=== PATIENT | male | born 1955 | race Caucasian/White ===

== ENCOUNTER 2024-02-12 11:17 | Outpatient (AMB) | payer OTHER, SELFPAY ==
--- NOTE | 2024-02-12 11:27 | MHC.PC.OV ---
Vital Signs 02/12/24 11:39 Height 5 ft 10 in Weight 275 lb BMI 39.5 BP 126/72 Blood Pressure Location Rt brachial Position Sitting Pulse 93 Pulse Source Pulse Oximeter Pulse Oximetry (%) 91 L Oxygen Delivery Method Room Air Intake Visit Reasons: EST CARE Intake Note: New patient visit Custom Seamstress Required: No Allergies Iodinated Contrast Media Allergy (Severe, Verified 02/12/24 11:31) Hives doxycycline Allergy (Mild, Verified 02/12/24 11:31) Vomiting Tobacco use date assessed: 02/12/24 Fall risk assessment: 1 Fall in past year Last assessed Fall Risk: 02/12/24 Dental Screening Dental Screen Date: 02/12/24 Did you have a dental visit in the last 12 months?: Yes Did you have a dental problem in the last 6 months where you did not have access to dental care?: No Was dental information given to patient?: Patient has dentist HPI HPI Comments History of Present Illness Details Patient is a 68-year-old male with insulin-dependent diabetes, prostate cancer, hypertension, neuropathy, [facility]ERD [facility] Type 2 diabetes: POC A1C 8.9% today.. On dexcom 7. On Lantus 55 units nightly and aspart t.i.d. CC as well as glipizide 20 mg daily. Neuropathy on Lyrica 200 mg twice daily. His most recent A1c was 9.3 12/12/2023. He was previously on ozempic and jardiance. Tried CGM katina Heme/Onc: Prostate cancer in 2017. What the there is Follows with Dr. Jacobs. On bicalutamide, oxybutynin. On prolia He was hospitalized at the end of November for COVID-19 and hyperglycemia. Requests pulmonary referral. Colonoscopy at age 51 LDCT ROS CONSTITUTIONAL: Denies weight loss, fever and chills. HEENT: Denies changes in vision and hearing. RESPIRATORY: Denies SOB and cough. CV: Denies palpitations and CP GI: Denies abdominal pain, nausea, vomiting and diarrhea. : Denies dysuria and urinary frequency. MSK: Denies new myalgia and joint pain. SKIN: Denies rash and pruritus. NEUROLOGICAL: Denies headache PSYCHIATRIC: Denies recent changes in mood. PHYSICAL EXAM: GENERAL: Alert and oriented x 3. NAD EYES: EOMI. Anicteric. HENT: Moist mucous membranes. No scleral icterus. No cervical lymphadenopathy. LUNGS: Clear to auscultation bilaterally. CARDIOVASCULAR: Regular rate and rhythm. No murmur. No JVD. ABDOMEN: Soft, non-tender +bs EXTREMITIES: No edema. Non-tender. SKIN: No rashes or lesions. Warm. NEUROLOGIC: No focal neurological deficits. CN II-XII grossly intact PSYCHIATRIC: Cooperative. Appropriate mood and affect [facility] Medical History Hernia Surgical History H/O vasectomy History of hernia surgery Family History Sister FH: mental illness Substance abuse Mother Diabetes Social History Housing: House Alcohol intake: current Patient Tobacco Use Status: Former Tobacco user Cigarette Packs Per Day: 4 Years Smoked: 35 e-Cigarette/Vaping Use: Never Used Second Hand Smoke Exposure: No Cognitive needs: No Hearing needs: No Vision needs: Yes (glasses) Questionnaire PHQ-9 Over the last 2 weeks, how often have you been bothered by any of the following problems? 1. Little interest or pleasure in doing things: more than half the days 2. Feeling down, depressed, or hopeless: several days 3. Trouble falling or staying asleep, or sleeping too much: nearly every day 4. Feeling tired or having little energy: nearly every day 5. Poor appetite or overeating: not at all 6. Feeling bad about yourself - or that you are a failure or have let yourself or your family down: several days 7. Trouble concentrating on things, such as reading the newspaper or watching television: not at all 8. Moving or speaking so slowly that other people could have noticed. Or the opposite - being so fidgety or restless that you have been moving around a lot more than usual: not at all 9. Thoughts that you would be better off or of hurting yourself in some way: not at all Total score: 10 Depression Screening Interpretation: Positive Depression Screening Follow-up: Declines treatment Depression Screening Done: Yes 02804 - PHQ-9 Billing: Yes Source: Developed by Drs. Sandro Pineda, Vanesa Worrell, Liang Mckee and colleagues, with an educational gema from [employer]. Thrive Questionnaire Date Thrive assessed: 02/12/24 I am a: Patient What is your living situation today?: I have a steady place to live Within the past 12 months, did the food you bought not last and you didn't have the money to get more?: Never true Within the past 12 months, did you worry whether your food would run out before you got money to buy more?: Never true Do you have trouble paying for medicines?: No Do you have trouble getting transportation to medical appointments?: No Do you have trouble paying your heating and electricity bill?: No Do you have trouble taking care of your child, family member or friend?: No Do you have trouble with day-to-day activities such as bathing, preparing meals, shopping, managing finances, etc.?: No Are you currently unemployed and looking for a job?: No Are you interested in more education?: No Please select the resources that you would like help with: None Currently or been in a relationship where the following occur: No concerns reported THRIVE Score: 0 AUDIT C Alcohol Use Questionnaire (AUDIT-C) 1. How often do you have a drink containing alcohol?: Monthly or less 2. How many drinks containing alcohol do you have on a typical day when you are drinking?: 1 or 2 3. How often do you have six or more drinks on one occasion?: Never Total Score: 1 SUJATHA-7 AMB Questionnaire SUJATHA-7 Date SUJATHA - 7 assessed: 02/12/24 Feeling nervous, anxious, or on edge: 0 = Not at all Not being able to stop or control worryin = Several days Worrying too much about different things: 1 = Several days Trouble relaxin = Several days Being so restless that it is hard to sit still: 0 = Not at all Becoming easily annoyed or irritable: 0 = Not at all Feeling afraid as if something awful might happen: 3 = Nearly every day Total SUJATHA-7 score (0-4 normal; 5-9 mild; 10-14 moderate; 15-21 severe): 6 Source: Developed by Vanesa Salazar.W. Gm, Liang Mckee and colleagues, with an educational gema from [employer]. SUJATHA-7 Assessment Billing SUJATHA-7 Assessment Tool: SUJATHA-7 Assessment 46988 Physical exam (Primary Care) Vital Signs: Last Vital Signs Pulse 93 02/12/24 11:39 BP 126/72 02/12/24 11:39 Pulse Ox 91 L 02/12/24 11:39 Oxygen Delivery Method Room Air 02/12/24 11:39 BMI result Body Mass Index 39.5 Tobacco/Smoking Status: Tobacco use Status Tobacco use date assessed 02/12/24 02/12/24 11:44 Patient Tobacco Use Status Former Tobacco user 02/12/24 11:44 e-Cigarette/Vaping Use Never Used 02/12/24 11:44 PHQ-9: PHQ-9 Score PHQ-9: Total score 10 02/14/24 11:34 Depression Screening Interpretation: Positive Depression Screening Follow-up: Declines treatment Thrive Assessment: Date of Thrive Assessment Date Thrive assessed 02/12/24 02/12/24 11:49 Currently or been in a relationship where the following occur: No concerns reported Results AMB Hemoglobin A1c AMB Hemoglobin A1c 8.9 % Last Edit by Trupti Murray CMA on 02/12/24 12:00 Results Reviewed Results Reviewed: Laboratory Last Values Hgb A1c (Clinic) 8.9 % (4.0-6.0) H 02/12/24 11:59 Coding Level of Care Code Est Pt Level 5 (38700) Diagnoses Type 2 diabetes mellitus with hyperglycemia, with long-term current use of insulin E11.65; Z79.4 Diabetes mellitus complication status: with hyperglycemia Diabetes mellitus terminal superintendent insulin use: with skilled nursing use Type 2 diabetes mellitus with hyperglycemia, with long-term current use of insulin E11.65; Z79.4 Diabetes mellitus complication status: with hyperglycemia Chronic obstructive pulmonary disease, unspecified COPD type J44.9 COPD type: unspecified COPD Additional Codes SUJATHA-7 Assessment Billing - SUJATHA-7 Assessment Tool: SUJATHA-7 Assessment 05272 ([id number]) PHQ-9 - 20115 - PHQ-9 Billing: Yes ([id number]) Assessment & Plan Assessment & Plan (1) Type 2 diabetes mellitus: Code(s): E11.9 - Type 2 diabetes mellitus without complications Category: Medical Qualifiers: Diabetes mellitus complication status: with hyperglycemia Diabetes mellitus skilled nursing insulin use: with skilled nursing use Qualified Code(s): E11.65 - Type 2 diabetes mellitus with hyperglycemia; Z79.4 - USP (current) use of insulin Plan: Increase sliding scale Continue current Lantus dose Restart Jardiance Start Mounjaro Return in one month for CGM check (2) Insulin use (long-term) in type 2 diabetes: Code(s): E11.9 - Type 2 diabetes mellitus without complications; Z79.4 - USP (current) use of insulin Category: Medical Qualifiers: Diabetes mellitus complication status: with hyperglycemia Qualified Code(s): E11.65 - Type 2 diabetes mellitus with hyperglycemia; Z79.4 - USP (current) use of insulin Plan: see above (3) COPD (chronic obstructive pulmonary disease): Code(s): J44.9 - Chronic obstructive pulmonary disease, unspecified Category: Medical Qualifiers: COPD type: unspecified COPD Qualified Code(s): J44.9 - Chronic obstructive pulmonary disease, unspecified Plan: referral to pulmonary. No current exacerbation Orders: Orders AMB Hemoglobin A1c 02/12/24 E11.9 - Type 2 diabetes mellitus without complications Comprehensive Met. Panel 3 Months E11.9 - Type 2 diabetes mellitus without complications, J44.9 - Chronic obstructive pulmonary disease, unspecified, R09.02 - Hypoxemia, Z79.4 - terminal superintendent (current) use of insulin Lipid Panel 3 Months E11.9 - Type 2 diabetes mellitus without complications, J44.9 - Chronic obstructive pulmonary disease, unspecified, R09.02 - Hypoxemia, Z79.4 - USP (current) use of insulin TSH reflex Free T4 3 Months E11.9 - Type 2 diabetes mellitus without complications, J44.9 - Chronic obstructive pulmonary disease, unspecified, R09.02 - Hypoxemia, Z79.4 - USP (current) use of insulin Complete Blood Count Auto Diff 3 Months E11.9 - Type 2 diabetes mellitus without complications, J44.9 - Chronic obstructive pulmonary disease, unspecified, R09.02 - Hypoxemia, Z79.4 - terminal superintendent (current) use of insulin Hemoglobin A1c 3 Months E11.9 - Type 2 diabetes mellitus without complications, J44.9 - Chronic obstructive pulmonary disease, unspecified, R09.02 - Hypoxemia, Z79.4 - USP (current) use of insulin Referrals Pulmonology Referral J44.9 - Chronic obstructive pulmonary disease, unspecified, R09.02 - Hypoxemia Dermatology Referral L98.9 - Disorder of the skin and subcutaneous tissue, unspecified Orthopedics Referral M25.521 - Pain in right elbow Open Access Screening Colonoscopy Referral Z12.11 - Encounter for screening for malignant neoplasm of colon, Z12.12 - Encounter for screening for malignant neoplasm of rectum Medications: New Jardiance (empagliflozin) 25 mg PO DAILY 90 tabs 3RF NS Dexcom G7 Sensor (blood-glucose sensor) once every 10 days 9 ea 3RF NS E11.9 - Type 2 diabetes mellitus without complications, Z79.4 - terminal superintendent (current) use of insulin omeprazole 20 mg PO DAILY 90 caps 3RF Novolog FlexPen U-100 Insulin (insulin aspart U-100) 1 sliding scale dose subcut USEASDIRECTD 45 mL 3RF 90 days NS Mounjaro (tirzepatide) for 4 weeks 2.5 mg (0.5 mL) subcut QWEEK 2 mL 0RF NS Dexcom G7 Gunstock Spray Unit Adjuster (blood-glucose meter,continuous) As directed 1 ea 0RF NS
[2024-02-12 11:39] VITALS: BP 126/72; PULSE 93; O2SAT 91; BMI 39.5
== END 2024-02-12 12:27 | disposition home or self-care (01) ==
PROVIDERS: PCP Internal Medicine; Visit Provider Internal Medicine
DX: E11.9 Type 2 diabetes mellitus without complications (principal)

== ENCOUNTER → 2024-02-12 11:17 | Outpatient (BNVA) | payer OTHER, SELFPAY | PROVIDERS: PCP Internal Medicine; Visit Provider Internal Medicine | DX: E11.65 Type 2 diabetes mellitus with hyperglycemia (principal); J44.9 Chronic obstructive pulmonary disease, unspecified; Z79.4 Long term (current) use of insulin | CPT/HCPCS: 83036; 96127 ==

== ENCOUNTER 2024-03-13 14:25 | Outpatient (AMB) | payer OTHER, SELFPAY ==
--- NOTE | 2024-03-13 14:33 | MHC.OFFVIS ---
Vital Signs 03/13/24 14:34 Height 5 ft 10 in Weight 274 lb BMI 39.3 BP 160/88 H Blood Pressure Location Lt brachial Position Sitting Respiration 16 Pulse 91 Pulse Source Pulse Oximeter Pulse Oximetry (%) 91 L Oxygen Delivery Method Room Air Intake Visit Reasons: copd/hypoxemia Pipe Finishing Supervisor Required: No Allergies Iodinated Contrast Media Allergy (Severe, Verified 03/13/24 14:36) Hives doxycycline Allergy (Mild, Verified 03/13/24 14:36) Vomiting Medication List - Last Reconciled 03/13/24 by Kim Jiménez LPN atorvastatin 10 mg PO DAILY bicalutamide 50 mg PO DAILY denosumab (Prolia) 60 mg subcut [id number] Dexcom G7 Contract Law Specialist (blood-glucose meter,continuous) As directed NS Dexcom G7 Sensor (blood-glucose sensor) once every 10 days NS glipizide ER 10 mg PO BID insulin glargine (Lantus Solostar U-100 Insulin) 55 units subcut DAILY lisinopril 30 mg PO DAILY Novolog FlexPen U-100 Insulin (insulin aspart U-100) 1 sliding scale dose subcut USEASDIRECTD 90 days NS omeprazole 20 mg PO DAILY oxybutynin chloride ER 10 mg PO DAILY pregabalin 200 mg PO BID trazodone 50 mg PO BEDTIME PRN triptorelin pamoate (Trelstar) IM HPI HPI copd/hypoxemia: Details: 68-year-old gentleman with underlying greater than 30 pack-year smoker, quit 2019 referred for pulmonary evaluation. Patient complains of intermittent dyspnea on exertion and also unrestful sleep with significant snoring and daytime sleepiness. He does have personal history of asthma as a child. He denies other family history of lung disease. 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 REPLACED BY [facility] Medical History Hernia Surgical History H/O vasectomy History of hernia surgery Family History Sister FH: mental illness Substance abuse Mother Diabetes Social History Housing: House Alcohol intake: current Patient Tobacco Use Status: Former Tobacco user Cigarette Packs Per Day: 4 Years Smoked: 35 e-Cigarette/Vaping Use: Never Used Second Hand Smoke Exposure: No Cognitive needs: No Hearing needs: No Vision needs: Yes (glasses) Review of Systems Const Reports daytime sleepiness, Denies excessive sweating, Reports fatigue, Denies fever(s), Reports lethargy, Denies malaise, Denies night sweats, Reports snoring and Denies weight loss Eyes Denies blurry vision and Denies itchy eyes ENT Denies nasal congestion, Denies post nasal drip, Denies sinus pain, Denies sinus pressure and Denies other ( Thrush) Card Denies chest pain, Denies pedal edema, Denies dyspnea, Denies orthopnea and Denies paroxysmal nocturnal dyspnea Resp Denies cough, Denies hemoptysis, Denies excessive phlegm production, Denies dyspnea, Reports snoring and Denies wheezing GI Denies abdominal pain and Denies heartburn Musc Denies myalgias, Denies arthralgias and Denies joint swelling Skin/Breast Denies rash Neuro Denies memory loss and Denies seizure-like activity Psych Denies abnormal sleep pattern, Denies anxiety and Denies memory loss Endo Denies excessive sweating, Reports fatigue and Denies heat intolerance Jackson/Lymph Denies easy bruising Aller/Immun Denies itchy eyes, Denies seasonal rhinorrhea and Denies wheezing Physical Exam Vital Signs: Last Vital Signs Pulse 91 03/13/24 14:34 Resp 16 03/13/24 14:34 BP 160/88 H 03/13/24 14:34 Pulse Ox 91 L 03/13/24 14:34 Oxygen Delivery Method Room Air 03/13/24 14:34 BMI result Body Mass Index 39.3 Const General: no acute distress and alert Nutritional Appearance: obese Orientation/consciousness: Other orientation findings ( oriented) HEENT Head: Yes atraumatic Eyes General: appearance normal, both eyes and all related structures Sclerae: sclerae normal EOM: EOMs intact bilaterally Neck Neck: Yes supple Lymphatic: no lymphadenopathy noted Resp Effort & Inspection: normal respiratory effort and no use of accessory muscles Auscultation: clear to auscultation bilaterally Cardio Rate: regular rate Rhythm: regular rhythm Heart sounds: no gallops, no murmurs and no rubs Skin General skin exam: other ( warm) Extrem General: No clubbing, No cyanosis and No edema Assessment & Plan Assessment & Plan (1) COPD (chronic obstructive pulmonary disease): Code(s): J44.9 - Chronic obstructive pulmonary disease, unspecified Category: Medical Qualifiers: COPD type: unspecified COPD Qualified Code(s): J44.9 - Chronic obstructive pulmonary disease, unspecified Plan: Likely underlying COPD of unclear severity. Patient states that he had recent testing at [facility], will obtain PFT and lung cancer screening CT chest results. Will start on empiric Anoro and reassess symptoms in 1 months. (2) BUTCH (obstructive sleep apnea): Code(s): G47.33 - Obstructive sleep apnea (adult) (pediatric) Category: Medical Plan: Unrestful sleep, daytime sleepiness, snoring. [place] Sleepiness Scale score of 15. Will obtain home sleep study. Orders: Orders RT home sleep study Today G47.33 - Obstructive sleep apnea (adult) (pediatric) Medications: New umeclidinium-vilanterol 62.5-25 mcg/actuation (Anoro Ellipta) 1 inh inhalation DAILY 1 ea 6RF Coding Level of Care Code New Pt Level 4 (30577) Diagnoses Chronic obstructive pulmonary disease, unspecified COPD type J44.9 COPD type: unspecified COPD BUTCH (obstructive sleep apnea) G47.33
[2024-03-13 14:34] VITALS: BP 160/88; PULSE 91; RESP 16; O2SAT 91; BMI 39.3
--- OUTSIDE RECORDS SUMMARY | 2024-03-13 16:36 | XMS_ITS ---
Author Organization [employer] [facility] Address [address] [place] [phone] Care Team Providers Care Primary Care Sales Representative Name Role Phone JAD SORENSEN Primary Care Provider [phone] JEB MARTÍNEZ Unavailable [phone] ALLERGIES Allergen (clinical drug ingredient) Drug/Non Drug Allergy documented on EMR Reaction Allergy Type Onset Date Status doxycycline Doxycycline stomach upset Drug Allergy Active Gadolinium hives Drug Allergy Active REASON FOR VISIT f/u meds MEDICATIONS Medication SIG (Take, Route, Frequency, Duration) Notes Start Date End Date Status FreeStyle Aide 3 Sensor - as directed for 90 days 11/25/2022 Not-Taking Bicalutamide 50 MG 1 tablet Orally Once a day Not-Taking Vitamin D2 15626 IU Not-Takin g Azithromycin 250 MG as directed Orally daily for 5 days 06/14/2023 Active Ozempic (0.25 or 0.5 MG/DOSE) 2 MG/3ML 0.5mg Subcutaneous weekly for 28 days 06/14/2023 Active oxyBUTYnin Chloride ER 10 MG 1 tablet Orally Once a day for 90 days 06/06/2023 07/06/2023 Active Atorvastatin Calcium 10 MG TAKE 1 TABLET BY MOUTH EVERY DAY for 90 Active Ozempic (0.25 or 0.5 MG/DOSE) 2 MG/3ML 0.5mg Subcutaneous once a week for 90 days 04/26/2023 Not-Taking Jardiance 25 MG 1 tablet Orally Once a day for 90 days 09/12/2023 Active Ozempic (0.25 or 0.5 MG/DOSE) 2 MG/3ML 0.5mg Subcutaneous once a week for 90 days 04/26/2023 Not-Taking glipiZIDE 10 MG 1 tablet Orally Twice a day for 90 days Active Pregabalin 200 MG 1 Capsule Orally Twice a day Active Prolia 60 MG/ML as directed Subcutaneous Every 6 month Active Lisinopril 20 MG 1 tablet Orally Once a day for 90 days Active traZODone HCl 50 MG TAKE 1 TABLET BY MOUTH EVERY DAY AT BEDTIME NEEDED for 90 Active Trelstar Every 3 months Active Vitamin D3 50 MCG (1999) 1 capsule Orally Once a day Active SOCIAL HISTORY Tobacco Use: Social History Observation Description Date Details (start date - stop date) Current Smoker NA - NA Sex Assigned At : Social History Observation Description Sex Assigned At Unknown Tobacco Use/Smoking Question Answer Notes Tobacco use: current smoker When did you start smoking? 02-13-1973 How often do you smoke cigarettes? every day How many cigarettes a day do you smoke? 5 or les s Additional Findings: Tobacco User Very h eavy cigarette smoker (40+ cigs/day) Section Notes: Lives in [facility] with his , youngest daughter and grandsone. 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 VITAL SIGNS Blood pressure systolic 114 mm Hg 06/14/19 24 Blood pressure diastolic 72 mm Hg 024 Heart Rate 87 /min 06/14/2023 Height 69.5 in 06/14/2023 Weight 259.0 lbs 06/14/2023 BMI 37.7 kg/m2 06/14/2023 Oximetry 97 % 06/14/2023 Height-cm 176.53 cm 06/14/2023 Weight-kg 117.48 kg 06/14/2023 Encounters Encounter Location Date Provider Diagnosis [address] [id number] 06/14/2023 JEB MARTÍNEZ Type 2 diabetes mellitus with diabetic chronic kidney disease E11.22 and Upper respiratory tract infection, unspecified type J06.9 ASSESSMENTS Encounter Date Diagnosis Assessment Notes Treatment Notes Treatment Clinical Notes Section Notes 06/14/2023 Type 2 diabetes mellitus with diabetic chronic kidney disease (ICD-10 - E11.22) Pt has improved control with the ozempic Will order the 0.5mg weekly with PA still pending Jardiance PA still pending with samples provided along with coupon card Continues to decline CGM Continue to encourage checking blood sugars 06/14/2023 Upper respiratory tract infection, unspecified type (ICD-10 - J06.9) Given comorbidities and just over a week with cough will start azithromycin Mucines DM scheduled Fluids 06/14/2023 Other Total time spent with patient 20 minutes which includes face to face visit, education and coordination of care. 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 practice PLAN OF TREATMENT Medication Medication Name Sig Start Date Stop Date Notes Azithromycin 250 MG as directed Orally d aily for 5 days 06/14/2023 Ozempic (0.25 or 0.5 MG/DOSE ) 2 MG/3ML 0.5mg Subcutaneous weekly for 28 days 06/14/2023 Jardiance 25 MG 1 tablet Orally Once a day for 90 days 09/12/2023 Treatment Notes Assessment Notes Type 2 diabetes mellitus wit h diabetic chronic kidney disease Pt has improved control with the ozempic Will order the 0.5mg weekly with PA still pending Jardiance PA still pending with samples provided along with coupon card Continues to decline CGM Continue to encourage checking blood sugars Upper respiratory tract infe ction, unspecified type Given comorbidities and just over a week with cough will start azithromycin Mucines DM scheduled Fluids Other Total time spent with patient 20 minutes which includes face to face visit, education and coordination of care. 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 Reynaldo Lares.? Providers/Specialists: Receiving Worker Holger Fox Providers/Specialists: Receiving Worker Holger Fox. ?Visit info:? Andrez presents today for f/u med review. ?He states that he's out of the Ozempic, took the 6wks of samples, pending PA - last dose last Monday. ?-Pt slipped on stairs last week landed on buttocks and back; fell down 4 stairs. States only had sore mid back. No numbness or tingling of legs ?-Continues to only take BS occasionally but noted fasting blood sugars improved to 120's ?-Also for the last week has been coughing; feels in the chest, rattling. Household had URI ?-No SOB, CP or fever. * ROS:?all systems reviewed and are non-contributory unless specified in the HPI. * Medical History:?? * Surgical History:??Kidney tenorio rgery to remove nodules 2018Hernia Surgery 2016Wisdom Teeth Removal Deviated Septum Surgery * Hospitalization/Major Diagno stic Procedure:?? * Family History:??Father: dec eased, emphysema.??Mother: , Diabetes II.??Paternal Grandfather: , Unknown.??Paternal Grandmother: , Unknown.??Maternal Grandfather: , Unknown.??Maternal Grandmother: , Unknown.??Brother: , Heart Attack.??Sister: , Peritinitis.??Son: 33 yrs, Suicide.??Sister #2: , Unknown.?? * Social History:?Tobacco Use:??Tobacco Use/Smoking??Tobacco use:??current smoker,??When did you start smoking???02-13-1973,??How often do you smoke cigarettes???every day,??How many cigarettes a day do you smoke???5 or less,??Additional Findings: Tobacco User??Very heavy cigarette smoker (40+ cigs/day).?Drugs/Alcohol:??Do you smoke marijuana?: Denies. Do you drink alcohol?: Yes, occasional - once a year Joaquin.. ?Lives in [place], [place] with his , youngest daughter and grandsone. 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 * Medications:??TakingJardianc e 25 MG Tablet 1 tablet Orally Once a day Vitamin D3 50 MCG (1999) Capsule 1 capsule Orally Once a day Trelstar , Notes to Pharmacist: Every 3 monthsProlia 60 MG/ML Solution Prefilled Syringe as directed Subcutaneous , Notes to Pharmacist: Every 6 monthPregabalin 200 MG Capsule 1 Capsule Orally Twice a day traZODone HCl 50 MG Tablet TAKE 1 TABLET BY MOUTH EVERY DAY AT BEDTIME NEEDED Lisinopril 20 MG Tablet 1 tablet Orally Once a day glipiZIDE 10 MG Tablet 1 tablet Orally Twice a day take before mealsoxyBUTYnin Chloride ER 10 MG Tablet Extended Release 24 Hour 1 tablet Orally Once a day , stop date 07/06/2023torvastatin Calcium 10 MG Tablet TAKE 1 TABLET BY MOUTH EVERY DAY Taking Jardiance 25 MG Tablet 1 tablet Orally Once a day Taking Vitamin D3 50 MCG (1999 [place]) Capsule 1 capsule Orally Once a day Taking Trelstar , Notes to Pharmacist: Every 3 monthsTaking Prolia 60 MG/ML Solution Prefilled Syringe as directed Subcutaneous , Notes to Pharmacist: Every 6 monthTaking Pregabalin 200 MG Capsule 1 Capsule Orally Twice a day Taking traZODone HCl 50 MG Tablet TAKE 1 TABLET BY MOUTH EVERY DAY AT BEDTIME NEEDED Taking Lisinopril 20 MG Tablet 1 tablet Orally Once a day Taking glipiZIDE 10 MG Tablet 1 tablet Orally Twice a day take before mealsTaking oxyBUTYnin Chloride ER 10 MG Tablet Extended Release 24 Hour 1 tablet Orally Once a day , stop date 07/06/2023Taking Atorvastatin Calcium 10 MG Tablet TAKE 1 TABLET BY MOUTH EVERY DAY Not- TakingOzempic (0.25 or 0.5 MG/DOSE) 2 MG/3ML Solution Pen-injector 0.5mg Subcutaneous once a week Ozempic (0.25 or 0.5 MG/DOSE) 2 MG/3ML Solution Pen-injector 0.5mg Subcutaneous once a week Vitamin D2 , Notes to Pharmacist: 03405 IUBicalutamide 50 MG Tablet 1 tablet Orally Once a day FreeStyle Aide 3 Sensor - Miscellaneous as directed change sensor every 14 daysMedication List reviewed and reconciled with the patientNot-Taking Ozempic (0.25 or 0.5 MG/DOSE) 2 MG/3ML Solution Pen-injector 0.5mg Subcutaneous once a week Not-Taking Ozempic (0.25 or 0.5 MG/DOSE) 2 MG/3ML Solution Pen-injector 0.5mg Subcutaneous once a week Not-Taking Vitamin D2 , Notes to Pharmacist: 30877 IUNot-Taking Bicalutamide 50 MG Tablet 1 tablet Orally Once a day Not-Taking FreeStyle Aide 3 Sensor - Miscellaneous as directed change sensor every 14 daysMedication List reviewed and reconciled with the patient * Allergies:??Doxycycline: sto mach upset - AllergyGadolinium: hives - Allergy Objective: * Vitals:??BP:114/72mm Hg, HR: 87/min, Oxygen sat %:97%, Wt:259.0lbs, Wt-k.48 kg, Ht: 69.5 in, Ht-cm: 176.53 cm, BMI:37.7Index, Body Surface Area: 2.4. * Examination: ?General Examination: ?GEN: NAD, speaking in full complete sentences, thoughts clear and appropriate ?RESP: nonlabored breathing, lungs clear/equal all zaidi ?CV: S1S2 regular ?NEURO: AO x 3 ?PSYCH: judgment/insight intact, NL mood/affect. Assessment: * Assessment: 1.??Type 2 diabetes mellitus with diabetic chronic kidney disease - E11.22 (Primary)??2.??Upper respiratory tract infection, unspecified type - J06.9?? Plan: * Treatment: 2.??Upper respiratory tract infection, unspecified type?? Start Azithromycin Tablet, 250 MG, as directed, Orally, daily take 2 tabs day one then one tab daily for 4 daily, 5 days, 6.? Notes: Given comorbidities and just over a week with cough will start azithromycin Mucines DM scheduled Fluids ? 3.??Others?? Notes: Total time spent with patient 20 minutes which includes face to face visit, education and coordination of care. 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 * Procedure Codes:?? * Preventive Medicine:?Last CPE: 2020 Colonoscopy: Yes, over 10 years ago - polyps found Endoscopy: No COVID Vac: Yes, 3 boosters - Newest COVID Shot, yes FLU Vac: Yes for Shingles Vac: No PV: Yes (2). * Billing Information: * Visit Code:?? 32773 Office Visit, Est Pt., Level 3. * Procedure Codes:?? * Sign off status: Completed true * Provider:??JEB MARTÍNEZ NP Date:?? History and Physical Notes * HPI (History of Present Illness) Category Sub-Category Detail Notes Category Not es Patient Care Team Oncologist: Dr. Jacobs , Dr. Weir on Providers/Specialists : Receiving Workersandy Fox Providers/Specialists : Receiving Worker Holger Fox Examination Category Sub-Category Detail Notes Category Not es General Examination GEN: NAD, speaking in full complete sentences, thoughts clear and appropriate RESP: nonlabored breathing, lungs clear/equal all zaidi CV: S1S2 regular NEURO: AO x 3 PSYCH: judgment/insight intact, NL mood/affect
--- OUTSIDE RECORDS SUMMARY | 2024-03-13 16:36 | XMS_ITS | Patient Health Record ---
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 Name Role Phone Damaris Ponce Primary Care Provider CHRISTY Huertas Unavailable [phone] Allergies Allergen (clinical drug ingredient) Drug/Non Drug Allergy documented on EMR Reaction Allergy Type Onset Date Status IV contrast dye (uncoded) hives Allergy Active doxycycline Doxycycline vomiting Drug Allergy Act adonay Reason For Referral No Information Medications Medication SIG (Take, Route, Frequency, Duration) Notes Start Date End Date Status NovoLOG 100 UNIT/ML as directed Injection sliding scale Active Gabapentin 600 MG 1 tablet Orally 3 times daily Not-Taking Lyrica 200 MG 1 capsule Orally Twice a day for 90 days 01/19/2023 Not-Taking Bicalutamide 50 MG 1 tablet Orally Once a day Not-Taking Ozempic 2.5mg once a day Not-Taking Lyrica 200 MG 1 capsule Orally Twice a day for 90 days 03/08/2024 Active Pregabalin 200 MG 1 capsule Orally twice daily for 90 days 02/09/2024 Active Terbinafine HCl 250 MG 1 tablet Orally Once a day for 90 days 10/02/2020 Not-Taking Atorvastatin Calcium 10 MG 1 tablet Orally Once a day Active Gabapentin 100 MG 1 capsule Orally see instructions for 60 days weaning him off the medication- first 2 weeks 800mg PO TID, next 2 weeks take 600mg PO TID, week 4 take 400mg PO TID, week 6 take 200mg PO TID, week 8 take 100 mg TID 12/27/2019 Not-Taking traZODone HCl 50 MG 1 tablet at bedtime as needed Orally Once a day Active Gabapentin 800 MG 1 tablet Orally three times a day for 30 day(s) 10/04/2019 Not-Taking Lisinopril 20 MG 1 tablet Orally Once a day Active Aspirin daily Not-Taking oxyBUTYnin Chloride ER 10 MG 2 tablets Orally Once a day Active Empagliflozin 10 MG 1 tablet Orally Once a day Not-Taking Lantus 100 UNIT/ML as directed Subcutaneous Active Bisacodyl 5 MG 1 tablet as needed Orally as directed Not-Taking Problems Problem Type SNOMED Code ICD Code Onset Dates Problem Status W/U Status Risk Notes Problem Polyneuropathy due to type 2 diabetes mellitus (472814867) Controlled type 2 diabetes mellitus with diabetic polyneuropathy , without long-term current use of insulin (E11.42) Active confirmed Problem 983750640 Arthritis, midfoot (M19.079) Active confirmed Problem 835366314 Arthritis of foot (M19.079) Active confirmed Vital Signs Heart Rate 107 /min 03/08/2024 Temperature 97.1 degrees Fahrenheit 03/08/2024 Respiratory Rate 16 /min 03/08/2024 Height 5ft 9in in 03/08/2024 Weight 273.4 lbs 03/08/2024 BMI 40.37 kg/m2 03/08/2024 Procedures Procedure Date Ordered Date Performed Result Body Sit e DRAIN/INJECT, INTERMEDIATE JOINT/BURSA 03/08/2024 N/A Encounters Encounter Location Date Provider Diagnosis [facility] [address] [address] 04/17/2023 CHRISTY WILHELM Controlled type 2 diabetes mellitus with diabetic polyneuropathy, without long-term current use of insulin E11.42 ; Dystrophic nail L60.3 ; Onychomycosis B35.1 ; Pain in right toe(s) M79.674 ; Pain in left toe(s) M79.675 and Arthritis of foot M19.079 [facility] [address] [id number] 07/21/2023 CHRISTY WILHELM Controlled type 2 diabetes mellitus with diabetic polyneuropathy, without long-term current use of insulin E11.42 ; Dystrophic nail L60.3 ; Onychomycosis B35.1 ; Pain in right toe(s) M79.674 ; Pain in left toe(s) M79.675 and Arthritis of foot M19.079 [facility] [address] 12/06/2023 CHRISTY WILHELM Controlled type 2 diabetes mellitus with diabetic polyneuropathy, without long-term current use of insulin E11.42 ; Dystrophic nail L60.3 ; Onychomycosis B35.1 ; Pain in right toe(s) M79.674 ; Pain in left toe(s) M79.675 and Arthritis of foot M19.079 [facility] [address] 03/08/2024 CHRISTY WILHELM Controlled type 2 diabetes mellitus with diabetic polyneuropathy, without long-term current use of insulin E11.42 ; Dystrophic nail L60.3 ; Onychomycosis B35.1 ; Pain in right toe(s) M79.674 ; Pain in left toe(s) M79.675 and Arthritis of foot M19.079 [facility] [address] 05/05/2023 CHRISTY WILHELM [facility] [address] 05/08/2023 CHRISTY WILHELM [facility] [address] 09/20/2023 CHRISTY WILHELM [facility] [address] 11/07/2023 CHRISTY WILHELM Controlled type 2 diabetes mellitus with diabetic polyneuropathy, without long-term current use of insulin E11.42 [facility] [address] 02/09/2024 CHRISTY WILHELM [facility] [address] 03/11/2024 CHRISTY WILHELM Assessments Encounter Date Diagnosis (ICD Code) Assessment Notes Treatment Notes Treatment Clinical Notes Section Notes 04/17/2023 Controlled type 2 diabetes mellitus with diabetic polyneuropathy, without long-term current use of insulin (ICD-10 - E11.42) Discussed with patient regarding proper glucose control, exercise, and diet. Explained to patient proper shoe gear, and importance of daily foot checks. I educated the patient on proper blood sugar control and the importance of an HgBA1c of less than 7.0%. I reviewed the signs and symptoms of neuropathy with the patient. I explained his pain is due to his neuropathy. We discussed alternative options. We discussed increasing the Lyrica. He is to continue using the Lyrica but increase to 200 mg PO BID. We discussed that neuropathy pain is difficult to treat and oral medications may not resolve all his symptoms as diabetic control is most important. Patient is in agreement with the plan. 07/21/2023 Controlled type 2 diabetes mellitus with diabetic polyneuropathy, without long-term current use of insulin (ICD-10 - E11.42) Discussed with patient regarding proper glucose control, exercise, and diet. Explained to patient proper shoe gear, and importance of daily foot checks. I educated the patient on proper blood sugar control and the importance of an HgBA1c of less than 7.0%. I reviewed the signs and symptoms of neuropathy with the patient. I explained his pain is due to his neuropathy. We discussed alternative options. We discussed increasing the Lyrica. He is to continue using the Lyrica but increase to 200 mg PO BID. We discussed that neuropathy pain is difficult to treat and oral medications may not resolve all his symptoms as diabetic control is most important. Patient is in agreement with the plan. 11/07/2023 Controlled type 2 diabetes mellitus with diabetic polyneuropathy, without long-term current use of insulin (ICD-10 - E11.42) 12/06/2023 Controlled type 2 diabetes mellitus with diabetic polyneuropathy, without long-term current use of insulin (ICD-10 - E11.42) Discussed with patient regarding proper glucose control, exercise, and diet. Explained to patient proper shoe gear, and importance of daily foot checks. I educated the patient on proper blood sugar control and the importance of an HgBA1c of less than 7.0%. I reviewed the signs and symptoms of neuropathy with the patient. I explained his pain is due to his neuropathy. He is to continue using the Lyrica 200 mg PO BID. We discussed that neuropathy pain is difficult to treat and oral medications may not resolve all his symptoms as diabetic control is most important. Patient is in agreement with the plan. 03/08/2024 Controlled type 2 diabetes mellitus with diabetic polyneuropathy, without long-term current use of insulin (ICD-10 - E11.42) Discussed with patient regarding proper glucose control, exercise, and diet. Explained to patient proper shoe gear, and importance of daily foot checks. I educated the patient on proper blood sugar control and the importance of an HgBA1c of less than 7.0%. I reviewed the signs and symptoms of neuropathy with the patient. I explained his pain is due to his neuropathy. He is to continue using the Lyrica 200 mg PO BID. We discussed that neuropathy pain is difficult to treat and oral medications may not resolve all his symptoms as diabetic control is most important. Patient is in agreement with the plan. 03/08/2024 Dystrophic nail (ICD-10 - L60.3) He has 5% involvement of bruising under the left hallux. We discussed these will grow out as the toenails grow. He does not need further intervention at this time. Aseptic debridement of toenails x 10 with eyeglass lens cutter and curette, pt tolerated well. Discussed with the patient that routine nail care services are only covered by insurance every 60 days. Pt understands that if they would like to return prior to this time frame, they may have to pay out of pocket. 12/06/2023 Dystrophic nail (ICD-10 - L60.3) He has 5% involvement of bruising under the left hallux. We discussed these will grow out as the toenails grow. He does not need further intervention at this time. Aseptic debridement of toenails x 10 with eyeglass lens cutter and curette, pt tolerated well. Discussed with the patient that routine nail care services are only covered by insurance every 60 days. Pt understands that if they would like to return prior to this time frame, they may have to pay out of pocket. 07/21/2023 Dystrophic nail (ICD-10 - L60.3) He has 5% involvement of bruising under the left hallux. We discussed these will grow out as the toenails grow. He does not need further intervention at this time. Aseptic debridement of toenails x 10 with eyeglass lens cutter and curette, pt tolerated well. Discussed with the patient that routine nail care services are only covered by insurance every 60 days. Pt understands that if they would like to return prior to this time frame, they may have to pay out of pocket. 04/17/2023 Dystrophic nail (ICD-10 - L60.3) He has 5% involvement of bruising under the left hallux. We discussed these will grow out as the toenails grow. He does not need further intervention at this time. Aseptic debridement of toenails x 10 with eyeglass lens cutter and curette, pt tolerated well. Discussed with the patient that routine nail care services are only covered by insurance every 60 days. Pt understands that if they would like to return prior to this time frame, they may have to pay out of pocket. 04/17/2023 Onychomycosis (ICD-10 - B35.1) I reviewed with the patient various treatment methods for toenail fungus including: topical, oral, laser, and removal of the infected toenails. 07/21/2023 Onychomycosis (ICD-10 - B35.1) I reviewed with the patient various treatment methods for toenail fungus including: topical, oral, laser, and removal of the infected toenails. 12/06/2023 Onychomycosis (ICD-10 - B35.1) I reviewed with the patient various treatment methods for toenail fungus including: topical, oral, laser, and removal of the infected toenails. 03/08/2024 Onychomycosis (ICD-10 - B35.1) I reviewed with the patient various treatment methods for toenail fungus including: topical, oral, laser, and removal of the infected toenails. 03/08/2024 Pain in right toe(s) (ICD-10 - M79.674) 07/21/2023 Pain in right toe(s) (ICD-10 - M79.674) 12/06/2023 Pain in right toe(s) (ICD-10 - M79.674) 04/17/2023 Pain in right toe(s) (ICD-10 - M79.674) 04/17/2023 Pain in left toe(s) (ICD-10 - M79.675) 12/06/2023 Pain in left toe(s) (ICD-10 - M79.675) 07/21/2023 Pain in left toe(s) (ICD-10 - M79.675) 03/08/2024 Pain in left toe(s) (ICD-10 - M79.675) 03/08/2024 Arthritis of foot (ICD-10 - M19.079) We discussed the pain in the feet is due to his arthritis and the neuropathy. I recommended he continues to wear supportive shoes. We discussed there is no cure for arthritis. Consent was reviewed and signed by the patient for a steroid injection into the left subtalar joint. Pt agreed. 3cc total steroid injection was given into the left foot. Pt tolerated well. Post-Injection instructions were given to the patient. Pt instructed to ice/elevate the foot tonight. Patient to avoid exercise related activity for the next 3-5 days. 12/06/2023 Arthritis of foot (ICD-10 - M19.079) We discussed the pain in the feet is due to his arthritis and the neuropathy. I recommended he continues to wear supportive shoes. We discussed there is no cure for arthritis. Heat typically will work better for pain. 04/17/2023 Arthritis of foot (ICD-10 - M19.079) We discussed the pain in the feet is due to his arthritis and the neuropathy. I recommended he continues to wear supportive shoes. We discussed there is no cure for arthritis. Heat typically will work better for pain. 07/21/2023 Arthritis of foot (ICD-10 - M19.079) We discussed the pain in the feet is due to his arthritis and the neuropathy. I recommended he continues to wear supportive shoes. We discussed there is no cure for arthritis. Heat typically will work better for pain. Plan Of Treatment Pending Test Test Name Order Date DRAIN/INJECT, INTERMEDIATE JOINT/BURSA 0 03/08/2024 Next Appt Details Provider Name:CHRISTY WILHELM, 06/07/2024 04:00:00 PM, [address] [facility] [address], [place], [address], Insurance Providers Payer Name Payer Address Payer Phone Subscriber Number Group Number Insured Name Patient Relationship to Insured Coverage Start Date Coverage End Date [employer] [address] [place] [phone] [id number] Andrez Gauthier Self - patient is the insured Medications Administered Medication Instructions Date of Administration Dosage Notes dexAMETHasone Sod Phosphate PF 03/08/2024 0.5 m L Kenalog 03/08/2024 0.5 mL Medical (General) History Medical History History ICD Code hypercholesterolemia hyperplastic colon polyp essential hypertension hepatic steatosis bilateral renal masses lumbar degenerative disc disease prostate cancer uncontrolled 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
--- OUTSIDE RECORDS SUMMARY | 2024-03-13 16:37 | XMS_ITS ---
Author Organization [facility] Address [address] [place] [phone] Care Team Providers Care Goring Cutter Name Role Phone JAD SORENSEN Primary Care Provider JEB MARTÍNEZ Unavailable [phone] ALLERGIES Allergen (clinical drug ingredient) Drug/Non Drug Allergy documented on EMR Reaction Allergy Type Onset Date Status doxycycline Doxycycline stomach upset Drug Allergy Active Gadolinium hives Drug Allergy Active REASON FOR VISIT F/U DIABETIC CHECK MEDICATIONS Medication SIG (Take, Route, Frequency, Duration) Notes Start Date End Date Status Lisinopril 20 MG 1 tablet Orally Once a day for 90 days Active traZODone HCl 50 MG 1 tablet at bedtime as needed Orally Once a day for 90 days Active FreeStyle Aide 3 Sensor - as directed for 90 days 11/25/2022 Not-Taking glipiZIDE 10 MG 1 tablet Orally Twice a day for 90 days Active Jardiance 25 MG TAKE 1 TABLET BY MOUTH DAILY orally Once a day for 90 days 06/05/2023 Active Atorvastatin Calcium 10 MG 1 tablet Orally Once a day for 90 days Active Pregabalin 200 MG 1 Capsule Orally Twice a day Active oxyBUTYnin Chloride ER 10 MG 1 tablet Orally Once a day for 90 days 06/05/2023 Active Prolia 60 MG/ML as directed Subcutaneous Every 6 month Active Bicalutamide 50 MG 1 tablet Orally Once a day Not-Taking Vitamin D2 45187 IU Not-Takin g Trelstar Every 3 months Active Vitamin D3 Active Ozempic (0.25 or 0.5 MG/DOSE) 2 MG/3ML 0.5mg Subcutaneous once a week for 90 days 04/26/2023 Active Ozempic (0.25 or 0.5 MG/DOSE) 2 MG/3ML 0.5mg Subcutaneous once a week for 90 days 04/26/2023 Active SOCIAL HISTORY Tobacco Use: Social History [...] smoker (40+ cigs/day) Section Notes: Lives in [facility] with his , youngest daughter and grandsone. 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 VITAL SIGNS Blood pressure systolic 118 mm Hg 04/26/19 24 Blood pressure diastolic 70 mm Hg 024 Heart Rate 89 /min 04/26/2023 Height 69.5 in 04/26/2023 Weight 259.6 lbs 04/26/2023 BMI 37.78 kg/m2 04/26/2023 Oximetry 91 % 04/26/2023 Height-cm 176.53 cm 04/26/2023 Weight-kg 117.75 kg 04/26/2023 Encounters Encounter Location Date [facility] [address] [phone] 04/26/2023 JEB MARTÍNEZ Diabetic polyneuropathy associated with type 2 diabetes mellitus E11.42 ASSESSMENTS Encounter Date Diagnosis Assessment Notes Treatment Notes Treatment Clinical Notes Section Notes 04/26/2023 Diabetic polyneuropathy associated with type 2 diabetes mellitus (ICD-10 - E11.42) Pt continues with suboptimal control Awaiting approval for jardiance with samples provided Re-ordered Ozempic and will monitor for PA Again discussed need for dietary adherance, exercise as tolerated for BS control Will hold off on blood work until on more stable meds 04/26/2023 Other Total time spen t with patient 20 minutes which includes face to face visit, education and coordination of care. PLAN OF TREATMENT Medication Medication Name Sig Start Date Stop Date Notes Ozempic (0.25 or 0.5 MG/DOSE) 2 MG/3ML 0.5mg Subcutaneous once a week 12/23/2022 Ozempic (0.25 or 0.5 MG/DOSE) 2 MG/3ML 0.5mg Subcutaneous once a week for 90 days 04/26/2023 Ozempic (0.25 or 0.5 MG/DOSE) 2 MG/3ML 0.5mg Subcutaneous once a week for 90 days 04/26/2023 Treatment Notes Assessment Notes Diabetic polyneuropathy asso ciated with type 2 diabetes mellitus Pt continues with suboptimal control Awaiting approval for jardiance with samples provided Re-ordered Ozempic and will monitor for PA Again discussed need for dietary adherance, exercise as tolerated for BS control Will hold off on blood work until on more stable meds Other Total time spent wit h patient 20 minutes which includes face to face visit, education and coordination of care. Next Appt Details Follow Up: 7-8 weeks, Reason : CPE will decide when repeat blood work Progress Notes * LUDWIG LUUDOB:1955 ( 67 yo M)Acc No.[id number]:04/26/2023 Progress Notes Patient:??LUDWIG LUU Provider:??JEB MARTÍNEZ NP :1955?Age:67 Y?Sex:Ma le Date:04/26/2023 Phone: Address:[address] [place] [id number] Pcp:JAD SORENSEN Subjective: * Chief Complaints: * ?F/U DIABETIC CHECK * HPI: ?Patient Care Team:?Oncologist:??Dr. Jacobs , Dr. Jacobs.? Providers/Specialists: Cash Management Associate Holger Fox Providers/Specialists: Cash Management Associate Holger Fox. ?Visit info:? Patient presents in the office today for a diabetes check in. 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 * ROS:?all systems reviewed and are non-contributory [...] alcohol?: Yes, occasional - once a year Veto and coke.. ?Lives in [place], [place] with his , youngest daughter and grandsone. 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 * Medications:??TakingVitamin D3 Slime , Notes to Pharmacist: Every 3 monthsProlia 60 MG/ML Solution Prefilled Syringe as directed Subcutaneous , Notes to Pharmacist: Every 6 monthPregabalin 200 MG Capsule 1 Capsule Orally Twice a day oxyBUTYnin Chloride ER 10 MG Tablet Extended Release 24 Hour 1 tablet Orally Once a day , stop date 06/05/2023torvastatin Calcium 10 MG Tablet 1 tablet Orally Once a day Lisinopril 20 MG Tablet 1 tablet Orally Once a day traZODone HCl 50 MG Tablet 1 tablet at bedtime as needed Orally Once a day glipiZIDE 10 MG Tablet 1 tablet Orally Twice a day take before mealsJardiance 25 MG Tablet TAKE 1 TABLET BY MOUTH DAILY orally Once a day , stop date 06/05/2023Taking Vitamin D3 Taking Trelstar , Notes to Pharmacist: Every 3 monthsTaking Prolia 60 MG/ML Solution Prefilled Syringe as directed Subcutaneous , Notes to Pharmacist: Every 6 monthTaking Pregabalin 200 MG Capsule 1 Capsule Orally Twice a day Taking oxyBUTYnin Chloride ER 10 MG Tablet Extended Release 24 Hour 1 tablet Orally Once a day , stop date 06/05/2023Taking Atorvastatin Calcium 10 MG Tablet 1 tablet Orally Once a day Taking Lisinopril 20 MG Tablet 1 tablet Orally Once a day Taking traZODone HCl 50 MG Tablet 1 tablet at bedtime as needed Orally Once a day Taking glipiZIDE 10 MG Tablet 1 tablet Orally Twice a day take before mealsTaking Jardiance 25 MG Tablet TAKE 1 TABLET BY MOUTH DAILY orally Once a day , stop date 06/05/2023Not-TakingVitamin D2 , Notes to Pharmacist: 78693 IUBicalutamide 50 MG Tablet 1 tablet Orally Once a day Ozempic (0.25 or 0.5 MG/DOSE) 2 MG/3ML Solution Pen-injector 0.5mg Subcutaneous once a week FreeStyle Aide 3 Sensor - Miscellaneous as directed change sensor every 14 daysMedication List reviewed and reconciled with the patientNot-Taking Vitamin D2 , Notes to Pharmacist: 23191 IUNot-Taking Bicalutamide 50 MG Tablet 1 tablet Orally Once a day Not-Taking Ozempic (0.25 or 0.5 MG/DOSE) 2 MG/3ML Solution Pen- injector 0.5mg Subcutaneous once a week Not-Taking FreeStyle Aide 3 Sensor - Miscellaneous as directed change sensor every 14 daysMedication List reviewed and reconciled with the patient * Allergies:??Doxycycline: sto mach upset - AllergyGadolinium: hives - Allergy Objective: * Vitals:??BP:118/70mm Hg, HR: 89/min, Oxygen sat %:91%, Wt:259.6lbs, Wt-k.75 kg, Ht: 69.5 in, Ht-cm: 176.53 cm, BMI:37.78Index, Body Surface Area: 2.4. * Examination: ?General Examination: ?GEN: NAD, speaking in full complete sentences, thoughts clear and appropriate ?RESP: nonlabored breathing, lungs clear/equal all zaidi ?CV: S1S2 regular ?NEURO: AO x 3 ?PSYCH: judgment/insight intact, NL mood/affect. Assessment: * Assessment: 1.??Diabetic polyneuropathy associated with type 2 diabetes mellitus - E11.42 (Primary)?? Plan: * Treatment: 2.??Others?? Notes: Total time spent with patient 20 minutes which includes face to face visit, education and coordination of care.? * Procedure Codes:?? * Preventive Medicine:?Last CPE: 2020 Colonoscopy: Yes, over 10 years ago - polyps found Endoscopy: No COVID Vac: Yes, 3 boosters - Newest COVID Shot, yes FLU Vac: Yes for Shingles Vac: No PV: Yes (2). * Follow Up:??7-8 weeks (Reaso n: CPE will decide when repeat blood work) * Billing Information: * Visit Code:?? 52198 Office Visit, Est Pt., Level 3. * Procedure Codes:?? * Sign off status: Completed true * Provider:??JEB MARTÍNEZ NP Date:?? History and Physical Notes * HPI (History of Present Illness) Category Sub-Category Detail Notes Category Not es Patient Care Team Oncologist: Dr. Jacobs , Dr. Weir on Providers/Specialists : Cash Management Associate Holger Fox Providers/Specialists : Cash Management Associate Holger Fox Visit info Patient presents in the office today for a diabetes check in. 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
--- OUTSIDE RECORDS SUMMARY | 2024-03-13 16:37 | XMS_ITS | Patient Health Record ---
Author Organization [employer] [facility] Address [address] [place] [phone] Care Team Providers Care Doughnut Machine Operator Helper Name Role Phone JAD SORENSEN Primary Care Provider PIPELAVONYOSVANYET Unavailable [phone] ALLERGIES Allergen (clinical drug ingredient) Drug/Non Drug Allergy documented on EMR Reaction Allergy Type Onset Date Status doxycycline Doxycycline stomach upset Drug Allergy Active Gadolinium hives Drug Allergy Active REASON FOR REFERRAL No Information MEDICATIONS Medication SIG (Take, Route, Frequency, Duration) Notes Start Date End Date Status glipiZIDE 10 MG 1 tablet Orally Twice a day for 90 days Active Atorvastatin Calcium 10 MG TAKE 1 TABLET BY MOUTH EVERY DAY for 90 Active traZODone HCl 50 MG TAKE 1 TABLET BY MOUTH EVERY DAY AT BEDTIME NEEDED for 90 Active Pregabalin 200 MG 1 Capsule Orally Twice a day Active Prolia 60 MG/ML as directed Subcutaneous Every 6 month Active FreeStyle Aide 3 Sensor - as directed for 90 days 11/25/2022 Not-Taking Ozempic (0.25 or 0.5 MG/DOSE) 2 MG/3ML 0.5mg Subcutaneous once a week for 90 days 04/26/2023 Not-Taking Lisinopril 20 MG TAKE 1 TABLET BY MOUTH EVERY DAY for 90 Active Ozempic (0.25 or 0.5 MG/DOSE) 2 MG/3ML 0.5mg Subcutaneous once a week for 90 days 04/26/2023 Not-Taking Trelstar Every 3 months Activ e Bicalutamide 50 MG 1 tablet Orally Once a day Not-Taking Vitamin D3 50 MCG (2000 UT) 1 capsule Orally Once a day Active Vitamin D2 29059 IU Not-Takin g Azithromycin 250 MG as directed Orally daily for 5 days 06/14/2023 Active Ozempic (0.25 or 0.5 MG/DOSE) 2 MG/3ML 0.5mg Subcutaneous weekly for 28 days 06/14/2023 Active SOCIAL HISTORY Tobacco Use: Social History [...] smoker (40+ cigs/day) Section Notes: Lives in [facility] [place] with his , youngest daughter and grandsone. 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 Lives in [facility] [place] with his , youngest daughter and grandsone. 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 Lives in [facility] with his , youngest daughter and grandsone. 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 Lives in [facility] with his , youngest daughter and grandsone. 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 Lives in [facility] with his , youngest daughter and grandsone. 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 Lives in [facility] with his , youngest daughter and grandsone. 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 Lives in [facility] with his , youngest daughter and grandsone. 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 PROBLEMS Problem Type ICD Code Onset Dates Problem Status W/U Status Risk SNOMED Code Notes Problem Type 2 diabetes mellitus with diabetic chronic kidney disease (E11.22) Active confirmed 94870196 Problem Essential (primary) hypertension (I10) Active confirmed 80178065 Problem Hypertensive chronic kidney disease with stage 1 through stage 4 chronic kidney disease, or unspecified chronic kidney disease (I12.9) Active confirmed 66866647 Problem Age-related osteoporosis without current pathological fracture (M81.0) Active confirmed 56658501 Problem Chronic kidney disease, stage 2 (mild) (N18.2) Active confirmed 987218400 Problem Vitamin D deficiency (E55.9) Active confirmed 08946108 Problem Hyperlipidemia, unspecified hyperlipidemia type (E78.5) Active confirmed 60667239 Problem Insomnia, unspecified type (G47.00) Active confirmed 549040159 Problem Elevated high sensitivity C-reactive protein (R79.82) Active confirmed [id number] Problem Morbid obesity (E66.01) Active confirmed 457363167 Problem 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) Active confirmed 138144189 Problem BMI 37.0-37.9, adult (Z68.37) Active confirmed 924417628 Problem Elevated sedimentation rate (R70.0) Active confirmed 930338509 Problem 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) Active confirmed 697447084 Problem Prostate CA (C61) Active confirmed 3990 36408 Problem Diabetic polyneuropathy associated with type 2 diabetes mellitus (E11.42) Active confirmed 327386899 Problem Insulin resistance (E88.819) Active confirmed 419386592 VITAL SIGNS Heart Rate 87 /min 06/14/2023 Height-cm 176.53 cm 06/14/2023 Oximetry 97 % 06/14/2023 Blood pressure diastolic 72 mm Hg 06/14/2023 Weight-kg 117.48 kg 06/14/2023 Height 69.5 in 06/14/2023 Blood pressure systolic 114 mm Hg 06/14/2023 Weight 259.0 lbs 06/14/2023 BMI 37.7 kg/m2 06/14/2023 Encounters Encounter Location Date Provider Diagnosis [address] [id number] 04/26/2023 JEB MARTÍNEZ Diabetic polyneuropathy associated with type 2 diabetes mellitus E11.[address] [id number] 06/14/2023 JEB MARTÍNEZ Type 2 diabetes mellitus with diabetic chronic kidney disease E11.22 and Upper respiratory tract infection, unspecified type J06.[address] [id number] 06/06/2023 JEB MARTÍNEZ Hyperlipidemia, unspecified hyperlipidemia type E78.5 ; Essential (primary) hypertension I10 and Type 2 diabetes mellitus with diabetic chronic kidney disease E11.22 ASSESSMENTS Encounter Date Diagnosis Assessment Notes Treatment [...] blood work until on more stable meds 06/06/2023 Hyperlipidemia, unspecified hyperlipidemia type (ICD-10 - E78.5) 06/14/2023 Type 2 diabetes mellitus with diabetic [...] will start azithromycin Mucines DM scheduled Fluids 06/06/2023 Essential (primary) hypertension (ICD-10 - I10) 06/06/2023 Type 2 diabetes mellitus with diabetic chronic kidney disease (ICD-10 - E11.22) 04/26/2023 Other Total time spen t with patient 20 minutes which includes face to face visit, education and coordination of care. 06/14/2023 Other Total time spent with patient 20 minutes which includes face to face visit, education and coordination of care. 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 PLAN OF TREATMENT Pending Test Test Name Order Date Chest X-ray PA and lateral 10/28/2022 CT Chest with Contrast 11/25/2022 Future Test Test Name Order Date COMPREHENSIVE METABOLIC PANEL (52189) CBC (INCLUDES DIFF/PLT) (6399) CARDIO IQ(R) HEMOGLOBIN A1c (76364) 02/14 CARDIO IQ(R) INSULIN (05334) 03/07/2023 Insurance Providers Payer Name Payer Address Payer Phone Subscriber Number Group Number Insured Name Patient Relationship to Insured Coverage Start Date Coverage End Date [employer] [address] [place] [phone] [id number] LUDWIG LUU Self - patient is the insured MEDICAL (GENERAL) HISTORY Medical History History ICD Code Prosate Cancer Diabetes II Hypertension Kidney nodules Hernia Chicken Pox as a kid Deviated Septum Surgical History Surgery Date(Month/Year) Kidney surgery to remove nodules 2017 Hernia Surgery 2016 Gable Teeth Removal Deviated Septum Surgery
--- OUTSIDE RECORDS SUMMARY | 2024-03-13 16:37 | XMS_ITS | Clinical Summary ---
Author Organization [facility] Address [address] [place] [address] Phone Care Team Providers Care Construction Management Assistant Name Role Phone Melissa Childs Primary Care Provider [phone] Allergies Active Allergy Reactions Criticality Noted Date Comments Doxycycline 11/17/2017 Iodinated Contrast Media 11/17/2017 Medications Medication Sig Dispensed Refills Start Date End Date Status albuterol HFA (PROAIR HFA ; PROVENTIL HFA ; VENTOLIN HFA) 90 mcg/actuation inhaler Inhale 2 puffs into the lungs every 6 (six) hours as needed for wheezing. Active atorvastatin (LIPITOR) 10 mg tablet Take 1 tablet (10 mg total) by mouth every evening. 09/21/2022 Active bicalutamide (CASODEX) 50 mg tablet TAKE 1 TABLET(50 MG) BY MOUTH DAILY 07/25/2023 Active ferrous sulfate 325 mg (65 mg elemental iron) tablet Take 1 tablet (325 mg total) by mouth every morning with breakfast. Active glipiZIDE (GLUCOTROL XL) 5 mg 24 hr tablet Take 4 tablets (20 mg total) by mouth 1 (one) time each day. 10 MG TABLETS - TAKES TWO IN AM FOR 20 MG TOTAL Active insulin glargine (LANTUS) 100 unit/mL injection Inject under the skin every night at bedtime. Active lisinopriL (PRINIVIL,ZESTRIL) 10 mg tablet Take 2 tablets (20 mg total) by mouth daily. Active oxyBUTYnin XL (DITROPAN-XL) 10 mg 24 hr tablet Take 1 tablet (10 mg total) by mouth daily. 03/10/2022 Active pregabalin (LYRICA) 75 mg capsule Take 1 capsule (75 mg total) by mouth 2 (two) times a day. Active traZODone (DESYREL) 50 mg tablet Take 1 tablet (50 mg total) by mouth every night at bedtime. 12/19/2022 Active triptorelin pamoate (TRELSTAR) 11.25 mg suspension for reconstitution chemo injection Inject 11.25 mg into the muscle every 3 (three) months. Active insulin aspart (NovoLOG U-100 Insulin aspart) 100 unit/mL injection Inject under the skin. 12/11/2023 Active polyethylene glycol (Golytely) 236-22.74-6.74 -5.86 gram solution Take 4L by mouth once for one dose. May substitue any PEG. Starting at 6PM the night before your procedure drink 1 8oz glasses at your own pace until you complete half of the gallon. Finish 2nd half of the gallon 5 hours before your procedure. 4000 mL 02/06/2024 Active bisacodyL (DULCOLAX) 5 mg EC tablet Take 2 tablets by mouth right before beginning bowel prep. 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 (CMS/HCC) (Primary Dx); Prostate CA (CMS/HCC) Discharge Disposition: Home or Self Care 01/26/2024 10:30 AM EST Office Visit [facility] [address] [place] [address] Migel Jacobs MD Prostate CA (CMS/HCC) (Primary Dx); 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 (CMS/HCC) from Last 3 Months Surgical History Surgery Date Site/Laterality Comments HERNIA REPAIR PROCEDURE:HERNIA REPAIR;COMMENT:herniorrhaphy Medical History Medical History Date Comments Prostate cancer (CMS/HCC) DX:Pro state cancer (HCC) Hypertension DX:Hypertension Social History Tobacco Use Types Packs/Day Years Used Date Smoking Tobacco: Every Day Smokeless Tobacco: Never Tobacco Cessation:Ready to Q uit: Not Asked; Counseling Given: Not Answered Alcohol Use Standard Drinks/Week Comments Yes 0 (1 standard drink = 0.6 oz pur e alcohol) Sex and Gender Information Value Date Recorded Sex Assigned at Not on file Gender Identity Not on file Sexual Orientation Not on file Job Start Date Occupation Industry Not on file Not on file Not on file Obstetrics History Last Filed Vital Signs Vital Sign Reading Time Taken Comments Blood Pressure 133/75 01/26/2024 11:17 AM EST Pulse 97 01/26/2024 11:17 AM EST Temperature 37.4 ??C (99.3 ??F) 01/26/2024 11:[address] Respiratory Rate 16 01/26/2024 11:17 AM EST Oxygen Saturation 93% 01/26/2024 11:17 AM EST Inhaled Oxygen Concentration - - Weight 123 kg (271 lb) 01/26/2024 11:17 AM EST Height 177.8 cm (5' 10 ) 11/04/2022 10:20 AM EDT Body Mass Index 38.88 11/04/2022 10:20 AM EDT Plan of Treatment Upcoming Encounters Date Type Department Care Team (Late st Contact Info) Description 04/26/2024 9:45 AM EDT Office Visit [facility] [address] [place] [phone] Migel Jacobs MD [address] [place] [phone] 04/26/2024 10:00 AM EDT Appointment [facility] [address] [place] [phone] Health Maintenance Due Date Last Done Comments Diabetes: Annual Foot Exam 1966 Diabetes: Annual Retina Eye Exam 1965 Hepatitis A Vaccines (1 of 2 - Risk 2-dose series) 08/28/1975 Zoster Vaccines (1 of 2) 08/28/1975 Hepatitis B Vaccines (1 of 3 - Risk 3-dose series) 2016 RSV Immunization Patients 60+ Years Old (1 - Risk 60-74 years 1-dose series) 2016 Pneumococcal Vaccine: 65+ Years (2 of 2 - PPSV23 or PCV20) 12/14/2021 10/19/2021 Abdominal Aortic Aneurysm (AAA) Screen 01/20/2022 Cholesterol Screening (Lipid Panel) 01/20/2022 Colorectal Cancer Screening: Colonoscopy 01/20/2022 Depression Screening 01/20/2022 Hepatitis C Screening 01/20/2022 Social Influencers of Health Screening 01/20/2022 Diabetes: Annual Urine Albumin-Creatinine Ratio (uACR) 01/28/2022 Diabetes: Blood Sugar Control Test (HGBA1C) 01/28/2022 COVID-19 Vaccine ( season) 2023 11/19/2022, 11/29/2021, 07/17/2021, Additional history exists Influenza Vaccine (#1) 2023 , 10/19/2021, 10/28/2020, Additional history exists Diabetes: Annual GFR (Glomerular Filtration Rate) 01/22/2025 01/23/2024 Hypertension/CHF/CAD Annual BMP Blood Test 01/22/2025 01/23/2024 Falls Risk Assessment 01/25/2025 01/26/2024 DTaP,Tdap,and Td Vaccines (4 - Td or Tdap) 03/10/2032 03/10/2022, 08/14/2021, 01/31/2012 HIB Vaccines Aged Out No longer eligi ble based on patient's age to complete this topic HPV Vaccines Aged Out No longer eligi ble based on patient's age to complete this topic IPV Vaccines Aged Out No longer eligi ble based on patient's age to complete this topic MMR Vaccines Aged Out No longer eligi ble based on patient's age to complete this topic Meningococcal ACWY Vaccine Aged Out N o longer eligible based on patient's age to complete this topic RSV Immunization Patients Under 20 months Aged Out No longer eligible based on patient's age to complete this topic Varicella Vaccines Aged Out No longer eligible based on patient's age to complete this topic Procedures Procedure Name Priority Date/Time Associated Diagnosis Comments CBC WITH AUTO DIFFERENTIAL Routine 01/23/2024 9:17 AM EST Prostate cancer (CMS/HCC) Secondary malignant neoplasm of lymph nodes (CMS/HCC) PROSTATE SPECIFIC ANTIGEN DIAGNOSTIC Routine 01/23/2024 9:17 AM EST Prostate cancer (CMS/HCC) Secondary malignant neoplasm of lymph nodes (CMS/HCC) CBC AND DIFFERENTIAL Routine 01/23/2024 9:17 AM EST Prostate cancer (CMS/HCC) Secondary malignant neoplasm of lymph nodes (CMS/HCC) COMPREHENSIVE METABOLIC PANEL Routine 01/23/2024 9:17 AM EST Prostate cancer (CMS/HCC) Secondary malignant neoplasm of lymph nodes (CMS/HCC) from Last 3 Months Results * Prostate specific antigen diagnostic (01/23/2024 9:17 AM EST) PSA 1.19 0.00 - 4.00 ng/mL LAB CHEMISTRY METHOD 01/23/2024 3:36 PM EST [facility] Blood Venous blood specimen / Unknown Venipuncture / Unknown 01/23/2024 9:17 AM EST 01/23/2024 12:42 PM EST Narrative [facility] - 01/23/2024 3:36 PM EST The Siemens Advia Centaur Chemiluminescent Immunoassay is used. Results obtained with different assay methods or kits cannot be used interchangeably. Results cannot be interpreted as absolute evidence of the presence or absence of malignant disease. Migel Jacobs MD LAB BLOOD ORDERABLE S [facility] [address] [place] [address], * (ABNORMAL) CBC auto differential (01/23/2024 9:17 AM EST) WBC 8.3 4.8 - 10.8 K/mcL LAB HEMETOLOGY METHOD 01/23/2024 1:01 PM EST [facility] RBC 4.70 4.50 - 5.50 M/mcL LAB HEMETOLOGY METHOD 01/23/2024 1:01 PM [facility] Hemoglobin 12.4(L) 13.5 - 17.5 g/dL LAB HEMETOLOGY METHOD 01/23/2024 1:01 PM [facility] Hematocrit 41.3(L) 42.0 - 54.0 % LAB HEMETOLOGY METHOD 01/23/2024 1:01 PM [facility] MCV 87.3 79.0 - 98.0 FL LAB HEMETOLOGY METHOD 01/23/2024 1:01 PM [facility] MCH 26.2(L) 27.0 - 32.0 pcg LAB HEMETOLOGY METHOD 01/23/2024 1:01 PM [facility] MCHC 30.0(L) 32.0 - 37.0 g/dL LAB HEMETOLOGY METHOD 01/23/2024 1:01 PM [facility] RDW 15.0 11.0 - 15.0 % LAB HEMETOLOGY METHOD 01/23/2024 1:01 PM [facility] Platelets 244 130 - 400 K/mcL LAB HEMETOLOGY METHOD 01/23/2024 1:01 PM [facility] MPV 9.8 7.0 - 11.0 FL LAB HEMETOLOGY METHOD 01/23/2024 1:01 PM [facility] NRBC 0.0 <1.0 % LAB HEMETOLOGY METHOD 01/23/2024 1:01 PM [facility] NRBC Absolute 0.00 <0.10 K/mcL LAB HEMETOLOGY METHOD 01/23/2024 1:01 PM [facility] Neutrophils Relative 63.4 % LAB HEMETOLOGY METHOD 01/23/2024 1:01 PM [facility] Lymphocytes Relative 28.3 % LAB HEMETOLOGY METHOD 01/23/2024 1:01 PM EST [facility] Monocytes Relative 5.1 % LAB HEMETOLOGY METHOD 01/23/2024 1:01 PM [facility] Eosinophils Relative 1.2 % LAB HEMETOLOGY METHOD 01/23/2024 1:01 PM [facility] Basophils Relative 0.6 % LAB HEMETOLOGY METHOD 01/23/2024 1:01 PM [facility] Immature Granulocytes Relative 1.4 % LAB HEMETOLOGY METHOD 01/23/2024 1:01 PM [facility] Neutrophils Absolute 5.26 1.50 - 7.00 K/mcL LAB HEMETOLOGY METHOD 01/23/2024 1:01 PM [facility] Lymphocytes Absolute 2.35 1.00 - 5.00 K/mcL LAB HEMETOLOGY METHOD 01/23/2024 1:01 PM [facility] Monocytes Absolute 0.42 0.20 - 1.00 K/mcL LAB HEMETOLOGY METHOD 01/23/2024 1:01 PM [facility] Eosinophils Absolute 0.10 0.00 - 0.50 K/mcL LAB HEMETOLOGY METHOD 01/23/2024 1:01 PM [facility] Basophils Absolute 0.05 0.00 - 0.20 K/mcL LAB HEMETOLOGY METHOD 01/23/2024 1:01 PM [facility] Immature Granulocytes Absolute 0.12(H) 0.00 - 0.03 K/mcL LAB HEMETOLOGY METHOD 01/23/2024 1:01 PM [facility] Blood Venous blood specimen / Unknown Venipuncture / Unknown 01/23/2024 9:17 AM EST 01/23/2024 12:42 PM EST Migel Jacobs MD LAB BLOOD ORDERABLE S [facility] [address] [place] [address], [place] [phone] * (ABNORMAL) Comprehensive metabolic panel (01/23/2024 9:17 AM EST) Sodium 142 133 - 145 mmol/L LAB CHEMISTRY METHOD 01/23/2024 4:08 PM [facility] Potassium 3.7 3.5 - 5.5 mmol/L LAB CHEMISTRY METHOD 01/23/2024 4:08 PM [facility] Chloride 105 96 - 110 mmol/L LAB CHEMISTRY METHOD 01/23/2024 4:08 PM [facility] CO2 28 21 - 32 mmol/L LAB CHEMISTRY METHOD 01/23/2024 4:08 PM [facility] Anion Gap 9 3 - 11 LAB CHEMISTRY METHOD 01/23/2024 4:08 PM [facility] Glucose 357(H) 70 - 100 mg/dL LAB CHEMISTRY METHOD 01/23/2024 4:08 PM [facility] BUN 15 5 - 25 mg/dL LAB CHEMISTRY METHOD 01/23/2024 4:08 PM [facility] Creatinine 1.13 0.70 - 1.30 mg/dL LAB CHEMISTRY METHOD 01/23/2024 4:08 PM [facility] eGFR 71 >=60 mL/min/1. 73m2 LAB CHEMISTRY METHOD 01/23/2024 4:08 PM [facility] Comment:Calculation based on the??Chronic Kidney Disease Epidemiology Collaboration (CKD-EPI) equation refit??without adjustment for race. BUN/Creatinine Ratio 13.3 LAB CHEMISTRY METHOD 01/23/2024 4:08 PM [facility] Calcium 8.6 8.5 - 10.5 mg/dL LAB CHEMISTRY METHOD 01/23/2024 4:08 PM [facility] AST (SGOT) 15 10 - 42 unit/L LAB CHEMISTRY METHOD 01/23/2024 4:08 PM EST [facility] ALT (SGPT) 21 10 - 60 unit/L LAB CHEMISTRY METHOD 01/23/2024 4:08 PM [facility] Alkaline Phosphatase 123(H) 42 - 121 unit/L LAB CHEMISTRY METHOD 01/23/2024 4:08 PM [facility] Total Protein 6.3 6.0 - 8.0 g/dL LAB CHEMISTRY METHOD 01/23/2024 4:08 PM [facility] Albumin 3.4 3.2 - 5.0 g/dL LAB CHEMISTRY METHOD 01/23/2024 4:08 PM [facility] Total Bilirubin 0.8 0.0 - 1.4 mg/dL LAB CHEMISTRY METHOD 01/23/2024 4:08 PM [facility] Blood Venous blood specimen / Unknown Venipuncture / Unknown 01/23/2024 9:17 AM EST 01/23/2024 12:42 PM EST Migel Jacobs MD LAB BLOOD ORDERABLE S [facility] [address] [place] [address], from Last 3 Months Care Teams Construction Management Assistant Relationship Specialty Start Date End Date Melissa Childs [address] [facility] [address] [place] [phone] PCP - General 07/27/23
--- OUTSIDE RECORDS SUMMARY | 2024-03-13 16:37 | XMS_ITS ---
Author Organization [facility] Address [address] [place] [id number] Care Team Providers Care Training And Documentation Specialist Name Role Phone JAD SORENSEN Primary Care Provider [phone] [facility] JEB MARTÍNEZ Unavailable [phone] REASON FOR VISIT Refills MEDICATIONS Medication SIG (Take, Route, Frequency, Duration) Notes Start Date End Date Status oxyBUTYnin Chloride ER 10 MG 1 tablet Orally Once a day for 90 days 06/06/2023 07/06/2023 Active Atorvastatin Calcium 10 MG 1 tablet Oral ly Once a day for 90 days Active Lisinopril 20 MG 1 tablet Orally Once a day for 90 days Active glipiZIDE 10 MG 1 tablet Orally Twic e a day for 90 days Active Encounters Encounter Location Date Provider Diagnosis [facility], [address] [id number] 06/06/2023 JEB MARTÍNEZ Hyperlipidemia, unspecified hyperlipidemia type E78.5 ; Essential (primary) hypertension I10 and Type 2 diabetes mellitus with diabetic chronic kidney disease E11.22 ASSESSMENTS Encounter Date Diagnosis Assessment Notes Treatment Notes Treatment Clinical Notes Section Notes 06/06/2023 Hyperlipidemia, unspecified hyperlipidemia type (ICD-10 - E78.5) 06/06/2023 Essential (primary) hypertension (ICD-10 - I10) 06/06/2023 Type 2 diabetes mellitus with diabetic chronic kidney disease (ICD-10 - E11.22) PLAN OF TREATMENT Medication Medication Name Sig Start Date Stop Date Notes oxyBUTYnin Chloride ER 10 MG 1 tablet Or ally Once a day for 90 days 06/06/2023 07/06/2023 Atorvastatin Calcium 10 MG 1 tablet Oral ly Once a day for 90 days Lisinopril 20 MG 1 tablet Orally Once a day for 90 days glipiZIDE 10 MG 1 tablet Orally Twic e a day for 90 days Progress Notes * LUDWIG LUUDOB:1955 ( 67 yo M)Acc No.[id number]:06/06/2023 Patient:??LUDWIG LUU :1955?Age:67 Y?Sex:Clementina garzon Phone: Address:[address] [place] [phone] * Refills?? Refill Atorvastatin Calcium Tablet, 10 MG, Orally, 90, 1 tablet, Once a day, 90 days, Refills=1 Refill Lisinopril Tablet, 20 MG, Orally, 90, 1 tablet, Once a day, 90 days, Refills=1 Refill glipiZIDE Tablet, 10 MG, Orally, 180, 1 tablet, Twice a day, 90 days, Refills=1 Start oxyBUTYnin Chloride ER Tablet Extended Release 24 Hour, 10 MG, Orally, 90 Tablet, 1 tablet, Once a day, 90 days, Refills=1 * true * Date:??
--- OUTSIDE RECORDS SUMMARY | 2024-03-13 16:37 | XMS_ITS ---
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 Radiation Treatments * No radiation treatments are documented for this patient in [facility]. Treatments may have been administered in another system.
--- OUTSIDE RECORDS SUMMARY | 2024-03-13 16:37 | XMS_ITS ---
Author Organization [facility] Address [address] [facility] [address] [place] [address] Care Team Providers Care Extractor Operator Helper Name Role Phone Damaris Ponce Primary Care Provider TERESA Huertas Unavailable [phone] Allergies Allergen (clinical drug ingredient) Drug/Non Drug Allergy documented on EMR Reaction Allergy Type Onset Date Status IV contrast dye (uncoded) hives Allergy Active doxycycline Doxycycline vomiting Drug Allergy Act adonay REASON FOR VISIT 3 mo follow up Medications Medication SIG (Take, Route, Frequency, Duration) Notes Start Date End Date Status Lyrica 200 MG 1 capsule Orally Twice a day for 90 days 03/08/2024 Active Terbinafine HCl 250 MG 1 tablet Orally Once a day for 90 days 10/02/2020 Not-Taking Gabapentin 100 MG 1 capsule Orally see instructions for 60 days weaning him off the medication- first 2 weeks 800mg PO TID, next 2 weeks take 600mg PO TID, week 4 take 400mg PO TID, week 6 take 200mg PO TID, week 8 take 100 mg TID 12/27/2019 Not-Taking Gabapentin 800 MG 1 tablet Orally three times a day for 30 day(s) 10/04/2019 Not-Taking Aspirin daily Not-Taking Gabapentin 600 MG 1 tablet Orally 3 times daily Not-Taking Lyrica 200 MG 1 capsule Orally Twice a day for 90 days 01/19/2023 Not-Taking Bicalutamide 50 MG 1 tablet Orally Once a day Not-Taking Empagliflozin 10 MG 1 tablet Orally Once a day Not-Taking Bisacodyl 5 MG 1 tablet as needed Orally as directed Not-Taking Ozempic 2.5mg once a day Not-Taking Pregabalin 200 MG 1 capsule Orally twice daily for 90 days 02/09/2024 Active Atorvastatin Calcium 10 MG 1 tablet Orally Once a day Active traZODone HCl 50 MG 1 tablet at bedtime as needed Orally Once a day Active Lisinopril 20 MG 1 tablet Orally Once a day Active NovoLOG 100 UNIT/ML as directed Injection sliding scale Active oxyBUTYnin Chloride ER 10 MG 2 tablets Orally Once a day Active Lantus 100 UNIT/ML as directed Subcutaneous Active Vital Signs Weight 273.4 lbs 03/08/2024 Height 5ft 9in in 03/08/2024 BMI 40.37 kg/m2 03/08/2024 Heart Rate 107 /min 03/08/2024 Temperature 97.1 degrees Fahrenheit 03/08/19 Respiratory Rate 16 /min 03/08/2024 Procedures Procedure Date Ordered Date Performed Result Body Sit e DRAIN/INJECT, INTERMEDIATE JOINT/BURSA 03/08/2024 N/A Encounters Encounter Location Date Provider Diagnosis [facility] [address] [facility] [address] [place] [address] 03/08/2024 TERESA ZAYAS Controlled type 2 diabetes mellitus with diabetic polyneuropathy, without long-term current use of insulin E11.42 ; Dystrophic nail L60.3 ; Onychomycosis B35.1 ; Pain in right toe(s) M79.674 ; Pain in left toe(s) M79.675 and Arthritis of foot M19.079 Assessments Encounter Date Diagnosis (ICD Code) Assessment Notes Treatment Notes Treatment Clinical Notes Section Notes 03/08/2024 Controlled type 2 diabetes mellitus with [...] Aseptic debridement of toenails x 10 with hat parts cutter machine and curette, pt tolerated well. Discussed with the patient that routine nail care services are only covered by insurance every 60 days. Pt understands that if they would like to return prior to this time frame, they may have to pay out of pocket. 03/08/2024 Onychomycosis (ICD-10 - B35.1) I reviewed with the patient various treatment methods for toenail fungus including: topical, oral, laser, and removal of the infected toenails. 03/08/2024 Pain in right toe(s) (ICD-10 - M79.674) 03/08/2024 Pain in left toe(s) (ICD-10 - [...] related activity for the next 3-5 days. Plan Of Treatment Medication Medication Name Sig Start Date Stop Date Notes Lyrica 200 MG 1 capsule Orally Twice a day for 90 days Pending Test Test Name Order Date DRAIN/INJECT, INTERMEDIATE JOINT/BURSA 0 03/08/2024 Next Appt Details Follow Up: 3 Months, Reason: Provider Name:TERESA ZAYAS, 06/07/2024 04:00:00 PM, [address] [facility] [address], [place], [address], Medications Administered Medication Instructions Date of Administration Dosage Notes dexAMETHasone Sod Phosphate PF 03/08/2024 0.5 m L Kenalog 03/08/2024 0.5 mL Progress Notes * Andrez LUU:1955 (68 yo M)Acc No.[id number]:03/08/2024 Progress Note Patient:Andrez BELLA Provider:?Teresa Zayas DPM :1955???Age:68 Y???Sex:Male Miguel e:03/08/2024 Address:[address] [place], [place] [id number] Pcp:Damaris Ponce Subjective: * Chief Complaints: * ???3 mo follow up * HPI: ???Constitutional:?This 68 y/o male returns to my office with a complaint of a toenail fungus, foot pain, and a diabetic foot evaluation. He has been taking the Lyrica 100 mg PO BID for the nerve pain. He is asking for a refill today. he has a new complaint of left lateral foot pain. he states there has been a sharp shooting pain in the outside of the left foot for about 2 weeks. He states it hurts when walking. He still has a burning sensation in the toes at night, he also states occasional quick pains to the toes during the day. He also recently changed his PCP. He is still waiting for Ozempic to be approved for his diabetes. He complains of thick, elongated tender toenails. He has no other foot complaints this visit. His last visit with his PCP for diabetes management was 02/12/2024. His last hgbA1c was 9.1. Allergies and medical history reviewed. * ROS:?GENERAL: Pt denies nausea, fever, vomiting, chills, or shortness of breath. Pt in NAD. ALLERGY: patient denies any new allergy HEME/ONC: patient denies any bleeding or clotting disorders CARDIOLOGY: pt denies chest pain, palpitations LUNGS: pt denies shortness of breath ABDOMEN: patient denies any bloating, abdominal pain, or swelling MUSCULOSKELETAL: See HPI, patient also has back pain and leg pain at times. SKIN: see HPI, otherwise no lesions, rash or itching NEURO: No persistent headache, weakness, patient has numbness in the toes. PSYCH: patient denies any current anxiety or depression The remainder of the review of systems is noncontributory. * Medical History:? * Surgical History:?right ingu inal hernia * Hospitalization/Major Diagno stic Procedure:?diabetes hyperglycemia 11/2024 * Family History:?Mother: diab etes mellitus.?Siblings: sister-peritoneal cancer.? * Social History:?former smoker 0.5 pack/day quit in 2017. Rare alcohol consumption 4 drinks/year. * Medications:?TakingNovoLOG 1 00 UNIT/ML Solution as directed Injection , Notes to Pharmacist: sliding scaleLantus 100 UNIT/ML Solution as directed Subcutaneous oxyBUTYnin Chloride ER 10 MG Tablet Extended Release 24 Hour 2 tablets Orally Once a day Lisinopril 20 MG Tablet 1 tablet Orally Once a day traZODone HCl 50 MG Tablet 1 tablet at bedtime as needed Orally Once a day Atorvastatin Calcium 10 MG Tablet 1 tablet Orally Once a day Pregabalin 200 MG Capsule 1 capsule Orally twice daily Taking NovoLOG 100 UNIT/ML Solution as directed Injection , Notes to Pharmacist: sliding scaleTaking Lantus 100 UNIT/ML Solution as directed Subcutaneous Taking oxyBUTYnin Chloride ER 10 MG Tablet Extended Release 24 Hour 2 tablets Orally Once a day Taking Lisinopril 20 MG Tablet 1 tablet Orally Once a day Taking traZODone HCl 50 MG Tablet 1 tablet at bedtime as needed Orally Once a day Taking Atorvastatin Calcium 10 MG Tablet 1 tablet Orally Once a day Taking Pregabalin 200 MG Capsule 1 capsule Orally twice daily Not-TakingLyrica 200 MG Capsule 1 capsule Orally Twice a day Ozempic , Notes to Pharmacist: 2.5mg once a dayBicalutamide 50 MG Tablet 1 tablet Orally Once a day Lyrica 200 MG Capsule 1 capsule Orally Twice a day Gabapentin 600 MG Tablet 1 tablet Orally 3 times daily Bisacodyl 5 MG Tablet Delayed Release 1 tablet as needed Orally as directed Empagliflozin 10 MG Tablet 1 tablet Orally Once a day Aspirin , Notes to Pharmacist: dailyGabapentin 800 MG Tablet 1 tablet Orally three times a day Gabapentin 100 MG Capsule 1 capsule Orally see instructions , Notes to Pharmacist: weaning him off the medication- first 2 weeks 800mg PO TID, next 2 weeks take 600mg PO TID, week 4 take 400mg PO TID, week 6 take 200mg PO TID, week 8 take 100 mg TIDTerbinafine HCl 250 MG Tablet 1 tablet Orally Once a day Medication List reviewed and reconciled with the patientNot-Taking Lyrica 200 MG Capsule 1 capsule Orally Twice a day Not-Taking Ozempic , Notes to Pharmacist: 2.5mg once a dayNot-Taking Bicalutamide 50 MG Tablet 1 tablet Orally Once a day Not-Taking Lyrica 200 MG Capsule 1 capsule Orally Twice a day Not-Taking Gabapentin 600 MG Tablet 1 tablet Orally 3 times daily Not-Taking Bisacodyl 5 MG Tablet Delayed Release 1 tablet as needed Orally as directed Not-Taking Empagliflozin 10 MG Tablet 1 tablet Orally Once a day Not-Taking Aspirin , Notes to Pharmacist: dailyNot-Taking Gabapentin 800 MG Tablet 1 tablet Orally three times a day Not-Taking Gabapentin 100 MG Capsule 1 capsule Orally see instructions , Notes to Pharmacist: weaning him off the medication- first 2 weeks 800mg PO TID, next 2 weeks take 600mg PO TID, week 4 take 400mg PO TID, week 6 take 200mg PO TID, week 8 take 100 mg TIDNot-Taking Terbinafine HCl 250 MG Tablet 1 tablet Orally Once a day Medication List reviewed and reconciled with the patient * Allergies:?IV contrast dye: hivesDoxycycline: vomitingno[Allergies Verified] Objective: * Vitals:?Wt:273.4lbs, Ht: 5ft 9in, BMI:40.37Index, HR:107/min, Temp:97.1F, RR:16/min, Ht-cm: 175.26, Wt-k.01 kg. * Examination: ???General Examination: ???GENERAL: Patient appears well nourished, with NAD. VASCULAR: Dorsalis pedis pulses are 2/4 bilaterally and Posterior tibial pulses are 1/4 bilaterally. Capillary filling time within normal limits the digits. No pallor on elevation or rubor on dependency. No hair growth. No varicosities. Denies rest pain or claudication pain. Each foot temperature is within normal limits. NEUROLOGICAL: Sharp/dull sensation intact bilaterally, protective sensation diminished 6/10 with 5.07 [place] bilaterally, vibratory sensation with tuning fork diminished to the medial malleolus bilaterally, position sense diminished bilaterally to the midfoot. ORTHOPEDIC: Muscle strength 3+/5 of all flexors and extensors. Dorsi flexion of ankle ,0 degrees, plantar flexion WNL. No muscle atrophy. Tenderness on palpation of the left plantar heel. Mild pain on ROM of the midtarsal joint of the left foot. Pain on palpation of th left sinus tarsi, and pain on ROM of the left suntalar joint. Tenderness on palpation of the metatarsophalangeal joints of the right and left foot, no pain on ROM of the toes. DERMATOLOGICAL: No masses, openings, or skin lesions noted. Normal skin temperature, normal skin turgor. 4mm thickened yellowed dystrophic left 2nd toenail. 3mm thickened elongated dystrophic toenails of remaining 9 toes with subungual debris and tenderness on palpation. BIOMECHANICS: STJ ROM limited, MTJ ROM limited, 1st MPJ ROM limited. SHOES: sneakers. Assessment: * Assessment: 1.?Controlled type 2 diabete s mellitus with diabetic polyneuropathy, without long-term current use of insulin - E11.42???2.?Dystrophic nail - L60.3???3.?Onychomycosis - B35.1???4.?Pain in right toe(s) - M79.674???5. Pain in left toe(s) - M79.675???6.?Arthritis of foot - M19.079??? Plan: * Treatment: 2.?Dystrophic nail? Clinical Notes: He has 5% involvement of bruising under the left hallux. We discussed these will grow out as the toenails grow. He does not need further intervention at this time. Aseptic debridement of toenails x 10 with hat parts cutter machine and curette, pt tolerated well. Discussed with the patient that routine nail care services are only covered by insurance every 60 days. Pt understands that if they would like to return prior to this time frame, they may have to pay out of pocket.?? 3.?Onychomycosis? Clinical Notes: I reviewed with the patient various treatment methods for toenail fungus including: topical, oral, laser, and removal of the infected toenails. ?? 4.?Arthritis of foot?Procedure: DRAIN/INJECT, INTERMEDIATE JOINT/BURSA Clinical Notes: We discussed the pain in the feet [...] related activity for the next 3-5 days. ?? * Procedures:?Procedure: The left foot was prepped and draped appropriately. The area was cleansed with an iodine solution. Ethyl chloride spray was then utilized to topically anesthetize the skin. 3cc steroid injection consisting of 1cc of lidocaine 1% plain, 1cc of 0.5% Marcaine Plain, 1/2cc of Decadron 4mg, and 1/2cc of Kenalog 40% was injected into the left subtalar joint. Pt tolerated the procedure well. All bleeding was stopped with pressure and a band-aid was applied. ? * Therapeutic Injections:? Dexamethasone : 0.5 mL (Dose No:1) given by TERESA ZAYAS D.P.M (Arthritis of foot)??? Kenalog : 0.5 mL (Dose No:1) given by TERESA ZAYAS D.P.M (Arthritis of foot) * Procedure Codes:?54125 DRAIN /INJECT, INTERMEDIATE JOINT/BURSA, [place]: [place] [address] DEBRIDE NAIL, 6 OR MORE, Modifiers: q9 , 67L5100 INJ DEXAMETHASONE SODIM PHOSHATE 1 [id number] INJ TRIAMCINOLONE ACETONIDE 10 MG * Follow Up:?3 Months * Billing Information: * Visit Code:? 85583 Office Visit, Est Pt., Level 3. Modifiers: 25 * Procedure Codes:? 14014 DRAIN/INJECT, INTERMEDIATE JOINT/BURSA. [place]: [place] [address]1007 DEBRIDE NAIL, 6 OR MORE. Modifiers: q9, 59 J1100 INJ DEXAMETHASONE SODIM PHOSHATE 1 MG. J3301 INJ TRIAMCINOLONE ACETONIDE 10 MG. * Sign off status: Completed true * Provider:?Teresa Zayas DPM Date:? 03/08/2024 Generated for Josh barnhart/Bebo/eTianitting on:?03/13/2024 04:37 PM EST History and Physical Notes * HPI (History of Present Illness) Category Sub-Category Detail Notes Category Not es Constitutional This 68 y/o m sagar returns to my office with a complaint of a toenail fungus, foot pain, and a diabetic foot evaluation. He has been taking the Lyrica 100 mg PO BID for the nerve pain. He is asking for a refill today. he has a new complaint of left lateral foot pain. he states there has been a sharp shooting pain in the outside of the left foot for about 2 weeks. He states it hurts when walking. He still has a burning sensation in the toes at night, he also states occasional quick pains to the toes during the day. He also recently changed his PCP. He is still waiting for Ozempic to be approved for his diabetes. He complains of thick, elongated tender toenails. He has no other foot complaints this visit. His last visit with his PCP for diabetes management was 02/12/2024. His last hgbA1c was 9.1. Allergies and medical history reviewed. Examination Category Sub-Category Detail Notes Category Not es General Examination GENERAL: Patient appears well nourished, with NAD. VASCULAR: Dorsalis pedis pulses are 2/4 bilaterally and Posterior tibial pulses are 1/4 bilaterally. Capillary filling time within normal limits the digits. No pallor on elevation or rubor on dependency. No hair growth. No varicosities. Denies rest pain or claudication pain. Each foot temperature is within normal limits. NEUROLOGICAL: Sharp/dull sensation intact bilaterally, protective sensation diminished 6/10 with 5.07 [place] bilaterally, vibratory sensation with tuning fork diminished to the medial malleolus bilaterally, position sense diminished bilaterally to the midfoot. ORTHOPEDIC: Muscle strength 3+/5 of all flexors and extensors. Dorsi flexion of ankle ,0 degrees, plantar flexion WNL. No muscle atrophy. Tenderness on palpation of the left plantar heel. Mild pain on ROM of the midtarsal joint of the left foot. Pain on palpation of th left sinus tarsi, and pain on ROM of the left suntalar joint. Tenderness on palpation of the metatarsophalangeal joints of the right and left foot, no pain on ROM of the toes. DERMATOLOGICAL: No masses, openings, or skin lesions noted. Normal skin temperature, normal skin turgor. 4mm thickened yellowed dystrophic left 2nd toenail. 3mm thickened elongated dystrophic toenails of remaining 9 toes with subungual debris and tenderness on palpation. BIOMECHANICS: STJ ROM limited, MTJ ROM limited, 1st MPJ ROM limited. SHOES: sneakers
--- OUTSIDE RECORDS SUMMARY | 2024-03-13 16:38 | XMS_ITS ---
Author Organization [facility] Address [address] [address] Care Team Providers Care Manager Sales Support Name Role Phone Damaris Ponce Primary Care Provider CHRISTY Huertas [phone] REASON FOR VISIT Rx Refill Medications Medication SIG (Take, Route, Fr equency, Duration) Notes Start Date End Date Status Pregabalin 200 MG 1 capsule Orally twi ce daily for 90 days 02/09/2024 Active Encounters Encounter Location Date Provider Diagnosis [facility] [address] [address] 02/09/2024 CHRISTY WILHELM Plan Of Treatment Medication Medication Name Sig Start Date Stop Date Notes Pregabalin 200 MG 1 capsule Orally twice daily for 90 days 02/09/2024 Next Appt Details Provider Name:CHRISTY WILHELM, 06/07/2024 04:00:00 PM, [facility] [address], [address], Progress Notes * Andrez LUUDOB:1955 (68 yo M)Acc No.[id number]:02/09/2024 Patient:?Andrez LUU :1955???Age:68 Y???Sex:Male Address:[address] [place] [address] * Refills? Refill Pregabalin Capsule, 200 MG, Orally, 180, 1 capsule, twice daily, 90 days, Refills=0 * true * Date:? Generated for Printi ng/Faxing/eTransmitting on:?03/13/2024 04:37 PM EST
--- OUTSIDE RECORDS SUMMARY | 2024-03-13 16:38 | XMS_ITS ---
Author Organization [facility] Address [address] [address] Care Team Providers Care Hatchery Employee Name Role Phone Damaris Ponce Primary Care Provider CHRISTY Huertas [phone] Encounters Encounter Location Date Provider Diagnosis [facility] [address] [address] 03/11/2024 CHRISTY WILHELM Plan Of Treatment Next Appt Details Provider Name:CHRISTY WILHELM, 06/07/2024 04:00:00 PM, [address] [address], [place], [address], Progress Notes * Andrez LUUDOB:1955 (68 yo M)Acc No.[id number]:03/11/2024 Patient:?Andrez LUU :1955???Age:68 Y???Sex:Male Address:[address] [place] [phone] * true * Date:? Generated for Printi bronwyn/Bebo/eTransmitting on:?03/13/2024 04:37 PM EST
== END 2024-03-13 14:53 | disposition home or self-care (01) ==
PROVIDERS: PCP Internal Medicine; Visit Provider Internal Medicine Pulmonary Disease
DX: J44.9 Chronic obstructive pulmonary disease, unspecified (principal); G47.33 Obstructive sleep apnea (adult) (pediatric)
CPT/HCPCS: 99204

== ENCOUNTER → 2024-03-13 14:25 | Outpatient (BNVA) | payer OTHER, SELFPAY | PROVIDERS: PCP Internal Medicine; Visit Provider Internal Medicine Pulmonary Disease ==

== ENCOUNTER 2024-03-15 08:55 | Outpatient (AMB) | payer OTHER, SELFPAY ==
--- NOTE | 2024-03-15 08:58 | A.OFFPC_ITS ---
Vital Signs 03/15/24 09:05 Height 5 ft 10 in Weight 272 lb BMI 39.0 BP 124/76 Blood Pressure Location Lt brachial Position Sitting Respiration 16 Pulse 82 Pulse Source Pulse Oximeter Pulse Oximetry (%) 91 L Oxygen Delivery Method Room Air Intake Visit Reasons: check dexcom Intake Note: Follow up diabetes. Has been been out of sensors for a week. Needs a refill. Corporate Statistical Financial Analyst Required: No Allergies Iodinated Contrast Media Allergy (Severe, Verified 03/15/24 09:03) Hives doxycycline Allergy (Mild, Verified 03/15/24 09:03) Vomiting Tobacco use date assessed: 02/12/24 Dental Screening Dental Screen Date: 02/12/24 HPI HPI Comments History of Present Illness Details Patient is a 68-year-old male with insulin-dependent diabetes, prostate cancer, hypertension, neuropathy, GERD presenting to reestablish care Type 2 diabetes: POC A1C 8.9% end of January.. On dexcom 7-he has been waiting on sensor refill which were already prescribed. On Lantus 55 units nightly and aspart t.i.d. CC as well as glipizide 20 mg daily. Jardiance was restarted at last visit. Added mounjaro. He did not receive either-we called pharmacy today and confirmed receipt and fill. Neuropathy on Lyrica 200 mg twice daily. He was hospitalized at the end of November for COVID-19 and hyperglycemia. Heme/Onc: Prostate cancer in 2017. What the there is Follows with Dr. Jacobs. On bicalutamide, oxybutynin. On prolia Saw pulmonary. Anoro has been sent Colonoscopy at age 51 LDCT ROS CONSTITUTIONAL: Denies weight loss, fever and chills. HEENT: Denies changes in vision and hearing. RESPIRATORY: Denies SOB and cough. CV: Denies palpitations and CP GI: Denies abdominal pain, nausea, vomiting and diarrhea. : Denies dysuria and urinary frequency. MSK: Denies new myalgia and joint pain. SKIN: Denies rash and pruritus. NEUROLOGICAL: Denies headache PSYCHIATRIC: Denies recent changes in mood. PHYSICAL EXAM: GENERAL: Alert and oriented x 3. NAD EYES: EOMI. Anicteric. HENT: Moist mucous membranes. No scleral icterus. No cervical lymphadenopathy. LUNGS: Clear to auscultation bilaterally. CARDIOVASCULAR: Regular rate and rhythm. No murmur. No JVD. ABDOMEN: Soft, non-tender +bs EXTREMITIES: No edema. Non-tender. SKIN: No rashes or lesions. Warm. NEUROLOGIC: No focal neurological deficits. CN II-XII grossly intact PSYCHIATRIC: Cooperative. Appropriate mood and affect [facility] Medical History Hernia Surgical History H/O vasectomy History of hernia surgery Family History Sister FH: mental illness Substance abuse Mother Diabetes Social History Housing: House Alcohol intake: current Patient Tobacco Use Status: Former Tobacco user Cigarette Packs Per Day: 4 Years Smoked: 35 e-Cigarette/Vaping Use: Never Used Second Hand Smoke Exposure: No Cognitive needs: No Hearing needs: No Vision needs: Yes (glasses) Questionnaire PHQ-9 Over the last 2 weeks, how often have you been bothered by any of the following problems? 3. Trouble falling or staying asleep, or sleeping too much: nearly every day 4. Feeling tired or having little energy: nearly every day 6. Feeling bad about yourself - or that you are a failure or have let yourself or your family down: nearly every day 7. Trouble concentrating on things, such as reading the newspaper or watching television: not at all 9. Thoughts that you would be better off or of hurting yourself in some way: not at all Source: Developed by Drs. Sandro Pineda, Vanesa Worrell, Liang Mckee and colleagues, with an educational gema from [employer]. Thrive Questionnaire Date Thrive assessed: 02/12/24 I am a: Patient What is your living situation today?: I have a steady place to live Within the past 12 months, did the food you bought not last and you didn't have the money to get more?: Never true Within the past 12 months, did you worry whether your food would run out before you got money to buy more?: Never true Do you have trouble paying for medicines?: No Do you have trouble getting transportation to medical appointments?: No Do you have trouble paying your heating and electricity bill?: No Do you have trouble taking care of your child, family member or friend?: No Do you have trouble with day-to-day activities such as bathing, preparing meals, shopping, managing finances, etc.?: No Are you currently unemployed and looking for a job?: No Are you interested in more education?: Yes Please select the resources that you would like help with: Education Currently or been in a relationship where the following occur: I choose not to answer THRIVE Score: 0 AUDIT C Alcohol Use Questionnaire (AUDIT-C) 1. How often do you have a drink containing alcohol?: Monthly or less 2. How many drinks containing alcohol do you have on a typical day when you are drinking?: 1 or 2 3. How often do you have six or more drinks on one occasion?: Never Total Score: 1 SUJATHA-7 AMB Questionnaire SUJATHA-7 Date SUJATHA - 7 assessed: 02/12/24 Feeling nervous, anxious, or on edge: 0 = Not at all Not being able to stop or control worryin = Not at all Worrying too much about different things: 0 = Not at all Trouble relaxin = Not at all Being so restless that it is hard to sit still: 0 = Not at all Becoming easily annoyed or irritable: 0 = Not at all Feeling afraid as if something awful might happen: 0 = Not at all Total SUJATHA-7 score (0-4 normal; 5-9 mild; 10-14 moderate; 15-21 severe): 0 Source: Developed by Drs. Sandro Pineda, Vanesa Worrell, Liang Mckee and colleagues, with an educational gema from [employer]. Physical exam (Primary Care) Vital Signs: Last Vital Signs Pulse 82 03/15/24 09:05 Resp 16 03/15/24 09:05 BP 124/76 03/15/24 09:05 Pulse Ox 91 L 03/15/24 09:05 Oxygen Delivery Method Room Air 03/15/24 09:05 BMI result Body Mass Index 39.0 Tobacco/Smoking Status: Tobacco use Status Tobacco use date assessed 02/12/24 03/15/24 08:59 Patient Tobacco Use Status Former Tobacco user 03/15/24 09:07 e-Cigarette/Vaping Use Never Used 03/15/24 09:07 Thrive Assessment: Date of Thrive Assessment Date Thrive assessed 02/12/24 03/15/24 08:59 Currently or been in a relationship where the following occur: I choose not to answer Coding Level of Care Code Est Pt Level 4 (24883) Diagnoses Type 2 diabetes mellitus with hyperglycemia, with long-term current use of insulin E11.65; Z79.4 Diabetes mellitus senior care insulin use: with senior care use Diabetes mellitus complication status: with hyperglycemia Assessment & Plan Assessment & Plan (1) Type 2 diabetes mellitus: Code(s): E11.9 - Type 2 diabetes mellitus without complications Category: Medical Qualifiers: Diabetes mellitus senior care insulin use: with intermediate card tender use Diabetes mellitus complication status: with hyperglycemia Qualified Code(s): E11.65 - Type 2 diabetes mellitus with hyperglycemia; Z79.4 - intermediate card tender (current) use of insulin Plan: Stable, uncontrolled Spent a large amount of time today confirming with pharmacy, coverage and receipt of medications. He will restart the jardiance and start mounjaro as previously plannedand return in 2 months for DM follow up Medications: New Jardiance (empagliflozin) 10 mg PO DAILY 90 tabs 3RF NS E11.65 - Type 2 diabetes mellitus with hyperglycemia, Z79.4 - FPC (current) use of insulin Mounjaro (tirzepatide) for 4 weeks 2.5 mg (0.5 mL) subcut QWEEK 2 mL 3RF NS E11.65 - Type 2 diabetes mellitus with hyperglycemia, Z79.4 - intermediate card tender (current) use of insulin trazodone 100 mg (2 x 50 mg) PO BEDTIME PRN 180 tabs 3RF insomnia Refilled Dexcom G7 Sensor (blood-glucose sensor) once every 10 days 9 ea 3RF NS E11.9 - Type 2 diabetes mellitus without complications, Z79.4 - intermediate card tender (current) use of insulin umeclidinium-vilanterol 62.5-25 mcg/actuation (Anoro Ellipta) 1 inh inhalation DAILY 1 ea 6RF Dexcom G7 Sensor (blood-glucose sensor) once every 10 days 9 ea 3RF NS E11.9 - Type 2 diabetes mellitus without complications, Z79.4 - FPC (current) use of insulin
[2024-03-15 09:05] VITALS: BP 124/76; PULSE 82; RESP 16; O2SAT 91; BMI 39.0
--- OUTSIDE RECORDS SUMMARY | 2024-03-15 09:21 | XMS_ITS ---
Author Organization 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 DENOSUMAB 60MG (PROLIA)* Plan Start Date:07/25/2023 Plan Provider:Migel Jacobs MD Linked Problems Prostate CA (HCC) Treatment Medications denosumab (PROLIA)Triptoreli n Pamoate Susr Past Plans ONCOLOGY INFUSION THERAPY Plan Name Start Date Discontinue Date Treatment Medications Discontinue Reason Plan Provider [facility]PROLIA[facility] 11/04/2022 07/24/2023 denosumab (PROLIA) Therapy Complete Migel Jacobs MD [facility] DENOSUMAB 60MG (PROLIA) 11/26/2021 11/03/2022 denosumab (PROLIA) Therapy Complete Migel Jacobs MD Radiation Treatments * No radiation treatments are documented for this [facility]. Treatments may have been administered in another system.
--- OUTSIDE RECORDS SUMMARY | 2024-03-15 09:21 | XMS_ITS | Clinical Summary ---
Author Organization [facility] Address [address] [place] [address] Care Team Providers Care It Technical Specialist Name Role Phone Melissa Childs NP Primary Care Provider [phone] Allergies Active Allergy Reactions Criticality Noted Date Comments Doxycycline 11/17/2017 Iodinated Contrast Media 11/17/2017 Medications Medication Sig Dispensed Refills Start Date End Date Status lisinopril (PRINIVIL,ZESTRIL) tablet 10 mg Take 2 tablets (20 mg total) by mouth daily. 0 Active traZODone (DESYREL) 50 MG tablet Take 1 tablet (50 mg total) by mouth every night at bedtime. 0 Active Triptorelin Pamoate 11.25 MG SUSR Inject 11.25 mg into the muscle every 3 (three) months. 0 Active atorvastatin (LIPITOR) tablet 10 mg Take 1 tablet (10 mg total) by mouth every evening. 0 Active Empagliflozin 25 MG TABS Take 25 mg by mouth daily. 0 Active pregabalin (LYRICA) 75 MG capsule Take 1 capsule (75 mg total) by mouth 2 (two) times a day. 0 Active glipiZIDE (GLUCOTROL XL) ER 24 hr tablet 5 mg Take 1 tablet (5 mg total) by mouth daily. 0 Active oxybutynin (DITROPAN-XL) 10 MG 24 hr tablet Take 1 tablet (10 mg total) by mouth daily. 0 03/10/2022 Active insulin glargine (LANTUS) injection 100 units/mL Inject 50 Units under the skin every night at bedtime. 0 Active albuterol 108 (90 Base) MCG/ACT inhaler Inhale 2 puffs into the lungs every 6 (six) hours as needed for wheezing. 0 Active ferrous sulfate 325 (65 FE) MG tablet Take 1 tablet (325 mg total) by mouth every morning with breakfast. 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 17 Social History Tobacco Use Types Packs/Day Years Used Date Smoking Tobacco: Every Day Smokeless Tobacco: Never Alcohol Use Standard Drinks/Week Comments Yes 0 (1 standard drink = 0.6 oz pur e alcohol) socially Sex and Gender Information Value Date Recorded Sex Assigned at Male 11/01/2022 4:58 PM EDT Gender Identity Not on file Sexual Orientation Not on file Job Start Date Occupation Industry Not on file Not on file Not on file Last Filed Vital Signs Vital Sign Reading Time Taken Comments Blood Pressure 137/80 10/27/2023 9:39 AM EDT Pulse 78 10/27/2023 9:39 AM EDT Temperature 36.2 ??C (97.2 ??F) 10/27/2023 9:39 AM ED T Respiratory Rate 18 10/27/2023 9:39 AM EDT Oxygen Saturation 93% 10/27/2023 9:39 AM EDT Inhaled Oxygen Concentration - - Weight 121.4 kg (267 lb 9.6 oz) 10/27/2023 9:39 AM EDT Height 177.8 cm (5' 10 ) 11/04/2022 11: 00 AM EDT Body Mass Index 38.4 11/04/2022 11:00 AM EDT Plan of Treatment Health Maintenance Due Date Last Done Comments Hepatitis C Screening 1956 COVID-19 Vaccine (#1) 1961 Depression Screening 1968 BMI Counseling 1974 Preventative Health Evaluation 1974 Tobacco Cessation Counseling 1974 Shingrix-Zoster Vaccine (1 of 2) 08/28/1975 Colon Cancer Screening (Colonoscopy) 2001 RSV Adult > 60+ Yrs or (1 - Risk 60-74 years 1-dose series) 2016 Abdominal Aortic Aneurysm (AAA) Screening 2021 Fall Risk Assessment 2021 Pneumococcal Vaccine (2 of 2 - PPSV23 or PCV20) 12/14/2021 10/19/2021 DTap / Tdap / Td (2 - Td or Tdap) 01/30/2022 01/31/2012 Influenza Vaccine (#1) 2023 2, 12/04/2019, 10/20/2017, Additional history exists Hepatitis B Vaccines Aged Out No long er eligible based on patient's age to complete this topic RSV Ped < 20 months Aged Out No longe r eligible based on patient's age to complete this topic Care Teams It Technical Specialist Relationship Specialty Start Date End Date Melissa Childs NP [address] [place] [address] PCP - General Nurse Practitioner 07/27/23
--- OUTSIDE RECORDS SUMMARY | 2024-03-15 09:21 | XMS_ITS ---
Author Organization [facility] Address [address] [place] [address] Phone Care Team Providers Care Field Automobile Adjuster Name Role Phone Melissa Childs Primary Care Provider [phone] Active Problems Problem Noted Date Diagnosed Date [...] treatments are documented for this patient in [facility]. Treatments may have been administered in another system.
--- OUTSIDE RECORDS SUMMARY | 2024-03-15 09:21 | XMS_ITS | Clinical Summary ---
Author Organization [facility] Address [address] [place] [address] Phone Care Team Providers Care Substation Electrician Supervisor Name Role Phone Melissa Childs Primary Care Provider [phone] Allergies Active Allergy Reactions Criticality Noted Date [...] - 01/26/2024 11:59 PM EST Hospital Encounter 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 [address] [place] [address] Migel Jacobs MD Prostate CA (CMS/HCC) (Primary [...] Description 04/26/2024 9:45 AM EDT Office Visit [facility] [address] [place] [phone] Migel Jacobs MD [address] [place] [phone] 04/26/2024 10:[address] [facility] [address] [place] [phone] Health Maintenance Due Date Last Done [...] LAB CHEMISTRY METHOD 01/23/2024 3:36 PM EST [facility] Blood Venous blood specimen / Unknown Venipuncture / Unknown 01/23/2024 9:17 AM EST 01/23/2024 12:42 PM EST Narrative [facility] - 01/23/2024 3:36 PM EST The Siemens Advia Centaur Chemiluminescent Immunoassay is used. Results obtained with different assay methods or kits cannot be used interchangeably. Results cannot be interpreted as absolute evidence of the presence or absence of malignant disease. Migel Jacobs MD LAB BLOOD ORDERABLE S [facility] [address] [place] [address], * (ABNORMAL) CBC auto differential (01/23/2024 9:17 AM EST) WBC 8.3 4.8 - 10.8 K/mcL LAB HEMETOLOGY METHOD 01/23/2024 1:01 PM EST [facility] RBC 4.70 4.50 - 5.50 M/mcL LAB HEMETOLOGY METHOD 01/23/2024 1:01 PM [facility] Hemoglobin 12.4(L) 13.5 - 17.5 g/dL LAB HEMETOLOGY METHOD 01/23/2024 1:01 PM [facility] Hematocrit 41.3(L) 42.0 - 54.0 % LAB HEMETOLOGY METHOD 01/23/2024 1:01 PM [facility] MCV 87.3 79.0 - 98.0 FL LAB HEMETOLOGY METHOD 01/23/2024 1:01 PM [facility] MCH 26.2(L) 27.0 - 32.0 pcg LAB HEMETOLOGY METHOD 01/23/2024 1:01 PM [facility] MCHC 30.0(L) 32.0 - 37.0 g/dL LAB HEMETOLOGY METHOD 01/23/2024 1:01 PM [facility] RDW 15.0 11.0 - 15.0 % LAB HEMETOLOGY METHOD 01/23/2024 1:01 PM [facility] Platelets 244 130 - 400 K/mcL LAB HEMETOLOGY METHOD 01/23/2024 1:01 PM [facility] MPV 9.8 7.0 - 11.0 FL LAB HEMETOLOGY METHOD 01/23/2024 1:01 PM [facility] NRBC 0.0 <1.0 % LAB HEMETOLOGY METHOD 01/23/2024 1:01 PM [facility] NRBC Absolute 0.00 <0.10 K/mcL LAB HEMETOLOGY METHOD 01/23/2024 1:01 PM [facility] Neutrophils Relative 63.4 % LAB HEMETOLOGY METHOD 01/23/2024 1:01 PM [facility] Lymphocytes Relative 28.3 % LAB HEMETOLOGY METHOD 01/23/2024 1:01 PM EST [facility] Monocytes Relative 5.1 % LAB HEMETOLOGY METHOD 01/23/2024 1:01 PM [facility] Eosinophils Relative 1.2 % LAB HEMETOLOGY METHOD 01/23/2024 1:01 PM [facility] Basophils Relative 0.6 % LAB HEMETOLOGY METHOD 01/23/2024 1:01 PM [facility] Immature Granulocytes Relative 1.4 % LAB HEMETOLOGY METHOD 01/23/2024 1:01 PM [facility] Neutrophils Absolute 5.26 1.50 - 7.00 K/mcL LAB HEMETOLOGY METHOD 01/23/2024 1:01 PM [facility] Lymphocytes Absolute 2.35 1.00 - 5.00 K/mcL LAB HEMETOLOGY METHOD 01/23/2024 1:01 PM [facility] Monocytes Absolute 0.42 0.20 - 1.00 K/mcL LAB HEMETOLOGY METHOD 01/23/2024 1:01 PM [facility] Eosinophils Absolute 0.10 0.00 - 0.50 K/mcL LAB HEMETOLOGY METHOD 01/23/2024 1:01 PM [facility] Basophils Absolute 0.05 0.00 - 0.20 K/mcL LAB HEMETOLOGY METHOD 01/23/2024 1:01 PM [facility] Immature Granulocytes Absolute 0.12(H) 0.00 - 0.03 K/mcL LAB HEMETOLOGY METHOD 01/23/2024 1:01 PM [facility] Blood Venous blood specimen / Unknown Venipuncture / Unknown 01/23/2024 9:17 AM EST 01/23/2024 12:42 PM EST Migel Jacobs MD LAB BLOOD ORDERABLE S [facility] [address] [place] [address], [place] [phone] * (ABNORMAL) Comprehensive metabolic panel (01/23/2024 9:17 AM EST) Sodium 142 133 - 145 mmol/L LAB CHEMISTRY METHOD 01/23/2024 4:08 PM [facility] Potassium 3.7 3.5 - 5.5 mmol/L LAB CHEMISTRY METHOD 01/23/2024 4:08 PM [facility] Chloride 105 96 - 110 mmol/L LAB CHEMISTRY METHOD 01/23/2024 4:08 PM [facility] CO2 28 21 - 32 mmol/L LAB CHEMISTRY METHOD 01/23/2024 4:08 PM [facility] Anion Gap 9 3 - 11 LAB CHEMISTRY METHOD 01/23/2024 4:08 PM [facility] Glucose 357(H) 70 - 100 mg/dL LAB CHEMISTRY METHOD 01/23/2024 4:08 PM [facility] BUN 15 5 - 25 mg/dL LAB CHEMISTRY METHOD 01/23/2024 4:08 PM [facility] Creatinine 1.13 0.70 - 1.30 mg/dL LAB CHEMISTRY METHOD 01/23/2024 4:08 PM [facility] eGFR 71 >=60 mL/min/1. 73m2 LAB CHEMISTRY METHOD 01/23/2024 4:08 PM [facility] Comment:Calculation based on the??Chronic Kidney Disease Epidemiology Collaboration (CKD-EPI) equation refit??without adjustment for race. BUN/Creatinine Ratio 13.3 LAB CHEMISTRY METHOD 01/23/2024 4:08 PM [facility] Calcium 8.6 8.5 - 10.5 mg/dL LAB CHEMISTRY METHOD 01/23/2024 4:08 PM [facility] AST (SGOT) 15 10 - 42 unit/L LAB CHEMISTRY METHOD 01/23/2024 4:08 PM EST [facility] ALT (SGPT) 21 10 - 60 unit/L LAB CHEMISTRY METHOD 01/23/2024 4:08 PM [facility] Alkaline Phosphatase 123(H) 42 - 121 unit/L LAB CHEMISTRY METHOD 01/23/2024 4:08 PM [facility] Total Protein 6.3 6.0 - 8.0 g/dL LAB CHEMISTRY METHOD 01/23/2024 4:08 PM [facility] Albumin 3.4 3.2 - 5.0 g/dL LAB CHEMISTRY METHOD 01/23/2024 4:08 PM [facility] Total Bilirubin 0.8 0.0 - 1.4 mg/dL LAB CHEMISTRY METHOD 01/23/2024 4:08 PM [facility] Blood Venous blood specimen / Unknown Venipuncture / Unknown 01/23/2024 9:17 AM EST 01/23/2024 12:42 PM EST Migel Jacobs MD LAB BLOOD ORDERABLE S [facility] [address] [place] [address], from Last 3 Months Care Teams Substation Electrician Supervisor Relationship Specialty Start Date End Date Melissa Childs [address] [facility] [address] [place] [phone] PCP - General 07/27/23
== END 2024-03-15 09:30 | disposition home or self-care (01) ==
PROVIDERS: PCP Internal Medicine; Visit Provider Internal Medicine
DX: E11.65 Type 2 diabetes mellitus with hyperglycemia (principal); Z79.4 Long term (current) use of insulin

== ENCOUNTER → 2024-03-15 08:55 | Outpatient (BNVA) | payer OTHER, SELFPAY | PROVIDERS: PCP Internal Medicine; Visit Provider Internal Medicine ==

== ENCOUNTER 2024-04-11 13:30 | Outpatient (AMB) | payer OTHER, SELFPAY ==
[2024-04-11 13:31] VITALS: BP 118/62; PULSE 92; O2SAT 92; BMI 38.9
--- NOTE | 2024-04-11 13:31 | MHC.OFFVIS ---
Vital Signs 04/11/24 13:31 Height 5 ft 10 in Weight 271 lb BMI 38.9 BP 118/62 Blood Pressure Location Lt brachial Position Sitting Pulse 92 Pulse Source Doppler Pulse Oximetry (%) 92 Oxygen Delivery Method Room Air Intake Visit Reasons: COPD/Hypoxemia Allergies Iodinated Contrast Media Allergy (Severe, Verified 04/11/24 13:36) Hives doxycycline Allergy (Mild, Verified 04/11/24 13:36) Vomiting HPI HPI COPD/Hypoxemia: Details: 68-year-old gentleman with underlying greater than 30 pack-year smoker, quit 2019 referred for pulmonary evaluation. After the last office visit he was started on Anoro, however he only used it 1 time so far. His sleep study is pending. Patient at this time states that he does not have recent CT imaging of his lungs. He denies acute exacerbations. [facility] Medical History Hernia Surgical History H/O vasectomy History of hernia surgery Family History Sister FH: mental illness Substance abuse Mother Diabetes Social History Housing: House Alcohol intake: current Patient Tobacco Use Status: Former Tobacco user Cigarette Packs Per Day: 4 Years Smoked: 35 e-Cigarette/Vaping Use: Never Used Second Hand Smoke Exposure: No Cognitive needs: No Hearing needs: No Vision needs: Yes (glasses) Review of Systems Const Denies daytime sleepiness, Denies excessive sweating, Denies fatigue, Denies fever(s), Denies lethargy, Denies malaise, Denies night sweats, Reports snoring and Denies weight loss Eyes Denies blurry vision and Denies itchy eyes ENT Denies nasal congestion, Denies post nasal drip, Denies sinus pain, Denies sinus pressure and Denies other ( Thrush) Card Denies chest pain, Denies pedal edema, Denies dyspnea, Denies orthopnea and Denies paroxysmal nocturnal dyspnea Resp Denies cough, Denies hemoptysis, Denies excessive phlegm production, Denies dyspnea, Reports snoring and Denies wheezing GI Denies abdominal pain and Denies heartburn Musc Denies myalgias, Denies arthralgias and Denies joint swelling Skin/Breast Denies rash Neuro Denies memory loss and Denies seizure-like activity Psych Denies abnormal sleep pattern, Denies anxiety and Denies memory loss Endo Denies excessive sweating, Denies fatigue and Denies heat intolerance Jackson/Lymph Denies easy bruising Aller/Immun Denies itchy eyes, Denies seasonal rhinorrhea and Denies wheezing Physical Exam Vital Signs: Last Vital Signs Pulse 92 04/11/24 13:31 BP 118/62 04/11/24 13:31 Pulse Ox 92 04/11/24 13:31 Oxygen Delivery Method Room Air 04/11/24 13:31 BMI result Body Mass Index 38.9 Const General: no acute distress and alert Nutritional Appearance: obese Orientation/consciousness: Other orientation findings ( oriented) HEENT Head: Yes atraumatic Eyes General: appearance normal, both eyes and all related structures Sclerae: sclerae normal EOM: EOMs intact bilaterally Neck Neck: Yes supple Lymphatic: no lymphadenopathy noted Resp Effort & Inspection: normal respiratory effort and no use of accessory muscles Auscultation: clear to auscultation bilaterally Cardio Rate: regular rate Rhythm: regular rhythm Heart sounds: no gallops, no murmurs and no rubs Skin General skin exam: other ( warm) Extrem General: No clubbing, No cyanosis and No edema Assessment & Plan Assessment & Plan (1) COPD (chronic obstructive pulmonary disease): Code(s): J44.9 - Chronic obstructive pulmonary disease, unspecified Category: Medical Qualifiers: COPD type: unspecified COPD Qualified Code(s): J44.9 - Chronic obstructive pulmonary disease, unspecified Plan: Continue on Anoro. Pulmonary function test results are pending. (2) BUTCH (obstructive sleep apnea): Code(s): G47.33 - Obstructive sleep apnea (adult) (pediatric) Category: Medical Plan: Sleep study is pending. (3) Personal history of nicotine dependence: Code(s): Z87.891 - Personal history of nicotine dependence Category: Medical Plan: Will obtain lung cancer screening CT chest. Orders: Orders CT lung screening Today Z87.891 - Personal history of nicotine dependence Coding Level of Care Code Est Pt Level 4 (07474) Diagnoses Chronic obstructive pulmonary disease, unspecified COPD type J44.9 COPD type: unspecified COPD BUTCH (obstructive sleep apnea) G47.33 Personal history of nicotine dependence Z87.740
--- OUTSIDE RECORDS SUMMARY | 2024-04-11 16:12 | XMS_ITS | Patient Health Record ---
Author Organization [email or web address] Address [address] [place] [phone] Care Team Providers Care Conveyor Monitor Name Role Phone JAD SORENSEN Primary Care Provider PIPELAVONYOSVANYET Unavailable [phone] ALLERGIES Allergen (clinical drug ingredient) Drug/Non Drug [...] Orally Once a day Active Vitamin D2 57139 IU Not-Takin g Azithromycin 250 MG as [...] smoker (40+ cigs/day) Section Notes: Lives in [facility] [place] with his , youngest daughter and grandsone. 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 Lives in [facility] [place] with his , youngest daughter and grandsone. 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 Lives in [facility] with his , youngest daughter and grandsone. 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 Lives in [facility] with his , youngest daughter and grandsone. 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 Lives in [facility] with his , youngest daughter and grandsone. 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 Lives in [facility] with his , youngest daughter and grandsone. 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 Lives in [facility] with his , youngest daughter and grandsone. 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 PROBLEMS Problem Type ICD Code Onset Dates Problem Status W/U Status Risk SNOMED Code Notes Problem Type 2 diabetes mellitus with diabetic chronic kidney disease (E11.22) Active confirmed 35954191 Problem Essential (primary) hypertension (I10) Active confirmed 83594143 Problem Hypertensive chronic kidney disease with stage 1 through stage 4 chronic kidney disease, or unspecified chronic kidney disease (I12.9) Active confirmed 64705369 Problem Age-related osteoporosis without current pathological fracture (M81.0) Active confirmed 67055831 Problem Chronic kidney disease, stage 2 (mild) (N18.2) Active confirmed 948931971 Problem Vitamin D deficiency (E55.9) Active confirmed 27805005 Problem Hyperlipidemia, unspecified hyperlipidemia type (E78.5) Active confirmed 39853540 Problem Insomnia, unspecified type (G47.00) Active confirmed 430805639 Problem Elevated high sensitivity C-reactive protein (R79.82) Active confirmed 093976792604446 Problem Morbid obesity (E66.01) Active confirmed 821347981 Problem 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) Active confirmed 164265195 Problem BMI 37.0-37.9, adult (Z68.37) Active confirmed 272830293 Problem Elevated sedimentation rate (R70.0) Active confirmed 957952659 Problem 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) Active confirmed 976728238 Problem Prostate CA (C61) Active confirmed 3990 26489 Problem Diabetic polyneuropathy associated with type 2 diabetes mellitus (E11.42) Active confirmed 977847108 Problem Insulin resistance (E88.819) Active confirmed 097878858 VITAL SIGNS Heart Rate 87 /min 06/14/2023 Height-cm 176.53 cm 06/14/2023 Oximetry 97 % 06/14/2023 Blood pressure diastolic 72 mm Hg 06/14/2023 Weight-kg 117.48 kg 06/14/2023 Height 69.5 in 06/14/2023 Blood pressure systolic 114 mm Hg 06/14/2023 Weight 259.0 lbs 06/14/2023 BMI 37.7 kg/m2 06/14/2023 Encounters Encounter Location Date Provider Diagnosis [address] [id number] 04/26/2023 JEB MARTÍNEZ Diabetic polyneuropathy associated with type 2 diabetes mellitus E11.[address] [id number] 06/14/2023 JEB MARTÍNEZ Type 2 diabetes mellitus with diabetic chronic kidney disease E11.22 and Upper respiratory tract infection, unspecified type J06.[address] [id number] 06/06/2023 JEB MARTÍNEZ Hyperlipidemia, unspecified hyperlipidemia type [...] Pt unfortunately 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 PLAN OF TREATMENT Pending Test Test Name Order Date Chest X-ray PA and lateral 10/28/2022 CT Chest with Contrast 11/25/2022 Future Test Test Name Order Date COMPREHENSIVE METABOLIC PANEL (14687) CBC (INCLUDES DIFF/PLT) (6399) CARDIO IQ(R) HEMOGLOBIN A1c (88395) 02/14 CARDIO IQ(R) INSULIN (65019) 03/07/2023 Insurance Providers Payer Name Payer Address Payer Phone Subscriber Number Group Number Insured Name Patient Relationship to Insured Coverage Start Date Coverage End Date [employer] [address] [place] [phone] [id number] LUDWIG LUU Self - patient is the insured MEDICAL (GENERAL) HISTORY Medical History History ICD Code Prosate Cancer Diabetes II Hypertension Kidney nodules Hernia Chicken Pox as a kid Deviated Septum Surgical History Surgery Date(Month/Year) Kidney surgery to remove nodules 2017 Hernia Surgery 2016 [place] Teeth Removal Deviated Septum Surgery
--- OUTSIDE RECORDS SUMMARY | 2024-04-11 16:12 | XMS_ITS ---
Author Organization [facility] Address [address] [place] [phone] Care Team Providers Care Lecturer Of Portuguese Name Role Phone JDA SORENSEN Primary Care Provider [phone] [facility] JEB MARTÍNEZ Unavailable [phone] REASON FOR VISIT Refills MEDICATIONS Medication SIG [...] Active Encounters Encounter Location Date Provider Diagnosis [facility], [address] [id number] 06/06/2023 JEB MARTÍNEZ Hyperlipidemia, unspecified hyperlipidemia type [...] * LUDWIG LUUDOB:1955 ( 67 yo M)Acc No.[id number]:06/06/2023 Patient:??LUDWIG LUU :1955?Age:67 Y?Sex:Clementina garzon Phone: Address:[address] [place] [phone] * Refills?? Refill Atorvastatin Calcium Tablet, 10 [...]
--- OUTSIDE RECORDS SUMMARY | 2024-04-11 16:12 | XMS_ITS ---
Author Organization [employer] [facility] Address [address] [place] [phone] Care Team Providers Care Long Winder Tender Name Role Phone JAD SORENSEN Primary Care Provider [phone] JEB MARTÍNEZ Unavailable [phone] ALLERGIES Allergen (clinical drug ingredient) Drug/Non Drug [...] Orally Once a day Not-Taking Vitamin D2 32435 IU Not-Takin g Azithromycin 250 MG as [...] smoker (40+ cigs/day) Section Notes: Lives in [facility] with his , youngest daughter and grandsone. 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 Reynaldo Lares.? Providers/Specialists: Tank Setter Holger Fox Providers/Specialists: Tank Setter Holger Fox. ?Visit info:? Andrez presents today [...] - once a year Joaquin.. 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 * Procedure Codes:?? * Preventive Medicine:?Last CPE: 2020 Colonoscopy: Yes, over 10 years ago - polyps found Endoscopy: No COVID Vac: Yes, 3 boosters - Newest COVID Shot, yes FLU Vac: Yes for Shingles Vac: No PV: Yes (2). * Billing Information: * Visit Code:?? 77608 Office Visit, Est Pt., Level 3. * Procedure Codes:?? * Sign off status: Completed true * Provider:??JEB MARTÍNEZ NP Date:?? History and Physical Notes * HPI (History of Present Illness) Category Sub-Category Detail Notes Category Not es Patient Care Team Oncologist: Dr. Jacobs , Dr. Weir on Providers/Specialists : Tank Settersandy Fox Providers/Specialists : Tank Setter Holger Fox Examination Category Sub-Category Detail Notes Category Not es General Examination GEN: NAD, speaking in full complete sentences, thoughts clear and appropriate RESP: nonlabored breathing, lungs clear/equal all zaidi CV: S1S2 regular NEURO: AO x 3 PSYCH: judgment/insight intact, NL mood/affect
--- OUTSIDE RECORDS SUMMARY | 2024-04-11 16:12 | XMS_ITS ---
Author Organization [employer] [facility] Address [address] [place] [phone] Care Team Providers Care Garnett Machine Operator Helper Name Role Phone JAD SORENSEN Primary Care Provider [phone] JEB MARTÍNEZ Unavailable [phone] ALLERGIES Allergen (clinical drug ingredient) Drug/Non Drug [...] Orally Once a day Not-Taking Vitamin D2 92280 IU Not-Taklondon g Trelstar Every 3 months Active Vitamin [...] smoker (40+ cigs/day) Section Notes: Lives in [facility] with his , youngest daughter [...] 04/26/2023 Encounters Encounter [facility] Date [facility] [address] [id number] 04/26/2023 JEB MARTÍNEZ Diabetic polyneuropathy associated with [...] * LUDWIG LUUDOB:1955 ( 67 yo M)Acc No.[id number]:04/26/2023 Progress Notes Patient:??LUDWIG LUU Provider:??JEB MARTÍNEZ NP :1955?Age:67 Y?Sex:Ma le Date:04/26/2023 Phone: Address:[address] [place] [phone] Pcp:JAD SORENSEN Subjective: * Chief Complaints: * ?F/U DIABETIC CHECK * HPI: ?Patient Care Team:?Oncologist:??Dr. Jacobs , Dr. Jacobs.? Providers/Specialists: Court Magistrate Holger Fox Providers/Specialists: Court Magistrate Holger Fox. ?Visit info:? Patient presents in the office today for a diabetes check in. ?-Only checks blood sugars every days, fasting 120-180 ?-Still admits def needs to improve diet ?-Visual Stylist can't afford ?-Still waiting for PA for [...] a year Veto and coke.. ?Lives in [place], [place] with his , youngest daughter and [...] date 06/05/2023Not-TakingVitamin D2 , Notes to Pharmacist: 55064 IUBicalutamide 50 MG Tablet 1 tablet Orally Once a day Ozempic (0.25 or 0.5 MG/DOSE) 2 MG/3ML Solution Pen-injector 0.5mg Subcutaneous once a week FreeStyle Aide 3 Sensor - Miscellaneous as directed change sensor every 14 daysMedication List reviewed and reconciled with the patientNot-Taking Vitamin D2 , Notes to Pharmacist: 01932 IUNot-Taking Bicalutamide 50 MG Tablet 1 tablet [...] work) * Billing Information: * Visit Code:?? 49181 Office Visit, Est Pt., Level 3. * Procedure Codes:?? * Sign off status: Completed true * Provider:??JEB MARTÍNEZ NP Date:?? History and Physical Notes * HPI (History of Present Illness) Category Sub-Category Detail Notes Category Not es Patient Care Team Oncologist: Dr. Jacobs , Dr. Weir on Providers/Specialists : Court Magistrate Holger Fox Providers/Specialists : Court Magistrate Holger Fox Visit info Patient presents in the office today for a diabetes check in. -Only checks blood sugars every days, fasting 120-180 -Still admits def needs to improve diet -Visual Stylist can't afford -Still waiting for PA for [...]
--- OUTSIDE RECORDS SUMMARY | 2024-04-11 16:12 | XMS_ITS ---
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N DENOSUMAB 60MG (PROLIA)* Plan Start Date:07/25/2023 Plan Provider:Migel Jacobs MD Linked Problems Prostate CA (HCC) Treatment Medications denosumab (PROLIA)Triptoreli n Pamoate Susr Past Plans ONCOLOGY INFUSION THERAPY Plan Name Start Date Discontinue Date Treatment Medications Discontinue Reason [facility]MG (PROLIA) 11/04/2022 07/24/2023 denosumab (PROLIA) Therapy Complete Migel Jacobs MD [facility]N DENOSUMAB 60MG (PROLIA) 11/26/2021 11/03/2022 denosumab (PROLIA) Therapy Complete Migel Jacobs MD Radiation Treatments * No radiation treatments are documented for this patient in [facility]. Treatments may have been administered in another system.
--- OUTSIDE RECORDS SUMMARY | 2024-04-11 16:12 | XMS_ITS ---
Author Organization [facility] Address [address] [address] Care Team Providers Care Projector Operator Name Role Phone Damaris Ponce Primary Care Provider CHRISTY Huertas [phone] Encounters Encounter Location Date Provider Diagnosis [facility] [address] [address] 03/11/2024 CHRISTY WILHELM Plan Of Treatment Next Appt Details Provider Name:CHRISTY WILHELM, 06/07/2024 04:00:00 PM, [address] [address], [place], [address], Progress Notes * Andrez LUUDOB:1955 (68 yo M)Acc No.[id number]:03/11/2024 Patient:?Andrez LUU :1955???Age:68 Y???Sex:Male Address:[address] [place] [phone] * true * Date:? Generated for Printi bronwyn/Bebo/eTransmitting on:?04/11/2024 04:12 PM EST
--- OUTSIDE RECORDS SUMMARY | 2024-04-11 16:12 | XMS_ITS | Clinical Summary ---
Author Organization [facility] Address [address] [place] [address] Care Team Providers Care Measuring Clerk Name Role Phone Melissa Childs NP Primary Care Provider [phone] Allergies Active Allergy Reactions Criticality Noted Date [...] age to complete this topic Care Teams Measuring Clerk Relationship Specialty Start Date End Date Melissa Childs NP [address] [place] [address] PCP - General Nurse Practitioner 07/27/23
--- OUTSIDE RECORDS SUMMARY | 2024-04-11 16:12 | XMS_ITS ---
Author Organization [facility] Address [address] [address] Care Team Providers Care Tractor Operator Name Role Phone Damaris Ponce Primary Care Provider CHRISTY Huertas [phone] REASON FOR VISIT Rx Refill Medications Medication SIG (Take, Route, Fr equency, Duration) Notes Start Date End Date Status Pregabalin 200 MG 1 capsule Orally twi ce daily for 90 days 02/09/2024 Active Encounters Encounter Location Date Provider Diagnosis [facility] [address] [address] 02/09/2024 CHRISTY WILHELM Plan Of Treatment Medication Medication Name Sig Start Date Stop Date Notes Pregabalin 200 MG 1 capsule Orally twice daily for 90 days 02/09/2024 Next Appt Details Provider Name:CHRISTY WILHELM, 06/07/2024 04:00:00 PM, [facility] [address], [address], Progress Notes * Andrez LUUDOB:1955 (68 yo M)Acc No.[id number]:02/09/2024 Patient:?Andrez LUU :1955???Age:68 Y???Sex:Male Address:[address] [place] [phone] * Refills? Refill Pregabalin Capsule, 200 MG, Orally, 180, 1 capsule, twice daily, 90 days, Refills=0 * true * Date:? Generated for Printi ng/Faxing/eTransmitting on:?04/11/2024 04:12 PM EST
--- OUTSIDE RECORDS SUMMARY | 2024-04-11 16:13 | XMS_ITS | Patient Health Record ---
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) Active confirmed Problem 011006259 Arthritis of foot (M19.079) Active confirmed Vital Signs Heart Rate 107 /min 03/08/2024 Temperature 97.1 degrees Fahrenheit 03/08/2024 Respiratory Rate 16 /min 03/08/2024 Height 5ft 9in in 03/08/2024 Weight 273.4 lbs 03/08/2024 BMI 40.37 kg/m2 03/08/2024 Procedures Procedure Date Ordered Date Performed Result Body Sit e DRAIN/INJECT, INTERMEDIATE JOINT/BURSA 03/08/2024 N/A Encounters Encounter Location Date Provider Diagnosis [facility] [address] [address] 04/17/2023 CHRISTY WILHELM Controlled type 2 diabetes mellitus with diabetic polyneuropathy, without long-term current use of insulin E11.42 ; Dystrophic nail L60.3 ; Onychomycosis B35.1 ; Pain in right toe(s) M79.674 ; Pain in left toe(s) M79.675 and Arthritis of foot M19.079 [facility] [address] [address] 07/21/2023 CHRISTY WILHELM Controlled type 2 diabetes mellitus with diabetic polyneuropathy, without long-term current use of insulin E11.42 ; Dystrophic nail L60.3 ; Onychomycosis B35.1 ; Pain in right toe(s) M79.674 ; Pain in left toe(s) M79.675 and Arthritis of foot M19.079 [facility] [address] 12/06/2023 CHRISTY WILHELM Controlled type 2 diabetes mellitus with diabetic polyneuropathy, without long-term current use of insulin E11.42 ; Dystrophic nail L60.3 ; Onychomycosis B35.1 ; Pain in right toe(s) M79.674 ; Pain in left toe(s) M79.675 and Arthritis of foot M19.079 [facility] [address] 03/08/2024 CHRISTY WILHELM Controlled type 2 diabetes mellitus with diabetic polyneuropathy, without long-term current use of insulin E11.42 ; Dystrophic nail L60.3 ; Onychomycosis B35.1 ; Pain in right toe(s) M79.674 ; Pain in left toe(s) M79.675 and Arthritis of foot M19.079 [facility] [address] 05/05/2023 CHRISTY WILHELM [facility] [address] 05/08/2023 CHRISTY WILHELM [facility] [address] 09/20/2023 CHRISTY WILHELM [facility] [address] 11/07/2023 CHRISTY WILHELM Controlled type 2 diabetes mellitus with diabetic polyneuropathy, without long-term current use of insulin E11.42 [facility] [address] 02/09/2024 CHRISTY WILHELM [facility] [address] 03/11/2024 CHRISTY WILHELM Assessments Encounter Date [...] Aseptic debridement of toenails x 10 with edge cutter and curette, pt tolerated well. Discussed [...] Aseptic debridement of toenails x 10 with edge cutter and curette, pt tolerated well. Discussed [...] Aseptic debridement of toenails x 10 with edge cutter and curette, pt tolerated well. Discussed [...] Aseptic debridement of toenails x 10 with edge cutter and curette, pt tolerated well. Discussed [...] Name:CHRISTY WILHELM, 06/07/2024 04:00:00 PM, [address] [facility] [address], [place], [address], Insurance Providers Payer Name Payer Address Payer Phone Subscriber Number Group Number Insured Name Patient Relationship to Insured Coverage Start Date Coverage End Date [employer] [address] [place] [phone] [id number] Andrez Gauthier Self - patient is the [...]
--- OUTSIDE RECORDS SUMMARY | 2024-04-11 16:13 | XMS_ITS ---
Author Organization [facility] Address [address] [facility] [address] [place] [address] Care Team Providers Care Form Setter Name Role Phone Damaris Ponce Primary Care Provider TERESA Huertas Unavailable [phone] Allergies Allergen (clinical drug ingredient) Drug/Non Drug [...] UNIT/ML as directed Subcutaneous Active Vital Signs Temperature 97.1 degrees Fahrenheit 03/08/19 Heart Rate 107 /min 03/08/2024 Respiratory Rate 16 /min 03/08/2024 Height 5ft 9in in 03/08/2024 Weight 273.4 lbs 03/08/2024 BMI 40.37 kg/m2 03/08/2024 Procedures Procedure Date Ordered Date Performed Result Body Sit e DRAIN/INJECT, INTERMEDIATE JOINT/BURSA 03/08/2024 N/A Encounters Encounter Location Date Provider Diagnosis [facility] [address] [facility] [address] [place] [address] 03/08/2024 TERESA ZAYAS Controlled type 2 diabetes [...] Aseptic debridement of toenails x 10 with shank cutter and curette, pt tolerated well. Discussed [...] Name:TERESA ZAYAS, 06/07/2024 04:00:00 PM, [address] [facility] [address], [place], [address], Medications Administered Medication Instructions Date of Administration Dosage Notes dexAMETHasone Sod Phosphate PF 03/08/2024 0.5 m L Kenalog 03/08/2024 0.5 mL Progress Notes * Andrez LUU:1955 (68 yo M)Acc No.[id number]:03/08/2024 Progress Note Patient:Andrez BELLA Provider:?Teresa Zayas DPM :1955???Age:68 Y???Sex:Male Miguel e:03/08/2024 Address:[address] [place], [place] [phone] Pcp:Damaris Ponce Subjective: * Chief Complaints: * [...] bilaterally, protective sensation diminished 6/10 with 5.07 Laurel Roxann bilaterally, vibratory sensation with tuning fork [...] Aseptic debridement of toenails x 10 with shank cutter and curette, pt tolerated well. Discussed [...] ZAYAS D.P.M (Arthritis of foot) * Procedure Codes:?20155 DRAIN /INJECT, INTERMEDIATE JOINT/BURSA, [place]: [place] [address] DEBRIDE NAIL, 6 OR MORE, Modifiers: q9 , [id number] INJ DEXAMETHASONE SODIM PHOSHATE 1 [id number] INJ TRIAMCINOLONE ACETONIDE 10 MG * Follow Up:?3 Months * Billing Information: * Visit Code:? 58460 Office Visit, Est Pt., Level 3. Modifiers: 25 * Procedure Codes:? 34949 DRAIN/INJECT, INTERMEDIATE JOINT/[place]SA. [place]: [place] [address] DEBRIDE NAIL, 6 OR MORE. Modifiers: q9, 59 J1100 INJ DEXAMETHASONE SODIM PHOSHATE 1 MG. J3301 INJ TRIAMCINOLONE ACETONIDE 10 MG. * Sign off status: Completed true * Provider:?Teresa Zayas DPM Date:? 03/08/2024 Generated for Josh barnhart/Bebo/eTianitting on:?04/11/2024 04:12 PM EST History and Physical Notes * [...] bilaterally, protective sensation diminished 6/10 with 5.07 Laurel Roxann bilaterally, vibratory sensation with tuning fork [...]
--- OUTSIDE RECORDS SUMMARY | 2024-04-11 16:13 | XMS_ITS ---
Author Organization [facility] Address [address] [place] [address] Phone Care Team Providers Care Manager Trade Marketing Name Role Phone Melissa Childs Primary Care Provider [phone] Active Problems Problem Noted Date Diagnosed Date [...] treatments are documented for this patient in [facility]. Treatments may have been administered in another system.
--- OUTSIDE RECORDS SUMMARY | 2024-04-11 16:13 | XMS_ITS | Clinical Summary ---
Author Organization [facility] Address [address] [place] [address] Phone Care Team Providers Care Residential Supervisor Name Role Phone Melissa Childs Primary Care Provider [phone] Allergies Active Allergy Reactions Criticality Noted Date Comments Doxycycline 11/17/2017 Iodinated Contrast Media 11/17/2017 Medications albuterol HFA (PROAIR HFA ; PROVENTIL HFA ; VENTOLIN HFA) 90 mcg/actuation inhaler Inhale 2 puffs into the lungs every 6 (six) hours as needed for wheezing. Active atorvastatin (LIPITOR) 10 mg tablet Take 1 tablet (10 mg total) by mouth every evening. 09/22/19 23 Active bicalutamide (CASODEX) 50 mg tablet TAKE 1 TABLET(50 MG) BY MOUTH DAILY 07/25/19 24 Active ferrous sulfate 325 mg (65 mg [...] tablet (10 mg total) by mouth daily. 03/10/19 Active pregabalin (LYRICA) 75 mg capsule Take 1 capsule (75 mg total) by mouth 2 (two) times a day. Active traZODone (DESYREL) 50 mg tablet Take 1 tablet (50 mg total) by mouth every night at bedtime. 12/20/19 23 Active triptorelin pamoate (TRELSTAR) 11.25 mg suspension for reconstitution chemo injection Inject 11.25 mg into the muscle every 3 (three) months. Active insulin aspart (NovoLOG U-100 Insulin aspart) 100 unit/mL injection Inject under the skin. 12/11/19 24 Active polyethylene glycol (Golytely) 236-22.74-6.74 -5.86 gram solution Take 4L by mouth once for one dose. May substitue any PEG. Starting at 6PM the night before your procedure drink 1 8oz glasses at your own pace until you complete half of the gallon. Finish 2nd half of the gallon 5 hours before your procedure. 4000 mL 02/06/20 24 Active bisacodyL (DULCOLAX) 5 mg EC tablet Take 2 tablets by mouth right before beginning bowel prep. 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 (CMS/HCC) (Primary Dx); Prostate CA (CMS/HCC) Discharge Disposition: Home or Self Care 01/26/2024 10:30 AM EST Office Visit [facility] [address] [place] [phone] Migel Jacobs MD Prostate CA (CMS/HCC) (Primary [...] at Not on file Legal Sex Male 10:14 PM EST Gender Identity Not on file Sexual Orientation Not on file Obstetrics History Last Filed [...] Description 04/26/2024 9:45 AM EDT Office Visit [facility] [address] [place] [phone] Migel Jacobs MD [address] [place] [phone] 04/26/2024 10:00 AM EDT Appointment [facility] [address] [place] [phone] Health Maintenance Due Date Last Done Comments Diabetes: Annual Foot Exam 1966 Diabetes: Annual Retina Eye Exam 1965 Hepatitis A Vaccines (1 of 2 - Risk 2-dose series) 08/28/1975 Zoster Vaccines (1 of 2) 08/28/1975 Hepatitis B Vaccines (1 of 3 - Risk 3-dose series) 2016 RSV Immunization Patients 60+ Years Old (1 - Risk 60-74 years 1-dose series) 2016 Pneumococcal Vaccine: 50+ Years (2 of 2 - PPSV23) 12/14/2021 10/19/2021 Abdominal Aortic Aneurysm (AAA) Screen [...] patient's age to complete this topic Meningococcal B Vacine Aged Out No lo nger eligible based on patient's age to complete [...] specific antigen diagnostic (01/23/2024 9:17 AM EST) Pathologist [facility] PSA 1.19 0.00 - 4.00 ng/mL LAB CHEMISTRY METHOD 01/23/2024 3:[address] [facility] Blood Venous blood specimen / Unknown Venipuncture / Unknown 01/23/2024 9:17 AM EST 01/23/2024 12:[address] [facility] - 01/23/2024 3:36 PM EST The Siemens Advia Centaur Chemiluminescent Immunoassay is used. Results obtained with different assay methods or kits cannot be used interchangeably. Results cannot be interpreted as absolute evidence of the presence or absence of malignant disease. us Migel Jacobs MD LAB BLOOD ORDERABLES Final Result [facility] [address] [place] [address], * (ABNORMAL) CBC auto differential (01/23/2024 9:17 AM EST) Pathologist [facility] WBC 8.3 4.8 - 10.8 K/mcL LAB HEMETOLOGY METHOD 01/23/2024 1:01 PM [facility] RBC 4.70 4.50 - 5.50 M/mcL LAB HEMETOLOGY METHOD 01/23/2024 1:01 PM [facility] Hemoglobin 12.4(L) 13.5 - 17.5 g/dL LAB HEMETOLOGY METHOD 01/23/2024 1:01 PM [facility] Hematocrit 41.3(L) 42.0 - 54.0 % LAB HEMETOLOGY METHOD 01/23/2024 1:01 PM [facility] MCV 87.3 79.0 - 98.0 FL LAB HEMETOLOGY METHOD 01/23/2024 1:01 PM [facility] MCH 26.2(L) 27.0 - 32.0 pcg LAB HEMETOLOGY METHOD 01/23/2024 1:01 [facility] MCHC 30.0(L) 32.0 - 37.0 g/dL LAB HEMETOLOGY METHOD 01/23/2024 1:01 [facility] RDW 15.0 11.0 - 15.0 % LAB HEMETOLOGY METHOD 01/23/2024 1:01 [facility] Platelets 244 130 - 400 K/mcL LAB HEMETOLOGY METHOD 01/23/2024 1:01 [facility] MPV 9.8 7.0 - 11.0 FL LAB HEMETOLOGY METHOD 01/23/2024 1:01 [facility] NRBC 0.0 <1.0 % LAB HEMETOLOGY METHOD 01/23/2024 1:01 PM [facility] NRBC Absolute 0.00 <0.10 K/mcL LAB HEMETOLOGY METHOD 01/23/2024 1:01 [facility] Neutrophils Relative 63.4 % LAB HEMETOLOGY METHOD 01/23/2024 1:01 PM [facility] Lymphocytes Relative 28.3 % LAB HEMETOLOGY METHOD 01/23/2024 1:01 PM [facility] Monocytes Relative 5.1 % LAB HEMETOLOGY METHOD 01/23/2024 1:01 PM [facility] Eosinophils Relative 1.2 % LAB HEMETOLOGY METHOD 01/23/2024 1:01 PM [facility] Basophils Relative 0.6 % LAB HEMETOLOGY METHOD 01/23/2024 1:01 PM [facility] Immature Granulocytes Relative 1.4 % LAB HEMETOLOGY METHOD 01/23/2024 1:01 PM [facility] Neutrophils Absolute 5.26 1.50 - 7.00 K/mcL LAB HEMETOLOGY METHOD 01/23/2024 1:01 PM [facility] Lymphocytes Absolute 2.35 1.00 - 5.00 K/mcL LAB HEMETOLOGY METHOD 01/23/2024 1:01 PM [facility] Monocytes Absolute 0.42 0.20 - 1.00 K/mcL LAB HEMETOLOGY METHOD 01/23/2024 1:01 PM [facility] Eosinophils Absolute 0.10 0.00 - 0.50 K/mcL LAB HEMETOLOGY METHOD 01/23/2024 1:01 PM [facility] Basophils Absolute 0.05 0.00 - 0.20 K/mcL LAB HEMETOLOGY METHOD 01/23/2024 1:01 PM [facility] Immature Granulocytes Absolute 0.12(H) 0.00 - 0.03 K/mcL LAB HEMETOLOGY METHOD 01/23/2024 1:01 PM [facility] Blood Venous blood specimen / Unknown Venipuncture / Unknown 01/23/2024 9:17 AM EST 01/23/2024 12:42 PM EST Migel Jacobs MD LAB BLOOD ORDERABLES Final Result [facility] [address] [place] [address], * (ABNORMAL) Comprehensive metabolic panel (01/23/2024 9:17 AM EST) Sodium 142 133 - 145 mmol/L LAB CHEMISTRY METHOD 01/23/2024 4:08 PM [facility] Potassium 3.7 3.5 - 5.5 mmol/L LAB CHEMISTRY METHOD 01/23/2024 4:08 PM [facility] Chloride 105 96 - 110 mmol/L LAB CHEMISTRY METHOD 01/23/2024 4:08 PM [facility] CO2 28 21 - 32 mmol/L LAB CHEMISTRY METHOD 01/23/2024 4:08 PM [facility] Anion Gap 9 3 - 11 LAB CHEMISTRY METHOD 01/23/2024 4:08 PM [facility] Glucose 357(H) 70 - 100 mg/dL LAB CHEMISTRY METHOD 01/23/2024 4:08 PM [facility] BUN 15 5 - 25 mg/dL LAB CHEMISTRY METHOD 01/23/2024 4:08 PM [facility] Creatinine 1.13 0.70 - 1.30 mg/dL LAB CHEMISTRY METHOD 01/23/2024 4:08 PM [facility] eGFR 71 >=60 mL/min/1. 73m2 LAB CHEMISTRY METHOD 01/23/2024 4:08 PM [facility] Comment:Calculation based on the??Chronic Kidney Disease Epidemiology Collaboration (CKD-EPI) equation refit??without adjustment for race. BUN/Creatinine Ratio 13.3 LAB CHEMISTRY METHOD 01/23/2024 4:08 PM [facility] Calcium 8.6 8.5 - 10.5 mg/dL LAB CHEMISTRY METHOD 01/23/2024 4:08 PM [facility] AST (SGOT) 15 10 - 42 unit/L LAB CHEMISTRY METHOD 01/23/2024 4:08 PM [facility] ALT (SGPT) 21 10 - 60 unit/L LAB CHEMISTRY METHOD 01/23/2024 4:08 PM [facility] Alkaline Phosphatase 123(H) 42 - 121 unit/L LAB CHEMISTRY METHOD 01/23/2024 4:08 PM [facility] Total Protein 6.3 6.0 - 8.0 g/dL LAB CHEMISTRY METHOD 01/23/2024 4:08 PM [facility] Albumin 3.4 3.2 - 5.0 g/dL LAB CHEMISTRY METHOD 01/23/2024 4:08 PM [facility] Total Bilirubin 0.8 0.0 - 1.4 mg/dL LAB CHEMISTRY METHOD 01/23/2024 4:08 PM [facility] Blood Venous blood specimen / Unknown Venipuncture / Unknown 01/23/2024 9:17 AM EST 01/23/2024 12:42 PM EST Migel Jacobs MD LAB BLOOD ORDERABLES Final Result [facility] [address] [place] [address], from Last 3 Months Insurance [employer] Care Teams Residential Supervisor Relationship Specialty Start Date End Date Melissa Childs [address] [place] [phone] PCP - General 07/27/23
== END 2024-04-11 13:57 | disposition home or self-care (01) ==
PROVIDERS: PCP Internal Medicine; Visit Provider Internal Medicine Pulmonary Disease
DX: J44.9 Chronic obstructive pulmonary disease, unspecified (principal); G47.33 Obstructive sleep apnea (adult) (pediatric); Z87.891 Personal history of nicotine dependence
CPT/HCPCS: 99214

== ENCOUNTER → 2024-05-07 12:51 | Outpatient (REF) | payer OTHER, SELFPAY | LOC: HO.SL 12:51 | PROVIDERS: PCP Internal Medicine; Visit Provider Internal Medicine Pulmonary Disease | DX: G47.33 Obstructive sleep apnea (adult) (pediatric) (principal) | CPT/HCPCS: 95806 ==

== ENCOUNTER → 2024-05-07 13:01 | Outpatient (BNV) | payer OTHER, SELFPAY | PROVIDERS: PCP Internal Medicine; Visit Provider Internal Medicine | DX: G47.33 Obstructive sleep apnea (adult) (pediatric) (principal) | CPT/HCPCS: 95806 ==

== ENCOUNTER 2024-05-14 08:45 | Outpatient (AMB) | payer OTHER, SELFPAY ==
--- NOTE | 2024-05-14 08:56 | A.OFFPC_ITS ---
Vital Signs 05/14/24 09:02 BP 114/68 Blood Pressure Location Lt brachial Position Sitting Respiration 16 Pulse 90 Pulse Source Pulse Oximeter Pulse Oximetry (%) 90 L Oxygen Delivery Method Room Air Intake Visit Reasons: DM follow up Intake Note: Diabetes follow up Senior Business Consultant Required: No Allergies Iodinated Contrast Media Allergy (Severe, Verified 05/14/24 08:57) Hives doxycycline Allergy (Mild, Verified 05/14/24 08:57) Vomiting Tobacco use date assessed: 05/14/24 Fall risk assessment: No Falls in past year Last assessed Fall Risk: 05/14/24 Dental Screening Dental Screen Date: 02/12/24 HPI HPI Comments History of Present Illness Details Patient is a 68-year-old male with insulin-dependent diabetes, prostate cancer, hypertension, neuropathy, GERD presenting for follow up Type 2 diabetes: POC A1C 08/21 from 8.9% end of January.. On dexcom 7-he has been waiting on sensor refill which were already prescribed. On Lantus 55 units nightly and aspart t.i.d. CC as well as glipizide 20 mg daily and jardiance. Insurance was difficult covering kathie. He got a dose in early Feb and then again this week. He does have the additional 3 injections of 2.5 left. Neuropathy on Lyrica 200 mg twice daily. He was hospitalized at the end of November for COVID-19 and hyperglycemia. Heme/Onc: Prostate cancer in 2017. What the there is Follows with Dr. Jacobs. On bicalutamide, oxybutynin. On prolia. Just started new chemotherapy Saw pulmonary. Anoro has been sent Colonoscopy at age 51 LDCT ROS CONSTITUTIONAL: Denies weight loss, fever and chills. HEENT: Denies changes in vision and hearing. RESPIRATORY: Denies SOB and cough. CV: Denies palpitations and CP GI: Denies abdominal pain, nausea, vomiting and diarrhea. : Denies dysuria and urinary frequency. MSK: Denies new myalgia and joint pain. SKIN: Denies rash and pruritus. NEUROLOGICAL: Denies headache PSYCHIATRIC: Denies recent changes in mood. PHYSICAL EXAM: GENERAL: Alert and oriented x 3. NAD EYES: EOMI. Anicteric. HENT: Moist mucous membranes. No scleral icterus. No cervical lymphadenopathy. LUNGS: Clear to auscultation bilaterally. CARDIOVASCULAR: Regular rate and rhythm. No murmur. No JVD. ABDOMEN: Soft, non-tender +bs EXTREMITIES: No edema. Non-tender. SKIN: No rashes or lesions. Warm. NEUROLOGIC: No focal neurological deficits. CN II-XII grossly intact PSYCHIATRIC: Cooperative. Appropriate mood and affect [facility] Medical History Hernia Surgical History H/O vasectomy History of hernia surgery Family History Sister FH: mental illness Substance abuse Mother Diabetes Social History Housing: House Alcohol intake: current Patient Tobacco Use Status: Former Tobacco user Cigarette Packs Per Day: 4 Years Smoked: 35 e-Cigarette/Vaping Use: Never Used Second Hand Smoke Exposure: No Cognitive needs: No Hearing needs: No Vision needs: Yes (glasses) Questionnaire PHQ-9 Over the last 2 weeks, how often have you been bothered by any of the following problems? 1. Little interest or pleasure in doing things: several days 2. Feeling down, depressed, or hopeless: several days 5. Poor appetite or overeating: several days 8. Moving or speaking so slowly that other people could have noticed. Or the opposite - being so fidgety or restless that you have been moving around a lot more than usual: not at all Source: Developed by Drs. Sandro Pineda, Vanesa Worrell, Liang Mckee and colleagues, with an educational gema from [employer]. Thrive Questionnaire Date Thrive assessed: 03/15/24 I am a: Patient What is your living situation today?: I have a steady place to live Within the past 12 months, did the food you bought not last and you didn't have the money to get more?: Never true Within the past 12 months, did you worry whether your food would run out before you got money to buy more?: Never true Do you have trouble paying for medicines?: No Do you have trouble getting transportation to medical appointments?: No Do you have trouble paying your heating and electricity bill?: No Do you have trouble taking care of your child, family member or friend?: No Do you have trouble with day-to-day activities such as bathing, preparing meals, shopping, managing finances, etc.?: No Are you currently unemployed and looking for a job?: No Are you interested in more education?: Yes Please select the resources that you would like help with: Education Currently or been in a relationship where the following occur: I choose not to answer THRIVE Score: 0 SUJATHA-7 AMB Questionnaire SUJATHA-7 Date SUJATHA - 7 assessed: 02/12/24 Source: Developed by Drs. Sandro Pineda, Vanesa Worrell, Liang Mckee and colleagues, with an educational gema from [employer]. Physical exam (Primary Care) Vital Signs: Last Vital Signs Pulse 90 05/14/24 09:02 Resp 16 05/14/24 09:02 BP 114/68 05/14/24 09:02 Pulse Ox 90 L 05/14/24 09:02 Oxygen Delivery Method Room Air 05/14/24 09:02 Tobacco/Smoking Status: Tobacco use Status Tobacco use date assessed 05/14/24 05/14/24 09:01 Patient Tobacco Use Status Former Tobacco user 05/14/24 09:01 e-Cigarette/Vaping Use Never Used 05/14/24 09:01 Thrive Assessment: Date of Thrive Assessment Date Thrive assessed 03/15/24 05/14/24 09:01 Currently or been in a relationship where the following occur: I choose not to answer Coding Level of Care Code Est Pt Level 4 (53615) Diagnoses Type 2 diabetes mellitus with hyperglycemia, with long-term current use of insulin E11.65; Z79.4 Diabetes mellitus joint terminal attack controller insulin use: with chcf use Diabetes mellitus complication status: with hyperglycemia Type 2 diabetes mellitus with hyperglycemia, with long-term current use of insulin E11.65; Z79.4 Diabetes mellitus complication status: with hyperglycemia Chronic obstructive pulmonary disease, unspecified COPD type J44.9 COPD type: unspecified COPD Assessment & Plan Assessment & Plan (1) Type 2 diabetes mellitus: Code(s): E11.9 - Type 2 diabetes mellitus without complications Category: Medical Qualifiers: Diabetes mellitus joint terminal attack controller insulin use: with joint terminal attack controller use Diabetes mellitus complication status: with hyperglycemia Qualified Code(s): E11.65 - Type 2 diabetes mellitus with hyperglycemia; Z79.4 - manager intermediate (current) use of insulin (2) Insulin use (long-term) in type 2 diabetes: Code(s): E11.9 - Type 2 diabetes mellitus without complications; Z79.4 - CHCF (current) use of insulin Category: Medical Qualifiers: Diabetes mellitus complication status: with hyperglycemia Qualified Code(s): E11.65 - Type 2 diabetes mellitus with hyperglycemia; Z79.4 - manager intermediate (current) use of insulin (3) COPD (chronic obstructive pulmonary disease): Code(s): J44.9 - Chronic obstructive pulmonary disease, unspecified Category: Medical Qualifiers: COPD type: unspecified COPD Qualified Code(s): J44.9 - Chronic obstructive pulmonary disease, unspecified Plan DM 2 with hyperglycemia Just really starting on mounjaro Will plan to increase his dose with next round There has been some interval A1C improvement but still not at goal He will return in one month for meter check Medications: New Mounjaro (tirzepatide) 5 mg (0.5 mL) subcut QWEEK 2 mL 2RF NS E11.65 - Type 2 diabetes mellitus with hyperglycemia, G47.33 - Obstructive sleep apnea (adult) (pediatric), Z79.4 - manager intermediate (current) use of insulin
[2024-05-14 09:02] VITALS: BP 114/68; PULSE 90; RESP 16; O2SAT 90
--- OUTSIDE RECORDS SUMMARY | 2024-05-14 09:09 | XMS_ITS ---
Author Organization [facility] Address [address] [facility] [address] [place] [address] Care Team Providers Care Crime Scene Technician Name Role Phone Damaris Ponce Primary Care Provider TERESA Huertas Unavailable [phone] Allergies Allergen (clinical drug ingredient) Drug/Non Drug [...] N/A Encounters Encounter Location Date Provider Diagnosis [facility] [address] [facility] [address] [place] [address] 03/08/2024 TERESA ZAYAS Controlled type 2 diabetes [...] Aseptic debridement of toenails x 10 with gold cutter and curette, pt tolerated well. Discussed [...] Name:TERESA ZAYAS, 06/07/2024 04:00:00 PM, [address] [facility] [address], [place], [address], Medications Administered Medication Instructions Date of Administration Dosage Notes dexAMETHasone Sod Phosphate PF 03/08/2024 0.5 m L Kenalog 03/08/2024 0.5 mL Progress Notes * Andrez LUU:1955 (68 yo M)Acc No.[id number]:03/08/2024 Progress Note Patient:Andrez BELLA Provider:?Teresa Zayas DPM :1955???Age:68 Y???Sex:Male Miguel e:03/08/2024 Address:[address] [place], [place] [phone] Pcp:Damaris Ponce Subjective: * Chief Complaints: * [...] bilaterally, protective sensation diminished 6/10 with 5.07 [place] Roxann bilaterally, vibratory sensation with tuning fork [...] Aseptic debridement of toenails x 10 with gold cutter and curette, pt tolerated well. Discussed [...] ZAYAS D.P.M (Arthritis of foot) * Procedure Codes:?22111 DRAIN /INJECT, INTERMEDIATE JOINT/BURSA, [place]: [place] [address] DEBRIDE NAIL, 6 OR MORE, Modifiers: q9 , [id number] INJ DEXAMETHASONE SODIM PHOSHATE 1 [id number] INJ TRIAMCINOLONE ACETONIDE 10 MG * Follow Up:?3 Months * Billing Information: * Visit Code:? 58562 Office Visit, Est Pt., Level 3. Modifiers: 25 * Procedure Codes:? 59175 DRAIN/INJECT, INTERMEDIATE JOINT/BURSA. [place]: [place] [address] DEBRIDE NAIL, 6 OR MORE. Modifiers: q9, 59 J1100 INJ DEXAMETHASONE SODIM PHOSHATE 1 MG. J3301 INJ TRIAMCINOLONE ACETONIDE 10 MG. * Sign off status: Completed true * Provider:?Teresa Zayas DPM Date:? 03/08/2024 Generated for Josh barnhart/Bebo/eTianitting on:?05/14/2024 09:09 AM EDT History and Physical Notes * HPI (History [...] bilaterally, protective sensation diminished 6/10 with 5.07 [place] Roxann bilaterally, vibratory sensation with tuning fork [...]
--- OUTSIDE RECORDS SUMMARY | 2024-05-14 09:09 | XMS_ITS ---
Author Organization [facility] Address [address] [address] Care Team Providers Care Cooper Apprentice Name Role Phone Damaris Ponce Primary Care Provider CHRISTY Huertas [phone] Encounters Encounter Location Date Provider Diagnosis [facility] [address] [address] 03/11/2024 CHRISTY WILHELM Plan Of Treatment Next Appt Details Provider Name:CHRISTY WILHELM, 06/07/2024 04:00:00 PM, [address] [address], [place], [address], Progress Notes * Andrez LUUDOB:1955 (68 yo M)Acc No.[id number]:03/11/2024 Patient:?Andrez LUU :1955???Age:68 Y???Sex:Male Address:[address] [place] [phone] * true * Date:? Generated for Printi ng/Bebo/eTransmitting on:?05/14/2024 09:08 AM EDT
--- OUTSIDE RECORDS SUMMARY | 2024-05-14 09:09 | XMS_ITS | Encounter Summary ---
Author Organization [facility] Address [address] [place] [address] Care Team Providers Care Social Sciences Professor Name Role Phone Melissa Childs Primary Care Provider [phone] Encounter Details Date Type Department Care Team (Late st Contact Info) Description 05/10/2024 Telephone [facility] Hematology Oncology [address] [place] [address] Chichi Olea MA Social History Tobacco Use Types Packs/Day Years Used Date Smoking Tobacco: Every Day Smokeless Tobacco: Never Alcohol Use Standard Drinks/Week Comments Yes 0 (1 standard drink = 0.6 oz pur e alcohol) Sex and Gender Information Value Date Recorded Sex Assigned at Male 04/26/2024 10:10 AM EDT Legal Sex Male 10:14 PM EST Gender Identity Male 04/26/2024 10:10 AM EDT Sexual Orientation Choose not to disclose 2024 10:10 AM EDT documented as of this encounter Progress Notes * Chichi Olea MA - 05/10/2024 10:12 AM EDT Patient would like a call back - wonders if there is any special instructions for xtandi. Andrez [phone] documented in this encounter Plan of Treatment Upcoming Encounters Date Type Department Care Team (Late st Contact Info) Description 05/31/2024 9:00 AM EDT Appointment [facility] CT Scan [address] [place] [address] 05/31/2024 9:30 AM EDT Appointment [facility] Nuclear Medicine [address] [place] [phone] 05/31/2024 12:30 PM EDT Appointment [facility] Nuclear Medicine [address] [place] [phone] 06/07/2024 9:15 AM EDT Office Visit [facility] Hematology Oncology [address] [place] [phone] Migel Jacobs MD [address] [place] [address] 07/19/2024 10:30 AM EDT Appointment [facility] Infusion Center [address] [place] [phone] 10/28/2024 10:30 AM EDT Appointment [address] [address] documented as of this encounter Visit Diagnoses Not on filedocumented in this encounter Care Teams Social Sciences Professor Relationship Specialty Start Date End Date Melissa Childs [address] [address] [place] [phone] PCP - General 07/27/23 documented as of this encounter
--- OUTSIDE RECORDS SUMMARY | 2024-05-14 09:09 | XMS_ITS | Patient Health Record ---
Author Organization [facility] Address [address] [place] [phone] Care Team Providers Care Director Of Special Events Name Role Phone JAD SORENSEN Primary Care Provider PIPELAVONYOSVANYET Unavailable [phone] ALLERGIES Allergen (clinical drug ingredient) Drug/Non Drug [...] Orally Once a day Active Vitamin D2 64433 IU Not-Takin g Azithromycin 250 MG as [...] smoker (40+ cigs/day) Section Notes: Lives in [place] with his , youngest daughter and grandsone. 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 Lives in [place] with his , youngest daughter and grandsone. 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 Lives in [facility] with his , youngest daughter and grandsone. 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 Lives in [facility] with his , youngest daughter and grandsone. 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 Lives in [facility] with his , youngest daughter and grandsone. 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 Lives in [facility] with his , youngest daughter and grandsone. 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 Lives in [facility] with his , youngest daughter and grandsone. 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 PROBLEMS Problem Type ICD Code Onset Dates Problem Status W/U Status Risk SNOMED Code Notes Problem Type 2 diabetes mellitus with diabetic chronic kidney disease (E11.22) Active confirmed 03671771 Problem Essential (primary) hypertension (I10) Active confirmed 89714704 Problem Hypertensive chronic kidney disease with stage 1 through stage 4 chronic kidney disease, or unspecified chronic kidney disease (I12.9) Active confirmed 74046328 Problem Age-related osteoporosis without current pathological fracture (M81.0) Active confirmed 40000863 Problem Chronic kidney disease, stage 2 (mild) (N18.2) Active confirmed 265914334 Problem Vitamin D deficiency (E55.9) Active confirmed 06030233 Problem Hyperlipidemia, unspecified hyperlipidemia type (E78.5) Active confirmed 71556164 Problem Insomnia, unspecified type (G47.00) Active confirmed 739272243 Problem Elevated high sensitivity C-reactive protein (R79.82) Active confirmed 452557545890259 Problem Morbid obesity (E66.01) Active confirmed 185426407 Problem 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) Active confirmed 173955246 Problem BMI 37.0-37.9, adult (Z68.37) Active confirmed 917341250 Problem Elevated sedimentation rate (R70.0) Active confirmed 867815305 Problem 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) Active confirmed 264385176 Problem Prostate CA (C61) Active confirmed 3990 41550 Problem Diabetic polyneuropathy associated with type 2 diabetes mellitus (E11.42) Active confirmed 847688892 Problem Insulin resistance (E88.819) Active confirmed 479027855 VITAL SIGNS Heart Rate 87 /min 06/14/2023 Height-cm 176.53 cm 06/14/2023 Oximetry 97 % 06/14/2023 Blood pressure diastolic 72 mm Hg 06/14/2023 Weight-kg 117.48 kg 06/14/2023 Height 69.5 in 06/14/2023 Blood pressure systolic 114 mm Hg 06/14/2023 Weight 259.0 lbs 06/14/2023 BMI 37.7 kg/m2 06/14/2023 Encounters Encounter Location Date Provider Diagnosis [address] [id number] 06/14/2023 JEB MARTÍNEZ Type 2 diabetes mellitus with diabetic chronic kidney disease E11.22 and Upper respiratory tract infection, unspecified type J06.[address] [id number] 06/06/2023 JEB MARTÍNEZ Hyperlipidemia, unspecified hyperlipidemia type [...] diabetic chronic kidney disease (ICD-10 - E11.22) 06/14/2023 Other Total time spent with patient 20 minutes which includes face to face visit, education and coordination of care. 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 PLAN OF TREATMENT Pending Test Test Name Order Date Chest X-ray PA and lateral 10/28/2022 CT Chest with Contrast 11/25/2022 Future Test Test Name Order Date COMPREHENSIVE METABOLIC PANEL (21096) CBC (INCLUDES DIFF/PLT) (6399) CARDIO IQ(R) HEMOGLOBIN A1c (82815) 02/14 CARDIO IQ(R) INSULIN (80071) 03/07/2023 Insurance Providers Payer Name Payer Address Payer Phone Subscriber Number Group Number Insured Name Patient Relationship to Insured Coverage Start Date Coverage End Date [employer] [address] [place] [address] [id number] LUDWIG LUU Self - patient is the insured MEDICAL (GENERAL) HISTORY Medical History History ICD Code Prosate Cancer Diabetes II Hypertension Kidney nodules Hernia Chicken Pox as a kid Deviated Septum Surgical History Surgery Date(Month/Year) Kidney surgery to remove nodules 2018 Hernia Surgery 2016 [place] Teeth Removal Deviated Septum Surgery
--- OUTSIDE RECORDS SUMMARY | 2024-05-14 09:09 | XMS_ITS ---
Author Organization [facility] Address [address] [place] [phone] Care Team Providers Care Feeder Tender Name Role Phone JAD SORENSEN Primary Care Provider [phone] JEB MARTÍNEZ Unavailable [phone] ALLERGIES Allergen (clinical drug ingredient) Drug/Non Drug [...] Orally Once a day Not-Taking Vitamin D2 77909 IU Not-Takin g Azithromycin 250 MG as [...] smoker (40+ cigs/day) Section Notes: Lives in [facility] with his , youngest daughter and grandsone. 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 Reynaldo Lares.? Providers/Specialists: Housekeeping And Laundry Team Leader Holger Fox Providers/Specialists: Housekeeping And Laundry Team Leader Holger Fox. ?Visit info:? Andrez presents today [...] - once a year Joaquin.. 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 * Procedure Codes:?? * Preventive Medicine:?Last CPE: 2020 Colonoscopy: Yes, over 10 years ago - polyps found Endoscopy: No COVID Vac: Yes, 3 boosters - Newest COVID Shot, yes FLU Vac: Yes for Shingles Vac: No PV: Yes (2). * Billing Information: * Visit Code:?? 93495 Office Visit, Est Pt., Level 3. * Procedure Codes:?? * Sign off status: Completed true * Provider:??JEB MARTÍNEZ NP Date:?? History and Physical Notes * HPI (History of Present Illness) Category Sub-Category Detail Notes Category Not es Patient Care Team Oncologist: Dr. Jacobs , Dr. Weir on Providers/Specialists : Housekeeping And Laundry Team Leadersandy Fox Providers/Specialists : Housekeeping And Laundry Team Leader Holger Fox Examination Category Sub-Category Detail Notes Category Not es General Examination GEN: NAD, speaking in full complete sentences, thoughts clear and appropriate RESP: nonlabored breathing, lungs clear/equal all zaidi CV: S1S2 regular NEURO: AO x 3 PSYCH: judgment/insight intact, NL mood/affect
--- OUTSIDE RECORDS SUMMARY | 2024-05-14 09:09 | XMS_ITS ---
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 Radiation Treatments * No radiation treatments are documented for this patient in [facility]. Treatments may have been administered in another system.
--- OUTSIDE RECORDS SUMMARY | 2024-05-14 09:09 | XMS_ITS | Clinical Summary ---
Author Organization [facility] Address [address] [place] [address] Phone Care Team Providers Care Boxing Inspector Name Role Phone Melissa Childs Primary Care Provider [phone] Allergies Active Allergy Reactions Criticality Noted Date [...] tablet (10 mg total) by mouth daily. 01/26/20 23 Active pregabalin (LYRICA) 75 mg capsule Take 1 capsule (75 mg total) by mouth 2 (two) times a day. Active traZODone (DESYREL) 50 mg tablet Take 1 tablet (50 mg total) by mouth every night at bedtime. 12/20/19 Active triptorelin pamoate (TRELSTAR) 11.25 mg suspension for reconstitution chemo injection Inject 11.25 mg into the muscle every 3 (three) months. Active insulin aspart (NovoLOG U-100 Insulin aspart) 100 unit/mL injection Inject under the skin. 12/11/19 Active polyethylene glycol (Golytely) 236-22.74-6.74 -5.86 gram solution Take 4L by mouth once for one dose. May substitue any PEG. Starting at 6PM the night before your procedure drink 1 8oz glasses at your own pace until you complete half of the gallon. Finish 2nd half of the gallon 5 hours before your procedure. 4000 mL 02/06/20 Active bisacodyL (DULCOLAX) 5 mg EC tablet Take 2 tablets by mouth right before beginning bowel prep. 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 Do not crush, break, or dissolve. Swallow it whole. 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 Do not crush, break, or dissolve. Swallow it whole. 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 09/24/19 17 Overview (10/30/2023): Prostate cancer Prostate CA 09/23/2016 Encounters Date Type Department Care Team Description 05/10/2024 Telephone [facility] Hematology Oncology [address] [place] [phone] Chichi Olea MA 04/29/2024 Telephone [facility] Hematology Oncology [address] [place] [phone] [place] [address]/Bone scan appt 04/26/2024 10:00 AM EDT - 04/26/2024 11:59 PM EDT Hospital Encounter [facility] Infusion Center [address] [place] [phone] Migel Jacosb MD Prostate CA (CMS/HCC) (Primary Dx); 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 (CMS/HCC) Discharge Disposition: Home or Self Care 04/26/2024 9:45 AM EDT Office Visit [facility] Hematology Oncology [address] [place] [phone] Migel Jacobs MD Prostate CA (CMS/HCC) (Primary [...] not to disclose 2024 10:10 AM EDT Obstetrics History Last Filed Vital Signs Vital Sign Reading Time Taken Comments Blood Pressure 125/68 04/26/2024 10:15 AM EDT Pulse 96 04/26/2024 10:15 AM EDT Temperature 36.7 ??C (98.1 ??F) 04/26/2024 10:15 AM E DT Respiratory Rate 16 01/26/2024 11:17 AM EST Oxygen Saturation 92% 04/26/2024 10:15 AM EDT Inhaled Oxygen Concentration - - Weight 123 kg (272 lb) 04/26/2024 10:15 AM EDT Height 177.8 cm (5' 10 ) 11/04/2022 10:20 AM EDT Body Mass Index 39.03 11/04/2022 10:20 AM EDT Plan of Treatment Upcoming Encounters Date Type Department Care Team (Late st Contact Info) Description 05/31/2024 9:00 AM EDT Appointment [facility] CT Scan [address] [place] [address] 05/31/2024 9:30 AM EDT Appointment [facility] Nuclear Medicine [address] [place] [address] 05/31/2024 12:30 PM EDT Appointment [facility] Nuclear Medicine [address] [place] [address] 06/07/2024 9:15 AM EDT Office Visit [facility] Hematology Oncology [address] [place] [phone] Migel Jacobs MD [address] [place] [address] 07/19/2024 10:30 AM EDT Appointment [facility] Infusion Center [address] [phone] 10/28/2024 10:30 AM EDT Appointment [facility] Infusion Center [address] [place] [address] Health Maintenance Due Date Last Done [...] Diabetes: Blood Sugar Control Test (HGBA1C) 01/28/2022 Diabetes: Annual GFR (Glomerular Filtration Rate) 04/23/2025 04/23/2024, 01/23/2024 Hypertension/CHF/CAD Annual BMP Blood Test 04/23/2025 04/23/2024, 01/23/2024 Falls Risk Assessment 04/26/2025 04/26/2024 DTaP,Tdap,and Td Vaccines (4 - Td or Tdap) 03/10/2032 03/10/2022, 08/14/2021, 01/31/2012 COVID-19 Vaccine Completed 02/24/2024, 08/2022, 11/29/2021, Additional history exists Influenza Vaccine Completed 02/24/2024, , 10/19/2021, Additional history exists HIB Vaccines Aged Out No longer eligi [...] Diagnosis Comments CBC WITH AUTO DIFFERENTIAL Routine 04/23/2024 9:56 AM EDT Prostate CA (CMS/HCC) 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 (CMS/HCC) PROSTATE SPECIFIC ANTIGEN DIAGNOSTIC Routine 04/23/2024 9:56 AM EDT Prostate CA (CMS/HCC) 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 (CMS/HCC) COMPREHENSIVE METABOLIC PANEL Routine 04/23/2024 9:56 AM EDT Prostate CA (CMS/HCC) 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 Results obtained with different assay methods or kits cannot be used interchangeably. Results cannot be interpreted as absolute evidence of the presence or absence of malignant disease. Migel Jacobs MD LAB BLOOD ORDERABLES Final Result [facility] [address] [place] [address], * (ABNORMAL) CBC auto differential (04/23/2024 9:56 AM EDT) [facility] Signature WBC 9.9 4.8 - 10.8 K/mcL LAB HEMETOLOGY METHOD 04/23/2024 11:36 AM EDT [facility] RBC 4.80 4.50 - 5.50 M/mcL LAB HEMETOLOGY METHOD 04/23/2024 11:36 AM EDT [facility] Hemoglobin 12.8(L) 13.5 - 17.5 g/dL LAB HEMETOLOGY [facility]24 [facility] Hematocrit 42.3 42.0 - 54.0 % LAB HEMETOLOGY METHOD 04/23/2024 11:36 AM EDT [facility] MCV 88.3 79.0 - 98.0 FL LAB HEMETOLOGY METHOD 04/23/2024 11:36 AM EDT [facility] MCH 26.7(L) 27.0 - 32.0 pcg LAB HEMETOLOGY METHOD 04/23/2024 11:36 AM [facility] MCHC 30.3(L) 32.0 - 37.0 g/dL LAB HEMETOLOGY METHOD 04/23/2024 11:36 AM EDT [facility] RDW 15.5(H) 11.0 - 15.0 % LAB HEMETOLOGY METHOD 04/23/2024 11:36 AM EDT [facility] Platelets 334 130 - 400 K/mcL LAB HEMETOLOGY METHOD 04/23[facility]2024 11[facility] MPV 10.1 7.0 - 11.0 FL LAB HEMETOLOGY METHOD 04/23/2024 11:36 AM EDT [facility] NRBC 0.0 <1.0 % LAB HEMETOLOGY METHOD 04/23/2024 11:36 AM EDT [facility] NRBC Absolute 0.00 <0.10 K/mcL LAB HEMETOLOGY METHOD 04/23[facility]2024 11[facility] Neutrophils Relative 62.6 % LAB HEMETOLOGY METHOD 04/23/2024 11:[facility] Lymphocytes Relative 29.3 % LAB HEMETOLOGY METHOD 04/23/2024 11:[facility] Monocytes Relative 5.2 % LAB HEMETOLOGY METHOD 04/23/2024 11:36 AM [facility] Eosinophils Relative 1.4 % LAB HEMETOLOGY METHOD 04/23/2024 11:[facility] Basophils Relative 0.6 % LAB HEMETOLOGY METHOD 04/23/2024 11:36 AM [facility] Immature Granulocytes Relative 0.9 % LAB HEMETOLOGY METHOD 04/23/2024 11:36 AM [facility] Neutrophils Absolute 6.16 1.50 - 7.00 K/mcL LAB HEMETOLOGY METHOD 04/23/2024 11:36 AM [facility] Lymphocytes Absolute 2.89 1.00 - 5.00 K/mcL LAB HEMETOLOGY METHOD 04/23/2024 11:36 AM EDT [facility] Monocytes Absolute 0.51 0.20 - 1.00 K/mcL LAB HEMETOLOGY METHOD 04/23/2024 11:[facility] Eosinophils Absolute 0.14 0.00 - 0.50 K/mcL LAB HEMETOLOGY METHOD 04/23/2024 11:36 AM [facility] Basophils Absolute 0.06 0.00 - 0.20 K/mcL LAB HEMETOLOGY METHOD 04/23/2024 11:36 AM [facility] Immature Granulocytes Absolute 0.09(H) 0.00 - 0.03 K/mcL LAB HEMETOLOGY METHOD 04/23/2024 11:36 AM [facility] Blood Venous blood specimen / Unknown Venipuncture / Unknown 04/23/2024 9:56 AM EDT 04/23/2024 11:27 AM EDT us Migel Jacobs MD LAB BLOOD ORDERABLES Final Result [facility] [address] [place] [address], * (ABNORMAL) Comprehensive metabolic panel (04/23/2024 9:56 AM EDT) Sodium 143 133 - 145 mmol/L LAB CHEMISTRY METHOD 04/23/2024 12:03 PM [facility] Potassium 4.2 3.5 - 5.5 mmol/L LAB CHEMISTRY METHOD 04/23/2024 12:03 PM [facility] Chloride 106 96 - 110 mmol/L LAB CHEMISTRY METHOD 04/23/2024 12:03 PM [facility] CO2 29 21 - 32 mmol/L LAB CHEMISTRY METHOD 04/23/2024 12:03 PM [facility] Anion Gap 8 3 - 11 LAB CHEMISTRY METHOD 04/23/2024 12:03 PM [facility] Glucose 268(H) 70 - 100 mg/dL LAB CHEMISTRY METHOD 04/23/2024 12:03 PM [facility] BUN 14 5 - 25 mg/dL LAB CHEMISTRY METHOD 04/23/2024 12:03 PM [facility] Creatinine 1.22 0.70 - 1.30 mg/dL LAB CHEMISTRY METHOD 04/23/2024 12:03 PM [facility] eGFR 65 >=60 mL/min/1. 73m2 LAB CHEMISTRY METHOD 04/23/2024 12:03 PM [facility] Comment:Calculation based on the??Chronic Kidney Disease Epidemiology Collaboration (CKD-EPI) equation refit??without adjustment for race. BUN/Creatinine Ratio 11.5 LAB CHEMISTRY METHOD 04/23/2024 12:03 PM [facility] Calcium 8.6 8.5 - 10.5 mg/dL LAB CHEMISTRY METHOD 04/23/2024 12:03 PM [facility] AST (SGOT) 20 10 - 42 unit/L LAB CHEMISTRY METHOD 04/23/2024 12:03 PM [facility] ALT (SGPT) 24 10 - 60 unit/L LAB CHEMISTRY METHOD 04/23/2024 12:03 PM [facility] Alkaline Phosphatase 197(H) 42 - 121 unit/L LAB CHEMISTRY METHOD 04/23/2024 12:03 PM [facility] Total Protein 6.6 6.0 - 8.0 g/dL LAB CHEMISTRY METHOD 04/23/2024 12:03 PM [facility] Albumin 3.3 3.2 - 5.0 g/dL LAB CHEMISTRY METHOD 04/23/2024 12:03 PM [facility] Total Bilirubin 0.6 0.0 - 1.4 mg/dL LAB CHEMISTRY METHOD 04/23/2024 12:03 PM [facility] Blood Venous blood specimen / Unknown Venipuncture / Unknown 04/23/2024 9:56 AM EDT 04/23/2024 11:27 AM EDT us Migel Jacobs MD LAB BLOOD ORDERABLES Final Result [facility] [address] [place] [address], from Last 3 Months Insurance [employer] Care Teams Boxing Inspector Relationship Specialty Start Date End Date Melissa Childs [address] [place] [address] [place] [phone] PCP - General 07/27/23
--- OUTSIDE RECORDS SUMMARY | 2024-05-14 09:09 | XMS_ITS ---
Author Organization [facility] Address [address] [address] Care Team Providers Care Mangle Roll Operator Name Role Phone Damaris Ponce Primary Care Provider CHRISTY Huertas [phone] REASON FOR VISIT Rx Refill Medications Medication SIG (Take, Route, Fr equency, Duration) Notes Start Date End Date Status Pregabalin 200 MG 1 capsule Orally twi ce daily for 90 days 02/09/2024 Active Encounters Encounter Location Date Provider Diagnosis [facility] [address] [address] 02/09/2024 CHRISTY WILHELM Plan Of Treatment Medication Medication Name Sig Start Date Stop Date Notes Pregabalin 200 MG 1 capsule Orally twice daily for 90 days 02/09/2024 Next Appt Details Provider Name:CHRISTY WILHELM, 06/07/2024 04:00:00 PM, [facility] [address], [address], Progress Notes * Andrez LUUDOB:1955 (68 yo M)Acc No.[id number]:02/09/2024 Patient:?Andrez LUU :1955???Age:68 Y???Sex:Male Address:[address] [place] [address] * Refills? Refill Pregabalin Capsule, 200 MG, Orally, 180, 1 capsule, twice daily, 90 days, Refills=0 * true * Date:? Generated for Printi ng/Faxing/eTransmitting on:?05/14/2024 09:08 AM EDT
--- OUTSIDE RECORDS SUMMARY | 2024-05-14 09:10 | XMS_ITS ---
Author Organization [facility] Address [address] [place] [phone] Care Team Providers Care Locks Inspector Name Role Phone JAD SORENSEN Primary Care Provider JEB MARTÍNEZ Unavailable [phone] ALLERGIES Allergen (clinical drug ingredient) Drug/Non Drug [...] Orally Once a day Not-Taking Vitamin D2 08278 IU Not-Takin g Trelstar Every 3 months [...] 04/26/2023 Encounters Encounter [facility] [address] [phone] [facility]/26/[facility] JEB MARTÍNEZ Diabetic polyneuropathy associated with [...] * LUDWIG LUUDOB:1955 ( 67 yo M)Acc No.[id number]:04/26/2023 Progress Notes Patient:??LUDWIG LUU Provider:??JEB MARTÍNEZ NP :1955?Age:67 Y?Sex:Ma le Date:04/26/2023 Phone: Address:[address] [place] [phone] Pcp:JAD SORENSEN Subjective: * Chief Complaints: * ?F/U DIABETIC CHECK * HPI: ?Patient Care Team:?Oncologist:??Dr. Jacobs , Dr. Jacobs.? Providers/Specialists: School Admissions Representative Holger Fox Providers/Specialists: School Admissions Representative Holger Fox. ?Visit info:? Patient presents in the office today for a diabetes check in. 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 ?Lives in [place], [place] with his , youngest daughter and [...] date 06/05/2023Not-TakingVitamin D2 , Notes to Pharmacist: 43776 IUBicalutamide 50 MG Tablet 1 tablet Orally Once a day Ozempic (0.25 or 0.5 MG/DOSE) 2 MG/3ML Solution Pen-injector 0.5mg Subcutaneous once a week FreeStyle Aide 3 Sensor - Miscellaneous as directed change sensor every 14 daysMedication List reviewed and reconciled with the patientNot-Taking Vitamin D2 , Notes to Pharmacist: 27931 IUNot-Taking Bicalutamide 50 MG Tablet 1 tablet [...] work) * Billing Information: * Visit Code:?? 62441 Office Visit, Est Pt., Level 3. * Procedure Codes:?? * Sign off status: Completed true * Provider:??JEB MARTÍNEZ NP Date:?? History and Physical Notes * HPI (History of Present Illness) Category Sub-Category Detail Notes Category Not es Patient Care Team Oncologist: Dr. Jacobs , Dr. Weir on Providers/Specialists : School Admissions Representative Holger Fox Providers/Specialists : School Admissions Representative Holger Fox Visit info Patient presents in the office today for a diabetes check in. 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
--- OUTSIDE RECORDS SUMMARY | 2024-05-14 09:10 | XMS_ITS ---
Author Organization [facility] Address [address] [place] [address] Care Team Providers Care Stapler Machine Name Role Phone Melissa Childs NP Primary Care Provider [phone] Active Problems Problem Noted Date Diagnosed Date [...] Date Treatment Medications Discontinue Reason Plan Provider [facility]OS[facility]AB 60MG (PROLIA) 11/04/2022 07/24/2023 denosumab (PROLIA) Therapy Complete Migel Jacobs MD [facility] DENOSUMAB 60MG (PROLIA) 11/26/2021 11/03/2022 denosumab (PROLIA) Therapy Complete Migel Jacobs MD Radiation Treatments * No radiation treatments are documented for this patient in [facility]. Treatments may have been administered in another system.
--- OUTSIDE RECORDS SUMMARY | 2024-05-14 09:10 | XMS_ITS ---
Author Organization [facility] Address [address] [place] [phone] Care Team Providers Care Catering Operations Manager Name Role Phone JAD SORENSEN Primary Care Provider [phone] [facility] JEB MARTÍNEZ Unavailable [phone] REASON FOR VISIT Refills MEDICATIONS Medication SIG [...] Active Encounters Encounter Location Date Provider Diagnosis [facility], [address] [phone] 06/06/2023 JEB MARTÍNEZ Hyperlipidemia, unspecified hyperlipidemia type [...] * LUDWIG LUUDOB:1955 ( 67 yo M)Acc No.[id number]:06/06/2023 Patient:??LUDWIG LUU :1955?Age:67 Y?Sex:Clementina garzon Phone: Address:[address] [place] [phone] * Refills?? Refill Atorvastatin Calcium Tablet, 10 [...]
--- OUTSIDE RECORDS SUMMARY | 2024-05-14 09:10 | XMS_ITS | Clinical Summary ---
Author Organization [facility] Address [address] [place] [address] Care Team Providers Care Orchid Worker Name Role Phone Melissa Childs NP Primary Care Provider [phone] Allergies Active Allergy Reactions Criticality Noted Date [...] age to complete this topic Care Teams Orchid Worker Relationship Specialty Start Date End Date Melissa Childs NP [address] [place] [address] PCP - General Nurse Practitioner 07/27/23
== END 2024-05-14 09:24 | disposition home or self-care (01) ==
LOC: HO.HMCFM 08:45
PROVIDERS: PCP Internal Medicine; Visit Provider Internal Medicine
DX: E11.65 Type 2 diabetes mellitus with hyperglycemia (principal); Z79.4 Long term (current) use of insulin; J44.9 Chronic obstructive pulmonary disease, unspecified

== ENCOUNTER → 2024-05-14 08:45 | Outpatient (BNVA) | payer OTHER, SELFPAY | PROVIDERS: PCP Internal Medicine; Visit Provider Internal Medicine | DX: E11.40 Type 2 diabetes mellitus with diabetic neuropathy, unspecified (principal); E11.65 Type 2 diabetes mellitus with hyperglycemia; C61 Malignant neoplasm of prostate; I10 Essential (primary) hypertension; K21.9 Gastro-esophageal reflux disease without esophagitis; G47.33 Obstructive sleep apnea (adult) (pediatric); Z79.4 Long term (current) use of insulin | CPT/HCPCS: 83036 ==

== ENCOUNTER 2024-06-04 14:03 | Outpatient (AMB) | payer OTHER, SELFPAY ==
[2024-06-04 14:05] VITALS: BP 127/70; PULSE 83; O2SAT 93; BMI 38.4
--- NOTE | 2024-06-04 14:05 | A.OFFVIS_ITS ---
Vital Signs 06/04/24 14:05 Height 5 ft 10 in Weight 268 lb BMI 38.4 BP 127/70 Blood Pressure Location Lt brachial Position Sitting Pulse 83 Pulse Source Doppler Pulse Oximetry (%) 93 Oxygen Delivery Method Room Air Intake Visit Reasons: COPD/Hypoxemia Allergies Iodinated Contrast Media Allergy (Severe, Verified 05/14/24 08:57) Hives doxycycline Allergy (Mild, Verified 05/14/24 08:57) Vomiting HPI HPI COPD/Hypoxemia: Details: 68-year-old gentleman with underlying greater than 30 pack-year smoker, quit 2019 followed for emphysema. Patient's pulmonary function test does not show fixed obstruction. He does have underlying prostate cancer with bone Mets. He did have recent mechanical fall with 9 3 fracture. He was tried on Anoro and albuterol MDI with suboptimal response. He denies recent exacerbations. [facility] Medical History Hernia Surgical History H/O vasectomy History of hernia surgery Family History Sister FH: mental illness Substance abuse Mother Diabetes Social History Housing: House Alcohol intake: current Patient Tobacco Use Status: Former Tobacco user Cigarette Packs Per Day: 4 Years Smoked: 35 e-Cigarette/Vaping Use: Never Used Second Hand Smoke Exposure: No Cognitive needs: No Hearing needs: No Vision needs: Yes (glasses) Review of Systems Const Denies daytime sleepiness, Denies excessive sweating, Denies fatigue, Denies fever(s), Denies lethargy, Denies malaise, Denies night sweats, Denies snoring and Denies weight loss Eyes Denies blurry vision and Denies itchy eyes ENT Denies nasal congestion, Denies post nasal drip, Denies sinus pain, Denies sinus pressure and Denies other ( Thrush) Card Denies chest pain, Denies pedal edema, Denies dyspnea, Denies orthopnea and Denies paroxysmal nocturnal dyspnea Resp Denies cough, Denies hemoptysis, Denies excessive phlegm production, Denies dyspnea, Denies snoring and Denies wheezing GI Denies abdominal pain and Denies heartburn Musc Denies myalgias, Denies arthralgias and Denies joint swelling Skin/Breast Denies rash Neuro Denies memory loss and Denies seizure-like activity Psych Denies abnormal sleep pattern, Denies anxiety and Denies memory loss Endo Denies excessive sweating, Denies fatigue and Denies heat intolerance Jackson/Lymph Denies easy bruising Aller/Immun Denies itchy eyes, Denies seasonal rhinorrhea and Denies wheezing Physical Exam Vital Signs: Last Vital Signs Pulse 83 06/04/24 14:05 BP 127/70 06/04/24 14:05 Pulse Ox 93 06/04/24 14:05 Oxygen Delivery Method Room Air 06/04/24 14:05 BMI result Body Mass Index 38.4 Const General: no acute distress and alert Nutritional Appearance: obese Orientation/consciousness: Other orientation findings ( oriented) HEENT Head: Yes atraumatic Eyes General: appearance normal, both eyes and all related structures Sclerae: sclerae normal EOM: EOMs intact bilaterally Neck Neck: Yes supple Lymphatic: no lymphadenopathy noted Resp Effort & Inspection: normal respiratory effort and no use of accessory muscles Auscultation: clear to auscultation bilaterally Cardio Rate: regular rate Rhythm: regular rhythm Heart sounds: no gallops, no murmurs and no rubs Skin General skin exam: other ( warm) Extrem General: No clubbing, No cyanosis and No edema Assessment & Plan Assessment & Plan (1) COPD (chronic obstructive pulmonary disease): Code(s): J44.9 - Chronic obstructive pulmonary disease, unspecified Category: Medical Qualifiers: COPD type: unspecified COPD Qualified Code(s): J44.9 - Chronic obstructive pulmonary disease, unspecified Plan: Underlying emphysema without fixed obstruction with suboptimal response on Anoro and albuterol MDI. Continue current regimen. (2) BUTCH (obstructive sleep apnea): Code(s): G47.33 - Obstructive sleep apnea (adult) (pediatric) Category: Medical Plan: Results of pulmonary function test reviewed, underlying mild obstructive sleep apnea. Coding Level of Care Code Est Pt Level 4 (54047) Diagnoses Chronic obstructive pulmonary disease, unspecified COPD type J44.9 COPD type: unspecified COPD BUTCH (obstructive sleep apnea) G47.33
--- OUTSIDE RECORDS SUMMARY | 2024-06-04 16:55 | XMS_ITS ---
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 Radiation Treatments * No radiation treatments are documented for this patient in [facility]. Treatments may have been administered in another system.
--- OUTSIDE RECORDS SUMMARY | 2024-06-04 16:55 | XMS_ITS ---
Author Organization [facility] Address [address] [address] Care Team Providers Care Insecticide Maker Name Role Phone Damaris Ponce Primary Care Provider CHRISTY Huertas [phone] Encounters Encounter Location Date Provider Diagnosis [facility] [address] [address] 03/11/2024 CHRISTY WILHELM Plan Of Treatment Next Appt Details Provider Name:CHRISTY WILHELM, 06/07/2024 04:00:00 PM, [address] [address], [place], [address], Progress Notes * Andrez LUUDOB:1955 (68 yo M)Acc No.[id number]:03/11/2024 Patient:?Andrez LUU :1955???Age:68 Y???Sex:Male Address:[address] [place] [phone] * true * Date:? Generated for Printi ng/Ilyag/eTransmitting on:?06/04/2024 04:55 PM EDT
--- OUTSIDE RECORDS SUMMARY | 2024-06-04 16:55 | XMS_ITS ---
Author Organization [facility] Address [address] [facility] [address] [place] [address] Care Team Providers Care Patient Service Specialist Name Role Phone Damaris Ponce Primary Care Provider TERESA Huertas Unavailable [phone] Allergies Allergen (clinical drug ingredient) Drug/Non Drug [...] N/A Encounters Encounter Location Date Provider Diagnosis [facility] [address] [facility] [address] [place] [address] 03/08/2024 TERESA ZAYAS Controlled type 2 diabetes [...] Aseptic debridement of toenails x 10 with candle cutter and curette, pt tolerated well. Discussed [...] Name:TERESA ZAYAS, 06/07/2024 04:00:00 PM, [address] [facility] [address], [place], [address], Medications Administered Medication Instructions Date of Administration Dosage Notes dexAMETHasone Sod Phosphate PF 03/08/2024 0.5 m L Kenalog 03/08/2024 0.5 mL Progress Notes * Andrez LUU:1955 (68 yo M)Acc No.[id number]:03/08/2024 Progress Note Patient:Andrez BELLA Provider:?Teresa Zayas DPM :1955???Age:68 Y???Sex:Male Miguel e:03/08/2024 Address:[address] [place], [place] [phone] Pcp:Damaris Ponce Subjective: * Chief Complaints: * [...] bilaterally, protective sensation diminished 6/10 with 5.07 Kabetogama Roxann bilaterally, vibratory sensation with tuning fork [...] Aseptic debridement of toenails x 10 with candle cutter and curette, pt tolerated well. Discussed [...] ZAYAS D.P.M (Arthritis of foot) * Procedure Codes:?59087 DRAIN /INJECT, INTERMEDIATE JOINT/BURSA, [place]: [place] [address] DEBRIDE NAIL, 6 OR MORE, Modifiers: q9 , 99I1516 INJ DEXAMETHASONE SODIM PHOSHATE 1 [id number] INJ TRIAMCINOLONE ACETONIDE 10 MG * Follow Up:?3 Months * Billing Information: * Visit Code:? 50181 Office Visit, Est Pt., Level 3. Modifiers: 25 * Procedure Codes:? 06950 DRAIN/INJECT, INTERMEDIATE JOINT/BURSA. [place]: [place] [address] DEBRIDE NAIL, 6 OR MORE. Modifiers: q9, 59 J1100 INJ DEXAMETHASONE SODIM PHOSHATE 1 MG. J3301 INJ TRIAMCINOLONE ACETONIDE 10 MG. * Sign off status: Completed true * Provider:?Teresa Zayas DPM Date:? 03/08/2024 Generated for Josh barnhart/Bebo/eTianitting on:?06/04/2024 04:55 PM EDT History and Physical Notes * HPI [...] bilaterally, protective sensation diminished 6/10 with 5.07 Kabetogama Roxann bilaterally, vibratory sensation with tuning fork [...]
--- OUTSIDE RECORDS SUMMARY | 2024-06-04 16:55 | XMS_ITS | Patient Health Record ---
Author Organization [facility] Address [address] [place] [phone] Care Team Providers Care Regional Administrative Assistant Name Role Phone JAD SORENSEN Primary Care Provider PIPELAVONYOSVANYET Unavailable [phone] ALLERGIES Allergen (clinical drug ingredient) Drug/Non Drug [...] Orally Once a day Active Vitamin D2 69287 IU Not-Takin g Azithromycin 250 MG as [...] smoker (40+ cigs/day) Section Notes: Lives in [facility] with his , youngest daughter and grandsone. 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 Lives in [place] with his , youngest daughter and grandsone. 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 Lives in [facility] with his , youngest daughter and grandsone. 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 Lives in [facility] with his , youngest daughter and grandsone. 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 Lives in [facility] with his , youngest daughter and grandsone. 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 Lives in [facility] with his , youngest daughter and grandsone. 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 Lives in [facility] with his , youngest daughter and grandsone. 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 PROBLEMS Problem Type ICD Code Onset Dates Problem Status W/U Status Risk SNOMED Code Notes Problem Type 2 diabetes mellitus with diabetic chronic kidney disease (E11.22) Active confirmed 69314274 Problem Essential (primary) hypertension (I10) Active confirmed 95556630 Problem Hypertensive chronic kidney disease with stage 1 through stage 4 chronic kidney disease, or unspecified chronic kidney disease (I12.9) Active confirmed 95533326 Problem Age-related osteoporosis without current pathological fracture (M81.0) Active confirmed 81386635 Problem Chronic kidney disease, stage 2 (mild) (N18.2) Active confirmed 762046966 Problem Vitamin D deficiency (E55.9) Active confirmed 05698117 Problem Hyperlipidemia, unspecified hyperlipidemia type (E78.5) Active confirmed 85136039 Problem Insomnia, unspecified type (G47.00) Active confirmed 704243497 Problem Elevated high sensitivity C-reactive protein (R79.82) Active confirmed 048524034639076 Problem Morbid obesity (E66.01) Active confirmed 727385672 Problem 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) Active confirmed 150795976 Problem BMI 37.0-37.9, adult (Z68.37) Active confirmed 182068287 Problem Elevated sedimentation rate (R70.0) Active confirmed 604729021 Problem 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) Active confirmed 405702540 Problem Prostate CA (C61) Active confirmed 3990 80493 Problem Diabetic polyneuropathy associated with type 2 diabetes mellitus (E11.42) Active confirmed 603253840 Problem Insulin resistance (E88.819) Active confirmed 527541879 VITAL SIGNS Heart Rate 87 /min 06/14/2023 Height-cm 176.53 cm 06/14/2023 Oximetry 97 % 06/14/2023 Blood pressure diastolic 72 mm Hg 06/14/2023 Weight-kg 117.48 kg 06/14/2023 Height 69.5 in 06/14/2023 Blood pressure systolic 114 mm Hg 06/14/2023 Weight 259.0 lbs 06/14/2023 BMI 37.7 kg/m2 06/14/2023 Encounters Encounter Location Date Provider Diagnosis [address] [phone] 06/14/2023 JEB MARTÍNEZ Type 2 diabetes mellitus with diabetic chronic kidney disease E11.22 and Upper respiratory tract infection, unspecified type J06.[address] [id number] 06/06/2023 JEB MARTÍNEZ Hyperlipidemia, unspecified hyperlipidemia type [...] 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 PLAN OF TREATMENT Pending Test Test Name Order Date Chest X-ray PA and lateral 10/28/2022 CT Chest with Contrast 11/25/2022 Future Test Test Name Order Date COMPREHENSIVE METABOLIC PANEL (30288) CBC (INCLUDES DIFF/PLT) (6399) CARDIO IQ(R) HEMOGLOBIN A1c (28462) 02/14 CARDIO IQ(R) INSULIN (92013) 03/07/2023 Insurance Providers Payer Name Payer Address Payer Phone Subscriber Number Group Number Insured Name Patient Relationship to Insured Coverage Start Date Coverage End Date [employer] [address] [place] [address] [id number] LUDWIG LUU Self - patient is the insured MEDICAL (GENERAL) HISTORY Medical History History ICD Code Prosate Cancer Diabetes II Hypertension Kidney nodules Hernia Chicken Pox as a kid Deviated Septum Surgical History Surgery Date(Month/Year) Kidney surgery to remove nodules 2018 Hernia Surgery 2016 [place] Teeth Removal Deviated Septum Surgery
--- OUTSIDE RECORDS SUMMARY | 2024-06-04 16:55 | XMS_ITS | Encounter Summary ---
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 (CMS/HCC V24, CMS/HCC V28) Procedures NM Bone/Joint Scan Whole Body Migel Jacobs MD [address] [place] [address] Phone: tel: fax: [address] [address] Phone: tel: Referral ID Status Reason Start Date Expiration Date V isits Requested Visits Authorized [id number] Authorized 04/26/2024 04/26/2025 2 2 Reason for Visit * Imaging (Routine) - Authorized Specialty Diagnoses / Procedures Referred By Contac t Referred To Contact Radiology Diagnoses Prostate CA (CMS/HCC V24, CMS/HCC V28) 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 (CMS/HCC V24, CMS/HCC V28) Procedures NM Bone/Joint Scan Whole Body Migel Jacobs MD [address] [place] [address] Phone: tel: fax: [address] [address] Phone: tel: Referral ID Status Reason Start Date Expiration Date V isits Requested Visits Authorized [id number] Authorized 04/26/2024 04/26/2025 2 2 Encounter Details Date Type Department Care Team (Latest Contact Info) Description 05/31/2024 8:56 AM EDT Hospital Encounter [facility] Nuclear Medicine [address] [place] [phone] Prostate CA (CMS/HCC V24, CMS/HCC V28); 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 ([facility]/HCC V24, [facility]/HCC V28) Social History Tobacco Use Types Packs/Day Years [...] AM EDT documented as of this encounter Plan of Treatment Upcoming Encounters Date Type Department Care Team (Late st Contact Info) Description 06/07/2024 9:15 AM EDT Office Visit [facility] Hematology Oncology [address] [place] [phone] Migel Jacobs MD [address] [place] [phone] 07/19/2024 10:30 AM EDT Appointment [facility] Infusion Center [address] [place] [phone] 10/28/2024 10:30 AM EDT Appointment [facility] [address] [place] [phone] documented as of this encounter Procedures Procedure Name Priority Date/Time Associated Diagnosis Comments NM BONE/JOINT SCAN WHOLE BODY Routine 05/31/2024 12:10 PM EDT Prostate CA ([facility]/HCC V24, CMS/HCC V28) 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 [employer] [place] ([id number]) -------- FINAL REPORT -------- Dictated By: Ofelia Garcia Dictated Date: 06/04/2024 13:44 ET Assigned Physician: Ofelia Garcia Reviewed and Electronically Signed By: Ofelia Garica Signed Date: 06/04/2024 13:48 ET Workstation ID: [id number] Transcribed By: Self Edit Transcribed Date: 06/04/2024 13:44 ET Narrative 06/04/2024 1:48 PM EDT HISTORY: Restaging prostate carcinoma. COMPARISON: Whole body bone scan 07/08/15, CT abdomen/pelvis 05/31/24, 05/19/16 TECHNIQUE: 3 hour delayed whole body bone imaging was performed in the anterior and posterior projections from the top of the head through the tips the toes following the intravenous administration of 25.2 mCi technetium 99m MDP. Delayed oblique spot imaging of the pelvis was performed in the anterior and posterior projections. FINDINGS: Small foci of increased radiotracer activity are seen throughout the spine, bilateral ribs, bilateral pelvic bones, the scapula, and sternum, consistent with widespread osteoblastic metastatic disease, appearing new from the 2016 bone scan and consistent with the diffuse osteoblastic metastatic disease noted on the recent CT abdomen/pelvis. A focus of increased activity is seen in the left maxilla, possibly periodontal disease. Normal bladder and bilateral renal activity is seen. Procedure Note Ofelia Garcia MD - 06/04/2024 HISTORY: Restaging prostate carcinoma. COMPARISON: Whole body bone scan 07/08/15, CT abdomen/pelvis 05/31/24,4/6/17 TECHNIQUE: 3 hour delayed whole body bone imaging was performed in theanterior and posterior projections from the top of the head through thetips the toes following the intravenous administration of 25.2 mCitechnetium 99m MDP. Delayed oblique spot imaging of the pelvis wasperformed in the anterior and posterior projections. FINDINGS: Small foci of increased radiotracer activity are seen throughout thespine, bilateral ribs, bilateral pelvic bones, the scapula, and sternum,consistent with widespread osteoblastic metastatic disease, appearing newfrom the 2016 bone scan and consistent with the diffuse osteoblasticmetastatic disease noted on the recent CT abdomen/pelvis. A focus of increased activity is seen in the left maxilla, possiblyperiodontal disease. Normal bladder and bilateral renal activity is seen. 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 (CMS/HCC V24, CMS/HCC V28) documented in this encounter Administered Medications Inactive Administered Medications - up to 3 most recent administrations Medication Order MAR Action Action Date Dose Rate Site TC-99M medronate radio-isotope injection 25.2 millicurie 25.2 millicurie, intravenous, Once in imaging, Starting on Mon05/31/24 at 0901, For 1 dose Given 05/31/2024 9:01 AM EDT 25.2 millicuries documented in this encounter Orders Medications Ordered That Yonatan ht Not Have Been Administered Count Last Ordered Date First Ordered Date TC-99M medronate radio-isoto pe injection 25.2 millicurie 1 05/31/2024 documented in this encounter Care Teams Willow Machine Operator Relationship Specialty Start Date End Date Uko-Abasi, Melissa [address] [facility] [address] [place] [phone] PCP - General 07/27/23 documented as of this encounter
--- OUTSIDE RECORDS SUMMARY | 2024-06-04 16:55 | XMS_ITS | Patient Health Record ---
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) Active confirmed Problem [id number] Arthritis of foot (M19.079) Active confirmed Vital Signs Heart Rate 107 /min 03/08/2024 Temperature 97.1 degrees Fahrenheit 03/08/2024 Respiratory Rate 16 /min 03/08/2024 Height 5ft 9in in 03/08/2024 Weight 273.4 lbs 03/08/2024 BMI 40.37 kg/m2 03/08/2024 Procedures Procedure Date Ordered Date Performed Result Body Sit e DRAIN/INJECT, INTERMEDIATE JOINT/BURSA 03/08/2024 N/A Encounters Encounter Location Date Provider Diagnosis [facility] [address] [address] 07/21/2023 CHRISTY WILHELM Controlled type 2 diabetes mellitus with diabetic polyneuropathy, without long-term current use of insulin E11.42 ; Dystrophic nail L60.3 ; Onychomycosis B35.1 ; Pain in right toe(s) M79.674 ; Pain in left toe(s) M79.675 and Arthritis of foot M19.079 [facility] [address] [address] 12/06/2023 CHRISTY WILHELM Controlled type 2 diabetes mellitus with diabetic polyneuropathy, without long-term current use of insulin E11.42 ; Dystrophic nail L60.3 ; Onychomycosis B35.1 ; Pain in right toe(s) M79.674 ; Pain in left toe(s) M79.675 and Arthritis of foot M19.079 [facility] [address] [address] 03/08/2024 CHRISTY WILHELM Controlled type 2 diabetes mellitus with diabetic polyneuropathy, without long-term current use of insulin E11.42 ; Dystrophic nail L60.3 ; Onychomycosis B35.1 ; Pain in right toe(s) M79.674 ; Pain in left toe(s) M79.675 and Arthritis of foot M19.079 [facility] [address] 05/22/2024 CHRISTY WILHELM [facility] [address] 09/20/2023 CHRISTY WILHELM [facility] [address] [address] 11/07/2023 CHRISTY WILHELM Controlled type 2 diabetes mellitus with diabetic polyneuropathy, without long-term current use of insulin E11.42 [facility] [address] 02/09/2024 CHRISTY WILHELM [facility] [address] [phone] 03/11/2024 CHRISTY WILHELM Assessments Encounter Date Diagnosis (ICD Code) Assessment Notes Treatment Notes Treatment Clinical Notes Section Notes 07/21/2023 Controlled type 2 diabetes mellitus with [...] Aseptic debridement of toenails x 10 with cutter down and curette, pt tolerated well. Discussed with [...] Aseptic debridement of toenails x 10 with cutter down and curette, pt tolerated well. Discussed with [...] Aseptic debridement of toenails x 10 with cutter down and curette, pt tolerated well. Discussed with the patient that routine nail care services are only covered by insurance every 60 days. Pt understands that if they would like to return prior to this time frame, they may have to pay out of pocket. 07/21/2023 Onychomycosis (ICD-10 - B35.1) I reviewed [...] toe(s) (ICD-10 - M79.674) 12/06/2023 Pain in left toe(s) (ICD-10 - [...] Name:CHRISTY WILHELM, 06/07/2024 04:00:00 PM, [address], [address], Insurance Providers Payer Name Payer Address Payer Phone Subscriber Number Group Number Insured Name Patient Relationship to Insured Coverage Start Date Coverage End Date [facility] [employer] [address] [place] [address] [id number] Andrez Gauthier Self - patient is the [...]
--- OUTSIDE RECORDS SUMMARY | 2024-06-04 16:55 | XMS_ITS ---
Author Organization [facility] Address [address] [address] Care Team Providers Care Hat Forming Machine Feeder Name Role Phone Damaris Ponce Primary Care Provider CHRISTY Huertas [phone] REASON FOR VISIT Pcp office note Encounters Encounter Location Date Provider Diagnosis [facility] [address] [address] 05/22/2024 CHRISTY WILHELM Plan Of Treatment Next Appt Details Provider Name:CHRISTY WILHELM, 06/07/2024 04:00:00 PM, [address] [address], [place], [address], Progress Notes * Andrez LUUDOB:1955 (68 yo M)Acc No.[id number]:05/22/2024 Patient:?Andrez LUU :1955???Age:68 Y???Sex:Male Address:[address] [place] [phone] * * Date:?
--- OUTSIDE RECORDS SUMMARY | 2024-06-04 16:55 | XMS_ITS | Clinical Summary ---
Author Organization [facility] Address [address] [place] [address] Phone Care Team Providers Care Truck Switcher Name Role Phone Melissa Chidls Primary Care Provider [phone] Allergies Active Allergy Reactions Criticality Noted Date [...] (10 mg total) by mouth daily. 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 (CMS/HCC V24, CMS/HCC V28),Prostate CA (CMS/HCC V24, CMS/HCC V28) Take 3 capsules (120 mg total) by [...] Diagnosed Date 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 (CMS/HCC V24, CMS/HCC V28) 09/23/2016 Overview (10/30/2023): Prostate cancer Prostate CA (CMS/HCC V24, CMS/HCC V28) 7 Encounters Date Type Department Care Team Description 05/31/2024 11:45 AM EDT Hospital Encounter [facility] Nuclear Medicine [address] [place] [phone] Arrived 05/31/2024 8:56 AM EDT Hospital Encounter [facility] Nuclear Medicine [address] [place] [phone] Prostate CA ([facility]/HCC V24, [facility]/HCC V28); 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 (CMS/HCC V24, CMS/HCC V28) 05/31/2024 8:39 AM EDT - 05/31/2024 11:59 PM EDT Hospital Encounter [facility] CT Scan [address] [place] [phone] Prostate CA (CMS/HCC V24, CMS/HCC V28); 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 (CMS/HCC V24, CMS/HCC V28) Discharge Disposition: Home or Self Care 05/10/2024 Telephone [facility] Hematology Oncology [address] [place] [phone] Chichi Olea MA 04/29/2024 Telephone [facility] Hematology Oncology [address] [place] [phone] [place] [address]/Bone scan appt 04/26/2024 10:00 AM EDT - 04/26/2024 11:59 PM EDT Hospital Encounter [facility] Infusion Center [address] [phone] Migel Jacobs MD Prostate CA (CMS/HCC V24, CMS/HCC V28) (Primary Dx); 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 ([facility]/HCC V24, CMS/HCC V28) Discharge Disposition: Home or Self Care 04/26/2024 9:45 AM EDT Office Visit [facility] Hematology Oncology [address] [place] [phone] Migel Jacobs MD Prostate CA (CMS/HCC V24, CMS/HCC V28) (Primary Dx); 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 ([facility] V24, [facility] V28) from Last 3 Months Surgical History Surgery Date Site/Laterality Comments HERNIA REPAIR PROCEDURE:HERNIA REPAIR;COMMENT:herniorrhaphy Medical History Medical History Date Comments Prostate cancer ([facility]/HCC V24, [facility]/HCC V28) DX:Prostate cancer (HCC) Hypertension DX:Hypertension Social History Tobacco [...] Description 06/07/2024 9:15 AM EDT Office Visit [facility] Hematology Oncology [address] [place] [phone] Migel Jacobs MD [address] [place] [phone] 07/19/2024 10:30 AM EDT Appointment [facility] [address] [place] [phone] 10/28/2024 10:30 AM EDT Appointment [facility] [address] [place] [phone] Health Maintenance Due Date Last Done Comments Diabetes: Annual Foot Exam 1966 Diabetes: Annual Retina Eye Exam 1966 Hepatitis A Vaccines (1 of 2 - Risk 2-dose series) 08/28/1975 Zoster Vaccines (1 of 2) 08/28/1975 Hepatitis B Vaccines (1 of 3 - Risk 3-dose series) 2016 RSV Immunization Adult Patients (1 - Risk 60-74 years 1-dose series) [...] Sugar Control Test (HGBA1C) 01/28/2022 COVID-19 Vaccine (8 - Moderna risk ) 08/23/2024 02/24/2024, 11/19/2022, 11/29/2021, Additional history exists Falls Risk Assessment 04/26/2025 04/26/2024 Diabetes: Annual GFR (Glomerular Filtration Rate) 06/04/2025 06/04/2024, 04/23/2024, 01/23/2024 Hypertension/CHF/CAD Annual BMP Blood Test 06/04/2025 06/04/2024, 04/23/2024, 01/23/2024 DTaP,Tdap,and Td Vaccines (4 - Td or Tdap) 03/10/2032 03/10/2022, 08/14/2021, 01/31/2012 Influenza Vaccine Completed 02/24/2024, , 10/19/2021, Additional [...] age to complete this topic Meningococcal B Vaccine Aged Out No l onger eligible based on patient's age to complete this topic RSV Immunization Patients Under 20 months Aged Out No longer eligible based on patient's age to complete this topic Varicella Vaccines Aged Out No longer eligible based on patient's age to complete this topic Procedures Procedure Name Priority Date/Time Associated Diagnosis Comments CBC WITH AUTO DIFFERENTIAL Routine 06/04/2024 9:23 AM EDT Prostate CA (CMS/HCC V24, CMS/HCC V28) 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 (CMS/HCC V24, CMS/HCC V28) PROSTATE SPECIFIC ANTIGEN DIAGNOSTIC Routine 06/04/2024 9:23 AM EDT Prostate CA (CMS/HCC V24, CMS/HCC V28) 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 (CMS/HCC V24, CMS/HCC V28) COMPREHENSIVE METABOLIC PANEL Routine 06/04/2024 9:23 AM EDT Prostate CA (CMS/HCC V24, CMS/HCC V28) 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 (CMS/HCC V24, CMS/HCC V28) CBC AND DIFFERENTIAL Routine 06/04/2024 9:23 AM EDT Prostate CA (CMS/HCC V24, CMS/HCC V28) 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 (CMS/HCC V24, CMS/HCC V28) NM BONE/JOINT SCAN WHOLE BODY Routine 05/31/2024 12:10 PM EDT Prostate CA (CMS/HCC V24, CMS/HCC V28) 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 (CMS/HCC V24, CMS/HCC V28) CT ABDOMEN PELVIS WO CONTRAST Routine 05/31/2024 8:53 AM EDT Prostate CA (CMS/HCC V24, CMS/HCC V28) 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 (CMS/HCC V24, CMS/HCC V28) CBC WITH AUTO DIFFERENTIAL Routine 04/23/2024 9:56 AM EDT Prostate CA (CMS/HCC V24, CMS/HCC V28) 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 (CMS/HCC V24, CMS/HCC V28) PROSTATE SPECIFIC ANTIGEN DIAGNOSTIC Routine 04/23/2024 9:56 AM EDT Prostate CA (CMS/HCC V24, CMS/HCC V28) 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 [facility] PSA 2.92 0.00 - 4.00 ng/mL LAB CHEMISTRY METHOD 06/04/2024 1:02 PM EDT [facility] Blood Venous blood specimen / Unknown Venipuncture / Unknown 06/04/2024 9:23 AM EDT 06/04/2024 11:39 AM EDT Narrative [facility] - 06/04/2024 1:02 PM EDT The Siemens Advia Centaur Chemiluminescent Immunoassay is used. Results obtained with different assay methods or kits cannot be used interchangeably. Results cannot be interpreted as absolute evidence of the presence or absence of malignant disease. us Migel Jacobs MD LAB BLOOD ORDERABLES Final Result [facility] [address] [place] [address], * (ABNORMAL) CBC auto differential (06/04/2024 9:23 AM EDT) Only the most recent of2 resultswithin the time period is included. [facility] WBC 10.8 4.8 - 10.8 K/mcL LAB HEMETOLOGY METHOD 06/04/2024 12:16 PM EDT [facility] RBC 5.20 4.50 - 5.50 M/mcL LAB HEMETOLOGY METHOD 06/04/2024 12:16 PM EDT [facility] Hemoglobin 13.8 13.5 - 17.5 g/dL LAB HEMETOLOGY METHOD 06/04/2024 12:16 PM EDT [facility] Hematocrit 45.5 42.0 - 54.0 % LAB HEMETOLOGY METHOD 06/04/2024 12:16 PM T [facility] MCV 87.7 79.0 - 98.0 FL LAB HEMETOLOGY METHOD 06/04/2024 12:16 PM EDT [facility] MCH 26.6(L) 27.0 - 32.0 pcg LAB HEMETOLOGY METHOD 06/04/2024 12:16 PM [facility] MCHC 30.3(L) 32.0 - 37.0 g/dL LAB HEMETOLOGY METHOD 06/04/2024 12:16 PM [facility] RDW 16.6(H) 11.0 - 15.0 % LAB HEMETOLOGY METHOD 06/04/2024 12:16 PM [facility] Platelets 342 130 - 400 K/mcL LAB HEMETOLOGY METHOD 06/04/2024 12:16 PM [facility] MPV 9.6 7.0 - 11.0 FL LAB HEMETOLOGY METHOD 06/04/2024 12:16 PM [facility] NRBC 0.0 <1.0 % LAB HEMETOLOGY METHOD 06/04/2024 12:16 PM [facility] NRBC Absolute 0.00 <0.10 K/mcL LAB HEMETOLOGY METHOD 06/04/2024 12:16 PM [facility] Neutrophils Relative 67.0 % LAB HEMETOLOGY METHOD 06/04/2024 12:16 PM [facility] Lymphocytes Relative 26.0 % LAB HEMETOLOGY METHOD 06/04/2024 12:16 PM [facility] Monocytes Relative 5.0 % LAB HEMETOLOGY METHOD 06/04/2024 12:16 PM [facility] Eosinophils Relative 0.8 % LAB HEMETOLOGY METHOD 06/04/2024 12:16 PM [facility] Basophils Relative 0.6 % LAB HEMETOLOGY METHOD 06/04/2024 12:16 PM [facility] Immature Granulocytes Relative 0.6 % LAB HEMETOLOGY METHOD 06/04/2024 12:16 PM [facility] Neutrophils Absolute 7.26(H) 1.50 - 7.00 K/mcL LAB HEMETOLOGY METHOD 06/04/2024 12:16 PM EDT [facility] Lymphocytes Absolute 2.82 1.00 - 5.00 K/mcL LAB HEMETOLOGY METHOD 06/04/2024 12:16 PM EDT [facility] Monocytes Absolute 0.54 0.20 - 1.00 K/mcL LAB HEMETOLOGY METHOD 06/04/2024 12:16 PM EDT [facility] Eosinophils Absolute 0.09 0.00 - 0.50 K/[facility] LAB HEMETOLOGY METHOD 06/04/2024 12:16 PM EDT [facility] Basophils Absolute 0.07 0.00 - 0.20 K/mcL LAB HEMETOLOGY METHOD 06/04/2024 12:16 PM EDT [facility] Immature Granulocytes Absolute 0.06(H) 0.00 - 0.03 K/mcL LAB HEMETOLOGY METHOD 06/04/2024 12:16 PM EDT [facility] Blood Venous blood specimen / Unknown Venipuncture / Unknown 06/04/2024 9:23 AM EDT 06/04/2024 11:40 AM EDT us Migel Jacobs MD LAB BLOOD ORDERABLES Final Result [facility] [address] [place] [address], * (ABNORMAL) Comprehensive metabolic panel (06/04/2024 9:23 AM EDT) Only the most recent of2 resultswithin the time period is included. Sodium 140 133 - 145 mmol/L LAB CHEMISTRY METHOD 06/04/2024 12:19 PM EDT [facility] Potassium 4.6 3.5 - 5.5 mmol/L LAB CHEMISTRY METHOD 06/04/2024 12:19 PM EDT [facility] Chloride 106 96 - 110 mmol/L LAB CHEMISTRY METHOD 06/04/2024 12:19 PM [facility] CO2 29 21 - 32 mmol/L LAB CHEMISTRY METHOD 06/04/2024 12:19 PM [facility] Anion Gap 5 3 - 11 LAB CHEMISTRY METHOD 06/04/2024 12:19 PM [facility] Glucose 152(H) 70 - 100 mg/dL LAB CHEMISTRY METHOD 06/04/2024 12:19 PM [facility] BUN 16 5 - 25 mg/dL LAB CHEMISTRY METHOD 06/04/2024 12:19 PM [facility] Creatinine 1.18 0.70 - 1.30 mg/dL LAB CHEMISTRY METHOD 06/04/2024 12:19 PM [facility] eGFR 68 >=60 mL/min/1. 73m2 LAB CHEMISTRY METHOD 06/04/2024 12:19 PM [facility] Comment:Calculation based on the??Chronic Kidney Disease Epidemiology Collaboration (CKD-EPI) equation refit??without adjustment for race. BUN/Creatinine Ratio 13.6 LAB CHEMISTRY METHOD 06/04/2024 12:19 PM [facility] Calcium 9.1 8.5 - 10.5 mg/dL LAB CHEMISTRY METHOD 06/04/2024 12:19 PM [facility] AST (SGOT) 15 10 - 42 unit/L LAB CHEMISTRY METHOD 06/04/2024 12:19 PM [facility] ALT (SGPT) 27 10 - 60 unit/L LAB CHEMISTRY METHOD 06/04/2024 12:19 PM [facility] Alkaline Phosphatase 188(H) 42 - 121 unit/L LAB CHEMISTRY METHOD 06/04/2024 12:19 PM [facility] Total Protein 7.2 6.0 - 8.0 g/dL LAB CHEMISTRY METHOD 06/04/2024 12:19 PM EDT [facility] Albumin 3.7 3.2 - 5.0 g/dL LAB CHEMISTRY METHOD 06/04/2024 12:19 PM EDT [facility] Total Bilirubin 0.5 0.0 - 1.4 mg/dL LAB CHEMISTRY METHOD 06/04/2024 12:19 PM EDT [facility] Blood Venous blood specimen / Unknown Venipuncture / Unknown 06/04/2024 9:23 AM EDT 06/04/2024 11:39 AM EDT us Migel Jacobs MD LAB BLOOD ORDERABLES Final Result [facility] [address] [place] [address], [place] [phone] * NM Bone/Joint Scan Whole Body (05/31/2024 12:10 PM EDT) Anatomical Region Laterality Modality Nuclear Medicine 06/04/2024 1:44 PM EDT Impressions 06/04/2024 1:48 PM EDT 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 Telerad PA ([id number]) -------- FINAL REPORT -------- Dictated By: Ofelia Garcia Dictated Date: 06/04/2024 13:44 ET Assigned Physician: Ofelia Garcia Reviewed and Electronically Signed By: Ofelia Garcia Signed Date: 06/04/2024 13:48 ET Workstation ID: [id number] Transcribed By: Self Edit Transcribed Date: 06/04/2024 [...] Whole body bone scan 07/08/15, CT abdomen/pelvis 05/31/24,05/19/16 TECHNIQUE: 3 hour delayed whole body bone [...] the findings on the recent CT abdomen/pelvis. Telerad PA ([id number]) -------- FINAL REPORT -------- Dictated By: Ofelia Garcia Dictated Date: 06/04/2024 13:44 ET Assigned Physician: Ofelia Garcia Reviewed and Electronically Signed By: Oeflia Garcia Signed Date: 06/04/2024 13:48 ET Workstation ID: [id number] Transcribed By: Self Edit Transcribed Date: 06/04/2024 13:44 ET us Migel Jacobs MD IMG NM PROCEDURES Final Res ult * CT Abdomen Pelvis wo Contrast (05/31/2024 8:53 AM EDT) Anatomical Region Laterality Modality Body Computed Tomogra phy 05/31/2024 1:05 PM EDT Impressions 05/31/2024 1:22 PM EDT No measurable adenopathy or solid visceral lesion. Innumerable scattered osseous metastasis which have definitely increased in number. ?? Abnormal kidneys. ??Interval increase in size in a mildly complicated cyst of the left kidney. ??Previous reports suggest angiomyolipomas. Evaluate based upon urologic assessment. -------- FINAL REPORT -------- Dictated By: Kvng Rios Dictated Date: 05/31/2024 13:05 ET Assigned Physician: Kvng Rios Reviewed and Electronically Signed By: Kvng Rios Signed Date: 05/31/2024 13:22 ET Workstation ID: [id number] Transcribed By: Self Edit Transcribed Date: 05/31/2024 13:05 ET Narrative 05/31/2024 1:22 PM EDT EXAMINATION: CT ABDOMEN/PELVIS WITHOUT IV CONTRAST CLINICAL INFORMATION: Metastatic prostate cancer. ??Restaging COMPARISON: Portions of the previous CT 05/19/16 ?? TECHNIQUE: Multidetector CT. Helical examination of the abdomen and pelvis. Imaging performed without IV contrast. Reformatting in the coronal and sagittal planes. DLP: 1422 mGy-cm Dose optimization was performed including the use of low-dose iterative reconstruction technique with automatic exposure control based on patient size. Type of contrast: None Volume of IV contrast: None Volume of contrast discarded: 0 mL FINDINGS: LIVER: The right lobe of the liver measures 16.9 cm the liver contour appears smooth. ??No suspicious focal liver lesion. ?? BILIARY TRACT: ??No opaque gallstone. No biliary dilation. SPLEEN: The spleen measures 12.4 cm. ??No focal abnormality. ?? PANCREAS: No suspicious abnormality. ?? ADRENAL GLANDS: No suspicious abnormality. ?? KIDNEYS: RIGHT: ??There is a metallic density in the lower right kidney likely related to previous embolization. ??There is peripheral fat surrounding the lateral mid right kidney and there is an additional metallic density in the upper right kidney. ??No suspicious interval change although no IV contrast was administered. ??No dilation of the collecting system. LEFT: ??There is a punctate calcification in the region of a calyx in the interpolar left kidney posteriorly. ?? There is an exophytic circumscribed mass arising from the posterior medial mid left kidney. ??This has Hounsfield units of fluid. ??Faint hyperdensity dependently and posteriorly. Stranding in the perinephric fat. 05/31/24-4.5 cm 05/19/16-2.5 cm URINARY BLADDER: ??No suspicious abnormality. PELVIC VISCERA: ??No suspicious abnormality. GASTROINTESTINAL TRACT: ?No bowel wall thickening. ??No localized fat stranding. ??No suspicious mass. ABDOMINAL WALL: No significant hernia is appreciated. ?? LYMPHOVASCULAR STRUCTURES AND FLUID: There is no abdominal aortic aneurysm. ??There are no enlarged lymph nodes. ??There is no free intraperitoneal fluid. ?? VISUALIZED LOWER CHEST: There is extensive coronary calcifications. ??There is gynecomastia. ?? MUSCULOSKELETAL: There are innumerable widely scattered sclerotic lesions throughout the visualized skeleton including the spine, right scapula, ribs, sternum, iliac bones, sacrum, ischia, pubic rami and proximal femora. ??There is no associated soft tissue mass. ?? These have markedly increased in number. Procedure Note Kvng Rios MD - 05/31/2024 EXAMINATION: CT ABDOMEN/PELVIS WITHOUT IV CONTRAST CLINICAL INFORMATION: Metastatic prostate cancer. Restaging COMPARISON: Portions of the previous CT 05/19/16 TECHNIQUE: Multidetector CT. Helical examination of the abdomen and pelvis. Imaging performed without IV contrast. Reformatting in the coronal and sagittal planes. DLP: 1422 mGy-cm Dose optimization was performed including the use of low-dose iterativereconstruction technique with automatic exposure control based on patientsize. Type of contrast: None Volume of IV contrast: None Volume of contrast discarded: 0 mL FINDINGS: LIVER: The right lobe of the liver measures 16.9 cm the liver contourappears smooth. No suspicious focal liver lesion. BILIARY TRACT: No opaque gallstone. No biliary dilation. SPLEEN: The spleen measures 12.4 cm. No focal abnormality. PANCREAS: No suspicious abnormality. ADRENAL GLANDS: No suspicious abnormality. KIDNEYS: RIGHT: There is a metallic density in the lower right kidney likelyrelated to previous embolization. There is peripheral fat surrounding thelateral mid right kidney and there is an additional metallic density inthe upper right kidney. No suspicious interval change although no IVcontrast was administered. No dilation of the collecting system. LEFT: There is a punctate calcification in the region of a calyx in theinterpolar left kidney posteriorly. There is an exophytic circumscribed mass arising from the posterior medialmid left kidney. This has Hounsfield units of fluid. Faint hyperdensitydependently and posteriorly. Stranding in the perinephric fat. 05/31/24-4.5 cm 05/19/16-2.5 cm URINARY BLADDER: No suspicious abnormality. PELVIC VISCERA: No suspicious abnormality. GASTROINTESTINAL TRACT: No bowel wall thickening. No localized fatstranding. No suspicious mass. ABDOMINAL WALL: No significant hernia is appreciated. LYMPHOVASCULAR STRUCTURES AND FLUID: There is no abdominal aorticaneurysm. There are no enlarged lymph nodes. There is no freeintraperitoneal fluid. VISUALIZED LOWER CHEST: There is extensive coronary calcifications. Thereis gynecomastia. MUSCULOSKELETAL: There are innumerable widely scattered sclerotic lesionsthroughout the visualized skeleton including the spine, right scapula,ribs, sternum, iliac bones, sacrum, ischia, pubic rami and proximalfemora. There is no associated soft tissue mass. These have markedly increased in number. IMPRESSION: No measurable adenopathy or solid visceral lesion. Innumerable scattered osseous metastasis which have definitely increasedin number. Abnormal kidneys. Interval increase in size in a mildly complicated cystof the left kidney. Previous reports suggest angiomyolipomas. Evaluate based upon urologic assessment. -------- FINAL REPORT -------- Dictated By: Kvng Rios Dictated Date: 05/31/2024 13:05 ET Assigned Physician: Kvng Rios Reviewed and Electronically Signed By: Kvng Rios Signed Date: 05/31/2024 13:22 ET Workstation ID: [id number] Transcribed By: Self Edit Transcribed Date: 05/31/2024 13:05 ET us Migel Jacobs MD IMG CT PROCEDURES Final Res ult from Last 3 Months Insurance [employer] Care Teams Truck Switcher Relationship Specialty Start Date End Date Melissa Childs [address] [facility] [address] [place] [phone] PCP - General 07/27/23
--- OUTSIDE RECORDS SUMMARY | 2024-06-04 16:55 | XMS_ITS | Encounter Summary ---
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 (CMS/HCC V24, [facility]/HCC V28) Procedures NM Bone/Joint Scan Whole Body Migel Jacobs MD [address] [place] [address] Phone: tel: fax: [address] [address] Phone: tel: Referral ID Status Reason Start Date Expiration Date V isits Requested Visits Authorized [id number] Authorized 04/26/2024 04/26/2025 2 2 Encounter Details Date Type Department Care Team (Late st Contact Info) Description 05/31/2024 11:45 AM EDT Hospital Encounter [facility] Nuclear Medicine [address] [place] [phone] Arrived Social History Tobacco Use Types Packs/Day Years [...] Description 06/07/2024 9:15 AM EDT Office Visit [facility] Hematology Oncology [address] [place] [phone] Migel Jacobs MD [address] [place] [address] 07/19/2024 10:30 AM EDT Appointment [address] [phone] 10/28/2024 10:30 AM EDT Appointment [facility] [address] [place] [phone] documented as of this encounter Procedures Procedure [...] findings on the recent CT abdomen/pelvis. Telerad FRANCINE ([id number]) -------- FINAL REPORT -------- Dictated By: Ofelia Garcia Dictated Date: 06/04/2024 13:44 ET Assigned Physician: Ofelia Garcia Reviewed and Electronically Signed By: Ofelia Garcia Signed Date: 06/04/2024 13:48 ET Workstation ID: [id number] Transcribed By: Self Edit Transcribed Date: 06/04/2024 [...] the findings on the recent CT abdomen/pelvis. Michael ESCAMILLA ([id number]) -------- FINAL REPORT -------- Dictated By: Ofelia Garcia Dictated Date: 06/04/2024 13:44 ET Assigned Physician: Spagnoli, Ofelia Reviewed and Electronically Signed By: Ofelia Garcia Signed Date: 06/04/2024 13:48 ET Workstation ID: [id number] Transcribed By: Self Edit Transcribed Date: 06/04/2024 13:44 ET Migel Jacobs MD IMG NM PROCEDURES Final Res ult documented in this encounter Visit Diagnoses Not on filedocumented in this encounter Care Teams Supervisor Long Goods Relationship Specialty Start Date End Date Melissa Childs [address] [facility] [address] [place] [address] PCP - General 07/27/23 documented as of this encounter
--- OUTSIDE RECORDS SUMMARY | 2024-06-04 16:55 | XMS_ITS | Encounter Summary ---
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 (CMS/HCC V24, CMS/HCC V28) Procedures CT Abdomen Pelvis wo Contrast Migel Jacobs MD [address] [place] [address] Phone: tel: fax: [address] [address] Phone: tel: Referral ID Status Reason Start Date Expiration Date Visits Re quested Visits Authorized [id number] Closed 04/26/2024 10/23/2024 1 1 Reason for Visit * Imaging (Routine) - Closed Specialty Diagnoses / Procedures Referred By Contac t Referred To Contact Radiology Diagnoses Prostate CA (CMS/HCC V24, CMS/HCC V28) 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 (CMS/HCC V24, CMS/HCC V28) Procedures CT Abdomen Pelvis wo Contrast Migel Jacobs MD [address] [place] [address] Phone: tel: fax: [address] [place] [address] Phone: tel: Referral ID Status Reason Start Date Expiration Date Visits Re quested Visits Authorized [id number] Closed 04/26/2024 10/23/2024 1 1 Encounter Details Date Type Department Care Team (Latest Contact Info) Description 05/31/2024 8:39 AM EDT - 05/31/2024 11:59 PM EDT Hospital Encounter [facility] CT Scan [address] [place] [address] Prostate CA (CMS/HCC V24, CMS/HCC V28); 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 atorvastatin (LIPITOR) 10 mg tablet Take 1 tablet (10 mg total) by mouth every evening. 3 bicalutamide (CASODEX) 50 mg tablet TAKE 1 TABLET(50 MG) BY MOUTH DAILY 4 bisacodyL (DULCOLAX) 5 mg EC tablet Take 2 tablets by mouth right before beginning bowel prep. 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 Do not crush, break, or dissolve. Swallow it whole. 90 capsule 5 5 ferrous sulfate 325 mg (65 mg elemental iron) tablet Take 1 tablet (325 mg total) by mouth every morning with breakfast. glipiZIDE (GLUCOTROL XL) 5 mg 24 hr tablet Take 4 tablets (20 mg total) by mouth 1 (one) time each day. 10 MG TABLETS - TAKES TWO IN AM FOR 20 MG TOTAL insulin aspart (NovoLOG U-100 Insulin aspart) 100 unit/mL injection Inject under the skin. 4 insulin glargine (LANTUS) 100 unit/mL injection Inject under the skin every night at bedtime. lisinopriL (PRINIVIL,ZESTRIL) 10 mg tablet Take 2 tablets (20 mg total) by mouth daily. oxyBUTYnin XL (DITROPAN-XL) 10 mg 24 hr tablet Take 1 tablet (10 mg total) by mouth daily. 3 polyethylene glycol (Golytely) 236-22.74-6.74 -5.86 gram solution Take 4L by mouth once for one dose. May substitue any PEG. Starting at 6PM the night before your procedure drink 1 8oz glasses at your own pace until you complete half of the gallon. Finish 2nd half of the gallon 5 hours before your procedure. 4000 mL 4 pregabalin (LYRICA) 75 mg capsule Take 1 capsule (75 mg total) by mouth 2 (two) times a day. traZODone (DESYREL) 50 mg tablet Take 1 tablet (50 mg total) by mouth every night at bedtime. 3 triptorelin pamoate (TRELSTAR) 11.25 mg suspension for reconstitution chemo injection Inject 11.25 mg into the muscle every 3 (three) months. documented as of this encounter Discharge Disposition Disposition Code Departure Means Destination Home or Self Care documented in this encounter Plan of Treatment Upcoming Encounters Date Type Department Care Team (Late st Contact Info) Description 06/07/2024 9:15 AM EDT Office Visit [facility] Hematology Oncology [address] [place] [phone] Migel Jacobs MD [address] [place] [address] 07/19/2024 10:30 AM EDT Appointment [facility] Infusion Center [address] [place] [phone] 10/28/2024 10:30 AM EDT Appointment [facility] [address] [place] [phone] documented as of this encounter Procedures Procedure Name Priority Date/Time Associated Diagnosis Comments CT ABDOMEN PELVIS WO CONTRAST Routine 05/31/2024 8:53 AM EDT Prostate CA (CMS/HCC V24, CMS/HCC V28) 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 (CMS/HCC V24, CMS/HCC V28) documented in this encounter Results * CT Abdomen Pelvis wo Contrast (05/31/2024 [...] Signed Date: 05/31/2024 13:22 ET Workstation ID: [id number] Transcribed By: Self Edit Transcribed Date: 05/31/2024 [...] Signed Date: 05/31/2024 13:22 ET Workstation ID: [id number] Transcribed By: Self Edit Transcribed Date: 05/31/2024 13:05 ET us Migel Jacobs MD IMG CT PROCEDURES Final Res ult documented in this encounter Visit Diagnoses Diagnosis Prostate CA (CMS/HCC V24, CMS/HCC V28) Malignant neoplasm of prostate 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
--- OUTSIDE RECORDS SUMMARY | 2024-06-04 16:56 | XMS_ITS ---
Author Organization [facility] Address [address] [place] [phone] Care Team Providers Care Gas Attendant Name Role Phone JAD SORENSEN Primary Care Provider JEB MARTÍNEZ Unavailable [phone] ALLERGIES Allergen (clinical drug ingredient) Drug/Non Drug [...] Orally Once a day Not-Taking Vitamin D2 40887 IU Not-Takin g Trelstar Every 3 months [...] Section Notes: Lives in [place] with his , youngest daughter and grandsone. [...] [facility] [address] [phone] 04/26/2023 JEB MARTÍNEZ Diabetic polyneuropathy associated with [...] * LUDWIG LUUDOB:1955 ( 67 yo M)Acc No.[id number]:04/26/2023 Progress Notes Patient:??LUDWIG LUU Provider:??JEB MARTÍNEZ NP :1955?Age:67 Y?Sex:Ma le Date:04/26/2023 Phone: Address:[address] [place] [phone] Pcp:JAD SORENSEN Subjective: * Chief Complaints: * ?F/U DIABETIC CHECK * HPI: ?Patient Care Team:?Oncologist:??Dr. Jacobs , Dr. Jacobs.? Providers/Specialists: Sales Mgr Holger Fox Providers/Specialists: Sales Mgr Holger Fox. ?Visit info:? Patient presents in the office today for a diabetes check in. 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 ?Lives in [place], [place] with his , youngest daughter and [...] date 06/05/2023Not-TakingVitamin D2 , Notes to Pharmacist: 28949 IUBicalutamide 50 MG Tablet 1 tablet Orally Once a day Ozempic (0.25 or 0.5 MG/DOSE) 2 MG/3ML Solution Pen-injector 0.5mg Subcutaneous once a week FreeStyle Aide 3 Sensor - Miscellaneous as directed change sensor every 14 daysMedication List reviewed and reconciled with the patientNot-Taking Vitamin D2 , Notes to Pharmacist: 81385 IUNot-Taking Bicalutamide 50 MG Tablet 1 tablet [...] work) * Billing Information: * Visit Code:?? 24327 Office Visit, Est Pt., Level 3. * Procedure Codes:?? * Sign off status: Completed true * Provider:??JEB MARTÍNEZ NP Date:?? History and Physical Notes * HPI (History of Present Illness) Category Sub-Category Detail Notes Category Not es Patient Care Team Oncologist: Dr. Jacobs , Dr. Weir on Providers/Specialists : Sales Mgr Holger Fox Providers/Specialists : Sales Mgr Holger oFx Visit info Patient presents in the office today for a diabetes check in. 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
--- OUTSIDE RECORDS SUMMARY | 2024-06-04 16:56 | XMS_ITS ---
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 09/24/19 17 Current Oncology Plans [facility] DENOSUMAB 60MG (PROLIA)* Plan Start Date:07/25/2023 Plan Provider:Migel Jacobs MD Linked Problems Prostate CA (HCC) Treatment Medications denosumab (PROLIA)Triptoreli n Pamoate Susr Past Plans ONCOLOGY INFUSION THERAPY Plan Name Start Date Discontinue Date Treatment Medications Discontinue Reason Plan Provider [facility] (PROLIA[facility] 11/04/2022 07/24/2023 denosumab (PROLIA) Therapy Complete Migel Jacobs MD [facility] DENOSUMAB 60MG (PROLIA) 11/26/2021 11/03/2022 denosumab (PROLIA) Therapy Complete Migel Jacobs MD Radiation Treatments * No radiation treatments are documented for this patient in [facility]. Treatments may have been administered in another system.
--- OUTSIDE RECORDS SUMMARY | 2024-06-04 16:56 | XMS_ITS ---
Author Organization [facility] Address [address] [place] [phone] Care Team Providers Care Organ Tuner Name Role Phone JAD SORENSEN Primary Care Provider [phone] [facility] JEB MARTÍNEZ Unavailable [phone] REASON FOR VISIT Refills MEDICATIONS Medication SIG [...] Active Encounters Encounter Location Date Provider Diagnosis [facility], [address] [phone] 06/06/2023 JEB MARTÍNEZ Hyperlipidemia, unspecified hyperlipidemia type [...] * LUDWIG LUUDOB:1955 ( 67 yo M)Acc No.[id number]:06/06/2023 Patient:??LUDWIG LUU :1955?Age:67 Y?Sex:Clementina garzon Phone: Address:[address] [place] [phone] * Refills?? Refill Atorvastatin Calcium Tablet, 10 [...]
--- OUTSIDE RECORDS SUMMARY | 2024-06-04 16:56 | XMS_ITS | Clinical Summary ---
Author Organization [facility] Address [address] [place] [address] Care Team Providers Care Drip Molder Name Role Phone Melissa Childs NP Primary Care Provider [phone] Allergies Active Allergy Reactions Criticality Noted Date [...] age to complete this topic Care Teams Drip Molder Relationship Specialty Start Date End Date Melissa Childs NP [address] [place] [address] PCP - General Nurse Practitioner 07/27/23
--- OUTSIDE RECORDS SUMMARY | 2024-06-04 16:56 | XMS_ITS ---
Author Organization [employer] [facility] Address [address] [place] [phone] Care Team Providers Care Gripper Machine Operator Name Role Phone JAD SORENSEN Primary Care Provider JEB MARTÍNEZ Unavailable [phone] ALLERGIES Allergen (clinical drug ingredient) Drug/Non Drug [...] Orally Once a day Not-Taking Vitamin D2 36939 IU Not-Takin g Azithromycin 250 MG as [...] smoker (40+ cigs/day) Section Notes: Lives in [facility] with his , youngest daughter and [...] Encounters Encounter Location Date Provider Diagnosis [address] [phone] 06/14/2023 JEB MARTÍNEZ Type 2 diabetes mellitus [...] Pt unfortunately finding new porivder 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 Reynaldo Lares.? Providers/Specialists: Caustic Preparer Holger Fox Providers/Specialists: Caustic Preparer Holger Fox. ?Visit info:? Andrez presents today [...] - once a year Joaquin.. 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 * Procedure Codes:?? * Preventive Medicine:?Last CPE: 2020 Colonoscopy: Yes, over 10 years ago - polyps found Endoscopy: No COVID Vac: Yes, 3 boosters - Newest COVID Shot, yes FLU Vac: Yes for Shingles Vac: No PV: Yes (2). * Billing Information: * Visit Code:?? 55252 Office Visit, Est Pt., Level 3. * Procedure Codes:?? * Sign off status: Completed true * Provider:??JEB MARTÍNEZ NP Date:?? History and Physical Notes * HPI (History of Present Illness) Category Sub-Category Detail Notes Category Not es Patient Care Team Oncologist: Dr. Jacobs , Dr. Weir on Providers/Specialists : Caustic Preparersandy Fox Providers/Specialists : Caustic Preparer Holger Fox Examination Category Sub-Category Detail Notes Category Not es General Examination GEN: NAD, speaking in full complete sentences, thoughts clear and appropriate RESP: nonlabored breathing, lungs clear/equal all zaidi CV: S1S2 regular NEURO: AO x 3 PSYCH: judgment/insight intact, NL mood/affect
== END 2024-06-04 14:28 | disposition home or self-care (01) ==
LOC: HO.HPS 14:04
PROVIDERS: PCP Internal Medicine; Visit Provider Internal Medicine Pulmonary Disease
DX: J44.9 Chronic obstructive pulmonary disease, unspecified (principal); G47.33 Obstructive sleep apnea (adult) (pediatric)
CPT/HCPCS: 99214

== ENCOUNTER → 2024-06-04 14:03 | Outpatient (BNVA) | payer OTHER, SELFPAY | PROVIDERS: PCP Internal Medicine; Visit Provider Internal Medicine Pulmonary Disease ==

== ENCOUNTER 2024-06-17 09:14 | Outpatient (AMB) | payer OTHER, SELFPAY ==
--- NOTE | 2024-06-17 09:36 | A.OFFPC_ITS ---
Vital Signs 06/17/24 09:43 Height 5 ft 10 in Weight 269 lb BMI 38.6 BP 116/80 Blood Pressure Location Rt brachial Position Sitting Respiration 16 Pulse 85 Pulse Source Pulse Oximeter Pulse Oximetry (%) 94 Oxygen Delivery Method Room Air Intake Visit Reasons: DM Intake Note: Diabetes follow up. Fell on 05/20/2024, went to [facility]. Had broken rib. Printed Circuit Board Preassembler Required: No Allergies Iodinated Contrast Media Allergy (Severe, Verified 06/17/24 09:37) Hives doxycycline Allergy (Mild, Verified 06/17/24 09:37) Vomiting Medication List - Last Reconciled 06/17/24 by Damaris Ponce MD atorvastatin 10 mg PO DAILY denosumab (Prolia) 60 mg subcut [id number] Dexcom G7 Tire Fabricator (blood-glucose,smoking pipe mounter,cont) As directed NS Dexcom G7 Sensor (blood-glucose sensor) once every 10 days NS enzalutamide (Xtandi) PO TID enzalutamide (Xtandi) 120 mg PO DAILY glipizide ER 10 mg PO BID Jardiance (empagliflozin) 10 mg PO DAILY NS Lantus Solostar U-100 Insulin (insulin glargine) 55 units (0.55 mL) subcut DAILY NS lisinopril 30 mg PO DAILY Mounjaro (tirzepatide) 5 mg (0.5 mL) subcut QWEEK NS Novolog FlexPen U-100 Insulin (insulin aspart U-100) 1 sliding scale dose subcut USEASDIRECTD 90 days NS omeprazole 20 mg PO DAILY oxybutynin chloride ER 10 mg PO DAILY pregabalin 200 mg PO BID tramadol 50 mg PO Q8H PRN 28 days trazodone 100 mg (2 x 50 mg) PO BEDTIME PRN triptorelin pamoate (Trelstar) IM umeclidinium-vilanterol 62.5-25 mcg/actuation (Anoro Ellipta) 1 inh inhalation DAILY Tobacco use date assessed: 05/14/24 Dental Screening Dental Screen Date: 02/12/24 HPI HPI Comments History of Present Illness Details Patient is a 68-year-old male with insulin-dependent diabetes, prostate cancer, hypertension, neuropathy, GERD presenting for follow up Type 2 diabetes: POC A1C 08/21 from 8.9% end of January improved to 7.9% 05/14/2024. On dexcom 7-30 day at 7.3% On Lantus 55 units nightly and aspart t.i.d. CC as well as glipizide 20 mg daily, jardiance and mounjaro. Neuropathy on Lyrica 200 mg twice daily. He was hospitalized at the end of November for COVID-19 Heme/Onc: Prostate cancer in 2017. Now with bony metastases. Recent fall with rib fracture. Left wrist has been bothering him since the fall. Using tylenol. Sometimes not strong enough. Follows with Dr. Jacobs. On xtrandi, oxybutynin. On prolia. Saw pulmonary. Acosta has been sent Colonoscopy at age 51 LDCT ROS see HPI PHYSICAL EXAM: GENERAL: Alert and oriented x 3. NAD EYES: EOMI. Anicteric. HENT: Moist mucous membranes. No scleral icterus. No cervical lymphadenopathy. LUNGS: Clear to auscultation bilaterally. CARDIOVASCULAR: Regular rate and rhythm. No murmur. No JVD. ABDOMEN: Soft, non-tender +bs EXTREMITIES: No edema. Non-tender. SKIN: No rashes or lesions. Warm. NEUROLOGIC: No focal neurological deficits. CN II-XII grossly intact PSYCHIATRIC: Cooperative. Appropriate mood and affect [facility] Medical History Hernia Surgical History H/O vasectomy History of hernia surgery Family History Sister FH: mental illness Substance abuse Mother Diabetes Social History Housing: House Alcohol intake: current Patient Tobacco Use Status: Former Tobacco user Cigarette Packs Per Day: 4 Years Smoked: 35 Packs Per Year: 140 e-Cigarette/Vaping Use: Never Used Second Hand Smoke Exposure: No Cognitive needs: No Hearing needs: No Vision needs: Yes (glasses) Questionnaire Thrive Questionnaire Date Thrive assessed: 03/15/24 I am a: Patient What is your living situation today?: I have a steady place to live Within the past 12 months, did the food you bought not last and you didn't have the money to get more?: Never true Within the past 12 months, did you worry whether your food would run out before you got money to buy more?: Never true Do you have trouble paying for medicines?: No Do you have trouble getting transportation to medical appointments?: No Do you have trouble paying your heating and electricity bill?: No Do you have trouble taking care of your child, family member or friend?: No Do you have trouble with day-to-day activities such as bathing, preparing meals, shopping, managing finances, etc.?: No Are you currently unemployed and looking for a job?: No Are you interested in more education?: Yes Please select the resources that you would like help with: Education Currently or been in a relationship where the following occur: I choose not to answer THRIVE Score: 0 SUJATHA-7 AMB Questionnaire SUJATHA-7 Date SUJATHA - 7 assessed: 02/12/24 Source: Developed by Drs. Sandro Pineda, Vanesa Worrell, Liang Mckee and colleagues, with an educational gema from [employer]. Physical exam (Primary Care) Vital Signs: Last Vital Signs Pulse 85 06/17/24 09:43 Resp 16 06/17/24 09:43 BP 116/80 06/17/24 09:43 Pulse Ox 94 06/17/24 09:43 Oxygen Delivery Method Room Air 06/17/24 09:43 BMI result Body Mass Index 38.6 Tobacco/Smoking Status: Tobacco use Status Tobacco use date assessed 05/14/24 06/17/24 09:39 Patient Tobacco Use Status Former Tobacco user 06/17/24 09:39 e-Cigarette/Vaping Use Never Used 06/17/24 09:39 Thrive Assessment: Date of Thrive Assessment Date Thrive assessed 03/15/24 06/17/24 09:39 Currently or been in a relationship where the following occur: I choose not to answer Coding Level of Care Code Est Pt Level 4 (03658) Complex EM visit Add On G2211 Diagnoses Type 2 diabetes mellitus with hyperglycemia, with long-term current use of insulin E11.65; Z79.4 Diabetes mellitus complication status: with hyperglycemia Chronic obstructive pulmonary disease, unspecified COPD type J44.9 COPD type: unspecified COPD Left wrist pain M25.532 Assessment & Plan Assessment & Plan (1) Insulin use (long-term) in type 2 diabetes: Code(s): E11.9 - Type 2 diabetes mellitus without complications; Z79.4 - brokerage purchase and sale clerk (current) use of insulin Category: Medical Qualifiers: Diabetes mellitus complication status: with hyperglycemia Qualified Code(s): E11.65 - Type 2 diabetes mellitus with hyperglycemia; Z79.4 - brokerage purchase and sale clerk (current) use of insulin (2) COPD (chronic obstructive pulmonary disease): Code(s): J44.9 - Chronic obstructive pulmonary disease, unspecified Category: Medical Qualifiers: COPD type: unspecified COPD Qualified Code(s): J44.9 - Chronic obstructive pulmonary disease, unspecified (3) Left wrist pain: Code(s): M25.532 - Pain in left wrist Category: Medical Plan DM-Improving glycemic control. Continue current medications Prostate cancer-following with hematology HTN-stable on current medications Follow up in 8 weeks for A1C/DM follow up Orders: Orders Complete Blood Count Auto Diff 8 Weeks E11.65 - Type 2 diabetes mellitus with hyperglycemia, G47.33 - Obstructive sleep apnea (adult) (pediatric), J44.9 - Chronic obstructive pulmonary disease, unspecified, Z79.4 - senior care (current) use of insulin Comprehensive Met. Panel Today E11.65 - Type 2 diabetes mellitus with hyperglycemia, G47.33 - Obstructive sleep apnea (adult) (pediatric), J44.9 - Chronic obstructive pulmonary disease, unspecified, Z79.4 - senior care (current) use of insulin Lipid Panel Today E11.65 - Type 2 diabetes mellitus with hyperglycemia, G47.33 - Obstructive sleep apnea (adult) (pediatric), J44.9 - Chronic obstructive pulmonary disease, unspecified, Z79.4 - senior care (current) use of insulin Hemoglobin A1c Today E11.65 - Type 2 diabetes mellitus with hyperglycemia, G47.33 - Obstructive sleep apnea (adult) (pediatric), J44.9 - Chronic obstructive pulmonary disease, unspecified, Z79.4 - brokerage purchase and sale clerk (current) use of insulin XR wrist LT min 3V Today M25.532 - Pain in left wrist Medications: New oxybutynin chloride ER 10 mg PO DAILY 90 tabs 3RF tramadol 50 mg PO Q8H 28 days PRN 56 tabs 0RF pain Refilled Jardiance (empagliflozin) 10 mg PO DAILY 90 tabs 3RF NS E11.65 - Type 2 diabetes mellitus with hyperglycemia, Z79.4 - senior care (current) use of insulin Lantus Solostar U-100 Insulin (insulin glargine) Three times daily sliding scale 100-149 4 units 150-199 6 units 200-249 8 units 250-299 10 units 300-349 12 units 350 or more 14 units 55 units (0.55 mL) subcut DAILY 30 mL 3RF NS
[2024-06-17 09:43] VITALS: BP 116/80; PULSE 85; RESP 16; O2SAT 94; BMI 38.6
--- OUTSIDE RECORDS SUMMARY | 2024-06-17 09:58 | XMS_ITS ---
Author Organization [facility] Address [address] [address] Care Team Providers Care Toeing Stockings Name Role Phone Damaris Ponce Primary Care Provider CHRISTY Huertas [phone] REASON FOR VISIT Pcp office note FYI Encounters Encounter Location Date Provider Diagnosis [facility] [address] [phone] 05/22/2024 CHRISTY WILHELM Plan Of Treatment Next Appt Details Provider Name:CHRISTY WILHELM, 09/11/2024 04:00:00 PM, [address] [address], [place], [phone], Progress Notes * Andrez LUUDOB:1955 (68 yo M)Acc No.[id number]:05/22/2024 Patient:?Andrez LUU :1955???Age:68 Y???Sex:Male Address:[address] [place] [phone] * true * Date:? Generated for Printi ng/Faxing/eTransmitting on:?06/17/2024 09:58 AM EDT
--- OUTSIDE RECORDS SUMMARY | 2024-06-17 09:59 | XMS_ITS | Clinical Summary ---
Author Organization [facility] Address [address] [place] [address] Phone Care Team Providers Care Salvager Name Role Phone Melissa Childs Primary Care Provider [phone] Allergies Active Allergy Reactions Criticality Noted Date [...] whole. 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 (CMS/HCC V24, CMS/HCC V28) 09/23/2016 Overview (10/30/2023): Prostate cancer Prostate CA (CMS/HCC V24, [facility]/HCC V28) 7 Encounters Date Type Department Care Team Description 06/07/2024 9:15 AM EDT Office Visit [facility] Hematology Oncology [address] [place] [phone] Migel Jacobs MD Prostate CA ([facility]/HCC V24, [facility]/HCC V28) (Primary Dx) 05/31/2024 11:45 AM EDT - 05/31/2024 11:59 PM EDT Hospital Encounter [facility] Nuclear Medicine [address] [place] [phone] Discharge Disposition: Home or Self Care 05/31/2024 8:56 AM EDT - 05/31/2024 11:59 PM EDT Hospital Encounter [facility] Nuclear Medicine [address] [place] [phone] Prostate CA ([facility]); 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 ([facility]) Discharge Disposition: Home or Self Care 05/31/2024 8:39 AM EDT - 05/31/2024 11:59 PM EDT Hospital Encounter [facility] CT Scan [address] [place] [phone] Prostate CA ([facility], [facility]); 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 ([facility], [facility]/HCC V28) Discharge Disposition: Home or Self Care 05/10/2024 Telephone [facility] Hematology Oncology [address] [place] [phone] Chichi Olea MA 04/29/2024 Telephone [facility] Hematology Oncology [address] [place] [phone] [place] [address]/Bone scan appt 04/26/2024 10:00 AM EDT - 04/26/2024 11:59 PM EDT Hospital Encounter [facility] Infusion Center [address] [place] [phone] Migel Jacobs MD Prostate CA (CMS/HCC V24, [facility] V28) (Primary Dx); 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 (CMS/HCC V24, CMS/HCC V28) Discharge Disposition: Home or Self Care 04/26/2024 9:45 AM EDT Office Visit [facility] Hematology Oncology [address] [place] [phone] Migel Jacobs MD Prostate CA ([facility] V24, [facility] V28) (Primary Dx); 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 ([facility] V24, [facility] V28) from Last 3 Months Surgical History Surgery Date Site/Laterality Comments HERNIA REPAIR PROCEDURE:HERNIA REPAIR;COMMENT:herniorrhaphy Medical History Medical History Date Comments Prostate cancer ([facility] V24, [facility] V28) DX:Prostate cancer (HCC) Hypertension DX:Hypertension Social [...] Sign Reading Time Taken Comments Blood Pressure 112/66 06/07/2024 9:13 AM EDT Pulse 74 06/07/2024 9:13 AM EDT Temperature 36.1 ??C (97 ??F) 06/07/2024 9:13 AM EDT Respiratory Rate 16 01/26/2024 11:17 AM EST Oxygen Saturation 95% 06/07/2024 9:13 AM EDT Inhaled Oxygen Concentration - - Weight 122 kg (269 lb) 06/07/2024 9:13 AM EDT Height 177.8 cm (5' 10 ) 11/04/2022 10:20 AM EDT Body Mass Index 38.6 11/04/2022 10:20 AM EDT Plan of Treatment Upcoming Encounters Date Type Department Care Team (Late st Contact Info) Description 07/19/2024 10:30 AM EDT Appointment [facility] Infusion Center [address] [phone] 07/19/2024 11:15 AM EDT Office Visit [facility] Hematology Oncology [address] [place] [phone] Migel Jacobs MD [address] [place] [phone] 10/28/2024 10:30 AM EDT Appointment [facility] Infusion Center [address] [place] [phone] Health Maintenance Due Date Last Done Comments [...] 01/28/2022 COVID-19 Vaccine (8 - Moderna risk 2023- season) 2024 02/24/2024, 11/19/2022, 11/29/2021, Additional history exists Falls [...] of2 resultswithin the time period is included. PSA 2.92 0.00 - 4.00 ng/mL LAB CHEMISTRY METHOD 06/04/2024 1:02 PM EDT [facility] Blood Venous blood specimen / Unknown Venipuncture / Unknown 06/04/2024 9:23 AM EDT 06/04/2024 11:39 AM EDT Narrative [facility] - 06/04/2024 1:02 PM EDT The Siemens Advia Centaur Chemiluminescent Immunoassay is used. Results obtained with different assay methods or kits cannot be used interchangeably. Results cannot be interpreted as absolute evidence of the presence or absence of malignant disease. us Migel Jacobs MD LAB BLOOD ORDERABLES Final Result [facility] [address] [place] [address], [place] [phone] * (ABNORMAL) CBC auto differential (06/04/2024 9:23 AM EDT) Only the most recent of2 resultswithin the time period is included. WBC 10.8 4.8 - 10.8 K/mcL LAB HEMETOLOGY METHOD 06/04/2024 12:16 PM EDT [facility] RBC 5.20 4.50 - 5.50 M/mcL LAB HEMETOLOGY METHOD 06/04/2024 12:16 PM EDT [facility] Hemoglobin 13.8 13.5 - 17.5 g/dL LAB HEMETOLOGY METHOD 06/04/2024 12:16 PM EDT [facility] Hematocrit 45.5 42.0 - 54.0 % LAB HEMETOLOGY METHOD 06/04/2024 12:16 PM EDT [facility] MCV 87.7 79.0 - 98.0 FL LAB HEMETOLOGY METHOD 06/04/2024 12:16 PM EDT [facility] MCH 26.6(L) 27.0 - 32.0 pcg LAB HEMETOLOGY METHOD 06/04/2024 12:16 PM EDT [facility] MCHC 30.3(L) 32.0 - 37.0 g/dL LAB HEMETOLOGY METHOD 06/04/2024 12:16 PM EDT [facility] RDW 16.6(H) 11.0 - 15.0 % LAB HEMETOLOGY METHOD 06/04/2024 12:16 PM [facility] Platelets 342 130 - 400 K/mcL LAB HEMETOLOGY METHOD 06/04/2024 12:16 PM [facility] MPV 9.6 7.0 - 11.0 FL LAB HEMETOLOGY METHOD 06/04/2024 12:16 PM [facility] NRBC 0.0 <1.0 % LAB HEMETOLOGY METHOD 06/04/2024 12:16 PM [facility] NRBC Absolute 0.00 <0.10 K/mcL LAB HEMETOLOGY METHOD 06/04/2024 12:16 PM [facility] Neutrophils Relative 67.0 % LAB HEMETOLOGY METHOD 06/04/2024 12:16 PM [facility] Lymphocytes Relative 26.0 % LAB HEMETOLOGY METHOD 06/04/2024 12:16 PM [facility] Monocytes Relative 5.0 % LAB HEMETOLOGY METHOD 06/04/2024 12:16 PM [facility] Eosinophils Relative 0.8 % LAB HEMETOLOGY METHOD 06/04/2024 12:16 PM [facility] Basophils Relative 0.6 % LAB HEMETOLOGY METHOD 06/04/2024 12:16 PM [facility] Immature Granulocytes Relative 0.6 % LAB HEMETOLOGY METHOD 06/04/2024 12:16 PM [facility] Neutrophils Absolute 7.26(H) 1.50 - 7.00 K/mcL LAB HEMETOLOGY METHOD 06/04/2024 12:16 PM [facility] Lymphocytes Absolute 2.82 1.00 - 5.00 K/mcL LAB HEMETOLOGY METHOD 06/04/2024 12:16 PM [facility] Monocytes Absolute 0.54 0.20 - 1.00 K/mcL LAB HEMETOLOGY METHOD 06/04/2024 12:16 PM EDT [facility] Eosinophils Absolute 0.09 0.00 - 0.50 K/[facility] HEMETOLOGY METHOD 06/04/2024 12:16 PM EDT [facility] Basophils Absolute 0.07 0.00 - 0.20 K/[facility] HEMETOLOGY METHOD 06/04/2024 12:16 PM EDT [facility] Immature Granulocytes Absolute 0.06(H) 0.00 - 0.03 K/[facility] LAB HEMETOLOGY METHOD 06/04/2024 12:16 PM EDT [facility] Blood Venous blood specimen / Unknown Venipuncture / Unknown 06/04/2024 9:23 AM EDT 06/04/2024 11:40 AM EDT Migel Jacobs MD LAB BLOOD ORDERABLES Final Result [facility] [address] [place] [address], * (ABNORMAL) Comprehensive metabolic panel (06/04/2024 9:23 AM EDT) Only the most recent of2 resultswithin the time period is included. Sodium 140 133 - 145 mmol/L LAB CHEMISTRY METHOD 06/04/2024 12:19 PM [facility] Potassium 4.6 3.5 - 5.5 mmol/L LAB CHEMISTRY METHOD 06/04/2024 12:19 PM [facility] Chloride 106 96 - 110 mmol/L LAB CHEMISTRY METHOD 06/04/2024 12:19 PM [facility] CO2 29 21 - 32 mmol/L LAB CHEMISTRY METHOD 06/04/2024 12:19 PM [facility] Anion Gap 5 3 - 11 LAB CHEMISTRY METHOD 06/04/2024 12:19 PM [facility] Glucose 152(H) 70 - 100 mg/dL LAB CHEMISTRY METHOD 06/04/2024 12:19 PM [facility] BUN 16 5 - 25 mg/dL LAB CHEMISTRY METHOD 06/04/2024 12:19 PM [facility] Creatinine 1.18 0.70 - 1.30 mg/dL LAB CHEMISTRY METHOD 06/04/2024 12:19 PM [facility] eGFR 68 >=60 mL/min/1. 73m2 LAB CHEMISTRY METHOD 06/04/2024 12:19 PM [facility] Comment:Calculation based on the??Chronic Kidney Disease Epidemiology Collaboration (CKD-EPI) equation refit??without adjustment for race. BUN/Creatinine Ratio 13.6 LAB CHEMISTRY METHOD 06/04/2024 12:19 PM [facility] Calcium 9.1 8.5 - 10.5 mg/dL LAB CHEMISTRY METHOD 06/04/2024 12:19 PM [facility] AST (SGOT) 15 10 - 42 unit/L LAB CHEMISTRY METHOD 06/04/2024 12:19 PM [facility] ALT (SGPT) 27 10 - 60 unit/L LAB CHEMISTRY METHOD 06/04/2024 12:19 PM [facility] Alkaline Phosphatase 188(H) 42 - 121 unit/L LAB CHEMISTRY METHOD 06/04/2024 12:19 PM [facility] Total Protein 7.2 6.0 - 8.0 g/dL LAB CHEMISTRY METHOD 06/04/2024 12:19 PM [facility] Albumin 3.7 3.2 - 5.0 g/dL LAB CHEMISTRY METHOD 06/04/2024 12:19 PM [facility] Total Bilirubin 0.5 0.0 - 1.4 mg/dL LAB CHEMISTRY METHOD 06/04/2024 12:19 PM [facility] Blood Venous blood specimen / Unknown Venipuncture / Unknown 06/04/2024 9:23 AM EDT 06/04/2024 11:39 AM EDT us Migel Jacobs MD LAB BLOOD ORDERABLES Final Result 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 ([id number]) -------- FINAL REPORT -------- Dictated By: Ofelia Garcia Dictated Date: 06/04/2024 13:44 ET Assigned Physician: Ofelia Garcia Reviewed and Electronically Signed By: Ofelia Garcia Signed Date: 06/04/2024 13:48 ET Workstation ID: [id number] Transcribed By: Self Edit Transcribed Date: 06/04/2024 [...] on the recent CT abdomen/pelvis. [place] ([id number]) -------- FINAL REPORT -------- Dictated By: Ofelia Garcia Dictated Date: 06/04/2024 13:44 ET Assigned Physician: Ofelia Garcia Reviewed and Electronically Signed By: Ofelia Garcia Signed Date: 06/04/2024 13:48 ET Workstation ID: [id number] Transcribed By: Self Edit Transcribed Date: 06/04/2024 [...] Signed Date: 05/31/2024 13:22 ET Workstation ID: [id number] Transcribed By: Self Edit Transcribed Date: 05/31/2024 [...] Signed Date: 05/31/2024 13:22 ET Workstation ID: [id number] Transcribed By: Self Edit Transcribed Date: 05/31/2024 13:05 ET Migel Jacobs MD IMG CT PROCEDURES Final Res ult from Last 3 Months Insurance [employer] Care Teams Salvager Relationship Specialty Start Date End Date Melissa Childs [address] [facility] [address] [place] [address] PCP - General 07/27/23
--- OUTSIDE RECORDS SUMMARY | 2024-06-17 09:59 | XMS_ITS ---
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 Treatments may have been administered in another system.
--- OUTSIDE RECORDS SUMMARY | 2024-06-17 09:59 | XMS_ITS ---
Author Organization [employer] [facility] Address [address] [place] [phone] Care Team Providers Care Publication Manager Name Role Phone JAD SORENSEN Primary Care Provider JEB MARTÍNEZ Unavailable [phone] ALLERGIES Allergen (clinical drug ingredient) Drug/Non Drug [...] Orally Once a day Not-Taking Vitamin D2 71355 IU Not-Takin g Azithromycin 250 MG as [...] smoker (40+ cigs/day) Section Notes: Lives in [facility] with his , youngest daughter [...] 06/14/2023 Encounters Encounter Location Date Provider Diagnosis [address] [phone] 06/14/2023 JEB MARTÍNEZ Type 2 diabetes mellitus [...] Pt unfortunately finding new porivder due to subassemblies wirer program at current practice PLAN OF TREATMENT [...] Pt unfortunately finding new porivder due to subassemblies wirer program at current practice Progress Notes * ANDREZ LUUDOB:1955 ( 67 yo M)Acc No.[id number]:06/14/2023 Progress Notes Patient:??ANDREZ LUU Provider:??JEB MARTÍNEZ NP :1955?Age:67 Y?Sex:Clementina garzon Date:06/14/2023 Phone: Address:[address] [place] [phone] Pcp:JAD SORENSEN Subjective: * Chief Complaints: * ?F/u meds * HPI: ?Patient Care Team:?Oncologist:??Dr. Reynaldo Lares.? Providers/Specialists: Gel Coater Holger Fox Providers/Specialists: Gel Coater Holger Fox. ?Visit info:? Andrez presents today [...] - once a year Joaquin.. ?Lives in [place], [place] with his , youngest daughter and [...] week Vitamin D2 , Notes to Pharmacist: 73227 IUBicalutamide 50 MG Tablet 1 tablet Orally [...] Not-Taking Vitamin D2 , Notes to Pharmacist: 86782 IUNot-Taking Bicalutamide 50 MG Tablet 1 tablet [...] Pt unfortunately finding new porivder due to subassemblies wirer program at current practice? * Procedure Codes:?? * Preventive Medicine:?Last CPE: 2020 Colonoscopy: Yes, over 10 years ago - polyps found Endoscopy: No COVID Vac: Yes, 3 boosters - Newest COVID Shot, yes FLU Vac: Yes for Shingles Vac: No PV: Yes (2). * Billing Information: * Visit Code:?? 47957 Office Visit, Est Pt., Level 3. * Procedure Codes:?? * Sign off status: Completed true * Provider:??JEB MARTÍNEZ NP Date:?? History and Physical Notes * HPI (History of Present Illness) Category Sub-Category Detail Notes Category Not es Patient Care Team Oncologist: Dr. Jacobs , Dr. Weir on Providers/Specialists : Gel Coatersandy Fox Providers/Specialists : Gel Coater Holger Fox Examination Category Sub-Category Detail Notes Category Not es General Examination GEN: NAD, speaking in full complete sentences, thoughts clear and appropriate RESP: nonlabored breathing, lungs clear/equal all zaidi CV: S1S2 regular NEURO: AO x 3 PSYCH: judgment/insight intact, NL mood/affect
--- OUTSIDE RECORDS SUMMARY | 2024-06-17 09:59 | XMS_ITS | Patient Health Record ---
Author Organization [facility] Address [address] [facility] [address] [place] [address] Care Team Providers Care Primary Clinician Name Role Phone Damaris Ponce Primary Care Provider CHRISTY Huertas Unavailable [phone] Allergies Allergen (clinical drug ingredient) Drug/Non Drug Allergy documented on EMR Reaction Allergy Type Onset Date Status IV contrast dye (uncoded) hives Allergy Active doxycycline Doxycycline vomiting Drug Allergy Act adonay Reason For Referral No Information Medications Medication SIG (Take, Route, Frequency, Duration) Notes Start Date End Date Status Terbinafine HCl 250 MG 1 tablet Orally Once a day for 90 days 10/02/2020 Not-Taking Bicalutamide 50 MG 1 tablet Orally Once a day Not-Taking Xtandi Active Lyrica 200 MG 1 capsule Orally Twice a day for 90 days 01/19/2023 Not-Taking Lyrica 200 MG 1 capsule Orally Twice a day for 90 days 06/10/2024 Active Ozempic 2.5mg once a day Not-Taking oxyBUTYnin Chloride ER 10 MG 2 tablets Orally Once a day Active Empagliflozin 10 MG 1 tablet Orally Once a day Not-Taking Lisinopril 20 MG 1 tablet Orally Once a day Active Aspirin daily Not-Taking NovoLOG 100 UNIT/ML as directed Injection sliding scale Active Gabapentin 600 MG 1 tablet Orally 3 times daily Not-Taking Lantus 100 UNIT/ML as directed Subcutaneous Active Bisacodyl 5 MG 1 tablet as needed Orally as directed Not-Taking Pregabalin 200 MG 1 capsule Orally twice daily for 90 days 02/09/2024 Active traZODone HCl 50 MG 1 tablet at bedtime as needed Orally Once a day Active Gabapentin 800 MG 1 tablet Orally three times a day for 30 day(s) 10/04/2019 Not-Taking Atorvastatin Calcium 10 MG 1 tablet Orally Once a day Active Gabapentin 100 MG 1 capsule Orally see instructions for 60 days weaning him off the medication- first 2 weeks 800mg PO TID, next 2 weeks take 600mg PO TID, week 4 take 400mg PO TID, week 6 take 200mg PO TID, week 8 take 100 mg TID 12/27/2019 Not-Taking Problems Problem Type SNOMED Code ICD Code Onset Dates Problem Status W/U Status Risk Notes Problem Controlled type 2 diabetes mellitus with diabetic polyneuropathy, without long-term current use of insulin (E11.42) Active confirmed Problem 251955622 Arthritis, midfoot (M19.079) Active confirmed Problem 345971578 Arthritis of foot (M19.079) Active confirmed Vital Signs Heart Rate 87 /min 06/07/2024 Temperature 97.3 degrees Fahrenheit 06/07/2024 Respiratory Rate 20 /min 06/07/2024 Height 5ft 9in in 06/07/2024 Weight 267.3 lbs 06/07/2024 BMI 39.47 kg/m2 06/07/2024 Procedures Procedure Date Ordered Date Performed Result Body Sit e DRAIN/INJECT, INTERMEDIATE JOINT/BURSA 03/08/2024 N/A Encounters Encounter Location Date Provider Diagnosis [facility] [address] [phone] 07/21/2023 CHRISTY WILHELM Controlled type 2 diabetes mellitus with diabetic polyneuropathy, without long-term current use of insulin E11.42 ; Dystrophic nail L60.3 ; Onychomycosis B35.1 ; Pain in right toe(s) M79.674 ; Pain in left toe(s) M79.675 and Arthritis of foot M19.079 [facility] [address] [phone] 12/06/2023 CHRISTY WILHELM Controlled type 2 diabetes mellitus with diabetic polyneuropathy, without long-term current use of insulin E11.42 ; Dystrophic nail L60.3 ; Onychomycosis B35.1 ; Pain in right toe(s) M79.674 ; Pain in left toe(s) M79.675 and Arthritis of foot M19.079 [facility] [address] [phone] 03/08/2024 CHRISTY WILHELM Controlled type 2 diabetes mellitus with diabetic polyneuropathy, without long-term current use of insulin E11.42 ; Dystrophic nail L60.3 ; Onychomycosis B35.1 ; Pain in right toe(s) M79.674 ; Pain in left toe(s) M79.675 and Arthritis of foot M19.079 [facility] [address] 06/07/2024 CHRISTY WILHELM Controlled type 2 diabetes mellitus with diabetic polyneuropathy, without long-term current use of insulin E11.42 ; Dystrophic nail L60.3 ; Onychomycosis B35.1 ; Pain in right toe(s) M79.674 ; Pain in left toe(s) M79.675 and Arthritis of foot M19.079 [facility] [address] 09/20/2023 CHRISTY WILHELM [facility] [address] 11/07/2023 CHRISTY WILHELM Controlled type 2 diabetes mellitus with diabetic polyneuropathy, without long-term current use of insulin E11.42 [facility] [address] 02/09/2024 CHRISTY WILHELM [facility] [address] 03/11/2024 CHRISTY WILHELM [facility] [address] 05/22/2024 CHRISTY WILHELM [facility] [address] 06/10/2024 CHRISTY WILHELM Controlled type 2 diabetes mellitus with diabetic polyneuropathy, without long-term current use of insulin E11.42 Assessments Encounter Date Diagnosis (ICD Code) Assessment [...] Patient is in agreement with the plan. 06/07/2024 Controlled type 2 diabetes mellitus with diabetic [...] Patient is in agreement with the plan. 06/10/2024 Controlled type 2 diabetes mellitus with diabetic polyneuropathy, without long-term current use of insulin (ICD-10 - E11.42) 06/07/2024 Dystrophic nail (ICD-10 - L60.3) He has 5% involvement of bruising under the left hallux. We discussed these will grow out as the toenails grow. He does not need further intervention at this time. Aseptic debridement of toenails x 10 with nail assembly machine operator and curette, pt tolerated well. Discussed with the patient that routine nail care services are only covered by insurance every 60 days. Pt understands that if they would like to return prior to this time frame, they may have to pay out of pocket. 03/08/2024 Dystrophic nail (ICD-10 - L60.3) He has 5% involvement of bruising under the left hallux. We discussed these will grow out as the toenails grow. He does not need further intervention at this time. Aseptic debridement of toenails x 10 with nail assembly machine operator and curette, pt tolerated well. Discussed with [...] Aseptic debridement of toenails x 10 with nail assembly machine operator and curette, pt tolerated well. Discussed with [...] Aseptic debridement of toenails x 10 with nail assembly machine operator and curette, pt tolerated well. Discussed with [...] laser, and removal of the infected toenails. 06/07/2024 Onychomycosis (ICD-10 - B35.1) I reviewed with the patient various treatment methods for toenail fungus including: topical, oral, laser, and removal of the infected toenails. 06/07/2024 Pain in right toe(s) (ICD-10 - M79.674) 03/08/2024 Pain in right toe(s) (ICD-10 - M79.674) 07/21/2023 Pain in right toe(s) (ICD-10 - M79.674) 12/06/2023 Pain in right toe(s) (ICD-10 - M79.674) 12/06/2023 Pain in left toe(s) (ICD-10 - M79.675) 07/21/2023 Pain in left toe(s) (ICD-10 - M79.675) 03/08/2024 Pain in left toe(s) (ICD-10 - M79.675) 06/07/2024 Pain in left toe(s) (ICD-10 - M79.675) 06/07/2024 Arthritis of foot (ICD-10 - M19.079) We discussed the pain in the feet is due to his arthritis and the neuropathy. I recommended he continues to wear supportive shoes. We discussed there is no cure for arthritis. 03/08/2024 Arthritis of foot (ICD-10 - M19.079) [...] 03/08/2024 Next Appt Details Provider Name:CHRISTY WILHELM, 09/11/2024 04:00:00 PM, [address] [facility] [address], [place], [address], Insurance Providers Payer Name Payer Address Payer Phone Subscriber Number Group Number Insured Name Patient Relationship to Insured Coverage Start Date Coverage End Date [employer] [address] [place] [phone] [id number] Andrez Gauthier Self - patient is the [...]
--- OUTSIDE RECORDS SUMMARY | 2024-06-17 09:59 | XMS_ITS ---
Author Organization [facility] Address [address] [facility] [address] [place] [address] Care Team Providers Care Electric Serviceman Name Role Phone Damaris Ponce Primary Care Provider TERESA Huertas Unavailable [phone] Allergies Allergen (clinical drug ingredient) Drug/Non Drug [...] a day for 90 days 10/02/2020 Not-Taking Lyrica 200 MG 1 capsule Orally Twice a day for 90 days 06/07/2024 Active Aspirin daily Not-Taking Gabapentin 800 MG 1 tablet Orally three times a day for 30 day(s) 10/04/2019 Not-Taking Gabapentin 100 MG 1 capsule Orally see instructions for 60 days weaning him off the medication- first 2 weeks 800mg PO TID, next 2 weeks take 600mg PO TID, week 4 take 400mg PO TID, week 6 take 200mg PO TID, week 8 take 100 mg TID 12/27/2019 Not-Taking Bicalutamide 50 MG 1 tablet Orally Once a day Not-Taking Lyrica 200 MG 1 capsule Orally Twice a day for 90 days 01/19/2023 Not-Taking Empagliflozin 10 MG 1 tablet Orally Once a day Not-Taking Gabapentin 600 MG 1 tablet Orally 3 times daily Not-Taking Bisacodyl 5 MG 1 tablet as needed Orally as directed Not-Taking Ozempic 2.5mg once a day Not-Taking Lisinopril 20 MG 1 tablet Orally Once a day Active Pregabalin 200 MG 1 capsule Orally twice daily for 90 days 02/09/2024 Active traZODone HCl 50 MG 1 tablet at bedtime as needed Orally Once a day Active Atorvastatin Calcium 10 MG 1 tablet Orally Once a day Active Xtandi Active oxyBUTYnin Chloride ER 10 MG 2 tablets Orally Once a day Active NovoLOG 100 UNIT/ML as directed Injection sliding scale Active Lantus 100 UNIT/ML as directed Subcutaneous Active Vital Signs Temperature 97.3 degrees Fahrenheit 06/08/19 Heart Rate 87 /min 06/07/2024 Respiratory Rate 20 /min 06/07/2024 Height 5ft 9in in 06/07/2024 Weight 267.3 lbs 06/07/2024 BMI 39.47 kg/m2 06/07/2024 Encounters Encounter Location Date Provider Diagnosis [facility] [address] [facility] [address] [place] [address] 06/07/2024 TERESA ZAYAS Controlled type 2 diabetes mellitus with diabetic polyneuropathy, without long-term current use of insulin E11.42 ; Dystrophic nail L60.3 ; Onychomycosis B35.1 ; Pain in right toe(s) M79.674 ; Pain in left toe(s) M79.675 and Arthritis of foot M19.079 Assessments Encounter Date Diagnosis (ICD Code) Assessment Notes Treatment Notes Treatment Clinical Notes Section Notes 06/07/2024 Controlled type 2 diabetes mellitus with [...] is in agreement with the plan. 06/07/2024 Dystrophic nail (ICD-10 - L60.3) He has 5% involvement of bruising under the left hallux. We discussed these will grow out as the toenails grow. He does not need further intervention at this time. Aseptic debridement of toenails x 10 with cutter operator and curette, pt tolerated well. Discussed with the patient that routine nail care services are only covered by insurance every 60 days. Pt understands that if they would like to return prior to this time frame, they may have to pay out of pocket. 06/07/2024 Onychomycosis (ICD-10 - B35.1) I reviewed with the patient various treatment methods for toenail fungus including: topical, oral, laser, and removal of the infected toenails. 06/07/2024 Pain in right toe(s) (ICD-10 - M79.674) 06/07/2024 Pain in left toe(s) (ICD-10 - M79.675) 06/07/2024 Arthritis of foot (ICD-10 - M19.079) We discussed the pain in the feet is due to his arthritis and the neuropathy. I recommended he continues to wear supportive shoes. We discussed there is no cure for arthritis. Plan Of Treatment Medication Medication Name Sig Start Date Stop Date Notes Lyrica 200 MG 1 capsule Orally Twice a day for 90 days Next Appt Details Follow Up: 3 Months, Reason: Provider Name:TERESA ZAYAS, 09/11/2024 04:00:00 PM, [address], [address], Progress Notes * Andrez LUUDOB:1955 (68 yo M)Acc No.[id number]:06/07/2024 Progress Note Patient:?Andrez LUU Provider:?Teresa Zayas DPM :1955???Age:68 Y???Sex:Male Miguel e:06/07/2024 Address:[address] [place] [id number] Pcp:Damaris Ponce Subjective: * Chief Complaints: * ???3 mo follow up * HPI: ???Constitutional:?This 68 y/o male returns to my office with a complaint of a toenail fungus, foot pain, and a diabetic foot evaluation. He has been taking the Lyrica 100 mg PO BID for the nerve pain. He is asking for a refill today. He still has a burning sensation in the toes at night, he also states occasional quick pains to the toes during the day. He complains of thick, elongated tender toenails. He has no other foot complaints this visit. His last visit with his PCP for diabetes management was 05/07/2024. His last hgbA1c was 7.9. Allergies and medical history reviewed. * ROS:?GENERAL: [...] 2017. Rare alcohol consumption 4 drinks/year. * Medications:?TakingXtandi No voLOG 100 UNIT/ML Solution as directed Injection , [...] MG Capsule 1 capsule Orally twice daily Lyrica 200 MG Capsule 1 capsule Orally Twice a day Taking Xtandi Taking NovoLOG 100 UNIT/ML Solution as directed [...] Capsule 1 capsule Orally twice daily Taking Lyrica 200 MG Capsule 1 capsule Orally Twice a day Not-TakingOzempic , Notes to Pharmacist: 2.5mg once a [...] reviewed and reconciled with the patientNot-Taking Ozempic , Notes to Pharmacist: 2.5mg once [...] contrast dye: hivesDoxycycline: vomitingno[Allergies Verified] Objective: * Vitals:?Wt:267.3lbs, Ht: 5ft 9in, BMI:39.47Index, HR:87/min, Temp:97.3F, RR:20/min, Ht-cm: 175.26, Wt-k.25 kg. * Examination: ???General Examination: ???GENERAL: Patient [...] bilaterally, protective sensation diminished 6/10 with 5.07 Alva Roxann bilaterally, vibratory sensation with tuning fork [...] debridement of toenails x 10 with cutter operator and curette, pt tolerated well. Discussed [...] of the infected toenails. ?? 4.?Arthritis of foot? Clinical Notes: We discussed the pain in the feet is due to his arthritis and the neuropathy. I recommended he continues to wear supportive shoes. We discussed there is no cure for arthritis. ?? * Procedure Codes:?45236 DEBRI DE NAIL, 6 OR MORE, Modifiers: q9 * Follow Up:?3 Months * Billing Information: * Visit Code:? 07080 Office Visit, Est Pt., Level 3. Modifiers: 25 * Procedure Codes:? 69447 DEBRIDE NAIL, 6 OR MORE. Modifiers: q9 * Sign off status: Completed true * Provider:?Teresa Zayas DPM Date:? 06/07/2024 Generated for Josh barnhart/Bebo/eTludysmitting on:?06/17/2024 09:58 AM EDT History and Physical Notes * [...] He is asking for a refill today. He still has a burning sensation in the toes at night, he also states occasional quick pains to the toes during the day. He complains of thick, elongated tender toenails. He has no other foot complaints this visit. His last visit with his PCP for diabetes management was 05/07/2024. His last hgbA1c was 7.9. Allergies and medical history reviewed. Examination Category [...] bilaterally, protective sensation diminished 6/10 with 5.07 Alva Roxann bilaterally, vibratory sensation with tuning fork [...]
--- OUTSIDE RECORDS SUMMARY | 2024-06-17 09:59 | XMS_ITS | Patient Health Record ---
Author Organization [employer] Address [address] [place] [phone] Care Team Providers Care Depilatory Painter Name Role Phone JAD SORENSEN Primary Care Provider PIPELAVONYOSVANYET Unavailable [phone] ALLERGIES Allergen (clinical drug ingredient) Drug/Non Drug [...] Orally Once a day Active Vitamin D2 42986 IU Not-Takin g Azithromycin 250 MG as [...] smoker (40+ cigs/day) Section Notes: Lives in [place] with his , youngest daughter and grandsone. 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 Lives in [place] with his , youngest daughter and grandsone. 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 Lives in [facility] with his , youngest daughter and grandsone. 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 Lives in [facility] with his , youngest daughter and grandsone. 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 Lives in [facility] with his , youngest daughter and grandsone. 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 Lives in [facility] with his , youngest daughter and grandsone. 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 Lives in [facility] with his , youngest daughter and grandsone. 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 PROBLEMS Problem Type ICD Code Onset Dates Problem Status W/U Status Risk SNOMED Code Notes Problem Type 2 diabetes mellitus with diabetic chronic kidney disease (E11.22) Active confirmed 97391624 Problem Essential (primary) hypertension (I10) Active confirmed 48302917 Problem Hypertensive chronic kidney disease with stage 1 through stage 4 chronic kidney disease, or unspecified chronic kidney disease (I12.9) Active confirmed 65790344 Problem Age-related osteoporosis without current pathological fracture (M81.0) Active confirmed 06672829 Problem Chronic kidney disease, stage 2 (mild) (N18.2) Active confirmed 548417727 Problem Vitamin D deficiency (E55.9) Active confirmed 37534869 Problem Hyperlipidemia, unspecified hyperlipidemia type (E78.5) Active confirmed 39098194 Problem Insomnia, unspecified type (G47.00) Active confirmed 747472964 Problem Elevated high sensitivity C-reactive protein (R79.82) Active confirmed 943377608046197 Problem Morbid obesity (E66.01) Active confirmed 867267030 Problem 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) Active confirmed 560954754 Problem BMI 37.0-37.9, adult (Z68.37) Active confirmed 820690196 Problem Elevated sedimentation rate (R70.0) Active confirmed 548998061 Problem 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) Active confirmed 530893628 Problem Prostate CA (C61) Active confirmed 3990 06492 Problem Diabetic polyneuropathy associated with type 2 diabetes mellitus (E11.42) Active confirmed 528889866 Problem Insulin resistance (E88.819) Active confirmed 736261513 PLAN OF TREATMENT Pending Test Test Name Order Date Chest X-ray PA and lateral 10/28/2022 CT Chest with Contrast 11/25/2022 Future Test Test Name Order Date COMPREHENSIVE METABOLIC PANEL (17082) CBC (INCLUDES DIFF/PLT) (6399) CARDIO IQ(R) HEMOGLOBIN A1c (88196) 02/14 CARDIO IQ(R) INSULIN (89539) 03/07/2023 Insurance Providers Payer Name Payer Address Payer Phone Subscriber Number Group Number Insured Name Patient Relationship to Insured Coverage Start Date Coverage End Date [employer] [address] [place] [address] [id number] LUDWIG LUU Self - patient is the insured MEDICAL (GENERAL) HISTORY Medical History History ICD Code Prosate Cancer Diabetes II Hypertension Kidney nodules Hernia Chicken Pox as a kid Deviated Septum Surgical History Surgery Date(Month/Year) Kidney surgery to remove nodules 2018 Hernia Surgery 2016 [place] Teeth Removal Deviated Septum Surgery
--- OUTSIDE RECORDS SUMMARY | 2024-06-17 10:00 | XMS_ITS ---
Author Organization [facility] Address [address] [place] [id number] Care Team Providers Care Dispatcher Street Department Name Role Phone JAD SORENSEN Primary Care Provider [phone] [facility] JEB MARTÍNEZ Unavailable [phone] REASON FOR VISIT Refills MEDICATIONS Medication SIG [...] Active Encounters Encounter Location Date Provider Diagnosis [facility], [address] [phone] 06/06/2023 JEB MARTÍNEZ Hyperlipidemia, unspecified hyperlipidemia type [...] * LUDWIG LUUDOB:1955 ( 67 yo M)Acc No.[id number]:06/06/2023 Patient:??LUDWIG LUU :1955?Age:67 Y?Sex:Clementina garzon Phone: Address:[address] [place] [phone] * Refills?? Refill Atorvastatin Calcium Tablet, 10 [...]
--- OUTSIDE RECORDS SUMMARY | 2024-06-17 10:00 | XMS_ITS | Clinical Summary ---
Author Organization [facility] Address [address] [place] [address] Care Team Providers Care Telecommunicator Name Role Phone Melissa Childs NP Primary Care Provider Allergies Active Allergy Reactions Criticality Noted Date [...] age to complete this topic Care Teams Telecommunicator Relationship Specialty Start Date End Date Melissa Childs NP [address] [place] [address] PCP - General Nurse Practitioner 07/27/23
--- OUTSIDE RECORDS SUMMARY | 2024-06-17 10:00 | XMS_ITS ---
Author Organization [facility] Address [address] [place] [phone] Care Team Providers Care Automatic Vulcanizing Operator Name Role Phone JAD SORENSEN Primary Care Provider JEB MARTÍNEZ Unavailable [phone] ALLERGIES Allergen (clinical drug ingredient) Drug/Non Drug [...] Orally Once a day Not-Taking Vitamin D2 87699 IU Not-Takin g Trelstar Every 3 months [...] smoker (40+ cigs/day) Section Notes: Lives in [facility] with his , youngest daughter and grandsone. 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 VITAL SIGNS Blood pressure systolic 118 mm Hg 04/26/19 24 Blood pressure diastolic 70 mm Hg 024 Heart Rate 89 /min 04/26/2023 Height 69.5 in 04/26/2023 Weight 259.6 lbs 04/26/2023 BMI 37.78 kg/m2 04/26/2023 Oximetry 91 % 04/26/2023 Height-cm 176.53 cm 04/26/2023 Weight-kg 117.75 kg 04/26/2023 Encounters Encounter Location Date Provider Diagnosis [facility] [address] [phone] 04/26/2023 JEB MARTÍNEZ Diabetic polyneuropathy associated with [...] * LUDWIG LUUDOB:1955 ( 67 yo M)Acc No.[id number]:04/26/2023 Progress Notes Patient:??LUDWIG LUU Provider:??JEB MARTÍNEZ NP :1955?Age:67 Y?Sex:Ma le Date:04/26/2023 Phone: Address:[address] [place] [phone] Pcp:JAD SORENSEN Subjective: * Chief Complaints: * ?F/U DIABETIC CHECK * HPI: ?Patient Care Team:?Oncologist:??Dr. Jacobs , Dr. Jacobs.? Providers/Specialists: Gamemaster Holger Fox Providers/Specialists: Gamemaster Holger Fox. ?Visit info:? Patient presents in the office today for a diabetes check in. ?-Only checks blood sugars every days, fasting 120-180 ?-Still admits def needs to improve diet ?-Equine Intern can't afford ?-Still waiting for PA for [...] a year Veto and coke.. ?Lives in [place], [place] with his , youngest daughter and [...] date 06/05/2023Not-TakingVitamin D2 , Notes to Pharmacist: 53823 IUBicalutamide 50 MG Tablet 1 tablet Orally Once a day Ozempic (0.25 or 0.5 MG/DOSE) 2 MG/3ML Solution Pen-injector 0.5mg Subcutaneous once a week FreeStyle Aide 3 Sensor - Miscellaneous as directed change sensor every 14 daysMedication List reviewed and reconciled with the patientNot-Taking Vitamin D2 , Notes to Pharmacist: 68979 IUNot-Taking Bicalutamide 50 MG Tablet 1 tablet [...] work) * Billing Information: * Visit Code:?? 95213 Office Visit, Est Pt., Level 3. * Procedure Codes:?? * Sign off status: Completed true * Provider:??JEB MARTÍNEZ NP Date:?? History and Physical Notes * HPI (History of Present Illness) Category Sub-Category Detail Notes Category Not es Patient Care Team Oncologist: Dr. Jacobs , Dr. Weir on Providers/Specialists : Gamemaster Holger Fox Providers/Specialists : Gamemaster Holger Fox Visit info Patient presents in the office today for a diabetes check in. -Only checks blood sugars every days, fasting 120-180 -Still admits def needs to improve diet -Equine Intern can't afford -Still waiting for PA for [...]
--- OUTSIDE RECORDS SUMMARY | 2024-06-17 10:00 | XMS_ITS ---
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 17 Current Oncology Plans [facility] BCN DENOSUMAB 60MG (PROLIA)* Plan Start Date:07/25/2023 Plan Provider:Migel Jacobs MD Linked Problems Prostate CA (HCC) Treatment Medications denosumab (PROLIA)Triptoreli n Pamoate Susr Past Plans ONCOLOGY INFUSION THERAPY Plan Name Start Date Discontinue Date Treatment Medications Discontinue Reason [facility]PROLIA[facility] 11/04/2022 07/24/2023 denosumab (PROLIA) Therapy Complete Migel Jacobs MD [facility] BCN DENOSUMAB 60MG (PROLIA) 11/26/2021 11/03/2022 denosumab (PROLIA) Therapy Complete Migel Jacobs MD Radiation Treatments * No radiation treatments are documented for this patient in [facility]. Treatments may have been administered in another system.
--- OUTSIDE RECORDS SUMMARY | 2024-06-17 10:01 | XMS_ITS ---
Author Organization [facility] Address [address] [address] Care Team Providers Care Plant Attendant Name Role Phone Damaris Ponce Primary Care Provider CHRISTY Huertas [phone] REASON FOR VISIT New Refill Request Medications Medication SIG (Take, Route, Frequency, Duration) Notes Start Date End Date Status Lyrica 200 MG 1 capsule Orally Twi ce a day for 90 days 06/10/2024 Active Encounters Encounter Location Date Provider Diagnosis [facility] [address] [address] 06/10/2024 CHRISTY WILHELM Controlled type 2 diabetes mellitus with diabetic polyneuropathy, without long-term current use of insulin E11.42 Assessments Encounter Date Diagnosis (ICD Code) Assessment Notes Treatment Notes Treatment Clinical Notes Section Notes 06/10/2024 Controlled type 2 diabetes mellitus with diabetic polyneuropathy, without long-term current use of insulin (ICD-10 - E11.42) Plan Of Treatment Medication Medication Name Sig Start Date Stop Date Notes Lyrica 200 MG 1 capsule Orally Twice a day for 90 days Next Appt Details Provider Name:CHRISTY WILHELM, 09/11/2024 04:00:00 PM, [address], [address], Progress Notes * Andrez LUUDOB:1955 (68 yo M)Acc No.[id number]:06/10/2024 Patient:?Andrez LUU :1955???Age:68 Y???Sex:Male Address:[address] [place] [address] * Refills? Refill Lyrica Capsule, 200 MG, Orally, 180 Capsule, 1 capsule, Twice a day, 90 days, Refills=1 * true * Date:? Generated for Josh barnhart/Bebo/Pattsmitting on:?06/17/2024 10:00 AM EDT
== END 2024-06-17 10:18 | disposition home or self-care (01) ==
LOC: HO.HMCFM 09:14
PROVIDERS: PCP Internal Medicine; Visit Provider Internal Medicine
DX: E11.65 Type 2 diabetes mellitus with hyperglycemia (principal); Z79.4 Long term (current) use of insulin; J44.9 Chronic obstructive pulmonary disease, unspecified; M25.532 Pain in left wrist

== ENCOUNTER → 2024-06-17 09:14 | Outpatient (BNVA) | payer OTHER, SELFPAY | PROVIDERS: PCP Internal Medicine; Visit Provider Internal Medicine ==

== ENCOUNTER 2024-09-02 08:25 | Outpatient (REF) | payer OTHER, SELFPAY ==
--- OUTSIDE RECORDS SUMMARY | 2024-09-02 08:32 | XMS_ITS | Clinical Summary ---
Author Organization [facility] Address [address] [place] [address] Care Team Providers Care Foreign Languages Professor Name Role Phone Melissa Childs NP Primary Care Provider [phone] Allergies Active Allergy Reactions Criticality Noted Date [...] 78 10/27/2023 9:39 AM EDT Temperature 36.2 C (97.2 F) 10/27/2023 9:39 AM EDT Respiratory Rate 18 10/27/2023 9:39 AM EDT [...] or Tdap) 01/30/2022 01/31/2012 Influenza Vaccine (#1) 2024 2, 12/04/2019, 10/20/2017, Additional history exists Hepatitis B Vaccines Aged Out No long er eligible based on patient's age to complete this topic RSV Ped < 20 months Aged Out No longe r eligible based on patient's age to complete this topic Care Teams Foreign Languages Professor Relationship Specialty Start Date End Date Melissa Childs, [place] [employer] [address] [facility] [address] [place] [address] PCP - General Nurse Practitioner 07/27/23
--- OUTSIDE RECORDS SUMMARY | 2024-09-02 08:32 | XMS_ITS | Patient Health Record ---
Author Organization [facility] Address [address] [facility] [address] [place] [address] Care Team Providers Care Banquet Bartender Name Role Phone Damaris Ponce Primary Care Provider CHRISTY Huertas Unavailable [phone] Allergies Allergen (clinical drug ingredient) Drug/Non Drug [...] a day for 90 days 01/19/2023 Not-Taking Ozempic 2.5mg once a day Not-Taking oxyBUTYnin [...] Orally as directed Not-Taking Pregabalin 200 MG TAKE 1 CAPSULE BY MOUTH TWICE DAILY Orally twice a day for 90 days 08/09/2024 Active traZODone HCl 50 MG 1 tablet [...] use of insulin (E11.42) Active confirmed Problem 018571791 Arthritis, midfoot (M19.079) Active confirmed Problem 182029611 Arthritis of foot (M19.079) Active confirmed Vital Signs Heart Rate 87 /min 06/07/2024 Temperature 97.3 degrees Fahrenheit 06/07/2024 Respiratory Rate 20 /min 06/07/2024 Height 5ft 9in in 06/07/2024 Weight 267.3 lbs 06/07/2024 BMI 39.47 kg/m2 06/07/2024 Procedures Procedure Date Ordered Date Performed Result Body Sit e DRAIN/INJECT, INTERMEDIATE JOINT/BURSA 03/08/2024 N/A Encounters Encounter Location Date Provider Diagnosis [facility] [address] [address] 12/06/2023 CHRISTY WILHELM Controlled type 2 diabetes mellitus with diabetic polyneuropathy, without long-term current use of insulin E11.42 ; Dystrophic nail L60.3 ; Onychomycosis B35.1 ; Pain in right toe(s) M79.674 ; Pain in left toe(s) M79.675 and Arthritis of foot M19.079 [facility] [address] [address] 03/08/2024 CHRISTY WILHELM Controlled type 2 diabetes mellitus with diabetic polyneuropathy, without long-term current use of insulin E11.42 ; Dystrophic nail L60.3 ; Onychomycosis B35.1 ; Pain in right toe(s) M79.674 ; Pain in left toe(s) M79.675 and Arthritis of foot M19.079 [facility] [address] [address] 06/07/2024 CHRISTY WILHELM Controlled type 2 diabetes mellitus with diabetic polyneuropathy, without long-term current use of insulin E11.42 ; Dystrophic nail L60.3 ; Onychomycosis B35.1 ; Pain in right toe(s) M79.674 ; Pain in left toe(s) M79.675 and Arthritis of foot M19.079 [facility] [address] [address] 09/20/2023 CHRISTY WILHELM [facility] [address] [address] 11/07/2023 CHRISTY WILHELM Controlled type 2 diabetes mellitus with diabetic polyneuropathy, without long-term current use of insulin E11.42 [facility] [address] [address] 02/09/2024 CHRISTY WILHELM [facility] [address] [address] 03/11/2024 CHRISTY WILHELM [facility] [address] [address] 05/22/2024 CHRISTY WILHELM [facility] [address] [address] 08/09/2024 CHRISTY WILHELM Controlled type 2 diabetes mellitus with diabetic polyneuropathy, without long-term current use of insulin E11.42 [facility] [address] [address] 06/10/2024 CHRISTY WILHELM Controlled type 2 diabetes mellitus with diabetic polyneuropathy, without long-term current use of insulin E11.42 Assessments Encounter Date Diagnosis (ICD Code) Assessment Notes Treatment Notes Treatment Clinical Notes Section Notes 11/07/2023 Controlled type 2 diabetes mellitus with [...] current use of insulin (ICD-10 - E11.42) 08/09/2024 Controlled type 2 diabetes mellitus with diabetic polyneuropathy, without long-term current use of insulin (ICD-10 - E11.42) 06/07/2024 Dystrophic nail (ICD-10 - L60.3) He has 5% involvement of bruising under the left hallux. We discussed these will grow out as the toenails grow. He does not need further intervention at this time. Aseptic debridement of toenails x 10 with tooth cutter and curette, pt tolerated well. Discussed [...] Aseptic debridement of toenails x 10 with tooth cutter and curette, pt tolerated well. Discussed [...] Aseptic debridement of toenails x 10 with tooth cutter and curette, pt tolerated well. Discussed with the patient that routine nail care services are only covered by insurance every 60 days. Pt understands that if they would like to return prior to this time frame, they may have to pay out of pocket. 12/06/2023 Onychomycosis (ICD-10 - B35.1) I reviewed [...] Name:CHRISTY WILHELM, 09/11/2024 04:00:00 PM, [address] [facility] [address], [place], [address], Insurance Providers Payer Name Payer Address Payer Phone Subscriber Number Group Number Insured Name Patient Relationship to Insured Coverage Start Date Coverage End Date [employer] [address] [place] [phone] [id number] DishaAndrez sauceda Self - patient is the insured Medications [...]
--- OUTSIDE RECORDS SUMMARY | 2024-09-02 08:32 | XMS_ITS | Clinical Summary ---
Author Organization [facility] Address [address] [place] [phone] Phone Care Team Providers Care Steel Manager Name Role Phone Damaris Ponce MD Primary Care Provider [phone] Andrez Stahl MD Unavailable [phone] Néstor Valdez MD Unavailable [phone] Allergies Active Allergy Reactions Criticality Noted Date Comments Iodinated Contrast Media Hives Medium 07/06/2016 Medications bicalutamide (CASODEX) 50 MG tablet Take 50 mg by mouth daily. Active lisinopril (PRINIVIL,ZESTRI L) 20 MG tablet Take 20 mg by mouth daily. Active escitalopram oxalate (LEXAPRO) 10 MG tablet Take 10 mg by mouth daily. Active traZODone (DESYREL) 50 MG tablet Take 50 mg by mouth nightly. Active triptorelin pamoate 22.5 mg/2 mL Syrg Inject into the muscle every 3 (three) months. Active Active Problems Problem Noted Date Diagnosed Date Prostate cancer 09/13/2016 Cancer Staging:Clinical stage from 06/30/2015:Stage IV(T1c, N1, M1, PSA Level: 20 or greater, [place] 8-10 - Poorly differentiated/undifferentiated (marked anaplasia), Stage Date: 06/30/15) - Signed by Jose F Putnam MD, PhD on 09/13/2016 Family History Medical History Relation Comments Colon cancer Maternal Uncle Diabetes Mother Relation Status Comments Brother 1 Alive Brother 2 Alive Father broken heart - 3 mos after Maternal Uncle Mother diabetes Sister Social History Tobacco Use Types Packs/Day Years Used Date Smoking Tobacco: Never Smokeless Tobacco: Never Tobacco Cessation:Counseling Given: No Alcohol Use Standard Drinks/Week Comments Yes 0 [...] on file Sexual Orientation Not on file Last Filed Vital Signs Vital Sign Reading Time Taken Comments Blood Pressure 127/78 09/12/2016 8:08 AM EDT Pulse 78 09/12/2016 8:08 AM EDT Temperature 36.7 C (98 F) 09/12/2016 8:08 AM EDT Respiratory Rate 16 09/12/2016 8:08 AM EDT Oxygen Saturation 98% 09/12/2016 8:08 AM EDT Inhaled Oxygen Concentration - - Weight 113.4 kg (250 lb) 09/12/2016 8:08 AM EDT Height 177.8 cm (5' 10 ) 09/12/2016 8:08 AM EDT Body Mass Index 35.87 09/12/2016 8:08 AM EDT Plan of Treatment Health Maintenance Due Date Last Done Comments LIPID PANEL 1956 POTASSIUM LEVEL 1956 DEPRESSION SCREENING 1968 HEPATITIS C SCREENING 1974 PNEUMOCOCCAL VACCINES (50+ years) (1 of 2 - PCV) 08/28/1975 ZOSTER VACCINES (1 of 2) 08/28/1975 COLOGUARD 2001 COLONOSCOPY 2001 COLORECTAL CANCER SCREENING 2001 FIT TEST 2001 FOBT 2001 SIGMOIDOSCOPY 2001 VIRTUAL COLONOSCOPY 2001 CREATININE LEVEL 06/23/2017 06/23/2016 Adult Td,Tdap Booster 01/30/2022 01/31/2012 COVID-19 VACCINE (3 - 2023-2 5 season) 2023 05/14/2020, 04/16/2020 RSV VACCINE (1 - 1-dose 75+ series) 08/28/2031 SMOKING STATUS SCREENING (On ce After 26 Yrs) Completed 09/13/2016 HEPATITIS A VACCINES Aged Out No long er eligible based on patient's age to complete this topic HIB VACCINES Aged Out No longer eligi ble based on patient's age to complete this topic MENINGOCOCCAL VACCINES (ACWY) Aged Out No longer eligible based on patient's age to complete this topic MENINGOCOCCAL VACCINES (B) Aged Out N o longer eligible based on patient's age to complete this topic Medical Devices Not on file Procedures Procedure Name Priority Date/Time Associated Diagnosis Comments POCT CREATININE Routine 06/23/2016 1:24 PM EDT from Last 3 Months or Most Recently Relevant to Health Maintenance Results * Creatinine, POCT (06/23/2016 1:24 PM EDT) Creatinine 0.70 0.60 - 1.50 mg/dl [facility] 06/23/2016 1:24 PM EDT 06/23/2016 1:33 PM EDT Silver Lebron MD POINT OF CARE TEST ORDERABLES Final Result [facility] [address] [place] [address] from Last 3 Months or Most Recently Relevant to Health Maintenance Insurance [address] [place] [address] [facility] [employer] [place] [address] [place] [address] POS E[facility] [place] [address] [place] [address] POS EPO [facility] POS EPO [facility] [employer] EPO Care Teams Steel Manager Relationship Specialty Start Date End Date Damaris Ponce MD PCP - General Internal Medicine 09/15/15 Andrez Stahl MD [address] [place] [address], [address] [address] Urology 09/12/16 Néstor Valdez MD [address] [place] [phone] [email or web address] 09/12/16 Additional Source Comments The information contained in this document represents components of the legal health record. It is not the complete legal health record.[facility]
--- OUTSIDE RECORDS SUMMARY | 2024-09-02 08:32 | XMS_ITS | Clinical Summary ---
Author Organization [facility] Address [address] [place] [address] Phone Care Team Providers Care Rental Sales Representative Name Role Phone Melissa Childs Primary Care Provider [phone] Allergies Active Allergy Reactions Criticality Noted Date Comments Doxycycline 11/17/2017 Iodinated Contrast Media 11/17/2017 Medications atorvastatin (LIPITOR) 10 mg tablet Take 1 tablet (10 mg total) by mouth every evening. 09/22/19 23 Active glipiZIDE (GLUCOTROL XL) 5 mg 24 [...] before your procedure. 4000 mL 02/06/20 Active Additional Information Patient not taking.Reported on 07/19/2024 bisacodyL (DULCOLAX) 5 mg EC tablet Take 2 tablets by mouth right before beginning bowel prep. 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 Do not crush, break, or dissolve. Swallow it whole. 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 ([facility] V24, CMS/HCC V28) 09/23/2016 Overview (10/30/2023): Prostate cancer Prostate CA ([facility] V24, [facility] V28) 7 Encounters Date Type Department Care Team Description 07/19/2024 11:15 AM EDT Office Visit [facility] Hematology Oncology [address] [place] [phone] Migel Jacobs MD 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 ([facility] V24, [facility] V28) (Primary Dx) 07/19/2024 10:19 AM EDT - 07/19/2024 11:59 PM EDT Hospital Encounter [facility] Infusion [facility] [address] [phone] Migel Jacobs MD 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 ([facility] V24, [facility] V28) (Primary Dx); Prostate CA ([facility] V24, [facility] V28) Discharge Disposition: Home or Self Care 06/07/2024 9:15 AM EDT Office Visit [facility] Hematology Oncology [address] [place] [phone] Migel Jacobs MD Prostate CA ([facility] V24, [facility] V28) (Primary Dx) from Last 3 Months Surgical History Surgery Date Site/Laterality Comments HERNIA REPAIR PROCEDURE:HERNIA REPAIR;COMMENT:herniorrhaphy Medical History Medical History Date Comments Prostate cancer ([facility] V[facility], [facility] V28) DX:Prostate cancer (HCC) Hypertension DX:Hypertension [...] Male 04/26/2024 10:10 AM EDT Sexual Orientation Straight 07/19/2024 10 :19 AM EDT Obstetrics History Last Filed Vital Signs Vital Sign Reading Time Taken Comments Blood Pressure 124/79 07/19/2024 11:28 AM EDT Pulse 97 07/19/2024 11:28 AM EDT Temperature 36.1 C (97 F) 07/19/2024 11:28 AM EDT Respiratory Rate 16 01/26/2024 11:17 AM EST Oxygen Saturation 94% 07/19/2024 11:28 AM EDT Inhaled Oxygen Concentration - - Weight 119 kg (262 lb) 07/19/2024 11:28 AM EDT Height 177.8 cm (5' 10 ) 11/04/2022 10:20 AM EDT Body Mass Index 37.59 11/04/2022 10:20 AM EDT Plan of Treatment Upcoming Encounters Date Type Department Care Team (Late st Contact Info) Description 10/11/2024 10:30 AM EDT Appointment [facility] [address] [place] [phone] 10/28/2024 9:30 AM EDT Office Visit [facility] Hematology Oncology [address] [place] [phone] Migel Jacobs MD [address] [place] [phone] 10/28/2024 10:30 AM EDT Appointment [facility] [address] [place] [phone] Health Maintenance Due Date Last Done [...] Panel) 01/20/2022 Colorectal Cancer Screening: Colonoscopy 01/20/2022 Hepatitis C Screening 01/20/2022 Social Influencers of Health Screening 01/20/2022 Diabetes: Annual Urine Albumin-Creatinine Ratio (uACR) 01/28/2022 Diabetes: Blood Sugar Control Test (HGBA1C) 01/28/2022 Depression Screening 02/14/2024 COVID-19 Vaccine (8 - Moderna risk season) 2024 02/24/2024, 11/19/2022, 11/29/2021, Additional history exists Influenza Vaccine (#1) 2024 , 11/19/2022, 10/19/2021, Additional history exists Falls Risk Assessment 04/26/2025 04/26/2024 Diabetes: Annual GFR (Glomerular Filtration Rate) 07/16/2025 07/16/2024, 06/04/2024, 04/23/2024, Additional history exists Hypertension/CHF/CAD Annual BMP Blood Test 07/16/2025 07/16/2024, 06/04/2024, 04/23/2024, Additional history exists DTaP,Tdap,and Td Vaccines (4 - Td or [...] Diagnosis Comments CBC WITH AUTO DIFFERENTIAL Routine 07/16/2024 2:05 PM EDT Prostate CA ([facility] V24, [facility] V28) PROSTATE SPECIFIC ANTIGEN DIAGNOSTIC Routine 07/16/2024 2:05 PM EDT Prostate CA ([facility] V24, [facility] V28) COMPREHENSIVE METABOLIC PANEL Routine 07/16/2024 2:05 PM EDT Prostate CA ([facility]/HCC V24, CMS/HCC V28) CBC AND DIFFERENTIAL Routine 07/16/2024 2:05 PM EDT Prostate CA ([facility] V24, CMS/HCC V28) CBC WITH AUTO DIFFERENTIAL Routine 06/04/2024 9:23 AM EDT Prostate CA ([facility] V24, [facility] V28) 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 PSA 0.94 0.00 - 4.00 ng/mL LAB CHEMISTRY METHOD 07/16/2024 7:32 PM EDT [facility] Blood Venous blood specimen / Unknown Venipuncture / Unknown 07/16/2024 2:05 PM EDT 07/16/2024 4:35 PM EDT Narrative [facility] - 07/16/2024 7:32 PM EDT The Siemens Advia Centaur Chemiluminescent Immunoassay is used. Results obtained with different assay methods or kits cannot be used interchangeably. Results cannot be interpreted as absolute evidence of the presence or absence of malignant disease. us Migel Jacobs MD LAB BLOOD ORDERABLES Final Result [facility] [address] [place] [address], * (ABNORMAL) CBC auto differential (07/16/2024 2:05 PM EDT) Only the most recent of2 resultswithin the time period is included. [facility] Signature WBC 9.4 4.8 - 10.8 K/mcL LAB HEMETOLOGY METHOD 07/16/2024 4:50 PM EDT [facility] RBC 5.00 4.50 - 5.50 M/mcL LAB HEMETOLOGY METHOD 07/16/2024 4:50 PM EDT [facility] Hemoglobin 13.5 13.5 - 17.5 g/dL LAB HEMETOLOGY METHOD 07/16/2024 4:50 PM EDT [facility] Hematocrit 43.2 42.0 - 54.0 % LAB HEMETOLOGY METHOD [facility] MCV 86.4 79.0 - 98.0 FL LAB HEMETOLOGY METHOD 07[facility]16[facility]2024 [facility] MCH 27.0 27.0 - 32.0 pcg LAB HEMETOLOGY METHOD 07/16[facility]2024 [facility] MCHC 31.3(L) 32.0 - 37.0 g/dL LAB HEMETOLOGY METHOD 07/16[facility]2024 [facility] RDW 17.1(H) 11.0 - 15.0 % LAB HEMETOLOGY METHOD 07/16/2024 4:50 PM EDT [facility] Platelets 330 130 - 400 K/mcL LAB HEMETOLOGY METHOD 07/16/2024 4:50 PM EDT [facility] MPV 9.7 7.0 - 11.0 FL LAB HEMETOLOGY METHOD [facility]16[facility]2024 [facility] NRBC 0.0 <1.0 % LAB HEMETOLOGY METHOD 07/16/2024 4:50 PM EDT [facility] NRBC Absolute 0.00 <0.10 K/mcL LAB HEMETOLOGY METHOD 07/16/2024 4:50 PM EDT [facility] Neutrophils Relative 60.4 % LAB HEMETOLOGY METHOD 07/16/2024 4:50 PM T [facility] Lymphocytes Relative 31.1 % LAB HEMETOLOGY METHOD 07/16/2024 4:50 PM EDT [facility] Monocytes Relative 6.0 % LAB HEMETOLOGY METHOD 07/16/2024 4:50 PM EDT [facility] Eosinophils Relative 0.8 % LAB HEMETOLOGY METHOD 07/16/2024 4:50 PM T [facility] Basophils Relative 0.6 % LAB HEMETOLOGY METHOD 07/16/2024 4:50 PM [facility] Immature Granulocytes Relative 1.1 % LAB HEMETOLOGY METHOD 07/16/2024 4:50 PM [facility] Neutrophils Absolute 5.69 1.50 - 7.00 K/mcL LAB HEMETOLOGY METHOD 07/16/2024 4:50 PM [facility] Lymphocytes Absolute 2.93 1.00 - 5.00 K/mcL LAB HEMETOLOGY METHOD 07/16/2024 4:50 PM [facility] Monocytes Absolute 0.57 0.20 - 1.00 K/mcL LAB HEMETOLOGY METHOD 07/16/2024 4:50 PM EDT [facility] Eosinophils Absolute 0.08 0.00 - 0.50 K/mcL LAB HEMETOLOGY METHOD 07/16/2024 4:50 PM EDT [facility] Basophils Absolute 0.06 0.00 - 0.20 K/mcL LAB HEMETOLOGY METHOD 07/16/2024 4:50 PM [facility] Immature Granulocytes Absolute 0.10(H) 0.00 - 0.03 K/mcL LAB HEMETOLOGY METHOD 07/16/2024 4:50 PM EDT [facility] Blood Venous blood specimen / Unknown Venipuncture / Unknown 07/16/2024 2:05 PM EDT 07/16/2024 4:36 PM EDT us Migel Jacobs MD LAB BLOOD ORDERABLES Final Result [facility] [address] [place] [address], [place] [phone] * (ABNORMAL) Comprehensive metabolic panel (07/16/2024 2:05 PM EDT) Only the most recent of2 resultswithin the time period is included. Sodium 143 133 - 145 mmol/L LAB CHEMISTRY METHOD 07/16/2024 6:55 PM [facility] Potassium 4.2 3.5 - 5.5 mmol/L LAB CHEMISTRY METHOD 07/16/2024 6:55 PM [facility] Chloride 109 96 - 110 mmol/L LAB CHEMISTRY METHOD 07/16/2024 6:55 PM [facility] CO2 27 21 - 32 mmol/L LAB CHEMISTRY METHOD 07/16/2024 6:55 PM [facility] Anion Gap 7 3 - 11 LAB CHEMISTRY METHOD 07/16/2024 6:55 PM [facility] Glucose 160(H) 70 - 100 mg/dL LAB CHEMISTRY METHOD 07/16/2024 6:55 PM [facility] BUN 14 5 - 25 mg/dL LAB CHEMISTRY METHOD 07/16/2024 6:55 PM [facility] Creatinine 0.97 0.70 - 1.30 mg/dL LAB CHEMISTRY METHOD 07/16/2024 6:55 PM [facility] eGFR 86 >=60 mL/min/1. 73m2 LAB CHEMISTRY METHOD 07/16/2024 6:55 PM [facility] Comment:Calculation based on the Chronic Kidney Disease Epidemiology Collaboration (CKD-EPI) equation refit without adjustment for race. BUN/Creatinine Ratio 14.4 LAB CHEMISTRY METHOD 07/16/2024 6:55 PM T [facility] Calcium 8.6 8.5 - 10.5 mg/dL LAB CHEMISTRY METHOD 07/16/2024 6:55 PM [facility] AST (SGOT) 14 10 - 42 unit/L LAB CHEMISTRY METHOD 07/16/2024 6:55 PM [facility] ALT (SGPT) 21 10 - 60 unit/L LAB CHEMISTRY METHOD 07/16/2024 6:55 PM [facility] Alkaline Phosphatase 205(H) 42 - 121 unit/L LAB CHEMISTRY METHOD 07/16/2024 6:55 PM EDT [facility] Total Protein 6.7 6.0 - 8.0 g/dL LAB CHEMISTRY METHOD 07/16/2024 6:55 PM EDT [facility] Albumin 3.3 3.2 - 5.0 g/dL LAB CHEMISTRY METHOD 07/16/2024 6:55 PM [facility] Total Bilirubin 0.6 0.0 - 1.4 mg/dL LAB CHEMISTRY METHOD 07/16/2024 6:55 PM T [facility] Blood Venous blood specimen / Unknown Venipuncture / Unknown 07/16/2024 2:05 PM EDT 07/16/2024 4:35 PM EDT us Migel Jacobs MD LAB BLOOD ORDERABLES Final Result [facility] [address] [place] [address], from Last 3 Months Insurance [employer] Care Teams Rental Sales Representative Relationship Specialty Start Date End Date Melissa Childs [address] [facility] [address] [phone] PCP - General 07/27/23
[2024-09-02 11:10] LABS: MANUAL DIFF FLAG NO
[2024-09-02 11:23] LABS: Hematocrit 43.5 % (42.0-52.0); Hemoglobin 13.6 g/dl (14.0-18.0); Imm Gran Abs Auto 0.05 X10*3/uL (0.00-0.03); Imm Gran Pct Auto 0.5 % (0.0-0.4); Lymphocytes Absolute Auto 2.6 X10*3/uL (1.2-4.9); Mean Corpuscular HGB Conc 31.3 g/dl (31.0-36.0); Mean Corpuscular Hemoglobin 26.8 pg (27.0-33.0); Mean Corpuscular Volume 85.8 fL (80.0-98.0); NRBC Abs Auto 0.000 X10*3/uL (0.0-0.012); NRBC Pct Auto 0.0 /100WBC (0.0-0.2); Platelet Count 291 X10*3/uL (160-400); Red Blood Count 5.07 X10*6/uL (4.60-5.80); White Blood Count 9.5 X10*3/uL (4.8-10.8)
[2024-09-02 11:32] LABS: Hemoglobin A1C 201.1867 umol/L; Total Hemoglobin (HGBA1C) 3548.9780 umol/L
[2024-09-02 12:01] LABS: Alanine Aminotransferase 16 U/L (0-40); Albumin Level 4.0 g/dL (3.5-5.0); Alkaline Phosphatase 124 U/L (39-117); Anion Gap 13 (12-20); Aspartate Amino Transferase 19 U/L (5-37); Blood Urea Nitrogen 14 mg/dL (9-16); Calcium 8.9 mg/dL (8.4-10.2); Carbon Dioxide 28 mmol/L (22-29); Chloride 107 mmol/L (96-108); Cholesterol 144 mg/dL (<200); Estimated Glomerular Filt Rate > 60; HDL Cholesterol 30 mg/dL (>40); Potassium 4.1 mmol/L (3.3-5.1); Sodium 144 mmol/L (135-145); Total Protein 6.7 g/dL (6.5-8.0); Triglycerides 118 mg/dL (<150)
== END 2024-09-02 08:26 | disposition home or self-care (01) ==
LOC: HO.WFDLDS 08:25
PROVIDERS: Visit Provider Internal Medicine
DX: E11.65 Type 2 diabetes mellitus with hyperglycemia (principal); J44.9 Chronic obstructive pulmonary disease, unspecified; G47.33 Obstructive sleep apnea (adult) (pediatric); R09.02 Hypoxemia; Z79.4 Long term (current) use of insulin
CPT/HCPCS: 36415; 80053; 80061; 83036; 84443; 85025

== ENCOUNTER 2024-09-03 08:56 | Outpatient (AMB) | payer OTHER, SELFPAY ==
--- NOTE | 2024-09-03 09:12 | MHC.PC.OV ---
Vital Signs 09/03/24 09:15 Height 5 ft 10 in Weight 270 lb BMI 38.7 BP 116/72 Blood Pressure Location Lt brachial Position Sitting Respiration 16 Pulse 85 Pulse Source Pulse Oximeter Temp 98 F Temp Source Oral Pulse Oximetry (%) 93 Oxygen Delivery Method Room Air Intake Visit Reasons: DM follow up Intake Note: Diabetes follow up Rotary Machine Operator Required: No Allergies Iodinated Contrast Media Allergy (Severe, Verified 09/03/24 09:12) Hives doxycycline Allergy (Mild, Verified 09/03/24 09:12) Vomiting Tobacco use date assessed: 09/03/24 Fall risk assessment: 1 Fall in past year Last assessed Fall Risk: 09/03/24 Dental Screening Dental Screen Date: 09/03/24 Did you have a dental visit in the last 12 months?: Yes Did you have a dental problem in the last 6 months where you did not have access to dental care?: No Was dental information given to patient?: Patient has dentist HPI HPI Comments History of Present Illness Details Patient is a 69-year-old male with insulin-dependent diabetes, prostate cancer, hypertension, neuropathy, GERD presenting for follow up Type 2 diabetes: Recent A1C 7.3%. CGM reviewed. Glucose has been running higher since starting xtandi. 8.9% end of January 2024 improved to 7.9% 05/14/2024. On Lantus 55 units nightly and aspart t.i.d. CC as well as glipizide 20 mg daily, jardiance and mounjaro. Neuropathy on Lyrica 200 mg twice daily. He was hospitalized at the end of November for COVID-19 Heme/Onc: Prostate cancer in 2017. Now with bony metastases. Recent fall with rib fracture. Left wrist has been bothering him since the fall. He is having daily chronic pain especially in the ribs. Using tylenol. Sometimes not strong enough. Follows with Dr. Jacobs. On xtrandi, oxybutynin. On prolia. Saw pulmonary. Acosta has been sent Colonoscopy at age 51 LDCT ROS see HPI PHYSICAL EXAM: GENERAL: Alert and oriented x 3. NAD EYES: EOMI. Anicteric. HENT: Moist mucous membranes. No scleral icterus. No cervical lymphadenopathy. LUNGS: Clear to auscultation bilaterally. CARDIOVASCULAR: Regular rate and rhythm. No murmur. No JVD. ABDOMEN: Soft, non-tender +bs EXTREMITIES: No edema. Non-tender. SKIN: No rashes or lesions. Warm. NEUROLOGIC: No focal neurological deficits. CN II-XII grossly intact PSYCHIATRIC: Cooperative. Appropriate mood and affect [facility] Medical History Hernia Surgical History H/O vasectomy History of hernia surgery Family History Sister FH: mental illness Substance abuse Mother Diabetes Social History Housing: House Alcohol intake: current Patient Tobacco Use Status: Former Tobacco user Cigarette Packs Per Day: 4 Years Smoked: 35 e-Cigarette/Vaping Use: Never Used Second Hand Smoke Exposure: No Cognitive needs: No Hearing needs: No Vision needs: Yes (glasses) Questionnaire Thrive Questionnaire Date Thrive assessed: 03/15/24 I am a: Patient What is your living situation today?: I have a steady place to live Within the past 12 months, did the food you bought not last and you didn't have the money to get more?: Never true Within the past 12 months, did you worry whether your food would run out before you got money to buy more?: Never true Do you have trouble paying for medicines?: No Do you have trouble getting transportation to medical appointments?: No Do you have trouble paying your heating and electricity bill?: No Do you have trouble taking care of your child, family member or friend?: No Do you have trouble with day-to-day activities such as bathing, preparing meals, shopping, managing finances, etc.?: No Are you currently unemployed and looking for a job?: No Are you interested in more education?: Yes Please select the resources that you would like help with: Education Currently or been in a relationship where the following occur: I choose not to answer THRIVE Score: 0 AUDIT C Alcohol Use Questionnaire (AUDIT-C) 1. How often do you have a drink containing alcohol?: Never 3. How often do you have six or more drinks on one occasion?: Never Total Score: 0 SUJATHA-7 AMB Questionnaire SUJATHA-7 Date SUJATHA - 7 assessed: 02/12/24 Source: Developed by DrsOsvaldo Pineda, Vanesa Worrell, Liang Mckee and colleagues, with an educational gema from [employer]. Physical exam (Primary Care) Vital Signs: Last Vital Signs Temp 98 F 09/03/24 09:15 Pulse 85 09/03/24 09:15 Resp 16 09/03/24 09:15 BP 116/72 09/03/24 09:15 Pulse Ox 93 09/03/24 09:15 Oxygen Delivery Method Room Air 09/03/24 09:15 BMI result Body Mass Index 38.7 Tobacco/Smoking Status: Tobacco use Status Tobacco use date assessed 09/03/24 09/03/24 09:18 Patient Tobacco Use Status Former Tobacco user 09/03/24 09:18 e-Cigarette/Vaping Use Never Used 09/03/24 09:18 Thrive Assessment: Date of Thrive Assessment Date Thrive assessed 03/15/24 09/03/24 09:18 Currently or been in a relationship where the following occur: I choose not to answer Coding Level of Care Code Est Pt Level 4 (71449) Diagnoses Type 2 diabetes mellitus with hyperglycemia, with long-term current use of insulin E11.65; Z79.4 Diabetes mellitus terminologist insulin use: with terminologist use Diabetes mellitus complication status: with hyperglycemia Type 2 diabetes mellitus with hyperglycemia, with long-term current use of insulin E11.65; Z79.4 Diabetes mellitus complication status: with hyperglycemia Prostate cancer metastatic to bone C61; C79.51 Assessment & Plan Assessment & Plan (1) Type 2 diabetes mellitus: Code(s): E11.9 - Type 2 diabetes mellitus without complications Category: Medical Qualifiers: Diabetes mellitus terminologist insulin use: with terminologist use Diabetes mellitus complication status: with hyperglycemia Qualified Code(s): E11.65 - Type 2 diabetes mellitus with hyperglycemia; Z79.4 - superintendent container terminal (current) use of insulin (2) Insulin use (long-term) in type 2 diabetes: Code(s): E11.9 - Type 2 diabetes mellitus without complications; Z79.4 - custodial (current) use of insulin Category: Medical Qualifiers: Diabetes mellitus complication status: with hyperglycemia Qualified Code(s): E11.65 - Type 2 diabetes mellitus with hyperglycemia; Z79.4 - superintendent container terminal (current) use of insulin (3) Prostate cancer metastatic to bone: Code(s): C61 - Malignant neoplasm of prostate; C79.51 - Secondary malignant neoplasm of bone Category: Medical Plan DM-last 30 day GMI 8.1. He will increase his insulin to 62 and may consider going up to 70 if glucose is still elevated Prostate Ca with bony met-having mod to severe chest pain. Start radha 10mg daily, increase to 20mg if needed and tolerated. Narcan sent Medications: New morphine ER Partial Fill upon patient request. 20 mg (2 x 10 mg) PO DAILY 56 caps 0RF naloxone 4 mg/actuation (Narcan) spray 1 dose into ONE nostril; alternate nostrils w each dose until help arrives 4 mg intranasal Q2M 2 ea 0RF Changed From Lantus Solostar U-100 Insulin (insulin glargine) 55 units (0.55 mL) subcut DAILY 45 mL 3RF NS To Lantus Solostar U-100 Insulin (insulin glargine) 70 units (0.7 mL) subcut DAILY 45 mL 3RF NS
[2024-09-03 09:15] VITALS: BP 116/72; PULSE 85; RESP 16; TEMP 36.6; O2SAT 93; BMI 38.7
--- OUTSIDE RECORDS SUMMARY | 2024-09-03 09:22 | XMS_ITS | Clinical Summary ---
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 ([facility] V24, [facility] V28),Prostate CA ([facility] V24, [facility] V28) Take 3 capsules (120 mg total) [...] Diagnosed Date 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 ([facility] V24, CMS/HCC V28) 09/23/2016 Overview (10/30/2023): Prostate cancer Prostate CA ([facility] V24, [facility] V28) 7 Encounters Date Type Department Care Team Description 07/19/2024 11:15 AM EDT Office Visit [facility] Hematology Oncology [address] [place] [phone] Migel Jacobs MD 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 ([facility] V24, [facility] V28) (Primary Dx) 07/19/2024 10:19 AM EDT - 07/19/2024 11:59 PM EDT Hospital Encounter [facility] [address] [phone] Migel Jacobs MD 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 ([facility] V24, [facility] V28) (Primary Dx); Prostate CA ([facility] V24, [facility] V28) Discharge Disposition: Home or Self Care 06/07/2024 9:15 AM EDT Office Visit [facility] Hematology Oncology [address] [place] [phone] Migel Jacobs MD Prostate CA ([facility] V24, [facility] V28) (Primary Dx) from Last 3 Months Surgical History Surgery Date Site/Laterality Comments HERNIA REPAIR PROCEDURE:HERNIA REPAIR;COMMENT:herniorrhaphy Medical History Medical History Date Comments Prostate cancer ([facility] V24, [facility] V28) DX:Prostate cancer (HCC) Hypertension DX:Hypertension Social [...] Info) Description 10/11/2024 10:30 AM EDT Appointment [facility] [address] [place] [phone] 10/28/2024 9:30 AM EDT Office Visit [facility] Hematology Oncology [address] [place] [phone] Migel Jacobs MD [address] [place] [phone] 10/28/2024 10:30 AM EDT Appointment [facility] [address] [place] [phone] Health Maintenance Due Date Last Done [...] Routine 07/16/2024 2:05 PM EDT Prostate CA ([facility] V24, [facility] V28) PROSTATE SPECIFIC ANTIGEN DIAGNOSTIC Routine 07/16/2024 2:05 PM EDT Prostate CA ([facility] V24, [facility] V28) COMPREHENSIVE METABOLIC PANEL Routine 07/16/2024 2:05 PM EDT Prostate CA ([facility]/HCC V24, CMS/HCC V28) CBC AND DIFFERENTIAL Routine 07/16/2024 2:05 PM EDT Prostate CA ([facility] V24, CMS/HCC V28) CBC WITH AUTO DIFFERENTIAL Routine 06/04/2024 9:23 AM EDT Prostate CA ([facility] V24, [facility] V28) 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 Results obtained with different assay methods or kits cannot be used interchangeably. Results cannot be interpreted as absolute evidence of the presence or absence of malignant disease. us Migel Jacobs MD LAB BLOOD ORDERABLES Final Result [facility] [address] [place] [address], * (ABNORMAL) CBC auto differential (07/16/2024 2:05 PM EDT) Only the most recent of2 resultswithin the time period is included. [facility] Signature WBC 9.4 4.8 - 10.8 K/mcL LAB HEMETOLOGY METHOD 07/16/2024 4:50 PM EDT [facility] RBC 5.00 4.50 - 5.50 M/mcL LAB HEMETOLOGY METHOD 07/16/2024 4:50 PM EDT [facility] Hemoglobin 13.5 13.5 - 17.5 g/dL LAB HEMETOLOGY METHOD 07/16/2024 4:50 PM EDT [facility] Hematocrit 43.2 42.0 - 54.0 % LAB HEMETOLOGY METHOD [facility]16[facility]24 [facility] MCV 86.4 79.0 - 98.0 FL LAB HEMETOLOGY METHOD 07/16/2024 4:[facility] MCH 27.0 27.0 - 32.0 pcg LAB HEMETOLOGY METHOD 07/16/2024 4:[facility] MCHC 31.3(L) 32.0 - 37.0 g/dL LAB HEMETOLOGY METHOD 07/16/2024 4:[facility] RDW 17.1(H) 11.0 - 15.0 % LAB HEMETOLOGY METHOD 07/16/2024 4:50 PM EDT [facility] Platelets 330 130 - 400 K/mcL LAB HEMETOLOGY METHOD 07/16/2024 4:50 PM EDT [facility] MPV 9.7 7.0 - 11.0 FL LAB HEMETOLOGY METHOD 07/16/2024 4:[facility] NRBC 0.0 <1.0 % LAB HEMETOLOGY METHOD 07/16/2024 4:50 PM EDT [facility] NRBC Absolute 0.00 <0.10 K/mcL LAB HEMETOLOGY METHOD 07/16/2024 4:50 PM EDT [facility] Neutrophils Relative 60.4 % LAB HEMETOLOGY METHOD 07/16/2024 4:50 PM T [facility] Lymphocytes Relative 31.1 % LAB HEMETOLOGY METHOD 07/16/2024 4:50 PM EDT [facility] Monocytes Relative 6.0 % LAB HEMETOLOGY METHOD 07/16/2024 4:50 PM EDT [facility] Eosinophils Relative 0.8 % LAB HEMETOLOGY METHOD 07/16/2024 4:50 PM T [facility] Basophils Relative 0.6 % LAB HEMETOLOGY METHOD 07/16/2024 4:50 PM [facility] Immature Granulocytes Relative 1.1 % LAB HEMETOLOGY METHOD 07/16/2024 4:50 PM [facility] Neutrophils Absolute 5.69 1.50 - 7.00 K/mcL LAB HEMETOLOGY METHOD 07/16/2024 4:50 PM [facility] Lymphocytes Absolute 2.93 1.00 - 5.00 K/mcL LAB HEMETOLOGY METHOD 07/16/2024 4:50 PM [facility] Monocytes Absolute 0.57 0.20 - 1.00 K/mcL LAB HEMETOLOGY METHOD 07/16/2024 4:50 PM EDT [facility] Eosinophils Absolute 0.08 0.00 - 0.50 K/mcL LAB HEMETOLOGY METHOD 07/16/2024 4:50 PM EDT [facility] Basophils Absolute 0.06 0.00 - 0.20 K/mcL LAB HEMETOLOGY METHOD 07/16/2024 4:50 PM [facility] Immature Granulocytes Absolute 0.10(H) 0.00 - 0.03 K/mcL LAB HEMETOLOGY METHOD 07/16/2024 4:50 PM EDT [facility] Blood Venous blood specimen / Unknown Venipuncture / Unknown 07/16/2024 2:05 PM EDT 07/16/2024 4:36 PM EDT us Migel Jacobs MD LAB BLOOD ORDERABLES Final Result [facility] [address] [place] [address], [place] [phone] * (ABNORMAL) Comprehensive metabolic panel (07/16/2024 2:05 PM EDT) Only the most recent of2 resultswithin the time period is included. Sodium 143 133 - 145 mmol/L LAB CHEMISTRY METHOD 07/16/2024 6:55 PM [facility] Potassium 4.2 3.5 - 5.5 mmol/L LAB CHEMISTRY METHOD 07/16/2024 6:55 PM [facility] Chloride 109 96 - 110 mmol/L LAB CHEMISTRY METHOD 07/16/2024 6:55 PM [facility] CO2 27 21 - 32 mmol/L LAB CHEMISTRY METHOD 07/16/2024 6:55 PM [facility] Anion Gap 7 3 - 11 LAB CHEMISTRY METHOD 07/16/2024 6:55 PM [facility] Glucose 160(H) 70 - 100 mg/dL LAB CHEMISTRY METHOD 07/16/2024 6:55 PM [facility] BUN 14 5 - 25 mg/dL LAB CHEMISTRY METHOD 07/16/2024 6:55 PM [facility] Creatinine 0.97 0.70 - 1.30 mg/dL LAB CHEMISTRY METHOD 07/16/2024 6:55 PM [facility] eGFR 86 >=60 mL/min/1. 73m2 LAB CHEMISTRY METHOD 07/16/2024 6:55 PM [facility] Comment:Calculation based on the Chronic Kidney Disease Epidemiology Collaboration (CKD-EPI) equation refit without adjustment for race. BUN/Creatinine Ratio 14.4 LAB CHEMISTRY METHOD 07/16/2024 6:55 PM T [facility] Calcium 8.6 8.5 - 10.5 mg/dL LAB CHEMISTRY METHOD 07/16/2024 6:55 PM [facility] AST (SGOT) 14 10 - 42 unit/L LAB CHEMISTRY METHOD 07/16/2024 6:55 PM [facility] ALT (SGPT) 21 10 - 60 unit/L LAB CHEMISTRY METHOD 07/16/2024 6:55 PM [facility] Alkaline Phosphatase 205(H) 42 - 121 unit/L LAB CHEMISTRY METHOD 07/16/2024 6:55 PM EDT [facility] Total Protein 6.7 6.0 - 8.0 g/dL LAB CHEMISTRY METHOD 07/16/2024 6:55 PM EDT [facility] Albumin 3.3 3.2 - 5.0 g/dL LAB CHEMISTRY METHOD 07/16/2024 6:55 PM [facility] Total Bilirubin 0.6 0.0 - 1.4 mg/dL LAB CHEMISTRY METHOD 07/16/2024 6:55 PM T [facility] Blood Venous blood specimen / Unknown Venipuncture / Unknown 07/16/2024 2:05 PM EDT 07/16/2024 4:35 PM EDT us Migel Jacobs MD LAB BLOOD ORDERABLES Final Result [facility] [address] [place] [address], from Last 3 Months Insurance [employer] Care Teams Stitchdown Toe Former Relationship Specialty Start Date End Date Melissa Childs [address] [facility] [address] [place] [phone] PCP - General 07/27/23
--- OUTSIDE RECORDS SUMMARY | 2024-09-03 09:22 | XMS_ITS | Clinical Summary ---
Author Organization [facility] Address [address] [place] [address] Care Team Providers Care Safety Manager Name Role Phone Melissa Childs NP Primary Care Provider [phone] Allergies Active Allergy Reactions Criticality Noted Date [...] age to complete this topic Care Teams Safety Manager Relationship Specialty Start Date End Date Melissa Childs, PATCHING MACHINE OPERATOR [address] [facility] [address] [place] [address] PCP - General Nurse Practitioner 07/27/23
--- OUTSIDE RECORDS SUMMARY | 2024-09-03 09:22 | XMS_ITS | Clinical Summary ---
Author Organization [facility] Address [address] [facility] [address] [place] [address] Phone Care Team Providers Care Perioperative Nurse Name Role Phone Damaris Ponce MD Primary Care Provider Andrez Stahl MD Unavailable [phone] Néstor Valdez MD Unavailable [phone] Allergies Active Allergy Reactions Criticality Noted Date [...] N1, M1, PSA Level: 20 or greater, [place] 8-10 - Poorly differentiated/undifferentiated (marked anaplasia), Stage [...] EDT) Creatinine 0.70 0.60 - 1.50 mg/dl [facility] 06/23/2016 1:24 PM EDT 06/23/2016 1:33 PM EDT Silver Lebron MD POINT OF CARE TEST ORDERABLES Final Result [facility] [address] [place] [address] from Last 3 Months or Most Recently Relevant to Health Maintenance Insurance [address] [place] [address] [facility] EPO [place] [address] [place] [address] POS EPO [facility] POS EPO [facility] POS [facility]PO [facility] [place] [address] [place] [address] POS EPO [facility] POS EPO [facility] POS EPO Care Teams Perioperative Nurse Relationship Specialty Start Date End Date Damaris Ponce MD PCP - General Internal Medicine 09/15/15 Andrez Stahl MD [address] [place] [address], [address] [address] Urology 09/12/16 Néstor Valdez MD [address] [place] [phone] [email or web address] Medical Oncology 09/12/16 Additional Source Comments The information contained in this document represents components of the legal health record. It is not the complete legal health record.[facility]
--- OUTSIDE RECORDS SUMMARY | 2024-09-03 09:22 | XMS_ITS | Patient Health Record ---
Author Organization [facility] Address [address] [facility] [address] [place] [address] Care Team Providers Care Wind Tunnel Technician Name Role Phone Damaris Ponce Primary Care Provider CHRISTY Huertas Unavailable [phone] Allergies Allergen (clinical drug ingredient) Drug/Non Drug [...] use of insulin (E11.42) Active confirmed Problem [id number] Arthritis, midfoot (M19.079) Active confirmed Problem [id number] Arthritis of foot (M19.079) Active confirmed Vital Signs Heart Rate 87 /min 06/07/2024 Temperature 97.3 degrees Fahrenheit 06/07/2024 Respiratory Rate 20 /min 06/07/2024 Height 5ft 9in in 06/07/2024 Weight 267.3 lbs 06/07/2024 BMI 39.47 kg/m2 06/07/2024 Procedures Procedure Date Ordered Date Performed Result Body Sit e DRAIN/INJECT, INTERMEDIATE JOINT/BURSA 03/08/2024 N/A Encounters Encounter Location Date Provider Diagnosis [facility] [address] [address] 12/06/2023 CHRISTY WILHELM Controlled type 2 diabetes mellitus with diabetic polyneuropathy, without long-term current use of insulin E11.42 ; Dystrophic nail L60.3 ; Onychomycosis B35.1 ; Pain in right toe(s) M79.674 ; Pain in left toe(s) M79.675 and Arthritis of foot M19.079 [facility] [address] [address] 03/08/2024 CHRISTY WILHELM Controlled type 2 diabetes mellitus with diabetic polyneuropathy, without long-term current use of insulin E11.42 ; Dystrophic nail L60.3 ; Onychomycosis B35.1 ; Pain in right toe(s) M79.674 ; Pain in left toe(s) M79.675 and Arthritis of foot M19.079 [facility] [address] [address] 06/07/2024 CHRISTY WILHELM Controlled type 2 diabetes mellitus with diabetic polyneuropathy, without long-term current use of insulin E11.42 ; Dystrophic nail L60.3 ; Onychomycosis B35.1 ; Pain in right toe(s) M79.674 ; Pain in left toe(s) M79.675 and Arthritis of foot M19.079 [facility] [address] [address] 09/20/2023 CHRISTY WILHELM [facility] [address] [address] 11/07/2023 CHRISTY WILHELM Controlled type 2 diabetes mellitus with diabetic polyneuropathy, without long-term current use of insulin E11.42 [facility] [address] [address] 02/09/2024 CHRISTY WILHELM [facility] [address] [address] 03/11/2024 CHRISTY WILHELM [facility] [address] [address] 05/22/2024 CHRISTY WILHELM [facility] [address] [address] 08/09/2024 CHRISYT WILHELM Controlled type 2 diabetes mellitus with diabetic polyneuropathy, without long-term current use of insulin E11.42 [facility] [address] [address] 06/10/2024 CHRISTY WILHELM Controlled type 2 diabetes [...] Aseptic debridement of toenails x 10 with aluminum sheet cutter and curette, pt tolerated well. Discussed [...] Aseptic debridement of toenails x 10 with aluminum sheet cutter and curette, pt tolerated well. Discussed [...] Aseptic debridement of toenails x 10 with aluminum sheet cutter and curette, pt tolerated well. Discussed [...] Name:CHRISTY WILHELM, 09/11/2024 04:00:00 PM, [address] [facility] [address], [place], [address], Insurance Providers Payer Name Payer Address Payer Phone Subscriber Number Group Number Insured Name Patient Relationship to Insured Coverage Start Date Coverage End Date [employer] [address] [place] [address] [id number] DishaAndrez sauceda Self - patient is the [...]
== END 2024-09-03 09:31 | disposition home or self-care (01) ==
LOC: HO.HMCFM 08:57
PROVIDERS: PCP Internal Medicine; Visit Provider Internal Medicine
DX: E11.65 Type 2 diabetes mellitus with hyperglycemia (principal); Z79.4 Long term (current) use of insulin; C61 Malignant neoplasm of prostate; C79.51 Secondary malignant neoplasm of bone

== ENCOUNTER 2024-10-22 15:56 | Outpatient (AMB) | payer OTHER, SELFPAY ==
--- OUTSIDE RECORDS SUMMARY | 2015-07-20 | XMS_ITS | Encounter Summary ---
Author Organization [facility] Address [address] [facility] [address] [place] [address] Phone Care Team Providers Care Track Moving Machine Operator Name Role Phone Unavailable Primary Care Provider Unavailabl e Reason for Visit * MRI/CAT Scan - Closed Specialty Diagnoses / Procedures Referred By Contac t Referred To Contact Radiology Procedures MRI Abdomen Outside (No Interpretation) Silver Lebron MD [address] [place] [address] Phone: tel: fax: mailto:[email or web address] Referral ID Status Reason Start Date Expiration Date Visits Re quested Visits Authorized [id number] Closed 09/25/2015 09/24/2016 1 1 Encounter Details Date Type Department Care Team ([facility] st Contact Info) Description 07/20/2015 [facility] [address] [place] [address] Silver Lebron MD [address] [place] [phone] [email or web address] Social History Tobacco Use Types Packs/Day Years [...] Interpretation) (07/20/2015 12:00 AM EDT) Narrative [facility] [place] [facility] INTER[facility]ACES - 09/25/2015 7:13 AM EDT This study is for PACS storage only and not for interpretation. Procedure Note SYSTEMGENERATED, DOCUMENTATION - 09/25/2015 This study is for PACS storage only and not for interpretation. us Silver Lebron MD IMG OUTSIDE IMAGING W/OUT INTE RPRETATION Final Result [facility] [place] [facility] [place]ES documented in this encounter Visit Diagnoses Not on filedocumented in this encounter Additional Source Comments The information contained in this document represents components of the legal health record. It is not the complete legal health record.[facility]
--- OUTSIDE RECORDS SUMMARY | 2015-08-14 | XMS_ITS | Encounter Summary ---
Author Organization [facility] Address [address] [facility] [address] [place] [address] Phone Care Team Providers Care Nurse Anesthesia Program Director Name Role Phone Unavailable Primary Care Provider Unavailabl e Encounter Details Date Type Department Care Team (Late st Contact Info) Description 08/14/2015 Hospital Encounter [facility] [address] [place] [address] Silver Lebron MD [address] [facility] [place] [address] [email or web address] Social History Tobacco Use Types Packs/Day Years [...] (No Interpretation) (08/14/2015 12:00 AM EDT) Narrative [facility] [place] [facility]G INTERFACES - 09/25/2015 7:13 AM EDT This study is for PACS storage only and not for interpretation. Procedure Note SYSTEMGENERATED, DOCUMENTATION - 09/25/2015 This study is for PACS storage only and not for interpretation. us Silver Lebron MD IMG OUTSIDE IMAGING W/OUT INTE RPRETATION Final Result [facility] INTERFACES documented in this encounter Visit Diagnoses Not on filedocumented in this encounter Additional Source Comments The information contained in this document represents components of the legal health record. It is not the complete legal health record.[facility]
--- OUTSIDE RECORDS SUMMARY | 2023-11-08 12:00 | XMS_ITS ---
Author Organization [facility] Address [address] [address] Care Team Providers Care Merchandise Presentation Associate Name Role Phone Damaris Ponce Primary Care Provider UnavailCHRISTY Rangel Unavailable [phone] REASON FOR VISIT 3 mo follow up Encounters Encounter Location Date Provider Diagnosis [facility] [address] [address] 11/08/2023 CHRISTY ZAYAS Plan Of Treatment Next Appt Details Provider Name:CHRISTY ZAYAS, 12/18/2024 04:00:00 PM, [address], [address], Progress Notes * Andrez LUUDOB:1955 (69 yo M)Acc No.[id number]:11/08/2023 Progress Note Patient: Bryan THORNTON Andrez Pierre Provider: Tonia Zayas DPM :1955 A ge:68 Y S ex:Male Date:11/08/2023 Address:[address] [place], [place] [phone] Pcp:Damaris Ponce Subjective: * Chief Complaints: * 1 . 3 mo follow up. * Medical History: Objective: * Vitals: Assessment: Plan: * Treatment: * Billing Information: * Visit Code: * Procedure Codes: * Electronic signature of STERLING ZAYAS D.P.M on 10/22/2024 at 06:03 PM EDT Sign off status: Pending * Provider: Tonia Zayas DPM Date: 0 11/08/2023 Generated for Josh barnhart/Bebo/Joe on: 0 10/22/2024 06:03 PM EDT
--- NOTE | 2024-10-22 15:51 | A.OFFPC_ITS ---
Intake Visit Reasons: 1 Intake Note: Follow up Jewel Waxer Required: No Allergies Iodinated Contrast Media Allergy (Severe, Verified 10/22/24 15:51) Hives doxycycline Allergy (Mild, Verified 10/22/24 15:51) Vomiting Tobacco use date assessed: 10/22/24 Dental Screening Dental Screen Date: 09/03/24 HPI HPI Comments History of Present Illness Details Patient is a 69-year-old male with insulin-dependent diabetes, prostate cancer, hypertension, neuropathy, GERD presenting for follow up (telehealth) Heme/Onc: Prostate cancer in 2017. Now with bony metastases and significant pain. He was started on long acting opioid. He did not like the way this made him feel. Uses tyelnol. Rib fracture a few months ago. Type 2 diabetes: Recent A1C 7.3%. 8.9% end of January 2024 improved to 7.9% 05/14/2024. On Lantus 55 units nightly and aspart t.i.d. CC as well as glipizide 20 mg daily, jardiance and mounjaro. Neuropathy on Lyrica 200 mg twice daily. He was hospitalized at the end of November for COVID-19 Saw pulmonary. [place] has been sent Colonoscopy at age 51 LDCT ROS see HPI PHYSICAL EXAM: Telehealth [facility] Medical History Hernia Surgical History H/O vasectomy History of hernia surgery Family History Sister FH: mental illness Substance abuse Mother Diabetes Social History Housing: House Alcohol intake: current Patient Tobacco Use Status: Former Tobacco user Cigarette Packs Per Day: 4 Years Smoked: 35 e-Cigarette/Vaping Use: Never Used Second Hand Smoke Exposure: No Cognitive needs: No Hearing needs: No Vision needs: Yes (glasses) Questionnaire Thrive Questionnaire Date Thrive assessed: 03/15/24 AUDIT C Alcohol Use Questionnaire (AUDIT-C) 1. How often do you have a drink containing alcohol?: Monthly or less (once a year) 2. How many drinks containing alcohol do you have on a typical day when you are drinking?: 1 or 2 3. How often do you have six or more drinks on one occasion?: Never Total Score: 1 SUJATHA-7 AMB Questionnaire SUJATHA-7 Date SUJATHA - 7 assessed: 02/12/24 Source: Developed by Drs. Sandro Pineda, Vanesa Worrell, Liang Mckee and colleagues, with an educational gema from [employer]. Physical exam (Primary Care) Tobacco/Smoking Status: Tobacco use Status Tobacco use date assessed 10/22/24 10/22/24 15:54 Patient Tobacco Use Status Former Tobacco user 10/22/24 15:54 e-Cigarette/Vaping Use Never Used 10/22/24 15:54 Thrive Assessment: Date of Thrive Assessment Date Thrive assessed 03/15/24 10/22/24 15:54 Telehealth Telehealth Telehealth Platform: Telephone Location of provider rendering services: practice address Location of patient: address on file Patient Identification confirmed using: Name, : Yes Telehealth method: voice only Patient verbally consented to treatment: Yes Patient verbally consented to billing insurance company: Yes Patient informed of any privacy concerns related to visit: Yes Minutes spent on Phone/Video with Pt.: 25 Coding Level of Care Code Tele Est Pt Level 3 (86756) Diagnoses Type 2 diabetes mellitus with hyperglycemia, with long-term current use of insulin E11.65; Z79.4 Diabetes mellitus complication status: with hyperglycemia Diabetes mellitus fci insulin use: with ferry terminal supervisor use Prostate cancer metastatic to bone C61; C79.51 Type 2 diabetes mellitus with hyperglycemia, with long-term current use of insulin E11.65; Z79.4 Diabetes mellitus complication status: with hyperglycemia Assessment & Plan Assessment & Plan (1) Type 2 diabetes mellitus: Code(s): E11.9 - Type 2 diabetes mellitus without complications Category: Medical Qualifiers: Diabetes mellitus complication status: with hyperglycemia Diabetes mellitus fci insulin use: with ferry terminal supervisor use Qualified Code(s): E11.65 - Type 2 diabetes mellitus with hyperglycemia; Z79.4 - supervisor intermediates (current) use of insulin (2) Prostate cancer metastatic to bone: Code(s): C61 - Malignant neoplasm of prostate; C79.51 - Secondary malignant neoplasm of bone Category: Medical (3) Insulin use (long-term) in type 2 diabetes: Code(s): E11.9 - Type 2 diabetes mellitus without complications; Z79.4 - supervisor intermediates (current) use of insulin Category: Medical Qualifiers: Diabetes mellitus complication status: with hyperglycemia Qualified Code(s): E11.65 - Type 2 diabetes mellitus with hyperglycemia; Z79.4 - supervisor intermediates (current) use of insulin Plan 69 year old male for follow up Chronic pain-he can continue tylenol and trial tramadol prn DM control has improved Orders: Orders Hemoglobin A1c 6 Weeks E11.65 - Type 2 diabetes mellitus with hyperglycemia, Z79.4 - penitentiary (current) use of insulin Comprehensive Met. Panel 6 Weeks E11.65 - Type 2 diabetes mellitus with hyperglycemia, Z79.4 - penitentiary (current) use of insulin Lipid Panel 6 Weeks E11.65 - Type 2 diabetes mellitus with hyperglycemia, Z79.4 - penitentiary (current) use of insulin Medications: Refilled tramadol 50 mg PO Q8H PRN 56 tabs 0RF pain 28 days
--- OUTSIDE RECORDS SUMMARY | 2024-10-22 18:03 | XMS_ITS | Clinical Summary ---
Author Organization [facility] Address [address] [place] [address] Care Team Providers Care Kersey Department Supervisor Name Role Phone Melissa Childs NP Primary Care Provider [phone] Allergies Active Allergy Reactions Criticality Noted Date [...] age to complete this topic Care Teams Kersey Department Supervisor Relationship Specialty Start Date End Date Melissa Childs, CONVEYOR WORKER [address] [facility] [address] [place] [address] PCP - General Nurse Practitioner 07/27/23
--- OUTSIDE RECORDS SUMMARY | 2024-10-22 18:03 | XMS_ITS | Clinical Summary ---
Author Organization [facility] Address [address] [facility] [address] [place] [address] Phone Care Team Providers Care Flour Blender Name Role Phone Damaris Conley MD Primary Care Provider Andrez Stahl MD Unavailable [phone] Néstor Valdez MD Unavailable [phone] Allergies Active Allergy Reactions Criticality Noted Date [...] N1, M1, PSA Level: 20 or greater, [place] 8-10 - Poorly differentiated/undifferentiated (marked anaplasia), Stage [...] Adult Td,Tdap Booster 01/30/2022 01/31/2012 COVID-19 VACCINE ( season) 2023 05/14/2020, 04/16/2020 INFLUENZA VACCINE (#1) 2024 0, 10/20/2017, 12/23/2016, Additional history exists RSV VACCINE (1 - 1-dose 75+ series) 08/28/2031 SMOKING STATUS SCREENING (Once After 26 Yrs) Completed 09/13/2016 HEPATITIS A [...] EDT) Creatinine 0.70 0.60 - 1.50 mg/dl [facility] 06/23/2016 1:2 4 PM EDT 06/23/2016 1:33 PM EDT Silver Lebron MD POINT OF CARE TEST ORDERABLES Final Result [address] [address] from Last 3 Months or Most Recently Relevant to Health Maintenance Insurance [facility] [place] [address] [place] [address] [place] [address] [place] [address] [place] [address] [place] [address] [place] [address] [place], [place] [address]O [place] [address] [place], [place] [address]O POS EPO [facility] POS EPO [facility] POS EPO Care Teams Flour Blender Relationship Specialty Start Date End Date Damaris Conley MD PCP - General Internal Medicine 09/15/15 Andrez Stahl MD [address] [place] [address], [address] [address] [email or web address] Urology 09/12/16 Néstor Valdez MD [address] [place] [phone] [email or web address] Medical Oncology 09/12/16 Additional Source Comments The information contained in this document represents components of the legal health record. It is not the complete legal health record.[facility]
--- OUTSIDE RECORDS SUMMARY | 2024-10-22 18:03 | XMS_ITS ---
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 09/24/19 17 Current Oncology Plans [facility] DENOSUMAB 60MG (PROLIA)* Plan Start Date:07/25/2023 Plan Provider:Migel Jacobs MD Linked Problems Prostate CA (HCC) Treatment Medications denosumab (PROLIA)Triptoreli n Pamoate Susr Past Plans ONCOLOGY INFUSION THERAPY Plan Name Start Date Discontinue Date Treatment Medications Discontinue Reason [facility] 11/04/2022 07/24/2023 denosumab (PROLIA) Therapy Complete Migel Jacobs MD [facility] DENOSUMAB 60MG (PROLIA) 11/26/2021 11/03/2022 denosumab (PROLIA) Therapy Complete Migel Jacobs MD Radiation Treatments * No radiation treatments are documented for this patient in [facility]. Treatments may have been administered in another system.
--- OUTSIDE RECORDS SUMMARY | 2024-10-22 18:03 | XMS_ITS | Clinical Summary ---
Author Organization [facility] Address [address] [place] [address] Phone Care Team Providers Care Tool Polishing Machine Operator Name Role Phone Melissa Childs Primary Care Provider [phone] Allergies Active Allergy Reactions Criticality Noted Date Comments Doxycycline 11/17/2017 Iodinated Contrast Media 11/17/2017 Medications atorvastatin (LIPITOR) 10 mg tablet Take 1 tablet (10 mg total) by mouth every evening. 023 Active glipiZIDE (GLUCOTROL XL) 5 mg 24 hr tablet Take 4 tablets (20 mg total) by mouth 1 (one) time each day. 10 MG TABLETS - TAKES TWO IN AM FOR 20 MG TOTAL Active insulin glargine (LANTUS) 100 unit/mL injection Inject under the skin every night at bedtime. Active lisinopriL (PRINIVIL,ZESTRIL ) 10 mg tablet Take 2 tablets (20 mg total) by mouth daily. Active oxyBUTYnin XL (DITROPAN-XL) 10 mg 24 hr tablet Take 1 tablet (10 mg total) by mouth daily. 023 Active pregabalin (LYRICA) 75 mg capsule Take 1 capsule (75 mg total) by mouth 2 (two) times a day. Active traZODone (DESYREL) 50 mg tablet Take 1 tablet (50 mg total) by mouth every night at bedtime. 023 Active triptorelin pamoate (TRELSTAR) 11.25 mg suspension for reconstitution chemo injection Inject 11.25 mg into the muscle every 3 (three) months. Active insulin aspart (NovoLOG U-100 Insulin aspart) 100 unit/mL injection Inject under the skin. Active polyethylene glycol (Golytely) 236-22.74-6.74 -5.86 gram solution Take 4L by mouth once for one dose. May substitue any PEG. Starting at 6PM the night before your procedure drink 1 8oz glasses at your own pace until you complete half of the gallon. Finish 2nd half of the gallon 5 hours before your procedure. 4000 mL Active Additional Information Patient not taking.Reported on 07/19/2024 bisacodyL (DULCOLAX) 5 mg EC tablet Take 2 tablets by mouth right before beginning bowel prep. See instructions provided by the office 2 tablet Active traMADoL (ULTRAM) 50 mg tablet TAKE 1 TABLET BY MOUTH EVERY 8 HOURS NEEDED FOR PAIN FOR 28 DAYS Active Mounjaro 5 mg/0.5 mL injection ADMINISTER 5 MG UNDER THE SKIN EVERY WEEK Active enzalutamide (Xtandi) 40 mg capsuleIndication s: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 (CMS/HCC V24, CMS/HCC V28),Prostate CA (CMS/HCC V24, CMS/HCC V28) TAKE 3 CAPSULES BY MOUTH AT THE SAME TIME EVERY DAY WITH OR WITHOUT FOOD. SWALLOW WHOLE 120 capsule 11 Active enzalutamide (Xtandi) 40 mg capsuleIndication s: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 (CMS/HCC V24, CMS/HCC V28),Prostate CA (CMS/HCC V24, CMS/HCC V28) Take 3 capsules (120 mg total) by mouth 1 (one) time each day Take with or without food at the same time each day. Do not crush, break, or dissolve. Swallow it whole. 90 capsule 5 025 2024 Discontinued Active Problems Problem Noted Date Diagnosed Date 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 (CMS/HCC V24, CMS/HCC V28) 09/23/2016 Overview (10/30/2023): Prostate cancer Prostate CA (CMS/HCC V24, CMS/HCC V28) 7 Encounters Date Type Department Care Team Description 10/11/2024 10:15 AM EDT - 10/11/2024 11:59 PM EDT Hospital Encounter [facility] [address] [address] Migel Jacobs MD Prostate CA ([facility] V24, [facility] V28) (Primary Dx); 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 ([facility] V24, [facility] V28) Discharge Disposition: Home or Self Care from Last 3 Months Surgical History Surgery Date Site/Laterality Comments HERNIA REPAIR PROCEDURE:HERNIA REPAIR;COMMENT:herniorrhaphy Medical History Medical History Date Comments Prostate cancer ([facility] V24, [facility] V28) DX:Prostate cancer (HCC) Hypertension DX:Hypertension Social [...] Sign Reading Time Taken Comments Blood Pressure 107/81 10/11/2024 10:25 AM EDT Pulse 100 10/11/2024 10:25 AM EDT Temperature 36.6 C (97.8 F) 10/11/2024 10:25 AM EDT Respiratory Rate 16 01/26/2024 11:17 AM EST Oxygen Saturation 95% 10/11/2024 10:25 AM EDT Inhaled Oxygen Concentration - - Weight 119 kg (262 lb) 07/19/2024 11:28 AM EDT Height 177.8 cm (5' 10 ) 11/04/2022 10:20 AM EDT Body Mass Index 37.59 11/04/2022 10:20 AM EDT Plan of Treatment Upcoming Encounters Date Type Department Care Team (Late st Contact Info) Description 10/28/2024 9:30 AM EDT Office Visit [facility] Hematology Oncology [address] [place] [phone] Migel Jacobs MD [address] [place] [address] 10/28/2024 10:30 AM EDT Appointment [facility] [address] [place] [phone] 01/03/2025 11:00 AM EST Appointment [facility] [address] [place] [phone] Health Maintenance Due Date Last Done [...] Procedure Name Priority Date/Time Associated Diagnosis Comments COMPREHENSIVE METABOLIC PANEL Routine 07/16/2024 2:05 PM EDT Prostate CA ([facility] V24, [facility] V28) from Last 3 Months or Most Recently Relevant to Health Maintenance Results * (ABNORMAL) Comprehensive metabolic panel (07/16/2024 2:05 PM EDT) Sodium 143 133 - 145 mmol/L LAB CHEMISTRY METHOD 07/16/2024 6:[address] [facility] Potassium 4.2 3.5 - 5.5 mmol/L LAB CHEMISTRY METHOD 07/16/2024 6:[address] [facility] Chloride 109 96 - 110 mmol/L LAB CHEMISTRY METHOD 07/16/2024 6:[address] [facility] CO2 27 21 - 32 mmol/L LAB CHEMISTRY METHOD 07/16/2024 6:[address] [facility] Anion Gap 7 3 - 11 LAB CHEMISTRY METHOD 07/16/2024 6:[address] [facility] Glucose 160(H) 70 - 100 mg/dL LAB CHEMISTRY METHOD 07/16/2024 6:55 PM [facility] BUN 14 5 - 25 mg/dL LAB CHEMISTRY METHOD 07/16/2024 6:55 PM [facility] Creatinine 0.97 0.70 - 1.30 mg/dL LAB CHEMISTRY METHOD 07/16/2024 6:55 PM [facility] eGFR 86 >=60 mL/min/1. 73m2 LAB CHEMISTRY METHOD 07/16/2024 6:55 PM [facility] Comment:Calculation based on the Chronic Kidney Disease Epidemiology Collaboration (CKD-EPI) equation refit without adjustment for race. BUN/Creatinine Ratio 14.4 LAB CHEMISTRY METHOD 07/16/2024 6:55 PM [facility] Calcium 8.6 8.5 - 10.5 mg/dL LAB CHEMISTRY METHOD 07/16/2024 6:55 PM [facility] AST (SGOT) 14 10 - 42 unit/L LAB CHEMISTRY METHOD 07/16/2024 6:55 PM [facility] ALT (SGPT) 21 10 - 60 unit/L LAB CHEMISTRY METHOD 07/16/2024 6:55 PM [facility] Alkaline Phosphatase 205(H) 42 - 121 unit/L LAB CHEMISTRY METHOD 07/16/2024 6:55 PM [facility] Total Protein 6.7 6.0 - 8.0 g/dL LAB CHEMISTRY METHOD 07/16/2024 6:55 PM [facility] Albumin 3.3 3.2 - 5.0 g/dL LAB CHEMISTRY METHOD 07/16/2024 6:55 PM [facility] Total Bilirubin 0.6 0.0 - 1.4 mg/dL LAB CHEMISTRY METHOD 07/16/2024 6:55 PM [facility] Blood Venous blood specimen / Unknown Venipuncture / Unknown 07/16/2024 2:05 PM EDT 07/16/2024 4:35 PM EDT us Migel Jacobs MD LAB BLOOD ORDERABLES Final Result [facility] [address] [place] [address], from Last 3 Months or Most Recently Relevant to Health Maintenance Insurance [employer] Care Teams Tool Polishing Machine Operator Relationship Specialty Start Date End Date Melissa Childs [address] [place] [phone] PCP - General 07/27/23
--- OUTSIDE RECORDS SUMMARY | 2024-10-22 18:03 | XMS_ITS ---
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. Treatments may have been administered in another system.
--- OUTSIDE RECORDS SUMMARY | 2024-10-22 18:03 | XMS_ITS | Patient Health Record ---
Author Organization [facility] Address [address] [facility] [address] [place] [address] Care Team Providers Care Managing Jeweler Name Role Phone Damaris Ponce Primary Care Provider CHRISTY Huertas Unavailable [phone] Allergies Allergen (clinical drug ingredient) Drug/Non Drug Allergy documented on EMR Reaction Allergy Type Onset Date Status IV contrast dye (uncoded) hives Allergy Active doxycycline Doxycycline vomiting Drug Allergy Act adonay Reason For Referral No Information Medications Medication SIG (Take, Route, Frequency, Duration) Notes Start Date End Date Status Lantus 100 UNIT/ML as directed Subcutaneous Active oxyBUTYnin Chloride ER 10 MG 2 tablets Orally Once a day Active Lisinopril 20 MG 1 tablet Orally Once a day Active traZODone HCl 50 MG 1 tablet at bedtime as needed Orally Once a day Active Xtandi Active NovoLOG 100 UNIT/ML as directed Injection sliding scale Active Lyrica 200 MG 1 capsule Orally Twice a day; Duration: 90 days 01/19/2023 Not-Taking Gabapentin 600 MG 1 tablet Orally 3 times daily Not-Taking Bisacodyl 5 MG 1 tablet as needed Orally as directed Not-Taking Empagliflozin 10 MG 1 tablet Orally Once a day Not-Taking Atorvastatin Calcium 10 MG 1 tablet Orally Once a day Active Pregabalin 200 MG TAKE 1 CAPSULE BY MOUTH TWICE DAILY Orally twice a day; Duration: 90 days 08/09/2024 Active Ozempic 2.5mg once a day Not-Taking Bicalutamide 50 MG 1 tablet Orally Once a day Not-Taking Lyrica 200 MG 1 capsule Orally Twice a day; Duration: 90 days Active Aspirin daily Not-Taking Gabapentin 800 MG 1 tablet Orally three times a day; Duration: 30 day(s) 10/04/2019 Not-Taking Gabapentin 100 MG 1 capsule Orally see instructions; Duration: 60 days weaning him off the medication- first 2 weeks 800mg PO TID, next 2 weeks take 600mg PO TID, week 4 take 400mg PO TID, week 6 take 200mg PO TID, week 8 take 100 mg TID 12/27/2019 Not-Taking Terbinafine HCl 250 MG 1 tablet Orally Once a day; Duration: 90 days 10/02/2020 Not-Taking Problems Problem Type SNOMED Code ICD Code Onset Dates Problem Status W/U Status Risk Notes Problem Polyneuropathy due to type 2 diabetes mellitus (008855767) Controlled type 2 diabetes mellitus with diabetic polyneuropathy , without long-term current use of insulin (E11.42) Active confirmed Problem Localized, primary osteoarthritis of the ankle and/or foot (286980905) Arthritis, midfoot (M19.079) Active confirmed Problem Localized, primary osteoarthritis of the ankle and/or foot (161104003) Arthritis of foot (M19.079) Active confirmed Vital Signs Heart Rate 97 /min 09/11/2024 Temperature 97.3 degrees Fahrenheit 09/11/2024 Respiratory Rate 16 /min 09/11/2024 Height 5ft 9in in 09/11/2024 Weight 260.0 lbs 09/11/2024 BMI 38.39 kg/m2 09/11/2024 Procedures Procedure Date Ordered Date Performed Result Body Sit e DRAIN/INJECT, INTERMEDIATE JOINT/BURSA 03/08/2024 N/A Encounters Encounter Location Date Provider Diagnosis [facility] [address] [phone] 12/06/2023 CHRISTY WILHELM Controlled type 2 diabetes mellitus with diabetic polyneuropathy, without long-term current use of insulin E11.42 ; Dystrophic nail L60.3 ; Onychomycosis B35.1 ; Pain in right toe(s) M79.674 ; Pain in left toe(s) M79.675 and Arthritis of foot M19.079 [facility] [address] [phone] 03/08/2024 CHRISTY WILHELM Controlled type 2 diabetes mellitus with diabetic polyneuropathy, without long-term current use of insulin E11.42 ; Dystrophic nail L60.3 ; Onychomycosis B35.1 ; Pain in right toe(s) M79.674 ; Pain in left toe(s) M79.675 and Arthritis of foot M19.079 [facility] [address] 06/07/2024 CHRISTY WILHELM Controlled type 2 diabetes mellitus with diabetic polyneuropathy, without long-term current use of insulin E11.42 ; Dystrophic nail L60.3 ; Onychomycosis B35.1 ; Pain in right toe(s) M79.674 ; Pain in left toe(s) M79.675 and Arthritis of foot M19.079 [facility] [address] 09/11/2024 CHRISTY WILHELM Controlled type 2 diabetes mellitus with diabetic polyneuropathy, without long-term current use of insulin E11.42 ; Dystrophic nail L60.3 ; Onychomycosis B35.1 ; Pain in right toe(s) M79.674 ; Pain in left toe(s) M79.675 and Arthritis of foot M19.079 [facility] [address] 11/07/2023 CHRISTY WILHELM Controlled type 2 diabetes mellitus with diabetic polyneuropathy, without long-term current use of insulin E11.42 [facility] [address] 02/09/2024 CHRISTY WILHELM [facility] [address] 03/11/2024 CHRISTY WILHELM [facility] [address] 05/22/2024 CHRISTY WILHELM [facility] [address] 08/09/2024 CHRISTY WILHELM Controlled type 2 diabetes mellitus with diabetic polyneuropathy, without long-term current use of insulin E11.42 [facility] [address] 06/10/2024 CHRISTY WILHELM Controlled type 2 [...] use of insulin (ICD-10 - E11.42) 06/07/2024 Controlled type 2 diabetes mellitus with [...] Patient is in agreement with the plan. 09/11/2024 Controlled type 2 diabetes mellitus with diabetic [...] Patient is in agreement with the plan. 09/11/2024 Dystrophic nail (ICD-10 - L60.3) Aseptic debridement of toenails x 10 with seat nailer and curette, pt tolerated well. Discussed with the patient that routine nail care services are only covered by insurance every 60 days. Pt understands that if they would like to return prior to this time frame, they may have to pay out of pocket. 06/07/2024 Dystrophic nail (ICD-10 - L60.3) He has 5% involvement of bruising under the left hallux. We discussed these will grow out as the toenails grow. He does not need further intervention at this time. Aseptic debridement of toenails x 10 with seat nailer and curette, pt tolerated well. Discussed with [...] Aseptic debridement of toenails x 10 with seat nailer and curette, pt tolerated well. Discussed with [...] Aseptic debridement of toenails x 10 with seat nailer and curette, pt tolerated well. Discussed with [...] laser, and removal of the infected toenails. 09/11/2024 Onychomycosis (ICD-10 - B35.1) I reviewed with [...] Pain in right toe(s) (ICD-10 - M79.674) 09/11/2024 Pain in right toe(s) (ICD-10 - M79.674) 03/08/2024 Pain in right toe(s) (ICD-10 - M79.674) 12/06/2023 Pain in right toe(s) (ICD-10 - M79.674) 12/06/2023 Pain in left toe(s) (ICD-10 - M79.675) 03/08/2024 Pain in left toe(s) (ICD-10 - M79.675) 09/11/2024 Pain in left toe(s) (ICD-10 - M79.675) 06/07/2024 Pain in left toe(s) (ICD-10 - M79.675) 06/07/2024 Arthritis of foot (ICD-10 - M19.079) We discussed the pain in the feet is due to his arthritis and the neuropathy. I recommended he continues to wear supportive shoes. We discussed there is no cure for arthritis. 09/11/2024 Arthritis of foot (ICD-10 - M19.079) We [...] 03/08/2024 Next Appt Details Provider Name:CHRISTY WILHELM, 12/18/2024 04:00:00 PM, [address] [facility] [address], [place], [address], Insurance Providers Payer Name Payer Address Payer Phone Subscriber Number Group Number Insured Name Patient Relationship to Insured Coverage Start Date Coverage End Date [employer] Insurance [employer] [address] [place] [id number] Andrez Gauthier Self - patient is the [...]
--- OUTSIDE RECORDS SUMMARY | 2024-10-22 18:03 | XMS_ITS | Encounter Summary ---
Author Organization [facility] Address [address] [place] [address] [place] [phone] Phone Care Team Providers Care Bench Molder Apprentice Name Role Phone Damaris Conley MD Primary Care Provider Andrez Stahl MD Unavailable [phone] Néstor Valdez MD Unavailable Encounter Details Date Type Department Care Team (Late st Contact Info) Description 05/20/2016 Procedure Pass [facility] - [address], [address] [place] [id number] Social History Tobacco Use Types Packs/Day Years Used Date Smoking Tobacco: Never Assessed Sex and Gender Information Value Date Recorded Sex Assigned at Not on file Legal Sex Male 2:46 PM EDT Gender Identity Not on file Sexual Orientation Not on file documented as of this encounter Plan of Treatment Not on file documented as of this encounter Visit Diagnoses Not on filedocumented in this encounter Care Teams Bench Molder Apprentice Relationship Specialty Start Date End Date Damaris Conley MD PCP - General Internal Medicine 09/15/15 Andrez Stahl MD [address] [place] [address], [address] [address] Urology 09/12/16 Néstor Vladez MD [address] [place] [phone] [email or web address] 09/12/16 documented as of this encounter Additional Source Comments The information contained in this document represents components of the legal health record. It is not the complete legal health record.[facility]
== END 2024-10-22 17:05 | disposition home or self-care (01) ==
LOC: HO.HMCFM 15:56
PROVIDERS: PCP Internal Medicine; Visit Provider Internal Medicine
DX: E11.65 Type 2 diabetes mellitus with hyperglycemia (principal); Z79.4 Long term (current) use of insulin; C61 Malignant neoplasm of prostate; C79.51 Secondary malignant neoplasm of bone

== ENCOUNTER 2024-12-20 14:02 | Outpatient (REF) | payer OTHER, SELFPAY ==
--- OUTSIDE RECORDS SUMMARY | 2015-07-19 23:00 | XMS_ITS | Encounter Summary ---
Author Organization [facility] Address [address] [facility] [address] [place] [address] Phone Care Team Providers Care Videogame Tester Name Role Phone Unavailable Primary Care Provider Unavailabl e Reason for Visit * MRI/CAT Scan - Closed Specialty Diagnoses / Procedures Referred By Contac t Referred To Contact Radiology Procedures MRI Abdomen Outside (No Interpretation) Silver Lebron MD [address] [place] [address] Phone: tel: fax: mailto:[email or web address] Referral ID Status Reason Start Date Expiration Date Visits Re quested Visits Authorized [id number] Closed 09/25/2015 09/24/2016 1 1 Encounter Details Date Type Department Care Team ([facility] st Contact Info) Description 07/20/2015 Hospital Encounter [facility] Imaging [address] [place] [address] Silver Lebron MD [address] [place] [phone] [email or web address] Social History Tobacco Use Types Packs/Day Years [...] (No Interpretation) (07/20/2015 12:00 AM EDT) Narrative [facility] [place] [place] - 09/25/2015 7:13 AM EDT This study is for PACS storage only and not for interpretation. Procedure Note SYSTEMGENERATED, DOCUMENTATION - 09/25/2015 This study is for PACS storage only and not for interpretation. us Silver Lebron MD IMG OUTSIDE IMAGING W/OUT INTE RPRETATION Final Result [facility] [place] documented in this encounter Visit Diagnoses Not on filedocumented in this encounter Additional Source Comments The information contained in this document represents components of the legal health record. It is not the complete legal health record.[facility]
--- OUTSIDE RECORDS SUMMARY | 2015-08-13 23:00 | XMS_ITS | Encounter Summary ---
Author Organization [facility] Address [address] [facility] [address] [place] [address] Phone Care Team Providers Care Manager Machine Name Role Phone Unavailable Primary Care Provider Unavailabl e Encounter Details Date Type Department Care Team (Late st Contact Info) Description 08/14/2015 Hospital Encounter [facility] [address] [place] [address] Silver Lebron MD [address] [facility] [place] [address] [email or web address] Social History Tobacco Use Types Packs/Day Years [...] Procedure Name Priority Date/Time Associated Diagnosis Comments [place] ABDOMEN OUTSIDE (NO INTERPRETATION) Routine 08/14/2015 12:00 AM EDT documented in this encounter Results * [place] Abdomen Outside (No Interpretation) (08/14/2015 12:00 AM EDT) Narrative [facility] [place] - 09/25/2015 7:13 AM EDT This study is for PACS storage only and not for interpretation. Procedure Note SYSTEMGENERATED, DOCUMENTATION - 09/25/2015 This study is for PACS storage only and not for interpretation. us Silver Lebron MD IMG OUTSIDE IMAGING W/OUT INTE RPRETATION Final Result [facility] [place] [place] documented in this encounter Visit Diagnoses Not on filedocumented in this encounter Additional Source Comments The information contained in this document represents components of the legal health record. It is not the complete legal health record.[facility]
--- OUTSIDE RECORDS SUMMARY | 2024-12-20 15:51 | XMS_ITS | Clinical Summary ---
Author Organization [facility] Address [address] [place] [address] Phone Care Team Providers Care City Carrier Name Role Phone Melissa Childs Primary Care Provider [phone] Allergies Active Allergy Reactions Criticality Noted Date Comments Doxycycline 11/17/2017 Iodinated Contrast Media 11/17/2017 Medications atorvastatin (LIPITOR) 10 mg tablet Take 1 tablet (10 mg total) by mouth every evening. 3 Active glipiZIDE (GLUCOTROL XL) 5 mg 24 [...] (10 mg total) by mouth daily. 3 Active pregabalin (LYRICA) 75 mg capsule Take 1 capsule (75 mg total) by mouth 2 (two) times a day. Active traZODone (DESYREL) 50 mg tablet Take 1 tablet (50 mg total) by mouth every night at bedtime. 3 Active triptorelin pamoate (TRELSTAR) 11.25 mg suspension for reconstitution chemo injection Inject 11.25 mg into the muscle every 3 (three) months. Active insulin aspart (NovoLOG U-100 Insulin aspart) 100 unit/mL injection Inject under the skin. 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 ([facility]/HCC V24, CMS/HCC V28) 10/11/2024 10:15 AM EDT - 10/11/2024 11:59 PM EDT Hospital Encounter [facility] [address] [place] [phone] Migel Jacobs MD Prostate CA ([facility]/HCC V24, CMS/HCC V28) (Primary Dx); 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 (CMS/HCC V24, CMS/HCC V28) Discharge Disposition: Home or Self Care from Last 3 Months Surgical History Surgery Date Site/Laterality Comments HERNIA REPAIR PROCEDURE:HERNIA REPAIR;COMMENT:herniorrhaphy Medical History Medical History Date Comments Prostate cancer (CMS/HCC V24, CMS/HCC V28) DX:Prostate cancer (HCC) Hypertension DX:Hypertension Social [...] Sign Reading Time Taken Comments Blood Pressure 110/72 10/28/2024 9:39 AM EDT Pulse 88 10/28/2024 9:39 AM EDT Temperature 36.1 C (97 F) 10/28/2024 9:39 AM EDT Respiratory Rate 16 01/26/2024 11:17 AM EST Oxygen Saturation 94% 10/28/2024 9:39 AM EDT Inhaled Oxygen Concentration - - Weight 116 kg (256 lb) 10/28/2024 9:39 AM EDT Height 177.8 cm (5' 10 ) 11/04/2022 10:20 AM EDT Body Mass Index 36.73 11/04/2022 10:20 AM EDT Plan of Treatment Upcoming Encounters Date Type Department Care Team (Late st Contact Info) Description 01/03/2025 11:00 AM EST Appointment [facility] [address] [phone] 03/31/2025 9:15 AM EST Office Visit [facility] Hematology Oncology [address] [place] [address] Migel Jacobs MD [address] [place] [address] Health Maintenance Due Date Last Done Comments Colorectal Cancer Screening: Colonoscopy 1956 Diabetes: Annual Foot Exam 1966 Diabetes: Annual Retina Eye Exam 1966 Hepatitis A Vaccines (1 of 2 - Risk 2-dose series) 08/28/1975 Zoster Vaccines (1 of 2) 08/28/1975 RSV Immunization Adult Patients (1 - Risk 50-74 years 1-dose series) 2006 Hepatitis B Vaccines (1 of 3 - Risk 3-dose series) 2016 Pneumococcal Vaccine: 50+ Years (2 of 2 - PPSV23, PCV20, or PCV21) 12/14/2021 10/19/2021 Abdominal Aortic Aneurysm (AAA) Screen 01/20/2022 Cholesterol Screening (Lipid Panel) 01/20/2022 Hepatitis C Screening 01/20/2022 Social Influencers of Health Screening 01/20/2022 Diabetes: Annual Urine Albumin-Creatinine Ratio (uACR) 01/28/2022 Diabetes: Blood Sugar Control Test (HGBA1C) 01/28/2022 Depression Screening 02/14/2024 COVID-19 Vaccine (8 - Moderna risk season) 2024 02/24/2024, 11/19/2022, 11/29/2021, Additional history exists Influenza Vaccine (#1) 2024 , 11/19/2022, 10/19/2021, Additional history exists Falls Risk Assessment 04/26/2025 04/26/2024 Diabetes: Annual GFR (Glomerular Filtration Rate) 10/24/2025 10/24/2024, 07/16/2024, 06/04/2024, Additional history exists Hypertension/CHF/CAD Annual BMP Blood Test 10/24/2025 10/24/2024, 07/16/2024, 06/04/2024, Additional history exists DTaP,Tdap,and Td Vaccines (4 [...] Diagnosis Comments CBC WITH AUTO DIFFERENTIAL Routine 10/24/2024 10:55 AM EDT Prostate CA ([facility] V24, [facility] V28) PROSTATE SPECIFIC ANTIGEN DIAGNOSTIC Routine 10/24/2024 10:55 AM EDT Prostate CA ([facility] V24, [facility] V28) COMPREHENSIVE METABOLIC PANEL Routine 10/24/2024 10:55 AM EDT Prostate CA ([facility] V24, [facility] V28) CBC AND DIFFERENTIAL Routine 10/24/2024 10:55 AM EDT Prostate CA ([facility] V24, [facility] V28) from Last 3 Months Results * Prostate specific antigen diagnostic (10/24/2024 10:55 AM EDT) PSA <0.06 0.00 - 4.00 ng/mL LAB CHEMISTRY METHOD 10/24/2024 1:54 PM EDT [facility] Blood Venous blood specimen / Unknown Venipuncture / Unknown 10/24/2024 10:55 AM EDT 10/24/2024 11:24 AM EDT Narrative [facility] - 10/24/2024 1:54 PM EDT The Siemens Advia Centaur Chemiluminescent Immunoassay is used. Results obtained with different assay methods or kits cannot be used interchangeably. Results cannot be interpreted as absolute evidence of the presence or absence of malignant disease. us Migel Jacobs MD LAB BLOOD ORDERABLES Final Result [facility] [address] [place] [address], * (ABNORMAL) CBC auto differential (10/24/2024 10:55 AM EDT) Pathologist [facility] WBC 10.3 4.8 - 10.8 K/mcL LAB HEMETOLOGY METHOD 10/24/2024 11:36 AM [facility] RBC 4.60 4.50 - 5.50 M/mcL LAB HEMETOLOGY METHOD 10/24/2024 11:36 AM [facility] Hemoglobin 12.6(L) 13.5 - 17.5 g/dL LAB HEMETOLOGY METHOD 10/24/2024 11:36 AM [facility] Hematocrit 39.3(L) 42.0 - 54.0 % LAB HEMETOLOGY METHOD 10/24/2024 11:36 AM [facility] MCV 86.2 79.0 - 98.0 FL LAB HEMETOLOGY METHOD 10/24/2024 11:36 AM [facility] MCH 27.6 27.0 - 32.0 pcg LAB HEMETOLOGY METHOD 10/24/2024 11:36 AM [facility] MCHC 32.1 32.0 - 37.0 g/dL LAB HEMETOLOGY METHOD 10/24/2024 11:36 AM [facility] RDW 16.2(H) 11.0 - 15.0 % LAB HEMETOLOGY METHOD 10/24/2024 11:36 AM [facility] Platelets 285 130 - 400 K/[facility] LAB HEMETOLOGY METHOD 10/24/2024 11:36 AM [facility] MPV 9.3 7.0 - 11.0 FL LAB HEMETOLOGY METHOD 10/24/2024 11:36 AM [facility] NRBC 0.0 <1.0 % LAB HEMETOLOGY METHOD 10/24/2024 11:36 AM [facility] NRBC Absolute 0.00 <0.10 K/mcL LAB HEMETOLOGY METHOD 10/24/2024 11:36 AM [facility] Neutrophils Relative 63.5 % LAB HEMETOLOGY METHOD 10/24/2024 11:36 AM [facility] Lymphocytes Relative 28.9 % LAB HEMETOLOGY METHOD 10/24/2024 11:36 AM [facility] Monocytes Relative 5.2 % LAB HEMETOLOGY METHOD 10/24/2024 11:36 AM [facility] Eosinophils Relative 0.9 % LAB HEMETOLOGY METHOD 10/24/2024 11:36 AM [facility] Basophils Relative 0.6 % LAB HEMETOLOGY METHOD 10/24/2024 11:36 AM [facility] Immature Granulocytes Relative 0.9 % LAB HEMETOLOGY METHOD 10/24/2024 11:36 AM [facility] Neutrophils Absolute 6.57 1.50 - 7.00 K/mcL LAB HEMETOLOGY METHOD 10/24/2024 11:36 AM [facility] Lymphocytes Absolute 2.99 1.00 - 5.00 K/mcL LAB HEMETOLOGY METHOD 10/24/2024 11:36 AM [facility] Monocytes Absolute 0.54 0.20 - 1.00 K/mcL LAB HEMETOLOGY METHOD 10/24/2024 11:36 AM [facility] Eosinophils Absolute 0.09 0.00 - 0.50 K/mcL LAB HEMETOLOGY METHOD 10/24/2024 11:36 AM [facility] Basophils Absolute 0.06 0.00 - 0.20 K/mcL LAB HEMETOLOGY METHOD 10/24/2024 11:36 AM [facility] Immature Granulocytes Absolute 0.09(H) 0.00 - 0.03 K/mcL LAB HEMETOLOGY METHOD 10/24/2024 11:36 AM [facility] Blood Venous blood specimen / Unknown Venipuncture / Unknown 10/24/2024 10:55 AM EDT 10/24/2024 11:24 AM EDT us Migel Jacobs MD LAB BLOOD ORDERABLES Final Result [facility] [address] [place] [address], [place] [phone] * (ABNORMAL) Comprehensive metabolic panel (10/24/2024 10:55 AM EDT) Pathologist [facility] Sodium 142 133 - 145 mmol/L LAB CHEMISTRY METHOD 10/24/2024 1:30 PM EDT [facility] Potassium 3.9 3.5 - 5.5 mmol/L LAB CHEMISTRY METHOD 10/24/2024 1:30 PM [facility] Chloride 107 96 - 110 mmol/L LAB CHEMISTRY METHOD 10/24/2024 1:30 PM [facility] CO2 27 21 - 32 mmol/L LAB CHEMISTRY METHOD 10/24/2024 1:30 PM [facility] Anion Gap 8 3 - 11 LAB CHEMISTRY METHOD 10/24/2024 1:30 PM [facility] Glucose 199(H) 70 - 100 mg/dL LAB CHEMISTRY METHOD 10/24/2024 1:30 PM [facility] BUN 17 5 - 25 mg/dL LAB CHEMISTRY METHOD 10/24/2024 1:30 PM T [facility] Creatinine 0.94 0.70 - 1.30 mg/dL LAB CHEMISTRY METHOD 10/24/2024 1:30 PM [facility] eGFR 88 >=60 mL/min/1. 73m2 LAB CHEMISTRY METHOD 10/24/2024 1:30 PM [facility] Comment:Calculation based on the Chronic Kidney Disease Epidemiology Collaboration (CKD-EPI) equation refit without adjustment for race. BUN/Creatinine Ratio 18.1 LAB CHEMISTRY METHOD 10/24/2024 1:30 PM EDT [facility] Calcium 9.0 8.5 - 10.5 mg/dL LAB CHEMISTRY METHOD 10/24/2024 1:30 PM EDT [facility] AST (SGOT) 15 10 - 42 unit/L LAB CHEMISTRY METHOD 10/24/2024 1:30 PM EDT [facility] ALT (SGPT) 22 10 - 60 unit/L LAB CHEMISTRY METHOD 10/24/2024 1:30 PM EDT [facility] Alkaline Phosphatase 100 42 - 121 unit/L LAB CHEMISTRY METHOD 10/24/2024 1:30 PM EDT [facility] Total Protein 6.4 6.0 - 8.0 g/dL LAB CHEMISTRY METHOD 10/24/2024 1:30 PM EDT [facility] Albumin 3.5 3.2 - 5.0 g/dL LAB CHEMISTRY METHOD 10/24/2024 1:30 PM EDT [facility] Total Bilirubin 0.6 0.0 - 1.4 mg/dL LAB CHEMISTRY METHOD 10/24/2024 1:30 PM T [facility] Blood Venous blood specimen / Unknown Venipuncture / Unknown 10/24/2024 10:55 AM EDT 10/24/2024 11:24 AM EDT Migel Jacobs MD LAB BLOOD ORDERABLES Final Result [facility] [address] [place] [address], from Last 3 Months Insurance [employer] Care Teams City Carrier Relationship Specialty Start Date End Date Melissa Childs [address] [facility] [address] [place] [phone] PCP - General 07/27/23
--- OUTSIDE RECORDS SUMMARY | 2024-12-20 15:51 | XMS_ITS ---
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 09/24/19 17 Current Oncology Plans BCN DENOSUMAB 60MG (PROLIA)* Plan Start Date:07/25/2023 Plan Provider:Migel Jacobs MD Linked Problems Prostate CA (HCC) Treatment Medications denosumab (PROLIA)Triptoreli n Pamoate Susr Past Plans ONCOLOGY INFUSION THERAPY Plan Name Start Date Discontinue Date Treatment Medications Discontinue Reason Plan Provider [facility] DENOSUMAB 60MG (PROLIA) 11/04/2022 07/24/2023 denosumab (PROLIA) Therapy Complete Migel Jacobs MD BCN DENOSUMAB 60MG (PROLIA) 11/26/2021 11/03/2022 denosumab (PROLIA) Therapy Complete Migel Jacobs MD Radiation Treatments * No radiation treatments are documented for this patient in [facility]. Treatments may have been administered in another system.
--- OUTSIDE RECORDS SUMMARY | 2024-12-20 15:51 | XMS_ITS | Encounter Summary ---
Author Organization [facility] Address [address] [place] [address] [place] [phone] Phone Care Team Providers Care Housekeeping Manager Name Role Phone Damaris Conley MD Primary Care Provider [phone] Andrez Stahl MD Unavailable [phone] Néstor Valdez MD Unavailable [phone] Encounter Details Date Type Department Care Team (Late st Contact Info) Description 05/20/2016 Procedure Pass MRI, [facility] - [address], [address] [place] [id number] Social History Tobacco Use Types Packs/Day Years [...] on filedocumented in this encounter Care Teams Housekeeping Manager Relationship Specialty Start Date End Date Damaris Conley MD PCP - General Internal Medicine 09/15/15 Andrez Stahl MD [address] [place] [address], [address] [address] Urology 09/12/16 Néstor Valdez MD [address] [place] [phone] [email or web address] 09/12/16 documented as of this encounter Additional Source Comments The information contained in this document represents components of the legal health record. It is not the complete legal health record.[facility]
--- OUTSIDE RECORDS SUMMARY | 2024-12-20 15:51 | XMS_ITS | Clinical Summary ---
Author Organization [facility] Address [address] [place] [phone] Phone Care Team Providers Care District Branch Manager Name Role Phone Damaris Conley MD Primary Care Provider Andrez Stahl MD Unavailable [phone] Néstor Valdez MD Unavailable Allergies Active Allergy Reactions Criticality Noted Date [...] N1, M1, PSA Level: 20 or greater, Donnell 8-10 - Poorly differentiated/undifferentiated (marked anaplasia), Stage Date: 06/30/15) - Signed by Jose F Puntam MD, PhD on 09/13/2016 Family History Medical [...] 06/23/2017 06/23/2016 Adult Td,Tdap Booster 01/30/2022 01/31/2012 INFLUENZA VACCINE (#1) 2024 0, 10/20/2017, 12/23/2016, Additional history exists COVID-19 VACCINE (2024- season) 2024 05/14/2020, 04/16/2020 RSV VACCINE (1 - 1-dose [...] EDT) Creatinine 0.70 0.60 - 1.50 mg/dl [facility] 06/23/2016 1:24 PM EDT 06/23/2016 1:33 PM EDT Silvre Lebron MD POINT OF CARE TEST ORDERABLES Final Result [address] [address] from Last 3 Months or Most Recently Relevant to Health Maintenance Insurance [employer] EPO [employer] [place] [address] [place] [address] [place] [address] [place] [address] [address] [place] [address] [address] [place], [place] [address]O POS EPO [employer] EPO [employer] EPO [employer] EPO Care Teams District Branch Manager Relationship Specialty Start Date End Date Damaris Conley MD PCP - General Internal Medicine 09/15/15 Andrez Stahl MD [address] [place] [address], [address] [address] [email or web address] Urology 09/12/16 Néstor Valdez MD [address] [place] [phone] [email or web address] [email or web address] 09/12/16 Additional Source Comments The information contained in this document represents components of the legal health record. It is not the complete legal health record.[facility]
--- OUTSIDE RECORDS SUMMARY | 2024-12-20 15:51 | XMS_ITS | Clinical Summary ---
Author Organization [facility] Address [address] [place] [address] Care Team Providers Care Technology Infusion Specialist Name Role Phone Melissa Childs NP [...] age to complete this topic Care Teams Technology Infusion Specialist Relationship Specialty Start Date End Date Melissa Childs, ELECTRICIAN FRONT [address] [facility] [address] [place] [address] PCP - General Nurse Practitioner 07/27/23
--- OUTSIDE RECORDS SUMMARY | 2024-12-20 15:51 | XMS_ITS ---
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
[2024-12-20 18:00] LABS: MANUAL DIFF FLAG NO
[2024-12-20 18:27] LABS: Alanine Aminotransferase 17 U/L (0-40); Albumin Level 4.0 g/dL (3.5-5.0); Alkaline Phosphatase 94 U/L (39-117); Anion Gap 12 (12-20); Aspartate Amino Transferase 23 U/L (5-37); Blood Urea Nitrogen 13 mg/dL (9-16); Calcium 9.2 mg/dL (8.4-10.2); Carbon Dioxide 29 mmol/L (22-29); Chloride 106 mmol/L (96-108); Cholesterol 158 mg/dL (<200); Estimated Glomerular Filt Rate > 60; HDL Cholesterol 34 mg/dL (>40); Potassium 3.8 mmol/L (3.3-5.1); Sodium 143 mmol/L (135-145); Total Protein 6.8 g/dL (6.5-8.0); Triglycerides 130 mg/dL (<150)
[2024-12-20 18:28] LABS: Hematocrit 42.7 % (42.0-52.0); Hemoglobin 13.3 g/dl (14.0-18.0); Imm Gran Abs Auto 0.06 X10*3/uL (0.00-0.03); Imm Gran Pct Auto 0.6 % (0.0-0.4); Lymphocytes Absolute Auto 3.0 X10*3/uL (1.2-4.9); Mean Corpuscular HGB Conc 31.1 g/dl (31.0-36.0); Mean Corpuscular Hemoglobin 27.6 pg (27.0-33.0); Mean Corpuscular Volume 88.6 fL (80.0-98.0); NRBC Abs Auto 0.000 X10*3/uL (0.0-0.012); NRBC Pct Auto 0.0 /100WBC (0.0-0.2); Platelet Count 330 X10*3/uL (160-400); Red Blood Count 4.82 X10*6/uL (4.60-5.80); White Blood Count 10.7 X10*3/uL (4.8-10.8)
== END 2024-12-20 14:03 | disposition home or self-care (01) ==
LOC: HO.WFDLDS 14:02
PROVIDERS: Visit Provider Internal Medicine
DX: E11.65 Type 2 diabetes mellitus with hyperglycemia (principal); J44.9 Chronic obstructive pulmonary disease, unspecified; R09.02 Hypoxemia; Z79.4 Long term (current) use of insulin
CPT/HCPCS: 36415; 80053; 80061; 83036; 85025

== ENCOUNTER 2024-12-23 14:39 | Outpatient (AMB) | payer OTHER, SELFPAY ==
--- OUTSIDE RECORDS SUMMARY | 2015-07-19 23:00 | XMS_ITS | Encounter Summary ---
Author Organization [facility] Address [address] [facility] [address] [place] [address] Phone Care Team Providers Care Insurance Service Representative Name Role Phone Unavailable Primary Care Provider Unavailabl e Reason for Visit * MRI/CAT Scan - Closed Specialty Diagnoses / Procedures Referred By Contac t Referred To Contact Radiology Procedures MRI Abdomen Outside (No Interpretation) Silver Lebron MD [address] [place] [address] Phone: tel: fax: mailto:[email or web address] Referral ID Status Reason Start Date Expiration Date Visits Re quested Visits Authorized [id number] Closed 09/25/2015 09/24/2016 1 1 Encounter Details Date Type Department Care Team ([facility] st Contact Info) Description 07/20/2015 Hospital Encounter [facility] Imaging [address] [place] [address] Silver Lebron MD [address] [place] [address] [email or web address] Social History Tobacco Use Types Packs/Day Years Used Date Smoking Tobacco: Never Smokeless Tobacco: Never Alcohol Use Standard Drinks/Week Comments Yes 0 (1 standard drink = 0.6 oz pur e alcohol) rare Education Answer Date Recorded Are you interested in more education? Not on kevin e 06/10/2022 Are you concerned about learning? Not on file 06/10/2022 No 06/10/2022 No 06/10/2022 Digital Access Answer Date Recorded No 07/11/2022 No 07/11/2022 No 07/11/2022 Reliable internet access at home? Not on file 07/11/2022 Device with a working camera? Not on file Sex and Gender Information Value Date Recorded Sex Assigned at Not on file Legal Sex Male 2:46 PM EDT Gender Identity Not on file Sexual Orientation Not on file documented as of this encounter Plan of Treatment Not on file documented as of this encounter Procedures Procedure Name Priority Date/Time Associated Diagnosis Comments MRI ABDOMEN OUTSIDE (NO INTERPRETATION) Routine 07/20/2015 12:00 AM EDT documented in this encounter Results * MRI Abdomen Outside (No Interpretation) (07/20/2015 12:00 AM EDT) Narrative [facility] [place] INTER[place]ACES - 09/25/2015 7:13 AM EDT This study is for PACS storage only and not for interpretation. Procedure Note SYSTEMGENERATED, DOCUMENTATION - 09/25/2015 This study is for PACS storage only and not for interpretation. us Silver Lebron MD IMG OUTSIDE IMAGING W/OUT INTE RPRETATION Final Result [facility] [place] [facility] INTERFACES documented in this encounter Visit Diagnoses Not on filedocumented in this encounter Additional Source Comments The information contained in this document represents components of the legal health record. It is not the complete legal health record.[facility]
--- OUTSIDE RECORDS SUMMARY | 2015-08-13 23:00 | XMS_ITS | Encounter Summary ---
Author Organization [facility] Address [address] [facility] [address] [place] [address] Phone Care Team Providers Care Ammonia Print Operator Name Role Phone Unavailable Primary Care Provider Unavailabl e Encounter Details Date Type Department Care Team (Late st Contact Info) Description 08/14/2015 Hospital Encounter [facility] [address] [place] [address] Silver Lebron MD [address] [facility] [place] [address] [email or web address] Social History Tobacco Use Types Packs/Day Years [...] (No Interpretation) (08/14/2015 12:00 AM EDT) Narrative [facility] [place] INTERFACES - 09/25/2015 7:13 AM EDT This study is for PACS storage only and not for interpretation. Procedure Note SYSTEMGENERATED, DOCUMENTATION - 09/25/2015 This study is for PACS storage only and not for interpretation. us Silver Lebron MD IMG OUTSIDE IMAGING W/OUT INTE RPRETATION Final Result [facility] [place] [facility] INTERFACES documented in this encounter Visit Diagnoses Not on filedocumented in this encounter Additional Source Comments The information contained in this document represents components of the legal health record. It is not the complete legal health record.[facility]
--- NOTE | 2024-12-23 14:41 | A.OFFPC_ITS ---
Vital Signs 12/23/24 14:42 Height 5 ft 10 in Weight 263 lb BMI 37.7 BP 102/74 Blood Pressure Location Lt brachial Position Sitting Respiration 14 Pulse 101 H Pulse Source Pulse Oximeter Pulse Oximetry (%) 90 L Oxygen Delivery Method Room Air Intake Visit Reasons: 2 month in person follow up DM Intake Note: Two month follow up. Needs a doctor note with medication for a Cruise. [employer] Advanced Operator Maintainer Required: No Allergies Iodinated Contrast Media Allergy (Severe, Verified 12/23/24 14:44) Hives doxycycline Allergy (Mild, Verified 12/23/24 14:44) Vomiting Tobacco use date assessed: 10/22/24 Dental Screening Dental Screen Date: 09/03/24 HPI HPI Comments History of Present Illness Details Patient is a 69-year-old male with insulin-dependent diabetes, prostate cancer, hypertension, neuropathy, GERD presenting for follow up Heme/Onc: Prostate cancer dx 2017. Now with bony metastases and significant pain. Has taken 1 or 2 oxycodone. Tries to avoid. Rib fracture a few months ago. Tylenol prn. On trelstar, xtandi which has lessened his psa. Upcoming cruise Type 2 diabetes: Recent A1C 7.3%. 8.9% end of January 2024. 05/14/2024. On Lantus 70 units nightly and aspart t.i.d. CC as well as glipizide 20 mg daily, jardiance and mounjaro 5mg daily. Neuropathy on Lyrica 200 mg twice daily. Saw pulmonary. Stable on anoro. Has had LDCT Colonoscopy at age 51 ROS see HPI PHYSICAL EXAM: GENERAL: Alert and oriented x 3. NAD EYES: EOMI. Anicteric. HENT: Moist mucous membranes. No scleral icterus. No cervical lymphadenopathy. LUNGS: Clear to auscultation bilaterally. CARDIOVASCULAR: Regular rate and rhythm. No murmur. No JVD. ABDOMEN: Soft, obese, non-tender +bs EXTREMITIES: No edema. Non-tender. SKIN: No rashes or lesions. Warm. NEUROLOGIC: No focal neurological deficits. CN II-XII grossly intact PSYCHIATRIC: Cooperative. Appropriate mood and affect [facility] Medical History Hernia Surgical History H/O vasectomy History of hernia surgery Family History Sister FH: mental illness Substance abuse Mother Diabetes Social History Housing: House Alcohol intake: current Patient Tobacco Use Status: Former Tobacco user Cigarette Packs Per Day: 4 Years Smoked: 35 e-Cigarette/Vaping Use: Never Used Second Hand Smoke Exposure: No Cognitive needs: No Hearing needs: No Vision needs: Yes (glasses) Questionnaire Thrive Questionnaire Date Thrive assessed: 03/15/24 I am a: Patient What is your living situation today?: I have a steady place to live Within the past 12 months, did the food you bought not last and you didn't have the money to get more?: Never true Within the past 12 months, did you worry whether your food would run out before you got money to buy more?: Never true Do you have trouble paying for medicines?: No Do you have trouble getting transportation to medical appointments?: No Do you have trouble paying your heating and electricity bill?: No Do you have trouble taking care of your child, family member or friend?: No Do you have trouble with day-to-day activities such as bathing, preparing meals, shopping, managing finances, etc.?: No Are you currently unemployed and looking for a job?: No Are you interested in more education?: Yes Please select the resources that you would like help with: Education Currently or been in a relationship where the following occur: I choose not to answer THRIVE Score: 0 SUJATHA-7 AMB Questionnaire SUJATHA-7 Date SUJATHA - 7 assessed: 02/12/24 Source: Developed by Drs. Sandro Pineda, Vanesa Worrell, Liang Mckee and colleagues, with an educational gema from [employer]. Physical exam (Primary Care) Vital Signs: Last Vital Signs Pulse 101 H 12/23/24 14:42 Resp 14 12/23/24 14:42 BP 102/74 12/23/24 14:42 Pulse Ox 90 L 12/23/24 14:42 Oxygen Delivery Method Room Air 12/23/24 14:42 BMI result Body Mass Index 37.7 Tobacco/Smoking Status: Tobacco use Status Tobacco use date assessed 10/22/24 12/23/24 14:41 Patient Tobacco Use Status Former Tobacco user 12/23/24 14:41 e-Cigarette/Vaping Use Never Used 12/23/24 14:41 Thrive Assessment: Date of Thrive Assessment Date Thrive assessed 03/15/24 12/23/24 14:41 Currently or been in a relationship where the following occur: I choose not to answer Coding Level of Care Code Est Pt Level 4 (67403) Complex EM visit Add On G2211 Diagnoses Type 2 diabetes mellitus with hyperglycemia, with long-term current use of insulin E11.65; Z79.4 Diabetes mellitus intermediate frame tender insulin use: with intermediate frame tender use Diabetes mellitus complication status: with hyperglycemia Type 2 diabetes mellitus with hyperglycemia, with long-term current use of insulin E11.65; Z79.4 Diabetes mellitus complication status: with hyperglycemia Prostate cancer metastatic to bone C61; C79.51 Chronic obstructive pulmonary disease, unspecified COPD type J44.9 COPD type: unspecified COPD BUTCH (obstructive sleep apnea) G47.33 Assessment & Plan Assessment & Plan (1) Type 2 diabetes mellitus: Code(s): E11.9 - Type 2 diabetes mellitus without complications Category: Medical Qualifiers: Diabetes mellitus fpc insulin use: with intermediate frame tender use Diabetes mellitus complication status: with hyperglycemia Qualified Code(s): E11.65 - Type 2 diabetes mellitus with hyperglycemia; Z79.4 - snf (current) use of insulin (2) Insulin use (long-term) in type 2 diabetes: Code(s): E11.9 - Type 2 diabetes mellitus without complications; Z79.4 - termite exterminator helper (current) use of insulin Category: Medical Qualifiers: Diabetes mellitus complication status: with hyperglycemia Qualified Code(s): E11.65 - Type 2 diabetes mellitus with hyperglycemia; Z79.4 - snf (current) use of insulin (3) Prostate cancer metastatic to bone: Code(s): C61 - Malignant neoplasm of prostate; C79.51 - Secondary malignant neoplasm of bone Category: Medical (4) COPD (chronic obstructive pulmonary disease): Code(s): J44.9 - Chronic obstructive pulmonary disease, unspecified Category: Medical Qualifiers: COPD type: unspecified COPD Qualified Code(s): J44.9 - Chronic obstructive pulmonary disease, unspecified (5) BUTCH (obstructive sleep apnea): Code(s): G47.33 - Obstructive sleep apnea (adult) (pediatric) Category: Medical Plan 69 year old male presenting for follow up Interval history reviewed Recent labs reviewed Diabetes is slightly suboptimal on current regimen. Continues to improve. Increase mounjaro to 7.5mg Prostate cancer stable -continue onc follow up Orders: Orders Hemoglobin A1c 12/23/24 C61 - Malignant neoplasm of prostate, C79.51 - Secondary malignant neoplasm of bone, E11.65 - Type 2 diabetes mellitus with hyperglycemia, Z79.4 - termite exterminator helper (current) use of insulin Comprehensive Met. Panel 12/23/24 C61 - Malignant neoplasm of prostate, C79.51 - Secondary malignant neoplasm of bone, E11.65 - Type 2 diabetes mellitus with hyperglycemia, Z79.4 - snf (current) use of insulin Medications: New 2 pen needle, diabetic 4 times daily 400 ea 3RF E11.65 - Type 2 diabetes mellitus with hyperglycemia, Z79.4 - termite exterminator helper (current) use of insulin Mounjaro (tirzepatide) 7.5 mg (0.5 mL) subcut QWEEK 6 mL 3RF NS Discontinued Mounjaro (tirzepatide) Discontinued Reason: Doctor's Order 5 mg (0.5 mL) subcut QWEEK 2 mL 3RF NS E11.65 - Type 2 diabetes mellitus with hyperglycemia, G47.33 - Obstructive sleep apnea (adult) (pediatric), Z79.4 - termite exterminator helper (current) use of insulin
[2024-12-23 14:42] VITALS: BP 102/74; PULSE 101; RESP 14; O2SAT 90; BMI 37.7
--- OUTSIDE RECORDS SUMMARY | 2024-12-23 16:57 | XMS_ITS | Encounter Summary ---
Author Organization [facility] Address [address] [place] [address] [place] [phone] Phone Care Team Providers Care Waste Collector Name Role Phone Damaris Conley MD Primary Care Provider Andrez Stahl MD Unavailable [phone] Néstor Valdez MD Unavailable Encounter Details Date Type Department Care Team (Late st Contact Info) Description 05/20/2016 Procedure Pass MRI, [facility] - [address], [address] [place] [id number] Social History Tobacco Use Types Packs/Day Years [...] on filedocumented in this encounter Care Teams Waste Collector Relationship Specialty Start Date End Date Damaris Conley MD PCP - General Internal Medicine 09/15/15 Andrez Stahl MD [address] [place] [address], [address] [address] Urology 09/12/16 Néstor Valdez MD [address] [place] [phone] [email or web address] Medical Oncology 09/12/16 documented as of this encounter Additional Source Comments The information contained in this document represents components of the legal health record. It is not the complete legal health record.[facility]
--- OUTSIDE RECORDS SUMMARY | 2024-12-23 16:57 | XMS_ITS ---
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/HCC V24, CMS/HCC V28) 09/23/2016 Overview (10/30/2023): Prostate cancer Prostate CA (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/HCC V24, CMS/HCC V28)Prostate CA (CMS/HCC V24, CMS/HCC V28) Treatment Medications No medications scheduled. 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
--- OUTSIDE RECORDS SUMMARY | 2024-12-23 16:57 | XMS_ITS | Clinical Summary ---
Author Organization [facility] Address [address] [place] [address] Phone Care Team Providers Care It Program Auditor Name Role Phone Damaris Conley MD Primary Care Provider Andrez Stahl MD Unavailable [phone] Néstor Valdez MD Unavailable [phone] Allergies Active Allergy Reactions Criticality Noted Date [...] N1, M1, PSA Level: 20 or greater, [place] 8-10 - Poorly differentiated/undifferentiated (marked anaplasia), Stage [...] EDT) Creatinine 0.70 0.60 - 1.50 mg/dl [facility] 06/23/2016 1:24 PM EDT 06/23/2016 1:33 PM EDT Silver Lebron MD POINT OF CARE TEST ORDERABLES Final Result [address] [address] from Last 3 Months or Most Recently Relevant to Health Maintenance [facility] EPO [facility] [place] [address] [place] [id number] [address] [place], [place] [address] [place] [address] [place], [place] [address] [place]PO [address] [place], [place] [address] POS EPO [facility] POS [facility]PO [facility] POS EPO [facility] POS EPO Care Teams It Program Auditor Relationship Specialty Start Date End Date Damaris Conley MD PCP - General Internal Medicine 09/15/15 Andrez Stahl MD [address] [place] [address], [address] [address] [email or web address] Urology 09/12/16 Néstor Valdez MD [address] [place] [phone] [email or web address] [email or web address] 09/12/16 Additional Source Comments The information contained in this document represents components of the legal health record. It is not the complete legal health record.[facility]
--- OUTSIDE RECORDS SUMMARY | 2024-12-23 16:57 | XMS_ITS | Clinical Summary ---
Author Organization [facility] Address [address] [place] [address] Phone Care Team Providers Care Commercial Diver Name Role Phone Melissa Childs Primary Care Provider [phone] Allergies Active Allergy Reactions Criticality Noted Date [...] 09/23/2016 Overview (10/30/2023): Prostate cancer Prostate CA ([facility]/HCC V24, [facility]/HCC V28) 7 Encounters Date Type Department Care Team Description 10/28/2024 9:30 AM EDT Office Visit 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 [address] [place] [phone] Migel Jacobs MD Prostate CA ([facility]/HCC V24, CMS/HCC V28) (Primary Dx); Metastatic adenocarcinoma [...] Info) Description 01/03/2025 11:[address] [facility] [address] [phone] 03/31/2025 9:15 AM EST Office Visit [facility] On[facility] [address] [place] [phone] Migel Jacobs MD [address] [place] [address] Health Maintenance Due Date Last Done Comments [...] (HGBA1C) 01/28/2022 Depression Screening 02/14/2024 COVID-19 Vaccine ( season) 2024 02/24/2024, 11/19/2022, 11/29/2021, Additional history [...] Routine 10/24/2024 10:55 AM EDT Prostate CA ([facility] [place], [facility] V28) PROSTATE SPECIFIC ANTIGEN DIAGNOSTIC Routine 10/24/2024 10:55 AM EDT Prostate CA ([facility] [place], [facility] V28) COMPREHENSIVE METABOLIC PANEL Routine 10/24/2024 10:55 AM EDT Prostate CA ([facility] [place], [facility] V28) CBC AND DIFFERENTIAL Routine 10/24/2024 10:55 AM EDT Prostate CA ([facility] [place], [facility] V28) from Last 3 Months Results * Prostate specific antigen diagnostic (10/24/2024 10:55 AM EDT) Pathologist [facility] PSA <0.06 0.00 - 4.00 ng/mL LAB CHEMISTRY METHOD 10/24/2024 1:54 PM EDT [facility] Blood Venous blood specimen / Unknown Venipuncture / Unknown 10/24/2024 10:55 AM EDT 10/24/2024 11:24 AM EDT Narrative [facility] - 10/24/2024 1:54 PM EDT The Siemens Advia Centaur Chemiluminescent Immunoassay is used. Results obtained with different assay methods or kits cannot be used interchangeably. Results cannot be interpreted as absolute evidence of the presence or absence of malignant disease. us Migel Jacobs MD LAB BLOOD ORDERABLES Final Result [facility] [address] [place] [address], * (ABNORMAL) CBC auto differential (10/24/2024 10:55 AM EDT) Pathologist [facility] WBC 10.3 4.8 - 10.8 K/mcL LAB HEMETOLOGY METHOD 10/24/2024 11:36 AM [facility] RBC 4.60 4.50 - 5.50 M/mcL LAB HEMETOLOGY METHOD 10/24/2024 11:36 AM [facility] Hemoglobin 12.6(L) 13.5 - 17.5 g/dL LAB HEMETOLOGY METHOD 10/24/2024 11:36 AM [facility] Hematocrit 39.3(L) 42.0 - 54.0 % LAB HEMETOLOGY METHOD 10/24/2024 11:36 AM [facility] MCV 86.2 79.0 - 98.0 FL LAB HEMETOLOGY METHOD 10/24/2024 11:36 AM [facility] MCH 27.6 27.0 - 32.0 pcg LAB HEMETOLOGY METHOD 10/24/2024 11:36 AM [facility] MCHC 32.1 32.0 - 37.0 g/dL LAB HEMETOLOGY METHOD 10/24/2024 11:36 AM [facility] RDW 16.2(H) 11.0 - 15.0 % LAB HEMETOLOGY METHOD 10/24/2024 11:36 AM [facility] Platelets 285 130 - 400 K/mcL LAB HEMETOLOGY METHOD 10/24/2024 11:36 AM [facility] MPV 9.3 7.0 - 11.0 FL LAB HEMETOLOGY METHOD 10/24/2024 11:36 AM [facility] NRBC 0.0 <1.0 % LAB HEMETOLOGY METHOD 10/24/2024 11:36 AM [facility] NRBC Absolute 0.00 <0.10 K/mcL LAB HEMETOLOGY METHOD 10/24/2024 11:36 AM [facility] Neutrophils Relative 63.5 % LAB HEMETOLOGY METHOD 10/24/2024 11:36 AM [facility] Lymphocytes Relative 28.9 % LAB HEMETOLOGY METHOD 10/24/2024 11:36 AM [facility] Monocytes Relative 5.2 % LAB HEMETOLOGY METHOD 10/24/2024 11:36 AM [facility] Eosinophils Relative 0.9 % LAB HEMETOLOGY METHOD 10/24/2024 11:36 AM [facility] Basophils Relative 0.6 % LAB HEMETOLOGY METHOD 10/24/2024 11:36 AM [facility] Immature Granulocytes Relative 0.9 % LAB HEMETOLOGY METHOD 10/24/2024 11:36 AM [facility] Neutrophils Absolute 6.57 1.50 - 7.00 K/mcL LAB HEMETOLOGY METHOD 10/24/2024 11:36 AM [facility] Lymphocytes Absolute 2.99 1.00 - 5.00 K/mcL LAB HEMETOLOGY METHOD 10/24/2024 11:36 AM [facility] Monocytes Absolute 0.54 0.20 - 1.00 K/mcL LAB HEMETOLOGY METHOD 10/24/2024 11:36 AM [facility] Eosinophils Absolute 0.09 0.00 - 0.50 K/mcL LAB HEMETOLOGY METHOD 10/24/2024 11:36 AM [facility] Basophils Absolute 0.06 0.00 - 0.20 K/mcL LAB HEMETOLOGY METHOD 10/24/2024 11:36 AM [facility] Immature Granulocytes Absolute 0.09(H) 0.00 - 0.03 K/mcL LAB HEMETOLOGY METHOD 10/24/2024 11:36 AM [facility] Blood Venous blood specimen / Unknown Venipuncture / Unknown 10/24/2024 10:55 AM EDT 10/24/2024 11:24 AM EDT us Migel Jacobs MD LAB BLOOD ORDERABLES Final Result [facility] [address] [place] [address], [place] [phone] * (ABNORMAL) Comprehensive metabolic panel (10/24/2024 10:55 AM EDT) Pathologist [facility] Sodium 142 133 - 145 mmol/L LAB CHEMISTRY METHOD 10/24/2024 1:30 PM EDT [facility] Potassium 3.9 3.5 - 5.5 mmol/L LAB CHEMISTRY METHOD 10/24/2024 1:30 PM [facility] Chloride 107 96 - 110 mmol/L LAB CHEMISTRY METHOD 10/24/2024 1:30 PM [facility] CO2 27 21 - 32 mmol/L LAB CHEMISTRY METHOD 10/24/2024 1:30 PM [facility] Anion Gap 8 3 - 11 LAB CHEMISTRY METHOD 10/24/2024 1:30 PM [facility] Glucose 199(H) 70 - 100 mg/dL LAB CHEMISTRY METHOD 10/24/2024 1:30 PM [facility] BUN 17 5 - 25 mg/dL LAB CHEMISTRY METHOD 10/24/2024 1:30 PM [facility] Creatinine 0.94 0.70 - 1.30 mg/dL LAB CHEMISTRY METHOD 10/24/2024 1:30 PM [facility] eGFR 88 >=60 mL/min/1. 73m2 LAB CHEMISTRY METHOD 10/24/2024 1:30 PM [facility] Comment:Calculation based on the Chronic Kidney Disease Epidemiology Collaboration (CKD-EPI) equation refit without adjustment for race. BUN/Creatinine Ratio 18.1 LAB CHEMISTRY METHOD 10/24/2024 1:30 PM EDT [facility] Calcium 9.0 8.5 - 10.5 mg/dL LAB CHEMISTRY METHOD 10/24/2024 1:30 PM EDT [facility] AST (SGOT) 15 10 - 42 unit/L LAB CHEMISTRY METHOD 10/24/2024 1:30 PM EDT [facility] ALT (SGPT) 22 10 - 60 unit/L LAB CHEMISTRY METHOD 10/24/2024 1:30 PM EDT [facility] Alkaline Phosphatase 100 42 - 121 unit/L LAB CHEMISTRY METHOD 10/24/2024 1:30 PM EDT [facility] Total Protein 6.4 6.0 - 8.0 g/dL LAB CHEMISTRY METHOD 10/24/2024 1:30 PM EDT [facility] Albumin 3.5 3.2 - 5.0 g/dL LAB CHEMISTRY METHOD 10/24[facility]24 [facility] Total Bilirubin 0.6 0.0 - 1.4 mg/dL LAB CHEMISTRY METHOD 10/24/2024 1:30 PM T [facility] Blood Venous blood specimen / Unknown Venipuncture / Unknown 10/24/2024 10:55 AM EDT 10/24/2024 11:24 AM EDT Migel Jacobs MD LAB BLOOD ORDERABLES Final Result [facility] [address] [place] [address], from Last 3 Months Insurance [employer] Care Teams Commercial Diver Relationship Specialty Start Date End Date Melissa Childs [address] [phone] PCP - General 07/27/23
== END 2024-12-23 15:14 | disposition home or self-care (01) ==
LOC: HO.HMCFM 14:39
PROVIDERS: PCP Internal Medicine; Visit Provider Internal Medicine
DX: E11.65 Type 2 diabetes mellitus with hyperglycemia (principal); Z79.4 Long term (current) use of insulin; C61 Malignant neoplasm of prostate; C79.51 Secondary malignant neoplasm of bone; J44.9 Chronic obstructive pulmonary disease, unspecified; G47.33 Obstructive sleep apnea (adult) (pediatric)